=== PATIENT | female | born 1935 | race Caucasian/White ===

== ENCOUNTER → 2021-11-21 09:07 | Outpatient (CLI) | payer MEDICARE, SELFPAY | PROVIDERS: PCP Nurse Practitioner; Referring Provider Student in an Organized Health Care Education/Training Program; Visit Provider Student in an Organized Health Care Education/Training Program | DX: T14.8XXA Other injury of unspecified body region, initial encounter (principal); W57.XXXA Bitten or stung by nonvenomous insect and other nonvenomous arthropods, initial encounter | CPT/HCPCS: 36415; 86617 ==

== ENCOUNTER → 2022-02-27 10:29 | Outpatient (CLI) | payer MEDICARE, SELFPAY ==
[2022-02-27 12:56] LABS: Appearance Urine UA CLEAR; Bilirubin Urine UA NEGATIVE (NEGATIVE); Color Urine UA YELLOW; Glucose Urine UA NEGATIVE (Negative); Ketones Urine UA NEGATIVE (NEGATIVE); Leukocyte Esterase Urine UA NEGATIVE (NEGATIVE); Nitrite Urine UA NEGATIVE (Negative); Occult Blood Urine UA NEGATIVE (Negative); Protein Urine UA NEGATIVE (Negative); Urobilinogen Urine UA 0.2 E.U./dL (0.2)
[2022-02-27 13:01] LABS: Alanine Aminotransferase 30 IU/L (<35); Albumin 4.2 g/dL (3.5-5.0); Albumin Globulin Ratio 1.4 (1.0-2.8); Alkaline Phosphatase 63 U/L (38-126); Aspartate Aminotransferase 34 IU/L (14-36); BUN Creatinine Ratio 21.3 (6-22); Bilirubin Total 0.6 mg/dL (0.2-1.3); Blood Urea Nitrogen 13 mg/dL (7-17); Calcium 9.9 mg/dL (8.4-10.2); Carbon Dioxide 31 mmol/L (22-32); Chloride 100 mmol/L (98-107); Cholesterol 133 mg/dL (140-199); Estimated Glomerular Filt Rate > 60 mL/min (>60); Globulin 3.1 g/dL (1.7-4.1); Glucose 93 mg/dL (80-110); HDL Cholesterol 61 mg/dL (40-60); HEMOLYSIS < 15 (0-50); Hemoglobin A1C% w Est Avg Glu 5.7 % (4.0-6.0); LDL Cholesterol Calculated 57 mg/dL (<100); Sodium 137 mmol/L (137-145); Total Protein 7.3 g/dL (6.3-8.2); Triglycerides 73 mg/dL (35-150)
[2022-02-27 13:06] LABS: pH Urine UA 7.5 (4.5-8.0)
[2022-02-27 13:17] LABS: Amorphous Sediment Urine 2+; Bacteria Urine None Seen; Culture Indicated Urine Cult Not Indicated; RBC Urine None Seen (0-5/HPF); Squamous Epithelial Cell Urine None Seen (0-5/HPF); WBC Urine None Seen (0-5/HPF)
[2022-02-27 13:31] LABS: Free T3, Triiodothyronine Free 2.98 pg/mL (2.77-5.27); Free T4, Direct Thyroxine 1.12 ng/dL (0.78-2.19)
[2022-02-27 13:45] LABS: Thyroid Stimulating Hormone 1.22 uIU/mL (0.47-4.68)
[2022-02-27 15:07] LABS: Creatinine Urine Random 53.3 mg/dL
[2022-02-27 15:11] LABS: Microalbumi Creatinin Ratio Ur 13.1 ug/mg CR (<30); Microalbumin Urine Random 0.7 mg/dL (0-1.6)
== END ==
PROVIDERS: PCP Nurse Practitioner; Referring Provider Nurse Practitioner; Visit Provider Nurse Practitioner
DX: I10 Essential (primary) hypertension (principal); Z79.899 Other long term (current) drug therapy; E78.5 Hyperlipidemia, unspecified; F32.A Depression, unspecified; F41.9 Anxiety disorder, unspecified; R30.0 Dysuria
CPT/HCPCS: 36415; 80053; 80061; 81001; 82043; 82570; 83036; 84439; 84443; 84481; 93005; 93010

== ENCOUNTER → 2022-04-17 15:51 | Outpatient (CLI) | payer MEDICARE, SELFPAY ==
--- NOTE | 2022-04-17 15:52 | DI.ECHO.S_ITS ---
[facility]---------+ [facility] +---------+ : : [address] [place] : : : : [id number] : : : : Phone: [phone]+ Echocardiogram Report + + :Name: ROSIE LACY Study Date: 04/17/2022 Height: 60 in : :[facility] ReadingLocation: Weight: 108 lb : : Gender: Female BSA: 1.4 m2 : :: 1935 Age: 86 yrs BP: 157/88 mmHg: :Reason For Study: Essential hypertension : :Ordering Physician: DMITRI, : :SOUMYA Performed By: Agustina Lang : :Referring: SOUMYA RIZVI : + + Interpretation Summary The left ventricle is normal in size. The ejection fraction is estimated to be 65-70%. The right ventricle is normal in size and function. No significant valvular pathology seen. The ascending aorta is mildly enlarged. The IVC is of normal diameter and collapses greater than 50% with a sniff. This suggests a low right atrial pressure of 3 mm Hg. Moderate atherosclerotic plaque(s) in the aortic arch. Procedure: A two-dimensional transthoracic echocardiogram with color flow and Doppler was performed. The patient was in sinus rhythm with heart rates between 76-84 bpm during the exam. Left Ventricle: The left ventricle is normal in size. Left ventricular wall thickness is mildly increased. There is no thrombus. Trabeculae near apex are visualized. No thrombus is observed. The ejection fraction is estimated to be 65-70%. There are no focal wall motion abnormalities. MV E/A: 0.60 Med Peak E' Sheng: 4.5 cm/sec E/E' med: 15.2. Right Ventricle: The right ventricle is normal in size and function. Atria: The left atrium is mildly dilated. The right atrium is mildly dilated. There is no Doppler evidence for an interatrial shunt. Mitral Valve: The mitral valve leaflets are mildly calcified. There is mild mitral annular calcification. There is mild mitral regurgitation. Aortic Valve: The aortic valve is trileaflet. The aortic valve opens well. The aortic valve is slightly calcified. There is no aortic valve stenosis. No aortic regurgitation is present. Tricuspid Valve: The tricuspid valve is normal in structure and function. There is trace tricuspid regurgitation. Pulmonary artery pressures cannot be estimated because of the lack of a measurable TR jet velocity. Pulmonic Valve: The pulmonic valve leaflets are thin and pliable; valve motion is normal. There is no pulmonic valvular regurgitation. Great Vessels: The aortic root is mildly dilated. The ascending aorta is mildly enlarged. Moderate atherosclerotic plaque(s) in the aortic arch. The IVC is of normal diameter and collapses greater than 50% with a sniff. This suggests a low right atrial pressure of 3 mm Hg. Pericardium/ Pleura There is no pericardial effusion. There is no pleural effusion. MMode/2D Measurements & Calculations LVIDd: 4.1 cm LVOT diam: 1.8 cm LVIDs: 2.5 cm Ao root diam: 3.0 cm FS: 39.0 % asc Aorta Diam: 3.9 cm EPSS: 0.10 cm IVSd: 1.0 cm LVPWd: 0.90 cm LV caicedo. diameter/BSA (cm/m^2): 2.9 LV sys. diameter/BSA (cm/m^2): 1.7 LA dimension: 3.3 cm RA long axis: 4.6 cm LA A2 area: 16.1 cm2 RA area: 14.0 cm2 LA A4 area: 14.7 cm2 RA vol: 36.5 ml LA length (vol): 4.7 cm RA : 25.4 ml/m2 LA vol: 43.0 ml LA vol index: 29.9 ml/m2 LVLs ap4: 4.2 cm LVLd ap2: 5.7 cm LVLs ap2: 4.3 cm TAPSE_phl: 2.2 cm Doppler Measurements & Calculations Ao V2 max: 127.0 cm/sec LVOT Max Sheng: 107.0 cm/sec Ao V2 mean: 86.8 cm/sec LV V1 max P.6 mmHg Ao max P.0 mmHg LV V1 VTI: 22.4 cm Ao mean P.0 mmHg EDGAR(I,D): 2.3 cm2 Ao V2 VTI: 24.9 cm EDGAR(V,D): 2.1 cm2 sev ratio: 0.90 EDGAR indexed to BSA (cm^2/m^2): 1.6 MV E max sheng: 67.7 cm/sec TR max sheng: 214.5 cm/sec MV A max sheng: 113.0 cm/sec TR max P.4 mmHg MV E/A: 0.60 PA V2 max: 68.9 cm/sec Med Peak E' Sheng: 4.5 cm/sec PA V2 mean: 50.6 cm/sec E/E' med: 15.2 PA mean P.0 mmHg Lat Peak E' Sheng: 5.5 cm/sec E/E' lat: 12.3 E/e' average: 13.8 MV dec time: 0.26 sec MVA(VTI): 2.4 cm2 MV V2 mean: 68.5 cm/sec SV(LVOT): 57.0 ml MV mean P.0 mmHg MV V2 VTI: 24.0 cm AV VR_phl: 0.84 EDGAR(VTI)/BSA_phl: 1.6 Reading Physician:02:26 PM
== END ==
PROVIDERS: PCP Nurse Practitioner; Referring Provider Nurse Practitioner; Visit Provider Nurse Practitioner
DX: I77.810 Thoracic aortic ectasia (principal); I34.0 Nonrheumatic mitral (valve) insufficiency; I70.0 Atherosclerosis of aorta; I77.89 Other specified disorders of arteries and arterioles; I10 Essential (primary) hypertension
CPT/HCPCS: 93306

== ENCOUNTER → 2022-06-01 15:37 | Outpatient (CLI) | payer MEDICARE, SELFPAY ==
--- NOTE | 2022-06-01 15:37 | DI.MG.S_ITS ---
BILATERAL DIGITAL SCREENING MAMMOGRAM 3D/2D WITH CAD: 06/01/2022 CLINICAL: Routine screening. No prior exams were available for comparison. Both breasts are almost entirely fatty (category a/<25% glandular tissue). Current study was also evaluated with a Computer Aided Detection (CAD) system. There are benign vascular calcifications in both breasts. No significant masses, calcifications, or other findings are seen in either breast. IMPRESSION: BENIGN There is no mammographic evidence of malignancy. A 1 year screening mammogram is recommended. This exam was interpreted at Station ID: [id number]. NOTE: For mammograms, a report in lay terms will be sent to the patient. Approximately 15% of breast malignancies will not be visualized mammographically. In the management of a palpable breast mass, a negative mammogram must not discourage biopsy of a clinically suspicious lesion. Electronically Signed By: Matty Samayoa M.D. acr/penrad:06/01/2022 16:32:24 letter sent: Normal Exam ACR BI-RADS Category 2: Benign Finding(s) 3342F
== END ==
PROVIDERS: PCP Nurse Practitioner; Referring Provider Nurse Practitioner; Visit Provider Nurse Practitioner
DX: Z12.31 Encounter for screening mammogram for malignant neoplasm of breast (principal)
CPT/HCPCS: 77063; 77067

== ENCOUNTER → 2022-08-10 12:55 | Outpatient (CLI) | payer MEDICARE, SELFPAY ==
[2022-08-10 14:06] LABS: Add Manual Diff / Slide Review NO; Basophils Absolute Auto 100 /uL (0-100); Basophils Percent Auto 0.9 % (0-2); Eosinophils Absolute Auto 200 /uL (0-450); Eosinophils Percent Auto 2.9 % (2-4); Hematocrit 37.9 % (36-46); Hemoglobin 12.9 g/dL (12.0-16.0); Lymphocytes Absolute Auto 1700 /uL (1100-4500); Lymphocytes Percent Auto 22.3 % (25-40); Mean Corpuscular HGB Conc 34.1 % (30-36); Mean Corpuscular Hemoglobin 33.3 PG (26-34); Mean Corpuscular Volume 97.7 fL (80-100); Monocytes Absolute Auto 700 /uL (0-900); Monocytes Percent Auto 9.6 % (3-14); Neutrophils Absolute Auto 4800 /uL (1500-7000); Neutrophils Percent Auto 64.3 % (50-75); Platelet Count 220 X10^3/uL (150-400); Red Blood Cell Count 3.88 X10^6/uL (4.0-5.2); Red Cell Distribution Width 13.6 % (11.6-14.8); White Blood Cell Count 7.5 X10^3/uL (4.5-11.0)
[2022-08-10 14:37] LABS: Alanine Aminotransferase 29 IU/L (<35); Albumin Globulin Ratio 1.4 (1.0-2.8); Alkaline Phosphatase 70 U/L (38-126); Aspartate Aminotransferase 30 IU/L (14-36); BUN Creatinine Ratio 28.8 (6-22); Bilirubin Total 0.4 mg/dL (0.2-1.3); Blood Urea Nitrogen 19 mg/dL (7-17); Calcium 9.9 mg/dL (8.4-10.2); Carbon Dioxide 28 mmol/L (22-32); Chloride 102 mmol/L (98-107); Estimated Glomerular Filt Rate > 60 mL/min (>60); Globulin 2.8 g/dL (1.7-4.1); Glucose 87 mg/dL (80-110); HEMOLYSIS < 15 (0-50); Potassium 4.7 mmol/L (3.4-5.1); Sodium 136 mmol/L (137-145); Total Protein 6.8 g/dL (6.3-8.2)
== END ==
PROVIDERS: PCP Nurse Practitioner; Referring Provider Nurse Practitioner; Visit Provider Nurse Practitioner
DX: E78.2 Mixed hyperlipidemia (principal); I10 Essential (primary) hypertension; Z01.812 Encounter for preprocedural laboratory examination; Z51.81 Encounter for therapeutic drug level monitoring; Z79.83 Long term (current) use of bisphosphonates
CPT/HCPCS: 36415; 80053; 85025

== ENCOUNTER 2022-08-11 17:11 | Emergency (ER) | payer MEDICARE, SELFPAY ==
[2022-08-11] VITALS (13 sets, daily range): BP systolic 149–195; BP diastolic 71–111; PULSE 83–96; RESP 16–25; TEMP 37.2; O2SAT 92–95; BMI 23.2
--- NOTE | 2022-08-11 17:22 | ED_ITS ---
HPI - General Adult <Khari Estrada DO - Last Filed: 08/13/22 07:15> General Chief complaint: Trauma Stated complaint: GLF Time Seen by Provider: 08/11/22 17:15 Source: patient and EMS Mode of arrival: Ambulatory Limitations: no limitations History of Present Illness HPI narrative: Patient is an 86-year-old female who is brought in by EMS for evaluation of injuries that she sustained when she was out gardening. She states she lost her balance and fell over? a wall? she slid down a small hill. She potentially is laying on the ground for several hours. Patient did not hit her head. No loss of consciousness. She did have some upper back discomfort your was was and some left rib discomfort. No pelvic pain. No lower extremity pain. Related Data Home Medications Medication Instructions Recorded Confirmed aspirin 81 mg tablet,delayed 81 mg PO DAILY 02/10/22 04/28/22 release calcium 1,200 mg PO .QD 02/10/22 04/28/22 cholecalciferol (vitamin D3) 25 75 mcg PO .COMPLEX 02/10/22 04/28/22 mcg (1,000 unit) capsule loratadine 10 mg tablet (Claritin) 10 mg PO DAILY 02/10/22 04/28/22 meclizine 25 mg tablet 25 mg PO DAILY PRN 02/10/22 04/28/22 mecobalamin (vitamin B12) 1,000 1,000 mcg PO DAILY 02/10/22 04/28/22 mcg lozenges [id number]-[id number]-acilfp tablet 1 tab PO DAILY 02/10/22 04/28/22 vitamin E mixed 400 unit capsule unit PO 02/10/22 04/28/22 Previous Rx's Medication Instructions Recorded atorvastatin 20 mg tablet 20 mg PO DAILY #90 tabs 02/10/22 latanoprost 0.005 % eye drops 1 drp EYE-BOTH QPM #2.5 mL 02/10/22 losartan 50 mg tablet 50 mg PO DAILY #90 tabs 02/10/22 fluoxetine 40 mg capsule See Rx Instructions .Route 04/18/22 .COMPLEX #90 caps albuterol sulfate 90 mcg/actuation 2 puff inhalation Q4-6H PRN 04/28/22 aerosol inhaler shortness of breath or wheezing #6.7 grams budesonide-formoterol HFA 80 2 puff inhalation BID #10.2 grams 07/22/22 mcg-4.5 mcg/actuation aerosol inhaler (Symbicort) hydrocodone 5 mg-acetaminophen 325 1 tab PO Q4-6H PRN pain #20 tabs 08/11/22 mg tablet lidocaine 5 % topical patch 1 patch topical DAILY #15 ea 08/11/22 (Lidoderm) Allergies Allergy/AdvReac Type Severity Reaction Status Date / Time Macrolide Antibiotics AdvReac Mild Verified 04/28/22 14:37 Penicillins AdvReac Mild Verified 04/28/22 14:37 Sulfa (Sulfonamide AdvReac Mild Verified 04/28/22 14:37 Antibiotics) Review of Systems <Khari Estrada DO - Last Filed: 08/13/22 07:15> Constitutional Constitutional: Reports system reviewed and no additional complaints, except as documented ENT Ears, Nose, Mouth, and Throat: Reports system reviewed and no additional complaints, except as documented Cardiovascular Cardiovascular: Reports system reviewed and no additional complaints, except as documented Respiratory Respiratory: Reports system reviewed and no additional complaints, except as documented Gastrointestinal Gastrointestinal: Reports system reviewed and no additional complaints, except as documented Genitourinary Genitourinary: Reports system reviewed and no additional complaints, except as documented Musculoskeletal Musculoskeletal: Reports system reviewed and no additional complaints, except as documented Integumentary/Breasts Skin/Breast: Reports system reviewed and no additional complaints, except as documented Neurologic Neurologic: Reports system reviewed and no additional complaints, except as documented Patient History <Khari Estrada DO - Last Filed: 08/13/22 07:15> Medical History Allergies Anxiety (~1971) Asthma Chicken pox COPD (chronic obstructive pulmonary disease) (~2004) COVID-19 Depression (~1971) Fractures Hearing loss (~2006) Hyperlipidemia Hypertension Measles Mumps Osteoporosis (~2006) Vertigo Wears glasses Surgical History Anesthesia History of splenectomy (~1967) History of tonsillectomy and adenoidectomy Ulcerative colitis (~1977) Social History Smoking Status: Never smoker Smoking Status: Never smoker Exam <DO Frederic Renee Last Filed: 08/13/22 07:15> Initial Vital Signs Initial Vital Signs: Vital Signs Pulse Rate 86 08/11/22 17:28 Pulse Oximetry 92 08/11/22 17:28 Const General: cooperative, comfortable and No ill appearing HENMT Head: normal to inspection and normocephalic Mouth: oral mucosae normal Chest Chest: No crepitus and tenderness (Left-sided chest wall) Resp Effort & Inspection: normal respiratory effort Auscultation: clear to auscultation bilaterally Cardio Rate: regular rate GI Inspection: normal to inspection and non-distended Palpation: soft Back/Spine/Pelvis Cervical Spine: No cervical spinal tenderness Thoracic/Lumbar Spine: thoracic spinal tenderness and No lumbar spinal tenderness Skin General: no rashes or lesions noted Neuro General: patient alert, patient awake, patient oriented x3 and moves all extremities Extrem General: capillary refill normal Psych Appearance: grossly normal and well kempt <Koko Park DO - Last Filed: 08/12/22 05:36> Initial Vital Signs Initial Vital Signs: Vital Signs Pulse Rate 86 08/11/22 17:28 Pulse Oximetry 92 08/11/22 17:28 Scores <Khari Estrada DO - Last Filed: 08/13/22 07:15> GCS Heidi coma scale eye opening: Spontaneous Heidi coma scale verbal response: Orientated [place] coma scale motor response: Obey commands Heidi coma scale total score: 15 Nexus Score for C-Spine Focal Neurologic deficit present: No Midline spinal tenderness present: No Altered level of conciousness present: No Intoxication present: No Distracting Injury Present: No Nexus Criteria for C-spine: 0 <Koko Park DO - Last Filed: 08/12/22 05:36> GCS [place] coma scale total score: 15 Nexus Score for C-Spine Nexus Criteria for C-spine: 0 Course <Khari Estrada DO - Last Filed: 08/13/22 07:15> Orders Ordered: Discontinued Medications Hydrocodone Bitart/Acetaminophen (Hydrocodone/Acet 5/325 Prepack) 1 bottle MISC SEEINSTR ONE Stop: 08/11/22 20:20 Last Admin: 08/11/22 20:41 Dose: 1 bottle Documented By: PATITO Lidocaine (Lidocaine Patch 1 Each Adh..Patch) 1 each TOP NOW ONE Stop: 08/11/22 20:20 Last Admin: 08/11/22 20:39 Dose: 1 each Documented By: PATITO Ondansetron HCl (Ondansetron 4 Mg Odt Prepack) 1 bottle MISC SEEINSTR ONE Stop: 08/11/22 20:20 Last Admin: 08/11/22 20:41 Dose: 1 bottle Documented By: PATITO Vital Signs Vital signs: Vital Signs - 8 hr 08/11/22 21:41 08/11/22 21:41 Pulse Rate 93 H Respiratory Rate 21 Blood Pressure 149/71 H Pulse Oximetry 93 <Koko Park DO - Last Filed: 08/12/22 05:36> Orders Ordered: Discontinued Medications Hydrocodone Bitart/Acetaminophen (Hydrocodone/Acet 5/325 Prepack) 1 bottle MISC SEEINSTR ONE Stop: 08/11/22 20:20 Last Admin: 08/11/22 20:41 Dose: 1 bottle Documented By: PATITO Lidocaine (Lidocaine Patch 1 Each Adh..Patch) 1 each TOP NOW ONE Stop: 08/11/22 20:20 Last Admin: 08/11/22 20:39 Dose: 1 each Documented By: PATITO Ondansetron HCl (Ondansetron 4 Mg Odt Prepack) 1 bottle MISC SEEINSTR ONE Stop: 08/11/22 20:20 Last Admin: 08/11/22 20:41 Dose: 1 bottle Documented By: PATITO Vital Signs Vital signs: Vital Signs - 8 hr 08/11/22 21:41 08/11/22 21:41 Pulse Rate 93 H Respiratory Rate 21 Blood Pressure 149/71 H Pulse Oximetry 93 Medical Decision Making <Khari Estrada DO - Last Filed: 08/13/22 07:15> Lab Data Labs: Urine Dip Bedside Urine Glucose Negative Bedside Urine Bilirubin - Negative Bedside Urine Ketone +/- 5 Urine Specific [place] 1.010 Bedside Urine Occult Blood - Negative Bedside Urine pH 7.5 Bedside Urine Protein - Negative Bedside Urine Urobilinogen - Negative Bedside Urine Nitrite - Negative Bedside Urine Leukocytes - Negative Esterase Point of care testing: Urine Dip Bedside Urine Glucose Negative Bedside Urine Bilirubin - Negative Bedside Urine Ketone +/- 5 Urine Specific [place] 1.010 Bedside Urine Occult Blood - Negative Bedside Urine pH 7.5 Bedside Urine Protein - Negative Bedside Urine Urobilinogen - Negative Bedside Urine Nitrite - Negative Bedside Urine Leukocytes - Negative Esterase MDM Narrative Medical decision making narrative: Patient is alert oriented. No loss of consciousness. Cervical spine cleared by nexus criteria. She does have thoracic and left chest discomfort. No respiratory distress. Abdomen is soft. CT scan of the chest ordered for evaluation of stated injuries. Her pelvis is stable. No lower extremity injuries. Care turned over to Dr. Park to follow-up on CT scan and disposition. <Koko Xavier, DO - Last Filed: 08/12/22 05:36> Lab Data Labs: Urine Dip Bedside Urine Glucose Negative Bedside Urine Bilirubin - Negative Bedside Urine Ketone +/- 5 Urine Specific [place] 1.010 Bedside Urine Occult Blood - Negative Bedside Urine pH 7.5 Bedside Urine Protein - Negative Bedside Urine Urobilinogen - Negative Bedside Urine Nitrite - Negative Bedside Urine Leukocytes - Negative Esterase Point of care testing: Urine Dip Bedside Urine Glucose Negative Bedside Urine Bilirubin - Negative Bedside Urine Ketone +/- 5 Urine Specific [place] 1.010 Bedside Urine Occult Blood - Negative Bedside Urine pH 7.5 Bedside Urine Protein - Negative Bedside Urine Urobilinogen - Negative Bedside Urine Nitrite - Negative Bedside Urine Leukocytes - Negative Esterase MDM Narrative Medical decision making narrative: Patient is alert oriented. No loss of consciousness. Cervical spine cleared by nexus criteria. She does have thoracic and left chest discomfort. No respiratory distress. Abdomen is soft. CT scan of the chest ordered for evaluation of stated injuries. Her pelvis is stable. No lower extremity injuries. Care turned over to Dr. Park to follow-up on CT scan and disposition. [1800] (Xavier) Patient received in sign out from [[email or web address]]. I have reviewed the clinical course and performed an independent history and physical exam. She is complaining only of right-sided rib pain, images pending Discharge Plan Departure Patient Disposition: Home Clinical Impression: Contusion of rib on right side Instructions: DI for Trauma Activity Restrictions/Additional Instructions: *You have been diagnosed with [right-sided rib contusion after fall. As we discussed your history and physical exam as well as imaging are reassuring and there is no obvious rib fracture or underlying lung injury.] *What to do: *Please continue to take your regular medications as directed. [x ] New medication prescriptions sent to your pharmacy: [[facility] in [place] ] [ ] New medication written as a paper prescription [ ] No new medications given *Please follow up with your primary care provider in 2-3 days, call for an appointment. Let them know you were seen in the Emergency Department and that we ask that you be seen in follow up. We will electronically transmit a record of today's note if your PCP is in our system *If you do not have a primary care provider please contact the [facility] Resource line at [phone]. They will ask some questions about your medical history and help get you set up with a doctor in the community. *Return to Emergency Department if you should have any new, worsening or concerning symptoms, such as [fever greater than 101 F, shaking chills, worsening pain, persistent vomiting or other bothersome symptoms] You have been prescribed a short course of narcotic medications. These are potentially dangerous and addictive medications that should be used carefully. While on these medications you cannot drive or operate heavy machinery. Additionally, you cannot sign legal documents or perform any duties such as this. Many people get constipated on narcotic medications so it would be advisable to discuss stool softeners with the pharmacist when you pickler helper your prescription. Please understand that we cannot provide further refills of narcotics or controlled substances through the ED and your pain management will need to be through your Primary Care Provider Prescriptions: New lidocaine [Lidoderm] 5 % adhesive patch,medicated 1 patch TOP DAILY Qty: 15 0RF Rx Instructions: leave on most painful area for 12 hrs hydrocodone-acetaminophen 5-325 mg tablet 1 tab PO Q4-6H PRN (Reason: pain) Qty: 20 0RF No Action fluoxetine 40 mg capsule See Rx Instructions .ROUTE .COMPLEX Qty: 90 3RF Dose Instruction: take 1 capsule once daily Rx Instructions: take 1 capsule once daily budesonide-formoterol [Symbicort] 80-4.5 mcg/actuation HFA aerosol inhaler 2 puff inhalation BID Qty: 10.2 3RF albuterol sulfate 90 mcg/actuation HFA aerosol inhaler 2 puff inhalation Q4-6H PRN (Reason: shortness of breath or wheezing) Qty: 6.7 3RF Rx Instructions: 2 puffs inhaled by mouth every 4-6 hours as needed for shortness of breath aspirin 81 mg tablet,delayed release (DR/EC) 81 mg PO DAILY loratadine [Claritin] 10 mg tablet 10 mg PO DAILY [id number] Tablet 1 tab PO DAILY vitamin E mixed 400 unit capsule PO mecobalamin (vitamin B12) 1,000 mcg lozenge 1,000 mcg PO DAILY Rx Instructions: allow to dissolve in mouth OR may chew lightly before swallowing cholecalciferol (vitamin D3) 25 mcg (1,000 unit) capsule 75 mcg PO .COMPLEX Rx Instructions: Wed-Wednesday calcium 1,200 mg PO .QD meclizine 25 mg tablet 25 mg PO DAILY PRN atorvastatin 20 mg tablet 20 mg PO DAILY Qty: 90 3RF latanoprost 0.005 % drops 1 drp EYE-BOTH QPM Qty: 2.5 3RF losartan 50 mg tablet 50 mg PO DAILY Qty: 90 3RF Referrals: Alejandra Truong ARNP [Primary Care Provider] - Stand Alone Forms: Patient Portal/API
--- NOTE | 2022-08-11 17:53 | DI.CT.S_ITS ---
PROCEDURE: CT CHEST W CON INDICATIONS: Thoracic spine pain and left rib pain with SOB TECHNIQUE: After the administration of intravenous contrast, 5 mm thick sections acquired from the pulmonary apices to the posterior costophrenic angles. 1 mm axial lung, 5 mm thick coronal and sagittal reformats and 7 mm axial MIP were acquired. For radiation dose reduction, the following was used: automated exposure control, adjustment of mA and/or kV according to patient size. COMPARISON: None. FINDINGS: Image quality: Excellent. Lungs and pleura: Bibasilar atelectasis. No acute air space opacities. No pleural effusions or pneumothorax. Central and peripheral airways are patent and normal in caliber. Mediastinum: Heart size is enlarged. No pericardial effusion. No mediastinal adenopathy by size criteria. Thoracic aorta and central pulmonary arteries are normal in size. Esophagus is normal in caliber. Small hiatal hernia. Bones and chest wall: T2 and T9 have compression fractures of indeterminate age. Healing fracture of the left 2nd rib anteriorly. Cannot exclude a pathologic fracture. No axillary or supraclavicular adenopathy by size criteria. Thyroid gland is normal. In Abdomen: Limited visualization of the upper abdomen shows no acute abnormality. multiple stones are seen within the gallbladder. IMPRESSION: 1. No acute abnormality of the chest. 2. Compression fractures of T2 and T9 of indeterminate age. 3. Healing fracture of the left anterior 2nd rib. Cannot exclude a pathologic fracture. Dictated by: Matty Samayoa M.D. on 08/11/2022 at 19:09 Approved by: Matty Samayoa M.D. on 08/11/2022 at 19:16
[2022-08-11] MEDS: LIDOCAINE PATCH 1 EACH ADH..PATCH TOP (20:39)
[2022-08-11] MEDS: ONDANSETRON 4 MG ODT PREPACK 1 BOTTLE MISC (20:41)
[2022-08-11] MEDS: HYDROCODONE/ACET 5/325 PREPACK 1 BOTTLE MISC (20:41)
== END 2022-08-11 22:29 | disposition home or self-care (01) ==
PROVIDERS: Emergency Provider Emergency Medicine; PCP Nurse Practitioner
DX: S20.211A Contusion of right front wall of thorax, initial encounter (principal); M54.6 Pain in thoracic spine; W18.30XA Fall on same level, unspecified, initial encounter; Y93.H2 Activity, gardening and landscaping
CPT/HCPCS: 71260; 81003; 99284

== ENCOUNTER 2022-10-22 11:30 | Outpatient (RCR) | payer MEDICARE, SELFPAY ==
--- NOTE | 2022-09-10 16:57 | PT.OIE ---
Addendum entered and electronically signed by Edelmira Foley PT 09/10/22 17:07: Modified Oswestry score = 14 Original Note: Current Diagnoses Other specified forms of tremor (09/10/22) Other abnormalities of gait and mobility (09/10/22) Other displaced fracture of second cervical vertebra, subsequent encounter for fracture with routine healing (09/10/22) Contusion of right front wall of thorax, initial encounter (09/10/22) Wedge compression fracture of T9-T10 vertebra, subsequent encounter for fracture with routine healing (09/10/22) Unspecified fall, initial encounter (09/10/22) Past Medical History (Last Reviewed 09/09/22 @ 10:52 by MOSES Chowdary) Allergies Anxiety (~1971) Asthma Chicken pox Compression fracture of second cervical vertebra Compression fracture of T9 vertebra COPD (chronic obstructive pulmonary disease) (~2004) COVID-19 Depression (~1971) Fractures Hearing loss (~2006) Hyperlipidemia Hypertension Measles Mumps Osteoporosis (~2006) Vertigo Wears glasses Past Surgical History (Last Reviewed 09/09/22 @ 10:52 by MOSES Chowdary) Anesthesia History of splenectomy (~1967) History of tonsillectomy and adenoidectomy Ulcerative colitis (~1977) Visit Care Team Role Provider Type MOSES Chowdary Attending Provider Advanced Crime Scene Evidence Technician Family Provider Primary Care Provider Referring Provider Specialty: [facility] Address: [address] [place] [address], [facility] Email: [email or web address] Physical Therapy Initial Evaluation PT-OP-A Visit Information Start: 09/10/22 13:51 Freq: Status: Active Protocol: Document 09/10/22 13:51 ES (Rec: 09/10/22 14:46 ES [id number]) Out-Patient Physical Therapy Visit Information Visit Information Visit Type Initial Evaluation Visit Start Time 13:51 Visit Stop Time 14:41 Total Visit Minutes 50 Visit Number 1 Evaluation Information Evaluation Date 09/10/22 PT-OP-B Current Condition Start: 09/10/22 13:51 Freq: Status: Active Protocol: Document 09/10/22 13:51 ES (Rec: 09/10/22 14:46 ES [id number]) Current Condition History of Current Condition Onset Date 5 weeks ago Current Complaints Decreased balance, back pain History of Current Condition Patient fell about 5 weeks ago at her son's house. She was working in a raised garden on an incline, slipped and slid over a 2ft tall retaining wall and ended up on her back. The fall resulted in a compression fracture at T9. The back pain has been getting better over time. Notes from her PCP state she had HHPT, but patient stated she didn't get any. She has been living with her son since last October. She is working on finding a place to move into and her daughter will be moving in with her. She has a hx of prior falls. Treatment Goals Patient/Caregiver Goals To make sure I can function as far as balance, and gain some confidence with being able to get around on my own. [place]. Prior Functional Status Baseline Function- Other Was hiking [place] for a little over an hour without AD (4 lengths), a couple times/week prior to this injury. Was going to the gym 1-2x/week and was working with a personal loan specialist. Was driving. Current Functional Impairments (Reported) Functional Limitations- Mobility/Gait Uses a trekking pole to walk the [place] trail, and not able to make it one full length yet. Functional Limitations- Other Is not driving. Has not gone back to the gym yet; isn't sure if she's ready. PT-OP-C Subjective Start: 09/10/22 13:51 Freq: Status: Active Protocol: Document 09/10/22 13:51 ES (Rec: 09/10/22 14:46 ES [id number]) Patient Questionnaires ABC- Activity Specific Balance Confidence Scale ABC Score 83 ABC Functional Impairment 1 to <20% Impaired (Score 81- 99) OP-PT Pain Assessment Location Mid back Pain Location Details B mid back Scale Used 3/10 at worst, 0/10 at best Description Spasm Description- Other Twinge Frequency Daily Variations/Patterns Better in the AM Pain Aggravating Factors Sitting,Prolonged Bedrest Pain Alleviating Factors Standing,Exercise PT-OP-D Balance Start: 09/10/22 13:51 Freq: Status: Active Protocol: Document 09/10/22 13:51 ES (Rec: 09/10/22 16:32 ES [id number]) Balance Tests Rodriguez Balance Test Rodriguez Balance Test Score 49 Rodriguez Impairment Rating 1 to 19% Impaired (Score 45-55 ) PT-OP-E Functional Tests Start: 09/10/22 13:51 Freq: Status: Active Protocol: Document 09/10/22 13:51 ES (Rec: 09/10/22 14:46 ES [id number]) Functional Tests Dynamic Gait Index (DGI) Score 19 DGI Impairment Rating 20 to <40% Impaired (Score 15- 19) Five Times Sit to Stand Test Score 18.5 seconds Comments Norm for age = 14.8 seconds; > 15 seconds is related to recurrent falls PT-OP-G Mobility & Gait Start: 09/10/22 13:51 Freq: Status: Active Protocol: Document 09/10/22 13:51 ES (Rec: 09/10/22 16:49 ES [id number]) OP Gait Assessment Comments Gait Comments Ambulates with narrow gait, R foot slight in-toe pattern, decreased step and stride length. Occasionally catches foot on floor and other foot on both tile and carpet floor. PT-OP-M Strength Start: 09/10/22 13:51 Freq: Status: Active Protocol: Document 09/10/22 13:51 ES (Rec: 09/10/22 16:49 ES [id number]) Hip Strength Hip Manual Muscle Testing Right External Rotation 4 Good Internal Rotation 4 Good Comments Difficulty with single leg bridge - able to lift 75% of the range Left External Rotation 4- Good- Internal Rotation 4 Good Comments Difficulty with single leg bridge - able to lift 50% of the range PT-OP-T Assessment and Plan Start: 09/10/22 13:51 Freq: Status: Active Protocol: Document 09/10/22 13:51 ES (Rec: 09/10/22 16:49 ES [id number]) Physical Therapy Assessment Rehab Potential Rehabilitation Potential Good Evaluation Complexity Number of Personal Factors/Comorbidities 0 Number of Body Systems Impaired 1-2 Clinical Presentation at Evaluation Stable Impairments Impairments Balance,Functional Activities, Functional Mobility,Gait,Pain, Strength Goals Four Impairment Functional mobility Long-Term Goal (LTG) Patient will be able to walk 4 full lengths on [place] trail without AD within 1.25 hours indicating return to her prior level of function. LTG Duration 8 weeks (11/05/22) Three Impairment Weakness/balance Short Term Goal (STG) Patient will be able to perform SLS for 3 seconds or greater B to improve gait pattern and balance. STG Duration 4 weeks (10/08/22) Shot Dropper Goal (LTG) Patient will be able to perform SLS for 10 seconds or greater B to improve gait pattern and balance. LTG Duration 8 weeks (11/05/22) Two Impairment Balance Shot Dropper Goal (LTG) Patient will improve DGI score to 21 or more indicating clinically significant reduction in fall risk. LTG Duration 8 weeks (11/05/22) One Impairment Weakness Short Term Goal (STG) Patient will improve 5xSTS score to 16.2 seconds or less indicating clinically significant change in functional strength. STG Duration 4 weeks (10/08/22) Shot Dropper Goal (LTG) Patient will improve 5xSTS score to 14 seconds or less indicating normal strength for age and decreased fall risk. LTG Duration 8 weeks (11/05/22) Assessment Summary Assessment Patient is a 87 year old female referred to PT after sustaining a fall resulting in T9 compression fracture. She presents with mild pain that is improving, decreased hip and core strength, decreased balance, and impaired gait pattern. She is functionally limited in her ability to walk long distances and has increased fear of falls. Based on her performance on DGI and 5xSTS, she is at increased risk for falls. She will benefit from PT to address these problems in order to return to her PLOF and increase her safety with functional mobility. Physical Therapy Plan Frequency and Duration Frequency of Treatment 2x/Week Duration of treatment (weeks) 8 Plan of Care Start Date 09/10/22 Plan of Care End Date 11/05/22 Therapeutic Interventions Therapeutic Interventions Balance Training,Coordination Training,Gait Training,Home Exercise Program,Neuromuscular Re-education,Patient/ Caregiver Education,Self-Care/ Home Management,Therapeutic Activities,Therapeutic Exercises Next Visit Focus/Plan Next Note Type Treatment Note Next Visit Plan Initiate hip strengthening ex' s, standing balance ex's, HEP.
--- NOTE | 2022-09-10 16:57 | PT.OPPOC ---
Physical, Occupational & Speech Therapy At [facility] Current Diagnoses Other specified forms of tremor (09/10/22) Other abnormalities of gait and mobility (09/10/22) Other displaced fracture of second cervical vertebra, subsequent encounter for fracture with routine healing (09/10/22) Contusion of right front wall of thorax, initial encounter (09/10/22) Wedge compression fracture of T9-T10 vertebra, subsequent encounter for fracture with routine healing (09/10/22) Unspecified fall, initial encounter (09/10/22) Visit Care Team Role Provider Type MOSES Chowdary Attending Provider Advanced Radio Electronics Officer Family Provider Primary Care Provider Referring Provider Specialty: [facility] Address: [address] [place] [address], [facility] Email: [email or web address] Plan Of Care PT-OP-T Assessment and Plan Start: 09/10/22 13:51 Freq: Status: Active Protocol: Document 09/10/22 13:51 ES (Rec: 09/10/22 16:49 ES [id number]) Physical Therapy Assessment Rehab Potential Rehabilitation Potential Good Evaluation Complexity Number of Personal Factors/Comorbidities 0 Number of Body Systems Impaired 1-2 Clinical Presentation at Evaluation Stable Impairments Impairments Balance,Functional Activities, Functional Mobility,Gait,Pain, Strength Goals Four Impairment Functional mobility Fdc Goal (LTG) Patient will be able to walk 4 full [address] [place] without AD within 1.25 hours indicating return to her prior level of function. LTG Duration 8 weeks (11/05/22) Three Impairment Weakness/balance Short Term Goal (STG) Patient will be able to perform SLS for 3 seconds or greater B to improve gait pattern and balance. STG Duration 4 weeks (10/08/22) Flight Surveyor Goal (LTG) Patient will be able to perform SLS for 10 seconds or greater B to improve gait pattern and balance. LTG Duration 8 weeks (11/05/22) Two Impairment Balance Fdc Goal (LTG) Patient will improve DGI score to 21 or more indicating clinically significant reduction in fall risk. LTG Duration 8 weeks (11/05/22) One Impairment Weakness Short Term Goal (STG) Patient will improve 5xSTS score to 16.2 seconds or less indicating clinically significant change in functional strength. STG Duration 4 weeks (10/08/22) Fdc Goal (LTG) Patient will improve 5xSTS score to 14 seconds or less indicating normal strength for age and decreased fall risk. LTG Duration 8 weeks (11/05/22) Assessment Summary Assessment Patient is a 87 year old female referred to PT after sustaining a fall resulting in T9 compression fracture. She presents with mild pain that is improving, decreased hip and core strength, decreased balance, and impaired gait pattern. She is functionally limited in her ability to walk long distances and has increased fear of falls. Based on her performance on DGI and 5xSTS, she is at increased risk for falls. She will benefit from PT to address these problems in order to return to her PLOF and increase her safety with functional mobility. Physical Therapy Plan Frequency and Duration Frequency of Treatment 2x/Week Duration of treatment (weeks) 8 Plan of Care Start Date 09/10/22 Plan of Care End Date 11/05/22 Therapeutic Interventions Therapeutic Interventions Balance Training,Coordination Training,Gait Training,Home Exercise Program,Neuromuscular Re-education,Patient/ Caregiver Education,Self-Care/ Home Management,Therapeutic Activities,Therapeutic Exercises Next Visit Focus/Plan Next Note Type Treatment Note Next Visit Plan Initiate hip strengthening ex' s, standing balance ex's, HEP. Plan of Care Dates Plan of Care Start Date 09/10/22 Plan of Care End Date 11/05/22 Electronically Signed by: Edelmira Foley PT 09/10/22 [id number] If you are in agreement with this Plan of Care, please return a signed and dated copy. I have reviewed this Plan of Care and certify that the skilled therapy services above are required to meet the patient?s needs. Physician Signature Date Printed Name and Credentials Clinical Instructor Signature Printed Name and Credentials
--- NOTE | 2022-09-17 11:36 | PT.OTN ---
Current Diagnoses Other specified forms of tremor (09/17/22) Other abnormalities of gait and mobility (09/17/22) Other displaced fracture of second cervical vertebra, subsequent encounter for fracture with routine healing (09/17/22) Contusion of right front wall of thorax, initial encounter (09/17/22) Wedge compression fracture of T9-T10 vertebra, subsequent encounter for fracture with routine healing (09/17/22) Unspecified fall, initial encounter (09/17/22) Physical Therapy Treatment Note PT-OP-A Visit Information Start: 09/10/22 13:51 Freq: Status: Active Protocol: Document 09/17/22 10:51 ES (Rec: 09/17/22 11:35 ES [id number]) Out-Patient Physical Therapy Visit Information Visit Information Visit Type Treatment Note Visit Start Time 10:51 Visit Stop Time 11:29 Total Visit Minutes 38 Visit Number 2 PT-OP-B Current Condition Start: 09/10/22 13:51 Freq: Status: Active Protocol: Document 09/10/22 13:51 ES (Rec: 09/10/22 14:46 ES [id number]) Current Condition History of Current Condition Onset Date 5 weeks ago Current Complaints Decreased balance, back pain History of Current Condition Patient fell about 5 weeks ago at her son's house. She was working in a raised garden on an incline, slipped and slid over a 2ft tall retaining wall and ended up on her back. The fall resulted in a compression fracture at T9. The back pain has been getting better over time. Notes from her PCP state she had HHPT, but patient stated she didn't get any. She has been living with her son since last October. She is working on finding a place to move into and her daughter will be moving in with her. She has a hx of prior falls. Treatment Goals Patient/Caregiver Goals To make sure I can function as far as balance, and gain some confidence with being able to get around on my own. [place]. Prior Functional Status Baseline Function- Other Was hiking the [place] for a little over an hour without AD (4 lengths), a couple times/week prior to this injury. Was going to the gym 1-2x/week and was working with a representative personal service. Was driving. Current Functional Impairments (Reported) Functional Limitations- Mobility/Gait Uses a trekking pole to walk the [place] trail, and not able to make it one full length yet. Functional Limitations- Other Is not driving. Has not gone back to the gym yet; isn't sure if she's ready. PT-OP-C Subjective Start: 09/10/22 13:51 Freq: Status: Active Protocol: Document 09/17/22 10:51 ES (Rec: 09/17/22 11:35 ES [id number]) OP-PT Subjective Patient Comments Patient Comments Patient reported she did quite a bit of walking over the weekend. Thinks her COPD limits her. Has stopped taking her pain medication for her back. Still noticing her R leg likes to turn inward. PT-OP-D Balance Start: 09/10/22 13:51 Freq: Status: Active Protocol: Document 09/10/22 13:51 ES (Rec: 09/10/22 16:32 ES [id number]) Balance Tests Rodriguez Balance Test Rodriguez Balance Test Score 49 Rodriguez Impairment Rating 1 to 19% Impaired (Score 45-55 ) PT-OP-E Functional Tests Start: 09/10/22 13:51 Freq: Status: Active Protocol: Document 09/10/22 13:51 ES (Rec: 09/10/22 14:46 ES [id number]) Functional Tests Dynamic Gait Index (DGI) Score 19 DGI Impairment Rating 20 to <40% Impaired (Score 15- 19) Five Times Sit to Stand Test Score 18.5 seconds Comments Norm for age = 14.8 seconds; > 15 seconds is related to recurrent falls PT-OP-G Mobility & Gait Start: 09/10/22 13:51 Freq: Status: Active Protocol: Document 09/10/22 13:51 ES (Rec: 09/10/22 16:49 ES [id number]) OP Gait Assessment Comments Gait Comments Ambulates with narrow gait, R foot slight in-toe pattern, decreased step and stride length. Occasionally catches foot on floor and other foot on both tile and carpet floor. PT-OP-M Strength Start: 09/10/22 13:51 Freq: Status: Active Protocol: Document 09/10/22 13:51 ES (Rec: 09/10/22 16:49 ES [id number]) Hip Strength Hip Manual Muscle Testing Right External Rotation 4 Good Internal Rotation 4 Good Comments Difficulty with single leg bridge - able to lift 75% of the range Left External Rotation 4- Good- Internal Rotation 4 Good Comments Difficulty with single leg bridge - able to lift 50% of the range PT-OP-Q Treatments Start: 09/10/22 13:51 Freq: Status: Active Protocol: Document 09/17/22 10:51 ES (Rec: 09/17/22 11:35 ES [id number]) Cardio Equipment Recumbent Elliptical (Biodex) Duration (Minutes) 5 Resistance 4 Therapeutic Exercises Supine Exercises BKFO Side bilateral Resistance L3 band Reps/Minutes x10 Standing Exercises Heel raises Side bilateral Equipment Used step Reps/Minutes 2x10 Comments Single leg, UE support on stairs STS Reps/Minutes 2x10 Comments No UE support, tapping to chair without sitting Neuro Re-Education Treatment Balance Activities Standing balance training Details Tandem stance, SLS, eyes open Surface firm Equipment Rail Self-Care/Home Management Treatment Education Patient Education Home Exercise Program Other Education See handout scanned in chart PT-OP-T Assessment and Plan Start: 09/10/22 13:51 Freq: Status: Active Protocol: Document 09/17/22 10:51 ES (Rec: 09/17/22 11:35 ES [id number]) Physical Therapy Assessment Goals Four Impairment Functional mobility Skilled Nursing Goal (LTG) Patient will be able to walk 4 full lengths on [place] trail without AD within 1.25 hours indicating return to her prior level of function. LTG Duration 8 weeks (11/05/22) Three Impairment Weakness/balance Short Term Goal (STG) Patient will be able to perform SLS for 3 seconds or greater B to improve gait pattern and balance. STG Duration 4 weeks (10/08/22) Skilled Nursing Goal (LTG) Patient will be able to perform SLS for 10 seconds or greater B to improve gait pattern and balance. LTG Duration 8 weeks (11/05/22) Two Impairment Balance Assisted Living Associate Goal (LTG) Patient will improve DGI score to 21 or more indicating clinically significant reduction in fall risk. LTG Duration 8 weeks (11/05/22) One Impairment Weakness Short Term Goal (STG) Patient will improve 5xSTS score to 16.2 seconds or less indicating clinically significant change in functional strength. STG Duration 4 weeks (10/08/22) Assisted Living Associate Goal (LTG) Patient will improve 5xSTS score to 14 seconds or less indicating normal strength for age and decreased fall risk. LTG Duration 8 weeks (11/05/22) Assessment Summary Assessment Patient demonstrated decreased R hip abd and ER strength vs R. She tolerated initiation of strengthening without problem or increased back pain. She required cues for pelvic stability with all ex's. She will benefit from strength and balance progression to improve her ability to walk and reduce her risk of falls. Physical Therapy Plan Next Visit Focus/Plan Next Note Type Treatment Note Next Visit Plan Review HEP. Address dynamic balance.
--- NOTE | 2022-09-22 10:38 | PT.OTN ---
Current Diagnoses Other specified forms of tremor (09/22/22) Other abnormalities of gait and mobility (09/22/22) Other displaced fracture of second cervical vertebra, subsequent encounter for fracture with routine healing (09/22/22) Contusion of right front wall of thorax, initial encounter (09/22/22) Wedge compression fracture of T9-T10 vertebra, subsequent encounter for fracture with routine healing (09/22/22) Unspecified fall, initial encounter (09/22/22) Physical Therapy Treatment Note PT-OP-A Visit Information Start: 09/10/22 13:51 Freq: Status: Active Protocol: Document 09/22/22 10:02 ES (Rec: 09/22/22 10:38 ES [id number]) Out-Patient Physical Therapy Visit Information Visit Information Visit Type Treatment Note Visit Start Time 10:02 Visit Stop Time 10:35 Total Visit Minutes 33 Visit Number 3 PT-OP-B Current Condition Start: 09/10/22 13:51 Freq: Status: Active Protocol: Document 09/10/22 13:51 ES (Rec: 09/10/22 14:46 ES [id number]) Current Condition History of Current Condition Onset Date 5 weeks ago Current Complaints Decreased balance, back pain History of Current Condition Patient fell about 5 weeks ago at her son's house. She was working in a raised garden on an incline, slipped and slid over a 2ft tall retaining wall and ended up on her back. The fall resulted in a compression fracture at T9. The back pain has been getting better over time. Notes from her PCP state she had HHPT, but patient stated she didn't get any. She has been living with her son since last October. She is working on finding a place to move into and her daughter will be moving in with her. She has a hx of prior falls. Treatment Goals Patient/Caregiver Goals To make sure I can function as far as balance, and gain some confidence with being able to get around on my own. [place]. Prior Functional Status Baseline Function- Other Was hiking the [employer] for a little over an hour without AD (4 lengths), a couple times/week prior to this injury. Was going to the gym 1-2x/week and was working with a personal lines insurance agent. Was driving. Current Functional Impairments (Reported) Functional Limitations- Mobility/Gait Uses a trekking pole to walk the [place] trail, and not able to make it one full length yet. Functional Limitations- Other Is not driving. Has not gone back to the gym yet; isn't sure if she's ready. PT-OP-C Subjective Start: 09/10/22 13:51 Freq: Status: Active Protocol: Document 09/22/22 10:02 ES (Rec: 09/22/22 10:38 ES [id number]) OP-PT Subjective Patient Comments Patient Comments Patient reported that she still can't sit for very long but just gets up and move and has been doing her exercises at least once/day. She sat in the dentist chair for 3 hours yesterday and it caused a lot of back, upper back, and neck pain. Is having a hard time moving today. PT-OP-D Balance Start: 09/10/22 13:51 Freq: Status: Active Protocol: Document 09/10/22 13:51 ES (Rec: 09/10/22 16:32 ES [id number]) Balance Tests Rodriguez Balance Test Rodriguez Balance Test Score 49 Rodriguez Impairment Rating 1 to 19% Impaired (Score 45-55 ) PT-OP-E Functional Tests Start: 09/10/22 13:51 Freq: Status: Active Protocol: Document 09/10/22 13:51 ES (Rec: 09/10/22 14:46 ES [id number]) Functional Tests Dynamic Gait Index (DGI) Score 19 DGI Impairment Rating 20 to <40% Impaired (Score 15- 19) Five Times Sit to Stand Test Score 18.5 seconds Comments Norm for age = 14.8 seconds; > 15 seconds is related to recurrent falls PT-OP-G Mobility & Gait Start: 09/10/22 13:51 Freq: Status: Active Protocol: Document 09/10/22 13:51 ES (Rec: 09/10/22 16:49 ES [id number]) OP Gait Assessment Comments Gait Comments Ambulates with narrow gait, R foot slight in-toe pattern, decreased step and stride length. Occasionally catches foot on floor and other foot on both tile and carpet floor. PT-OP-M Strength Start: 09/10/22 13:51 Freq: Status: Active Protocol: Document 09/10/22 13:51 ES (Rec: 09/10/22 16:49 ES [id number]) Hip Strength Hip Manual Muscle Testing Right External Rotation 4 Good Internal Rotation 4 Good Comments Difficulty with single leg bridge - able to lift 75% of the range Left External Rotation 4- Good- Internal Rotation 4 Good Comments Difficulty with single leg bridge - able to lift 50% of the range PT-OP-Q Treatments Start: 09/10/22 13:51 Freq: Status: Active Protocol: Document 09/22/22 10:02 ES (Rec: 09/22/22 10:38 ES [id number]) Cardio Equipment Recumbent Stepper (Sci-Fit) Duration (Minutes) 10 Resistance 2.0 Seat Position 6 Therapeutic Exercises Supine Exercises Heel slide Side bilateral Reps/Minutes x10 ea Lumbar rotation Reps/Minutes x15 BKFO Side bilateral Resistance no band Reps/Minutes 2x10 Sidelying Exercises Open book Side bilateral Reps/Minutes x10 PT-OP-T Assessment and Plan Start: 09/10/22 13:51 Freq: Status: Active Protocol: Document 09/22/22 10:02 ES (Rec: 09/22/22 10:38 ES [id number]) Physical Therapy Assessment Goals Four Impairment Functional mobility Electroplater Goal (LTG) Patient will be able to walk 4 full lengths on [employer] trail without AD within 1.25 hours indicating return to her prior level of function. LTG Duration 8 weeks (11/05/22) Three Impairment Weakness/balance Short Term Goal (STG) Patient will be able to perform SLS for 3 seconds or greater B to improve gait pattern and balance. STG Duration 4 weeks (10/08/22) Fpc Goal (LTG) Patient will be able to perform SLS for 10 seconds or greater B to improve gait pattern and balance. LTG Duration 8 weeks (11/05/22) Two Impairment Balance Fpc Goal (LTG) Patient will improve DGI score to 21 or more indicating clinically significant reduction in fall risk. LTG Duration 8 weeks (11/05/22) One Impairment Weakness Short Term Goal (STG) Patient will improve 5xSTS score to 16.2 seconds or less indicating clinically significant change in functional strength. STG Duration 4 weeks (10/08/22) Electroplater Goal (LTG) Patient will improve 5xSTS score to 14 seconds or less indicating normal strength for age and decreased fall risk. LTG Duration 8 weeks (11/05/22) Assessment Summary Assessment Patient was in more pain than usual in her upper and lower back and was demonstrating limp/antalgic gait at start of treatment, so treatment was modified to accommodate this. She tolerated gentle ROM ex's and was able to walk with normal gait and reported decreased pain following treatment. She was provided with handout for lumbar rotation and open book ex's for home. Will resume balance and strength training at next visit if symptoms have improved. Physical Therapy Plan Next Visit Focus/Plan Next Note Type Treatment Note Next Visit Plan Resume balance and strength training.
--- NOTE | 2022-09-24 13:06 | PT.OTN ---
Current Diagnoses Other specified forms of tremor (09/24/22) Other abnormalities of gait and mobility (09/24/22) Other displaced fracture of second cervical vertebra, subsequent encounter for fracture with routine healing (09/24/22) Contusion of right front wall of thorax, initial encounter (09/24/22) Wedge compression fracture of T9-T10 vertebra, subsequent encounter for fracture with routine healing (09/24/22) Unspecified fall, initial encounter (09/24/22) Physical Therapy Treatment Note PT-OP-A Visit Information Start: 09/10/22 13:51 Freq: Status: Active Protocol: Document 09/24/22 09:39 ES (Rec: 09/24/22 11:31 ES [id number]) Out-Patient Physical Therapy Visit Information Visit Information Visit Type Treatment Note Visit Start Time 10:55 Visit Stop Time 11:31 Total Visit Minutes 36 Visit Number 4 Evaluation Information Evaluation Date 09/10/22 PT-OP-B Current Condition Start: 09/10/22 13:51 Freq: Status: Active Protocol: Document 09/10/22 13:51 ES (Rec: 09/10/22 14:46 ES [id number]) Current Condition History of Current Condition Onset Date 5 weeks ago Current Complaints Decreased balance, back pain History of Current Condition Patient fell about 5 weeks ago at her son's house. She was working in a raised garden on an incline, slipped and slid over a 2ft tall retaining wall and ended up on her back. The fall resulted in a compression fracture at T9. The back pain has been getting better over time. Notes from her PCP state she had HHPT, but patient stated she didn't get any. She has been living with her son since last October. She is working on finding a place to move into and her daughter will be moving in with her. She has a hx of prior falls. Treatment Goals Patient/Caregiver Goals To make sure I can function as far as balance, and gain some confidence with being able to get around on my own. [place]. Prior Functional Status Baseline Function- Other Was hiking the [place] for a little over an hour without AD (4 lengths), a couple times/week prior to this injury. Was going to the gym 1-2x/week and was working with a personal chef. Was driving. Current Functional Impairments (Reported) Functional Limitations- Mobility/Gait Uses a trekking pole to walk the [place] trail, and not able to make it one full length yet. Functional Limitations- Other Is not driving. Has not gone back to the gym yet; isn't sure if she's ready. PT-OP-C Subjective Start: 09/10/22 13:51 Freq: Status: Active Protocol: Document 09/24/22 09:39 ES (Rec: 09/24/22 11:31 ES [id number]) OP-PT Subjective Patient Comments Patient Comments Patient stated that her upper back/chest feels better than it has in a long time after doing the open book exercises. Is having trouble doing the green band exercise with her hips. Is feeling back to normal after the dentist chair flared her up. PT-OP-D Balance Start: 09/10/22 13:51 Freq: Status: Active Protocol: Document 09/10/22 13:51 ES (Rec: 09/10/22 16:32 ES [id number]) Balance Tests Rodriguez Balance Test Rodriguez Balance Test Score 49 Rodriguez Impairment Rating 1 to 19% Impaired (Score 45-55 ) PT-OP-E Functional Tests Start: 09/10/22 13:51 Freq: Status: Active Protocol: Document 09/10/22 13:51 ES (Rec: 09/10/22 14:46 ES [id number]) Functional Tests Dynamic Gait Index (DGI) Score 19 DGI Impairment Rating 20 to <40% Impaired (Score 15- 19) Five Times Sit to Stand Test Score 18.5 seconds Comments Norm for age = 14.8 seconds; > 15 seconds is related to recurrent falls PT-OP-G Mobility & Gait Start: 09/10/22 13:51 Freq: Status: Active Protocol: Document 09/10/22 13:51 ES (Rec: 09/10/22 16:49 ES [id number]) OP Gait Assessment Comments Gait Comments Ambulates with narrow gait, R foot slight in-toe pattern, decreased step and stride length. Occasionally catches foot on floor and other foot on both tile and carpet floor. PT-OP-M Strength Start: 09/10/22 13:51 Freq: Status: Active Protocol: Document 09/10/22 13:51 ES (Rec: 09/10/22 16:49 ES [id number]) Hip Strength Hip Manual Muscle Testing Right External Rotation 4 Good Internal Rotation 4 Good Comments Difficulty with single leg bridge - able to lift 75% of the range Left External Rotation 4- Good- Internal Rotation 4 Good Comments Difficulty with single leg bridge - able to lift 50% of the range PT-OP-Q Treatments Start: 09/10/22 13:51 Freq: Status: Active Protocol: Document 09/24/22 09:39 ES (Rec: 09/24/22 11:31 ES [id number]) Cardio Equipment Recumbent Elliptical (Biodex) Duration (Minutes) 5 Resistance 4 Seat Position 4 Gym Equipment Shuttle Balance 1 Details Narrow and semi-tandem, head turns Comments Yellow clips Therapeutic Exercises Supine Exercises Oblique isometric Side bilateral Resistance manual resistance Reps/Minutes 5x10s ea Bridge Resistance L1 band Reps/Minutes x10 Comments Instructed for home Hip abd Side bilateral Resistance L3 band Reps/Minutes x10 Comments performed with BLE's simultaneous 2/2 lumbar rotation Standing Exercises Sidestepping Resistance L2 band Reps/Minutes 3x8 Comments band above knees, instructed for home PT-OP-T Assessment and Plan Start: 09/10/22 13:51 Freq: Status: Active Protocol: Document 09/24/22 09:39 ES (Rec: 09/24/22 11:31 ES [id number]) Physical Therapy Assessment Goals Four Impairment Functional mobility Treasurer Goal (LTG) Patient will be able to walk 4 full lengths on [employer] trail without AD within 1.25 hours indicating return to her prior level of function. LTG Duration 8 weeks (11/05/22) Three Impairment Weakness/balance Short Term Goal (STG) Patient will be able to perform SLS for 3 seconds or greater B to improve gait pattern and balance. STG Duration 4 weeks (10/08/22) Treasurer Goal (LTG) Patient will be able to perform SLS for 10 seconds or greater B to improve gait pattern and balance. LTG Duration 8 weeks (11/05/22) Two Impairment Balance [facility] Goal (LTG) Patient will improve DGI score to 21 or more indicating clinically significant reduction in fall risk. LTG Duration 8 weeks (11/05/22) One Impairment Weakness Short Term Goal (STG) Patient will improve 5xSTS score to 16.2 seconds or less indicating clinically significant change in functional strength. STG Duration 4 weeks (10/08/22) Treasurer Goal (LTG) Patient will improve 5xSTS score to 14 seconds or less indicating normal strength for age and decreased fall risk. LTG Duration 8 weeks (11/05/22) Assessment Summary Assessment Patient tolerated ex's without increase in pain. She was able to progress hip strengthening and was provided with handout with updated ex program. She was challenged with shuttle balance especially with head turns, and tends to place more weight through LLE due to RLE relative weakness. Physical Therapy Plan Frequency and Duration Frequency of Treatment 2x/Week Duration of treatment (weeks) 8 Plan of Care Start Date 09/10/22 Plan of Care End Date 11/05/22 Therapeutic Interventions Therapeutic Interventions Balance Training,Coordination Training,Gait Training,Home Exercise Program,Neuromuscular Re-education,Patient/ Caregiver Education,Self-Care/ Home Management,Therapeutic Activities,Therapeutic Exercises Next Visit Focus/Plan Next Note Type Treatment Note Next Visit Plan Progress hip strength,
--- NOTE | 2022-10-06 17:05 | PT.OTN ---
Current Diagnoses Other specified forms of tremor (10/06/22) Other abnormalities of gait and mobility (10/06/22) Other displaced fracture of second cervical vertebra, subsequent encounter for fracture with routine healing (10/06/22) Contusion of right front wall of thorax, initial encounter (10/06/22) Wedge compression fracture of T9-T10 vertebra, subsequent encounter for fracture with routine healing (10/06/22) Unspecified fall, initial encounter (10/06/22) Physical Therapy Treatment Note PT-OP-A Visit Information Start: 09/10/22 13:51 Freq: Status: Active Protocol: Document 10/06/22 11:56 ES (Rec: 10/06/22 12:32 ES [id number]) Out-Patient Physical Therapy Visit Information Visit Information Visit Type Treatment Note Visit Start Time 11:52 Visit Stop Time 12:28 Total Visit Minutes 36 Visit Number 5 PT-OP-B Current Condition Start: 09/10/22 13:51 Freq: Status: Active Protocol: Document 09/10/22 13:51 ES (Rec: 09/10/22 14:46 ES [id number]) Current Condition History of Current Condition Onset Date 5 weeks ago Current Complaints Decreased balance, back pain History of Current Condition Patient fell about 5 weeks ago at her son's house. She was working in a raised garden on an incline, slipped and slid over a 2ft tall retaining wall and ended up on her back. The fall resulted in a compression fracture at T9. The back pain has been getting better over time. Notes from her PCP state she had HHPT, but patient stated she didn't get any. She has been living with her son since last October. She is working on finding a place to move into and her daughter will be moving in with her. She has a hx of prior falls. Treatment Goals Patient/Caregiver Goals To make sure I can function as far as balance, and gain some confidence with being able to get around on my own. [place]. Prior Functional Status Baseline Function- Other Was hiking the [employer] for a little over an hour without AD (4 lengths), a couple times/week prior to this injury. Was going to the gym 1-2x/week and was working with a personal loan specialist. Was driving. Current Functional Impairments (Reported) Functional Limitations- Mobility/Gait Uses a trekking pole to walk the [place] trail, and not able to make it one full length yet. Functional Limitations- Other Is not driving. Has not gone back to the gym yet; isn't sure if she's ready. PT-OP-C Subjective Start: 09/10/22 13:51 Freq: Status: Active Protocol: Document 10/06/22 11:56 ES (Rec: 10/06/22 12:32 ES [id number]) OP-PT Subjective Patient Comments Patient Comments Patient reported that some days are really good. She has noticed a difference in her balance. Has been walking the [employer] trail the same distance as she was before her fall though slower than before, and has not been walking on rough terrain like she was before. Still having loss of balance with turning. PT-OP-D Balance Start: 09/10/22 13:51 Freq: Status: Active Protocol: Document 10/06/22 11:56 ES (Rec: 10/06/22 17:01 ES [id number]) Balance Tests Single Limb Standing Single Limb- Right 3 sec Single Limb- Left 3 sec PT-OP-E Functional Tests Start: 09/10/22 13:51 Freq: Status: Active Protocol: Document 10/06/22 11:56 ES (Rec: 10/06/22 17:01 ES [id number]) Functional Tests Five Times Sit to Stand Test Score 12 sec PT-OP-G Mobility & Gait Start: 09/10/22 13:51 Freq: Status: Active Protocol: Document 09/10/22 13:51 ES (Rec: 09/10/22 16:49 ES [id number]) OP Gait Assessment Comments Gait Comments Ambulates with narrow gait, R foot slight in-toe pattern, decreased step and stride length. Occasionally catches foot on floor and other foot on both tile and carpet floor. PT-OP-M Strength Start: 09/10/22 13:51 Freq: Status: Active Protocol: Document 09/10/22 13:51 ES (Rec: 09/10/22 16:49 ES [id number]) Hip Strength Hip Manual Muscle Testing Right External Rotation 4 Good Internal Rotation 4 Good Comments Difficulty with single leg bridge - able to lift 75% of the range Left External Rotation 4- Good- Internal Rotation 4 Good Comments Difficulty with single leg bridge - able to lift 50% of the range PT-OP-Q Treatments Start: 09/10/22 13:51 Freq: Status: Active Protocol: Document 10/06/22 11:56 ES (Rec: 10/06/22 12:32 ES [id number]) Cardio Equipment Recumbent Elliptical (Biodex) Duration (Minutes) 10 Resistance 3 Seat Position 6 Therapeutic Exercises Standing Exercises Monster walks Standing Exercise Name fwd/bkwd diagonals Side bilateral Resistance L2 band Reps/Minutes 2x10 Comments band above knees, instructed for home (handout) Sidestepping Resistance L2 band Reps/Minutes 2x10 Comments band above knees STS Standing Exercise Name 5xSTS Comments 12 sec, no UE support Neuro Re-Education Treatment Balance Activities Standing balance training Details Tandem, SLS at bar, min UE support Comments SLS up to 3 sec without UE support Tandem up to 10 sec without UE support PT-OP-T Assessment and Plan Start: 09/10/22 13:51 Freq: Status: Active Protocol: Document 10/06/22 11:56 ES (Rec: 10/06/22 12:32 ES [id number]) Physical Therapy Assessment Goals Four Impairment Functional mobility [facility] Goal (LTG) Patient will be able to walk 4 full lengths on [employer] trail without AD within 1.25 hours indicating return to her prior level of function. LTG Duration 8 weeks (11/05/22) - met Three Impairment Weakness/balance Short Term Goal (STG) Patient will be able to perform SLS for 3 seconds or greater B to improve gait pattern and balance. STG Duration 4 weeks (10/08/22) - met [facility] Goal (LTG) Patient will be able to perform SLS for 10 seconds or greater B to improve gait pattern and balance. LTG Duration 8 weeks (11/05/22) Two Impairment Balance Healthcare Liaison Goal (LTG) Patient will improve DGI score to 21 or more indicating clinically significant reduction in fall risk. LTG Duration 8 weeks (11/05/22) One Impairment Weakness Short Term Goal (STG) Patient will improve 5xSTS score to 16.2 seconds or less indicating clinically significant change in functional strength. STG Duration 4 weeks (10/08/22) - met [facility] Goal (LTG) Patient will improve 5xSTS score to 14 seconds or less indicating normal strength for age and decreased fall risk. LTG Duration 8 weeks (11/05/22) - met Assessment Summary Assessment Patient is making good progress toward goals, demonstrating improvement in 5xSTS and SLS. She continues to be challenged with single leg activity and balance with head turns. She will benefit from further skilled PT to improve balance and balance confidence to reduce her risk of falls. Physical Therapy Plan Frequency and Duration Frequency of Treatment 2x/Week Duration of treatment (weeks) 8 Plan of Care Start Date 09/10/22 Plan of Care End Date 11/05/22 Therapeutic Interventions Therapeutic Interventions Balance Training,Coordination Training,Gait Training,Home Exercise Program,Neuromuscular Re-education,Patient/ Caregiver Education,Self-Care/ Home Management,Therapeutic Activities,Therapeutic Exercises Next Visit Focus/Plan Next Note Type Treatment Note Next Visit Plan Progress dynamic balance, including body and head turns.
--- NOTE | 2022-10-08 11:38 | PT.OTN ---
Current Diagnoses Other specified forms of tremor (10/08/22) Other abnormalities of gait and mobility (10/08/22) Other displaced fracture of second cervical vertebra, subsequent encounter for fracture with routine healing (10/08/22) Contusion of right front wall of thorax, initial encounter (10/08/22) Wedge compression fracture of T9-T10 vertebra, subsequent encounter for fracture with routine healing (10/08/22) Unspecified fall, initial encounter (10/08/22) Physical Therapy Treatment Note PT-OP-A Visit Information Start: 09/10/22 13:51 Freq: Status: Active Protocol: Document 10/08/22 10:28 ES (Rec: 10/08/22 11:37 ES [id number]) Out-Patient Physical Therapy Visit Information Visit Information Visit Type Treatment Note Visit Start Time 10:48 Visit Stop Time 11:31 Total Visit Minutes 43 Visit Number 6 Evaluation Information Evaluation Date 09/10/22 PT-OP-B Current Condition Start: 09/10/22 13:51 Freq: Status: Active Protocol: Document 09/10/22 13:51 ES (Rec: 09/10/22 14:46 ES [id number]) Current Condition History of Current Condition Onset Date 5 weeks ago Current Complaints Decreased balance, back pain History of Current Condition Patient fell about 5 weeks ago at her son's house. She was working in a raised garden on an incline, slipped and slid over a 2ft tall retaining wall and ended up on her back. The fall resulted in a compression fracture at T9. The back pain has been getting better over time. Notes from her PCP state she had HHPT, but patient stated she didn't get any. She has been living with her son since last October. She is working on finding a place to move into and her daughter will be moving in with her. She has a hx of prior falls. Treatment Goals Patient/Caregiver Goals To make sure I can function as far as balance, and gain some confidence with being able to get around on my own. [place]. Prior Functional Status Baseline Function- Other Was hiking the [place] for a little over an hour without AD (4 lengths), a couple times/week prior to this injury. Was going to the gym 1-2x/week and was working with a director personal. Was driving. Current Functional Impairments (Reported) Functional Limitations- Mobility/Gait Uses a trekking pole to walk [place], and not able to make it one full length yet. Functional Limitations- Other Is not driving. Has not gone back to the gym yet; isn't sure if she's ready. PT-OP-C Subjective Start: 09/10/22 13:51 Freq: Status: Active Protocol: Document 10/08/22 10:28 ES (Rec: 10/08/22 11:37 ES [id number]) OP-PT Subjective Patient Comments Patient Comments Patient reported she used the orange band for all of her exercises and it worked well. Still feels unsure when walking on uneven ground especially on exposed ledges. PT-OP-D Balance Start: 09/10/22 13:51 Freq: Status: Active Protocol: Document 10/06/22 11:56 ES (Rec: 10/06/22 17:01 ES [id number]) Balance Tests Single Limb Standing Single Limb- Right 3 sec Single Limb- Left 3 sec PT-OP-E Functional Tests Start: 09/10/22 13:51 Freq: Status: Active Protocol: Document 10/06/22 11:56 ES (Rec: 10/06/22 17:01 ES [id number]) Functional Tests Five Times Sit to Stand Test Score 12 sec PT-OP-G Mobility & Gait Start: 09/10/22 13:51 Freq: Status: Active Protocol: Document 09/10/22 13:51 ES (Rec: 09/10/22 16:49 ES [id number]) OP Gait Assessment Comments Gait Comments Ambulates with narrow gait, R foot slight in-toe pattern, decreased step and stride length. Occasionally catches foot on floor and other foot on both tile and carpet floor. PT-OP-M Strength Start: 09/10/22 13:51 Freq: Status: Active Protocol: Document 09/10/22 13:51 ES (Rec: 09/10/22 16:49 ES [id number]) Hip Strength Hip Manual Muscle Testing Right External Rotation 4 Good Internal Rotation 4 Good Comments Difficulty with single leg bridge - able to lift 75% of the range Left External Rotation 4- Good- Internal Rotation 4 Good Comments Difficulty with single leg bridge - able to lift 50% of the range PT-OP-Q Treatments Start: 09/10/22 13:51 Freq: Status: Active Protocol: Document 10/08/22 10:28 ES (Rec: 10/08/22 11:37 ES [id number]) Cardio Equipment Recumbent Stepper (Sci-Fit) Duration (Minutes) 10 Resistance 3.0 Seat Position 6 Gym Equipment Shuttle Balance 1 Details Yellow setting, semi-tandem stance Comments Holding ball: rotating side to side, reaching up/down, reaching diagonally up/down Neuro Re-Education Treatment Balance Activities Standing balance training Details Dynadisc: step up/downx10 ea B , SLS Comments BUE support PT-OP-T Assessment and Plan Start: 09/10/22 13:51 Freq: Status: Active Protocol: Document 10/08/22 10:28 ES (Rec: 10/08/22 11:37 ES [id number]) Physical Therapy Assessment Goals Four Impairment Functional mobility Jail Goal (LTG) Patient will be able to walk 4 [address] [place] without AD within 1.25 hours indicating return to her prior level of function. LTG Duration 8 weeks (11/05/22) - met Three Impairment Weakness/balance Short Term Goal (STG) Patient will be able to perform SLS for 3 seconds or greater B to improve gait pattern and balance. STG Duration 4 weeks (10/08/22) - met Privacy Specialist Goal (LTG) Patient will be able to perform SLS for 10 seconds or greater B to improve gait pattern and balance. LTG Duration 8 weeks (11/05/22) Two Impairment Balance Jail Goal (LTG) Patient will improve DGI score to 21 or more indicating clinically significant reduction in fall risk. LTG Duration 8 weeks (11/05/22) One Impairment Weakness Short Term Goal (STG) Patient will improve 5xSTS score to 16.2 seconds or less indicating clinically significant change in functional strength. STG Duration 4 weeks (10/08/22) - met Privacy Specialist Goal (LTG) Patient will improve 5xSTS score to 14 seconds or less indicating normal strength for age and decreased fall risk. LTG Duration 8 weeks (11/05/22) - met Assessment Summary Assessment Patient was appropriately challenged with balance tasks today. She required cues to reduce speed of tasks to improve control and quality. She continues to benefit from dynamic balance training on uneven/unstable surfaces to improve confidence and decrease fall risk with walking outdoors. Physical Therapy Plan Frequency and Duration Frequency of Treatment 2x/Week Duration of treatment (weeks) 8 Plan of Care Start Date 09/10/22 Plan of Care End Date 11/05/22 Therapeutic Interventions Therapeutic Interventions Balance Training,Coordination Training,Gait Training,Home Exercise Program,Neuromuscular Re-education,Patient/ Caregiver Education,Self-Care/ Home Management,Therapeutic Activities,Therapeutic Exercises Next Visit Focus/Plan Next Note Type Treatment Note Next Visit Plan Progress dynamic balance, including body and head turns.
--- NOTE | 2022-10-12 16:14 | PT.OTN ---
Current Diagnoses Other specified forms of tremor (10/12/22) Other abnormalities of gait and mobility (10/12/22) Other displaced fracture of second cervical vertebra, subsequent encounter for fracture with routine healing (10/12/22) Contusion of right front wall of thorax, initial encounter (10/12/22) Wedge compression fracture of T9-T10 vertebra, subsequent encounter for fracture with routine healing (10/12/22) Unspecified fall, initial encounter (10/12/22) Physical Therapy Treatment Note PT-OP-A Visit Information Start: 09/10/22 13:51 Freq: Status: Active Protocol: Document 10/12/22 11:26 ES (Rec: 10/12/22 12:34 ES [id number]) Out-Patient Physical Therapy Visit Information Visit Information Visit Type Treatment Note Visit Start Time 12:03 Visit Stop Time 12:33 Total Visit Minutes 30 Visit Number 7 Evaluation Information Evaluation Date 09/10/22 PT-OP-B Current Condition Start: 09/10/22 13:51 Freq: Status: Active Protocol: Document 09/10/22 13:51 ES (Rec: 09/10/22 14:46 ES [id number]) Current Condition History of Current Condition Onset Date 5 weeks ago Current Complaints Decreased balance, back pain History of Current Condition Patient fell about 5 weeks ago at her son's house. She was working in a raised garden on an incline, slipped and slid over a 2ft tall retaining wall and ended up on her back. The fall resulted in a compression fracture at T9. The back pain has been getting better over time. Notes from her PCP state she had HHPT, but patient stated she didn't get any. She has been living with her son since last October. She is working on finding a place to move into and her daughter will be moving in with her. She has a hx of prior falls. Treatment Goals Patient/Caregiver Goals To make sure I can function as far as balance, and gain some confidence with being able to get around on my own. [place]. Prior Functional Status Baseline Function- Other Was hiking the [place] for a little over an hour without AD (4 lengths), a couple times/week prior to this injury. Was going to the gym 1-2x/week and was working with a personal development mentor. Was driving. Current Functional Impairments (Reported) Functional Limitations- Mobility/Gait Uses a trekking pole to walk the [place] trail, and not able to make it one full length yet. Functional Limitations- Other Is not driving. Has not gone back to the gym yet; isn't sure if she's ready. PT-OP-C Subjective Start: 09/10/22 13:51 Freq: Status: Active Protocol: Document 10/12/22 11:26 ES (Rec: 10/12/22 12:34 ES [id number]) OP-PT Subjective Patient Comments Patient Comments Patient reported she felt fine after the last visit, no soreness. PT-OP-D Balance Start: 09/10/22 13:51 Freq: Status: Active Protocol: Document 10/06/22 11:56 ES (Rec: 10/06/22 17:01 ES [id number]) Balance Tests Single Limb Standing Single Limb- Right 3 sec Single Limb- Left 3 sec PT-OP-E Functional Tests Start: 09/10/22 13:51 Freq: Status: Active Protocol: Document 10/06/22 11:56 ES (Rec: 10/06/22 17:01 ES [id number]) Functional Tests Five Times Sit to Stand Test Score 12 sec PT-OP-G Mobility & Gait Start: 09/10/22 13:51 Freq: Status: Active Protocol: Document 09/10/22 13:51 ES (Rec: 09/10/22 16:49 ES [id number]) OP Gait Assessment Comments Gait Comments Ambulates with narrow gait, R foot slight in-toe pattern, decreased step and stride length. Occasionally catches foot on floor and other foot on both tile and carpet floor. PT-OP-M Strength Start: 09/10/22 13:51 Freq: Status: Active Protocol: Document 09/10/22 13:51 ES (Rec: 09/10/22 16:49 ES [id number]) Hip Strength Hip Manual Muscle Testing Right External Rotation 4 Good Internal Rotation 4 Good Comments Difficulty with single leg bridge - able to lift 75% of the range Left External Rotation 4- Good- Internal Rotation 4 Good Comments Difficulty with single leg bridge - able to lift 50% of the range PT-OP-Q Treatments Start: 09/10/22 13:51 Freq: Status: Active Protocol: Document 10/12/22 11:26 ES (Rec: 10/12/22 12:34 ES [id number]) Cardio Equipment Elliptical Duration (Minutes) 4 Resistance 1 Other Cued to decrease speed to reduce shortness of breath Gym Equipment Shuttle Balance 1 Details Blue setting, semi-tandem stance Comments Holding ball: rotating side to side, reaching up/down, ball circles Neuro Re-Education Treatment Balance Activities Standing balance training Details Dynadisc: step up/down and [id number] ea B Comments BUE support PT-OP-T Assessment and Plan Start: 09/10/22 13:51 Freq: Status: Active Protocol: Document 10/12/22 11:26 ES (Rec: 10/12/22 12:34 ES [id number]) Physical Therapy Assessment Goals Four Impairment Functional mobility Care Home Goal (LTG) Patient will be able to walk 4 [address] [place] trail without AD within 1.25 hours indicating return to her prior level of function. LTG Duration 8 weeks (11/05/22) - met Three Impairment Weakness/balance Short Term Goal (STG) Patient will be able to perform SLS for 3 seconds or greater B to improve gait pattern and balance. STG Duration 4 weeks (10/08/22) - met Care Home Goal (LTG) Patient will be able to perform SLS for 10 seconds or greater B to improve gait pattern and balance. LTG Duration 8 weeks (11/05/22) Two Impairment Balance Care Home Goal (LTG) Patient will improve DGI score to 21 or more indicating clinically significant reduction in fall risk. LTG Duration 8 weeks (11/05/22) One Impairment Weakness Short Term Goal (STG) Patient will improve 5xSTS score to 16.2 seconds or less indicating clinically significant change in functional strength. STG Duration 4 weeks (10/08/22) - met Care Home Goal (LTG) Patient will improve 5xSTS score to 14 seconds or less indicating normal strength for age and decreased fall risk. LTG Duration 8 weeks (11/05/22) - met Assessment Summary Assessment Patient continues to require cues to reduce medial collapse on RLE during step exercises. She had improved balance with decreased amplitude of corrections on Shuttle balance , progressing to blue setting. Physical Therapy Plan Frequency and Duration Frequency of Treatment 2x/Week Duration of treatment (weeks) 8 Plan of Care Start Date 09/10/22 Plan of Care End Date 11/05/22 Therapeutic Interventions Therapeutic Interventions Balance Training,Coordination Training,Gait Training,Home Exercise Program,Neuromuscular Re-education,Patient/ Caregiver Education,Self-Care/ Home Management,Therapeutic Activities,Therapeutic Exercises Next Visit Focus/Plan Next Note Type Treatment Note Next Visit Plan Progress dynamic balance, including body and head turns.
--- NOTE | 2022-10-20 13:50 | PT.OTN ---
Current Diagnoses Other specified forms of tremor (10/20/22) Other abnormalities of gait and mobility (10/20/22) Other displaced fracture of second cervical vertebra, subsequent encounter for fracture with routine healing (10/20/22) Contusion of right front wall of thorax, initial encounter (10/20/22) Wedge compression fracture of T9-T10 vertebra, subsequent encounter for fracture with routine healing (10/20/22) Unspecified fall, initial encounter (10/20/22) Unspecified fall, subsequent encounter (10/20/22) Physical Therapy Treatment Note PT-OP-A Visit Information Start: 09/10/22 13:51 Freq: Status: Active Protocol: Document 10/20/22 11:10 ES (Rec: 10/20/22 13:48 ES [id number]) Out-Patient Physical Therapy Visit Information Visit Information Visit Type Treatment Note Visit Start Time 11:07 Visit Stop Time 11:45 Total Visit Minutes 38 Visit Number 8 PT-OP-B Current Condition Start: 09/10/22 13:51 Freq: Status: Active Protocol: Document 09/10/22 13:51 ES (Rec: 09/10/22 14:46 ES [id number]) Current Condition History of Current Condition Onset Date 5 weeks ago Current Complaints Decreased balance, back pain History of Current Condition Patient fell about 5 weeks ago at her son's house. She was working in a raised garden on an incline, slipped and slid over a 2ft tall retaining wall and ended up on her back. The fall resulted in a compression fracture at T9. The back pain has been getting better over time. Notes from her PCP state she had HHPT, but patient stated she didn't get any. She has been living with her son since last October. She is working on finding a place to move into and her daughter will be moving in with her. She has a hx of prior falls. Treatment Goals Patient/Caregiver Goals To make sure I can function as far as balance, and gain some confidence with being able to get around on my own. [place]. Prior Functional Status Baseline Function- Other Was hiking the [email or web address] trail for a little over an hour without AD (4 lengths), a couple times/week prior to this injury. Was going to the gym 1-2x/week and was working with a personal development educator. Was driving. Current Functional Impairments (Reported) Functional Limitations- Mobility/Gait Uses a trekking pole to walk the [place] trail, and not able to make it one full length yet. Functional Limitations- Other Is not driving. Has not gone back to the gym yet; isn't sure if she's ready. PT-OP-C Subjective Start: 09/10/22 13:51 Freq: Status: Active Protocol: Document 10/20/22 11:10 ES (Rec: 10/20/22 13:48 ES [id number]) OP-PT Subjective Patient Comments Patient Comments Patient stated she walked 2-3 miles each day while being out on the boat over the weekend. Stated her COPD was her biggest limiting factor. Stated she was able to do the heel-toe a lot better. Has a gym membership in town and is willing to go back there to exercise again. PT-OP-D Balance Start: 09/10/22 13:51 Freq: Status: Active Protocol: Document 10/20/22 11:10 ES (Rec: 10/20/22 13:50 ES [id number]) Balance Tests Single Limb Standing Single Limb- Right 3 sec Single Limb- Left 4 sec PT-OP-E Functional Tests Start: 09/10/22 13:51 Freq: Status: Active Protocol: Document 10/20/22 11:10 ES (Rec: 10/20/22 13:50 ES [id number]) Functional Tests Dynamic Gait Index (DGI) Score 22 DGI Impairment Rating 1 to <20% Impaired (Score 20- 23) PT-OP-G Mobility & Gait Start: 09/10/22 13:51 Freq: Status: Active Protocol: Document 09/10/22 13:51 ES (Rec: 09/10/22 16:49 ES [id number]) OP Gait Assessment Comments Gait Comments Ambulates with narrow gait, R foot slight in-toe pattern, decreased step and stride length. Occasionally catches foot on floor and other foot on both tile and carpet floor. PT-OP-M Strength Start: 09/10/22 13:51 Freq: Status: Active Protocol: Document 09/10/22 13:51 ES (Rec: 09/10/22 16:49 ES [id number]) Hip Strength Hip Manual Muscle Testing Right External Rotation 4 Good Internal Rotation 4 Good Comments Difficulty with single leg bridge - able to lift 75% of the range Left External Rotation 4- Good- Internal Rotation 4 Good Comments Difficulty with single leg bridge - able to lift 50% of the range PT-OP-Q Treatments Start: 09/10/22 13:51 Freq: Status: Active Protocol: Document 10/20/22 11:10 ES (Rec: 10/20/22 13:48 ES [id number]) Cardio Equipment Recumbent Stepper (Sci-Fit) Duration (Minutes) 8 Resistance 3.0 Seat Position 6 Neuro Re-Education Treatment Balance Activities DGI Comments results above Step taps Details 8-12 step Reps/Duration 2x10 ea B Comments Forward, lateral Standing balance training Details SLS, tandem stance Comments No UE support: max SLS L 4 sec , R 3 sec PT-OP-T Assessment and Plan Start: 09/10/22 13:51 Freq: Status: Active Protocol: Document 10/20/22 11:10 ES (Rec: 10/20/22 13:48 ES [id number]) Physical Therapy Assessment Goals Four Impairment Functional mobility Rounder And Backer Goal (LTG) Patient will be able to walk 4 full [address] on [email or web address] trail without AD within 1.25 hours indicating return to her prior level of function. LTG Duration 8 weeks (11/05/22) - met Three Impairment Weakness/balance Short Term Goal (STG) Patient will be able to perform SLS for 3 seconds or greater B to improve gait pattern and balance. STG Duration 4 weeks (10/08/22) - met Rounder And Backer Goal (LTG) Patient will be able to perform SLS for 10 seconds or greater B to improve gait pattern and balance. LTG Duration 8 weeks (11/05/22) Two Impairment Balance Nursing Home Goal (LTG) Patient will improve DGI score to 21 or more indicating clinically significant reduction in fall risk. LTG Duration 8 weeks (11/05/22) - met One Impairment Weakness Short Term Goal (STG) Patient will improve 5xSTS score to 16.2 seconds or less indicating clinically significant change in functional strength. STG Duration 4 weeks (10/08/22) - met Nursing Home Goal (LTG) Patient will improve 5xSTS score to 14 seconds or less indicating normal strength for age and decreased fall risk. LTG Duration 8 weeks (11/05/22) - met Assessment Summary Assessment Patient is making good progress toward goals; continues to struggle with SLS otherwise showing improved balance and decreased fall risk. She is reaching maximum potential with skilled PT and is appropriate to transition to indep HEP and community- based ex including use of gym. Will plan to review/ consolidate HEP and d/c at next visit. Physical Therapy Plan Frequency and Duration Frequency of Treatment 2x/Week Duration of treatment (weeks) 8 Plan of Care Start Date 09/10/22 Plan of Care End Date 11/05/22 Therapeutic Interventions Therapeutic Interventions Balance Training,Coordination Training,Gait Training,Home Exercise Program,Neuromuscular Re-education,Patient/ Caregiver Education,Self-Care/ Home Management,Therapeutic Activities,Therapeutic Exercises Next Visit Focus/Plan Next Note Type Discharge Summary Next Visit Plan Review HEP; patient to bring in handouts.
--- NOTE | 2022-10-22 12:14 | PT.OTN ---
Current Diagnoses Other specified forms of tremor (10/22/22) Other abnormalities of gait and mobility (10/22/22) Other displaced fracture of second cervical vertebra, subsequent encounter for fracture with routine healing (10/22/22) Contusion of right front wall of thorax, initial encounter (10/22/22) Wedge compression fracture of T9-T10 vertebra, subsequent encounter for fracture with routine healing (10/22/22) Unspecified fall, initial encounter (10/22/22) Unspecified fall, subsequent encounter (10/22/22) Physical Therapy Treatment Note PT-OP-A Visit Information Start: 09/10/22 13:51 Freq: Status: Active Protocol: Document 10/22/22 11:30 ES (Rec: 10/22/22 12:14 ES [id number]) Out-Patient Physical Therapy Visit Information Visit Information Visit Type Discharge Summary Visit Start Time 11:30 Visit Stop Time 12:09 Total Visit Minutes 39 Visit Number 9 PT-OP-B Current Condition Start: 09/10/22 13:51 Freq: Status: Active Protocol: Document 09/10/22 13:51 ES (Rec: 09/10/22 14:46 ES [id number]) Current Condition History of Current Condition Onset Date 5 weeks ago Current Complaints Decreased balance, back pain History of Current Condition Patient fell about 5 weeks ago at her son's house. She was working in a raised garden on an incline, slipped and slid over a 2ft tall retaining wall and ended up on her back. The fall resulted in a compression fracture at T9. The back pain has been getting better over time. Notes from her PCP state she had HHPT, but patient stated she didn't get any. She has been living with her son since last October. She is working on finding a place to move into and her daughter will be moving in with her. She has a hx of prior falls. Treatment Goals Patient/Caregiver Goals To make sure I can function as far as balance, and gain some confidence with being able to get around on my own. [employer]. Prior Functional Status Baseline Function- Other Was hiking the [employer] trail for a little over an hour without AD (4 lengths), a couple times/week prior to this injury. Was going to the gym 1-2x/week and was working with a personal care attendant. Was driving. PT-OP-C Subjective Start: 09/10/22 13:51 Freq: Status: Active Protocol: Document 10/22/22 11:30 ES (Rec: 10/22/22 12:14 ES [id number]) OP-PT Subjective Patient Comments Patient Comments Patient reported she visited the gym, is considering joining another gym for better equipment. Brought her HEP handouts in with her today to review. PT-OP-D Balance Start: 09/10/22 13:51 Freq: Status: Active Protocol: Document 10/20/22 11:10 ES (Rec: 10/20/22 13:50 ES [id number]) Balance Tests Single Limb Standing Single Limb- Right 3 sec Single Limb- Left 4 sec PT-OP-E Functional Tests Start: 09/10/22 13:51 Freq: Status: Active Protocol: Document 10/20/22 11:10 ES (Rec: 10/20/22 13:50 ES [id number]) Functional Tests Dynamic Gait Index (DGI) Score 22 DGI Impairment Rating 1 to <20% Impaired (Score 20- 23) PT-OP-G Mobility & Gait Start: 09/10/22 13:51 Freq: Status: Active Protocol: Document 09/10/22 13:51 ES (Rec: 09/10/22 16:49 ES [id number]) OP Gait Assessment Comments Gait Comments Ambulates with narrow gait, R foot slight in-toe pattern, decreased step and stride length. Occasionally catches foot on floor and other foot on both tile and carpet floor. PT-OP-M Strength Start: 09/10/22 13:51 Freq: Status: Active Protocol: Document 09/10/22 13:51 ES (Rec: 09/10/22 16:49 ES [id number]) Hip Strength Hip Manual Muscle Testing Right External Rotation 4 Good Internal Rotation 4 Good Comments Difficulty with single leg bridge - able to lift 75% of the range Left External Rotation 4- Good- Internal Rotation 4 Good Comments Difficulty with single leg bridge - able to lift 50% of the range PT-OP-Q Treatments Start: 09/10/22 13:51 Freq: Status: Active Protocol: Document 10/22/22 11:30 ES (Rec: 10/22/22 12:14 ES [id number]) Cardio Equipment Recumbent Stepper (Sci-Fit) Duration (Minutes) 8 Resistance 3.0 Seat Position 7 Other Educated on set up for use in gym Therapeutic Exercises Supine Exercises Bridge Resistance L3 band at hips Reps/Minutes x15 Comments reviewed for home Sidelying Exercises Open book Reps/Minutes x30s Comments reviewed for home Standing Exercises Monster walks Resistance L3 band at knees Reps/Minutes 2x10 ea Comments forward/backward, lateral; reviewed for home Heel raises Equipment Used 8 step Reps/Minutes x10 ea B Comments reviewed for home STS Reps/Minutes x10 Comments tapping to chair vs sit, reviewed for home Neuro Re-Education Treatment Balance Activities Standing balance training Details SLS, tandem stance Comments No UE support; reviewed for home PT-OP-T Assessment and Plan Start: 09/10/22 13:51 Freq: Status: Active Protocol: Document 10/22/22 11:30 ES (Rec: 10/22/22 12:14 ES [id number]) Physical Therapy Assessment Goals Four Impairment Functional mobility Assisted Goal (LTG) Patient will be able to walk 4 full lengths on [employer] trail without AD within 1.25 hours indicating return to her prior level of function. LTG Duration 8 weeks (11/05/22) - met Three Impairment Weakness/balance Short Term Goal (STG) Patient will be able to perform SLS for 3 seconds or greater B to improve gait pattern and balance. STG Duration 4 weeks (10/08/22) - met Corporate Training Manager Goal (LTG) Patient will be able to perform SLS for 10 seconds or greater B to improve gait pattern and balance. LTG Duration 8 weeks (11/05/22) - partially met 10/22/22 Two Impairment Balance Assisted Goal (LTG) Patient will improve DGI score to 21 or more indicating clinically significant reduction in fall risk. LTG Duration 8 weeks (11/05/22) - met One Impairment Weakness Short Term Goal (STG) Patient will improve 5xSTS score to 16.2 seconds or less indicating clinically significant change in functional strength. STG Duration 4 weeks (10/08/22) - met Corporate Training Manager Goal (LTG) Patient will improve 5xSTS score to 14 seconds or less indicating normal strength for age and decreased fall risk. LTG Duration 8 weeks (11/05/22) - met Progress Towards Goals Progress Towards Goals Progressing Toward Goals Assessment Summary Assessment Patient was seen in PT for a total of 9 visits for strengthening, stretching, balance training, and HEP instruction. She demonstrates improved strength, balance, and function since initial eval. She has made good progress toward goals, meeting all but one, and will continue to make progress with home program. Patient is appropriate to d/c to independent HEP and community fitness at this time and is agreeable to this. Physical Therapy Plan Discharge Physical Therapy Discharge Reasons Goals Met
== END 2022-10-23 09:47 | disposition home or self-care (01) ==
LOC: PHYS 11:30
PROVIDERS: Family Provider Nurse Practitioner; PCP Nurse Practitioner; Referring Provider Nurse Practitioner; Visit Provider Nurse Practitioner
DX: R26.89 Other abnormalities of gait and mobility; S22.070D Wedge compression fracture of T9-T10 vertebra, subsequent encounter for fracture with routine healing; S12.190D Other displaced fracture of second cervical vertebra, subsequent encounter for fracture with routine healing; G25.2 Other specified forms of tremor; W19.XXXD Unspecified fall, subsequent encounter
CPT/HCPCS: 97110; 97112; 97161

== ENCOUNTER → 2022-11-12 12:23 | Outpatient (CLI) | payer MEDICARE, SELFPAY ==
[2022-11-12 13:08] LABS: Blood Urea Nitrogen 18 mg/dL (7-17); Calcium 9.8 mg/dL (8.4-10.2); Estimated Glomerular Filt Rate > 60 mL/min (>60)
== END ==
PROVIDERS: Family Provider Nurse Practitioner; PCP Nurse Practitioner; Referring Provider Nurse Practitioner; Visit Provider Nurse Practitioner
DX: M81.0 Age-related osteoporosis without current pathological fracture (principal); Z01.812 Encounter for preprocedural laboratory examination
CPT/HCPCS: 36415; 82310; 82565; 84520

== ENCOUNTER → 2022-12-23 13:32 | Outpatient (CLI) | payer MEDICARE, SELFPAY ==
[2022-12-23 14:37] LABS: Calcium 10.1 mg/dL (8.4-10.2); Estimated Glomerular Filt Rate > 60 mL/min (>60)
== END ==
PROVIDERS: Family Provider Nurse Practitioner; PCP Nurse Practitioner; Referring Provider Nurse Practitioner; Visit Provider Nurse Practitioner
DX: Z01.812 Encounter for preprocedural laboratory examination (principal)
CPT/HCPCS: 36415; 82310; 82565

== ENCOUNTER → 2023-05-27 11:29 | Outpatient (CLI) | payer MEDICARE, SELFPAY ==
--- NOTE | 2023-05-27 11:31 | DI.RAD.S_ITS ---
Bone Density Report Name: ROSIE LACY Age: 87 Sex: Female Ethnicity: White Date of : 1935 Indication: postmenopausal; screening for osteoporosis; Referring Provider: SOUMYA RIZVI Study: Bone densitometry was performed. Exam Date: May 27, 2023 Accession number: [id number] Bone Density: Region BMD T-score Z-score Classification AP Spine(L1, L2, L3) 0.535 -4.4 -1.6 Osteoporosis Femoral Neck (Left) 0.509 -3.1 -0.5 Osteoporosis Total Hip (Left) 0.532 -3.4 -1.0 Osteoporosis Femoral Neck (Right) 0.506 -3.1 -0.6 Osteoporosis Total Hip (Right) 0.535 -3.3 -1.0 Osteoporosis Total Hip Mean 0.533 -3.4 -1.0 Osteoporosis World Health Organization criteria for BMD impression classify patients as: Normal (T-score at or above -1.0), Osteopenia (T-score between -1.0 and -2.5), or Osteoporosis (T-score at or below -2.5). 10-year Fracture Risk: FRAX not reported because: Some T-score for Spine Total or Hip Total or Femoral Neck at or below -2.5 Treated for osteoporosis Impression: The patient has osteoporosis, based on the Total Spine T-score. Discussion: It is important to ask patients whether they are taking their medications and to encourage continued and appropriate compliance with their osteoporosis therapies to reduce fracture risk. It is also important to review their risk factors and encourage appropriate calcium and vitamin D intakes, exercise, fall prevention and other lifestyle measures. Follow-Up: Consider a repeat BMD and Vertebral Fracture Assessment (VFA) exam in 2 years or sooner if medically necessary, to reassess this patient's status. Reported by: ISIDORO CASTILLO M.D. on 05/27/2023 11:55:00 AM.
== END ==
PROVIDERS: Family Provider Nurse Practitioner; PCP Nurse Practitioner; Referring Provider Nurse Practitioner; Visit Provider Nurse Practitioner
DX: M81.0 Age-related osteoporosis without current pathological fracture (principal)
CPT/HCPCS: 77080

== ENCOUNTER → 2023-06-04 17:02 | Outpatient (ROUT) | payer MEDICARE, SELFPAY | PROVIDERS: Family Provider Nurse Practitioner; PCP Nurse Practitioner; Visit Provider Nurse Practitioner | DX: B35.1 Tinea unguium (principal) | CPT/HCPCS: 87102 ==

== ENCOUNTER → 2023-06-24 09:29 | Outpatient (CLI) | payer OTHER, SELFPAY ==
[2023-06-24 10:10] LABS: Add Manual Diff / Slide Review NO; Basophils Absolute Auto 100 /uL (0-100); Eosinophils Absolute Auto 300 /uL (0-450); Eosinophils Percent Auto 4.4 % (2-4); Hematocrit 38.6 % (36-46); Hemoglobin 13.1 g/dL (12.0-16.0); Lymphocytes Absolute Auto 1600 /uL (1100-4500); Lymphocytes Percent Auto 24.5 % (25-40); Mean Corpuscular Hemoglobin 32.3 PG (26-34); Mean Corpuscular Volume 95.1 fL (80-100); Monocytes Absolute Auto 600 /uL (0-900); Monocytes Percent Auto 8.7 % (3-14); Neutrophils Absolute Auto 4000 /uL (1500-7000); Neutrophils Percent Auto 61.4 % (50-75); Platelet Count 256 X10^3/uL (150-400); Red Blood Cell Count 4.06 X10^6/uL (4.0-5.2); Red Cell Distribution Width 13.3 % (11.6-14.8); White Blood Cell Count 6.5 X10^3/uL (4.5-11.0)
[2023-06-24 10:41] LABS: Alanine Aminotransferase 18 IU/L (<35); Albumin 3.8 g/dL (3.5-5.0); Albumin Globulin Ratio 1.2 (1.0-2.8); Alkaline Phosphatase 62 U/L (38-126); Aspartate Aminotransferase 26 IU/L (14-36); BUN Creatinine Ratio 19.3 (6-22); Bilirubin Total 0.7 mg/dL (0.2-1.3); Blood Urea Nitrogen 16 mg/dL (7-17); Calcium 10.9 mg/dL (8.4-10.2); Carbon Dioxide 31 mmol/L (22-32); Chloride 107 mmol/L (98-107); Cholesterol 133 mg/dL (140-199); Estimated Glomerular Filt Rate > 60 mL/min (>60); Globulin 3.2 g/dL (1.7-4.1); Glucose 93 mg/dL (80-110); HDL Cholesterol 56 mg/dL (40-60); HEMOLYSIS < 15 (0-50); LDL Cholesterol Calculated 59 mg/dL (<100); Potassium 3.9 mmol/L (3.4-5.1); Sodium 141 mmol/L (137-145); Triglycerides 88 mg/dL (35-150)
[2023-06-24 10:53] LABS: Free T3, Triiodothyronine Free 3.45 pg/mL (2.77-5.27); Free T4, Direct Thyroxine 1.19 ng/dL (0.78-2.19)
[2023-06-24 11:01] LABS: Creatinine Urine Random 34.1 mg/dL
[2023-06-24 11:06] LABS: Microalbumi Creatinin Ratio Ur 23.4 ug/mg CR (<30); Microalbumin Urine Random 0.8 mg/dL (0-1.6)
[2023-06-24 11:07] LABS: Thyroid Stimulating Hormone 1.46 uIU/mL (0.47-4.68)
== END ==
PROVIDERS: Family Provider Nurse Practitioner; PCP Nurse Practitioner; Referring Provider Nurse Practitioner; Visit Provider Nurse Practitioner
DX: I10 Essential (primary) hypertension (principal); E78.5 Hyperlipidemia, unspecified; M81.0 Age-related osteoporosis without current pathological fracture; F41.9 Anxiety disorder, unspecified; F32.A Depression, unspecified
CPT/HCPCS: 36415; 80053; 80061; 82043; 82570; 84439; 84443; 84481; 85025

== ENCOUNTER 2023-06-25 17:47 | Emergency (ER) | payer OTHER, SELFPAY ==
[2023-06-25 17:57] VITALS: BP 151/85; PULSE 93; RESP 18; TEMP 37.1; O2SAT 96; BMI 19.9
--- NOTE | 2023-06-25 18:06 | DI.RAD.S_ITS ---
PROCEDURE: XR HUMERUS LT 2V INDICATIONS: Fall onto left arm; pain in humerus TECHNIQUE: 2 views of the humerus were acquired. COMPARISON: None. FINDINGS: Bones: Mildly displaced and impacted humeral head/neck fracture. No dislocation at the glenohumeral joint space. Soft tissues: No suspicious soft tissue calcifications. IMPRESSION: Mildly displaced/impacted humeral head/neck fracture. Dictated by: Jolynn Gupta M.D. on 06/25/2023 at 18:49 Approved by: Jolynn Gupta M.D. on 06/25/2023 at 18:49
--- NOTE | 2023-06-25 18:07 | DI.RAD.S_ITS ---
PROCEDURE: XR CLAVICLE LT INDICATIONS: Fall onto left arm; pain in humerus TECHNIQUE: 2 views of the clavicle were acquired. COMPARISON: [facility], CR, XR HUMERUS LT 2V, 06/25/2023, 18:22. [facility], CR, XR SHOULDER LT MIN 2V, 06/25/2023, 18:22. FINDINGS: Bones: Mildly impacted humeral head/neck fracture. No gross dislocation at the shoulder joint. Soft tissues: No suspicious soft tissue calcifications. IMPRESSION: Mildly displaced/impacted humeral head/neck fracture. Dictated by: Jolynn Gupta M.D. on 06/25/2023 at 19:03 Approved by: Jolynn Gupta M.D. on 06/25/2023 at 19:04
--- NOTE | 2023-06-25 18:07 | DI.RAD.S_ITS ---
PROCEDURE: XR SHOULDER LT MIN 2V INDICATIONS: Fall onto left arm; pain in humerus TECHNIQUE: 2 views of the shoulder were acquired. COMPARISON: [facility], KEMAL, XR HUMERUS LT 2V, 06/25/2023, 18:22. FINDINGS: Bones: Mildly displaced impacted humeral head/neck fracture. No dislocation at the glenohumeral joint. Soft tissues: No suspicious soft tissue calcifications. IMPRESSION: Mildly displaced/infected humeral head/neck fracture. Dictated by: Jolynn Gupta M.D. on 06/25/2023 at 18:50 Approved by: Jolynn Gupta M.D. on 06/25/2023 at 18:51
[2023-06-25] MEDS: OXYCODONE/ACETAMINOPHEN 5/325 TABLET 1 TAB PO (18:22)
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
[2023-06-25] MEDS: OXYCODONE/APAP 5/325 PREPACK 1 BOTTLE MISC (20:45)
--- NOTE | 2023-06-25 20:53 | PC.NURSE ---
Pt came in with sling. Added the strap for immobilization at this time. Educated pt and family. [facility] checks complete
[2023-06-25 20:56] VITALS: BP 129/77; PULSE 89; RESP 14; O2SAT 100
== END 2023-06-25 21:06 | disposition home or self-care (01) ==
PROVIDERS: Emergency Provider Emergency Medicine; Family Provider Nurse Practitioner; PCP Nurse Practitioner
DX: S42.292A Other displaced fracture of upper end of left humerus, initial encounter for closed fracture (principal); W18.30XA Fall on same level, unspecified, initial encounter
CPT/HCPCS: 73000; 73030; 73060; 99283

== ENCOUNTER → 2023-07-14 11:57 | Outpatient (CLI) | payer MEDICARE, SELFPAY | PROVIDERS: Family Provider Nurse Practitioner; PCP Nurse Practitioner; Visit Provider Student in an Organized Health Care Education/Training Program | DX: R30.0 Dysuria (principal) | CPT/HCPCS: 87077; 87086 ==

== ENCOUNTER 2023-07-14 12:26 | Inpatient (IN) | payer MEDICARE, SELFPAY ==
[2023-07-14] VITALS (29 sets, daily range): BP systolic 89–128; BP diastolic 56–74; PULSE 82–133; RESP 18–44; TEMP 36.7–39.3; O2SAT 92–98; BMI 17.2
--- NOTE | 2023-07-14 12:49 | DI.RAD.S_ITS ---
PROCEDURE: XR CHEST 1V INDICATIONS: suspected sepsis TECHNIQUE: One view of the chest was acquired. COMPARISON: [facility], CT, CT CHEST W CON, 08/11/2022, 17:48. FINDINGS: Surgical changes and devices: None. Lungs and pleura: Possible right infrahilar opacity. No pleural effusions or pneumothorax. Mediastinum: Mediastinal contours appear normal. Heart size is normal. Bones and chest wall: No suspicious bony lesions. Overlying soft tissues appear unremarkable. IMPRESSION: Possible right infrahilar opacity concerning for infection. Dictated by: Kaushal Leigh M.D. on 07/14/2023 at 13:54 Approved by: Kaushal Leigh M.D. on 07/14/2023 at 14:05
[2023-07-14 13:09] LABS: INR 1.1 (0.9-1.3); Prothrombin Time 12.8 SECONDS (9.4-12.5)
[2023-07-14 13:10] LABS: Add Manual Diff / Slide Review NO; Basophils Absolute Auto 100 /uL (0-100); Basophils Percent Auto 0.6 % (0-2); Eosinophils Absolute Auto 100 /uL (0-450); Eosinophils Percent Auto 0.5 % (2-4); Hematocrit 29.8 % (36-46); Hemoglobin 10.2 g/dL (12.0-16.0); Lymphocytes Absolute Auto 1600 /uL (1100-4500); Lymphocytes Percent Auto 7.1 % (25-40); Mean Corpuscular HGB Conc 34.3 % (30-36); Mean Corpuscular Hemoglobin 32.7 PG (26-34); Mean Corpuscular Volume 95.2 fL (80-100); Monocytes Absolute Auto 2300 /uL (0-900); Monocytes Percent Auto 9.8 % (3-14); Neutrophils Absolute Auto 18800 /uL (1500-7000); Platelet Count 308 X10^3/uL (150-400); Red Blood Cell Count 3.13 X10^6/uL (4.0-5.2); Red Cell Distribution Width 14.2 % (11.6-14.8)
[2023-07-14 13:12] LABS: PTT Partial Thromboplastin Tim 28 SECONDS (25.1-36.5)
[2023-07-14] MEDS: SODIUM CHLORIDE 0.9% 1,000 ML 1000 ML IV (13:16)
[2023-07-14 13:18] LABS: Lactate (Lactic Acid) 1.3 mmol/L (0.7-2.1)
[2023-07-14 13:19] LABS: Alanine Aminotransferase 45 IU/L (<35); Albumin 3.3 g/dL (3.5-5.0); Alkaline Phosphatase 152 U/L (38-126); Aspartate Aminotransferase 48 IU/L (14-36); BUN Creatinine Ratio 28.9 (6-22); Bilirubin Total 0.5 mg/dL (0.2-1.3); Blood Urea Nitrogen 26 mg/dL (7-17); Calcium 9.4 mg/dL (8.4-10.2); Carbon Dioxide 27 mmol/L (22-32); Chloride 102 mmol/L (98-107); Estimated Glomerular Filt Rate > 60 mL/min (>60); Globulin 3.4 g/dL (1.7-4.1); Glucose 101 mg/dL (80-110); HEMOLYSIS < 15 (0-50); Lipase 63 U/L (23-300); Sodium 135 mmol/L (137-145); Total Protein 6.7 g/dL (6.3-8.2)
[2023-07-14 13:21] LABS: Potassium 3.3 mmol/L (3.4-5.1)
[2023-07-14 13:34] LABS: Procalcitonin 2.38 ng/mL (<0.5)
--- NOTE | 2023-07-14 13:53 | DI.CT.S_ITS ---
PROCEDURE: CT ABDOMEN PELVIS W CON INDICATIONS: sepsis TECHNIQUE: After the administration of intravenous contrast, axial sections acquired from the lung bases to the pubic symphysis. Coronal and sagittal reformats were performed. For radiation dose reduction, the following was used: automated exposure control, adjustment of mA and/or kV according to patient size. COMPARISON: [facility], CT, CT CHEST W CON, 08/11/2022, 17:48. FINDINGS: Image quality: Diagnostic. Lower Chest: Trace bilateral pleural effusions with adjacent atelectasis versus consolidation, right greater than left. ABDOMEN: Liver: No solid mass. Enlarged measuring 22 cm of the midclavicular angle. Gallbladder: Cholelithiasis without CT evidence of acute cholecystitis. Biliary ducts: Common bile duct is mildly dilated measuring 8 mm Pancreas: No ductal dilation. Spleen: History of splenectomy, however there lobulated lesions within the left upper quadrant with the largest measuring 7.3 x 3.6 cm, may represent splenosis. Adrenal Glands: No adrenal nodules. Kidneys and Ureters: Mildly heterogeneous appearance of the left kidney. No hydronephrosis. No solid mass. No complex renal cystic lesion which requires follow up. Stomach and Bowel: Normal colonic caliber, without significant wall thickening. Peritoneum: No abnormal intraperitoneal fluid. Mild mesenteric edema. No free air. Ventral Wall: No significant ventral hernia. Abdominal Nodes: No retroperitoneal or mesenteric adenopathy by size criteria. Vessels: Aorta and inferior vena cava are normal in size. Atherosclerotic vascular calcifications. PELVIS: Pelvic Organs: Unremarkable. Bladder: No bladder wall thickening, accounting for underdistention. Pelvic Nodes: No enlarged lymph nodes. Miscellaneous: Small bilateral fat containing inguinal hernias are seen. Bones: No aggressive osseous abnormality. Decreased osseous mineralization. Degenerative changes of the spine. Moderate compression deformity of the superior endplate of L4 without retropulsion. Grade 1 anterolisthesis of L5 on S1. Old bilateral lower rib fractures. IMPRESSION: 1. Heterogeneous appearance of the left kidney, recommend urinalysis to evaluate for infection. 2. Moderate compression deformity of the superior endplate of L4, correlate with point tenderness for acute fracture. 3. History of splenectomy. Lobulated lesions are seen within the left upper quadrant, largest measuring 7.3 cm. May represent splenosis. 4. Trace bilateral pleural effusions with adjacent atelectasis versus consolidation, right greater than left. 5. Cholelithiasis without evidence of acute cholecystitis. Mildly dilated common bile duct measuring 8 mm, may be within normal limits for age. Dictated by: Kaushal Leigh M.D. on 07/14/2023 at 15:27 Approved by: Kaushal Leigh M.D. on 07/14/2023 at 15:36
--- NOTE | 2023-07-14 13:56 | ED_ITS ---
HPI - Female Genitourinary General Chief complaint: Urogenital-Female Stated complaint: UTI,hypotension Time Seen by Provider: 07/14/23 13:46 Source: patient Mode of arrival: Ambulatory History of Present Illness HPI Narrative: Patient here with son. Has had urinary frequency dysuria fever nausea vomiting sweating since this past Wednesday. No prior history of UTI. Patient in no distress at this time. Low blood pressure noted at home but reassuring here in triage. Related Data Home Medications Medication Instructions Recorded Confirmed aspirin 81 mg tablet,delayed 81 mg PO DAILY 02/10/22 07/14/23 release calcium 1,200 mg PO .QD 02/10/22 07/14/23 tucteivprdad-rrurnure-vwyghw tablet 1 tab PO DAILY 02/10/22 07/14/23 Previous Rx's Medication Instructions Recorded albuterol sulfate 90 mcg/actuation 2 puff inhalation Q4-6H PRN 04/28/22 aerosol inhaler shortness of breath or wheezing #6.7 grams mirtazapine 15 mg tablet 15 mg PO BEDTIME #90 tabs 10/05/22 montelukast 10 mg tablet 10 mg PO BEDTIME #90 tabs 10/21/22 latanoprost 0.005 % eye drops 1 drp EYE-BOTH QPM #2.5 mL 03/09/23 atorvastatin 20 mg tablet 20 mg PO DAILY #90 tabs 03/29/23 Symbicort 80 mcg-4.5 mcg/actuation 2 puff inhalation BID #10.2 grams 06/28/23 HFA aerosol inhaler (budesonide-formoterol) denosumab 60 mg/mL subcutaneous 60 mg SUBCUT [id number] #1 mL 06/28/23 syringe cephalexin 500 mg capsule 500 mg PO QID #20 caps 07/17/23 vancomycin 125 mg capsule 125 mg PO Q6H #40 caps 07/17/23 Allergies Allergy/AdvReac Type Severity Reaction Status Date / Time Macrolide Antibiotics AdvReac Mild Verified 07/14/23 12:36 Penicillins AdvReac Mild Verified 07/14/23 12:36 Sulfa (Sulfonamide AdvReac Mild Verified 07/14/23 12:36 Antibiotics) Review of Systems Review of Systems Narrative: GENERAL: negative chills, fatigue, malaise, fever, sweats. HEENT: negative sinus pain, ear pain, sore throat RESPIRATORY: negative dyspnea, cough CARDIOVASCULAR: negative chest pain, palpitations GASTROINTESTINAL: negative nausea, vomiting, abdominal pain : Positive dysuria, frequency, negative hematuria MUSCULOSKELETAL: negative muscle or bony pain SKIN: negative rash, skin lesions NEUROLOGIC: negative weakness, numbness ROS Unobtainable: All systems reviewed & are unremarkable except as noted in HPI and below Patient History Medical History Cochlear implant in place Compression fracture of T9 vertebra Compression fracture of second cervical vertebra Hypertension Hyperlipidemia COVID-19 Wears glasses COPD (chronic obstructive pulmonary disease) (~2004) Asthma Allergies Depression (~1971) Anxiety (~1971) Osteoporosis (~2006) Fractures Mumps Measles Chicken pox Vertigo Hearing loss (~2006) Surgical History History of tonsillectomy and adenoidectomy Anesthesia History of splenectomy (~1967) Ulcerative colitis (~1977) alcohol intake frequency: a few times a week Substance Use Type: does not use Exam Narrative Exam Narrative: GENERAL: in no distress, not toxic not dyspneic HEAD: Normocephalic. EYES: Pupils equal round ENT: Mucous membranes moist. NECK: Trachea midline. CARDIOVASCULAR: Regular rate and rhythm RESPIRATORY: Clear to auscultation. Breath sounds equal bilaterally. No wheezes, rales, or rhonchi. GASTROINTESTINAL: Abdomen soft, non-tender no CVA tenderness. No peritoneal signs. EXTREMITIES: No gross deformities. BACK: No flank tenderness. NEURO: AOx4. SKIN: Warm and dry PSYCH: Not anxious, is cooperative Initial Vital Signs Initial Vital Signs: Vital Signs Pulse Rate 92 H 07/14/23 12:30 Pulse Oximetry 92 07/14/23 12:30 Course Orders Ordered: Discontinued Medications Acetaminophen (Acetaminophen 325 Mg Tablet) 975 mg PO NOW ONE Stop: 07/14/23 16:31 Last Admin: 07/14/23 16:33 Dose: 975 mg Documented By: PATITO Acetaminophen (Acetaminophen 325 Mg Tablet) 650 mg PO Q6H PRN PRN Reason: Fever/Mild Pain (1-3) Last Admin: 07/17/23 04:58 Dose: 650 mg Documented By: Admin: 07/16/23 18:38 Dose: 650 mg Documented By: Admin: 07/16/23 03:20 Dose: 650 mg Documented By: Admin: 07/15/23 15:30 Dose: 650 mg Documented By: Admin: 07/15/23 08:04 Dose: 650 mg Documented By: Admin: 07/14/23 23:45 Dose: 650 mg Documented By: BRISA Albuterol (Albuterol 2.5 Mg/3 Ml Neb (Adult)) 2.5 mg INH [id number] PRN PRN Reason: Shortness Of Breath Last Admin: 07/17/23 02:19 Dose: 2.5 mg Documented By: LYDIA Albuterol/Ipratropium (Albuterol/Ipratropium 3 Ml Ampul) 3 ml INH [id number] [facility] Last Admin: 07/17/23 12:16 Dose: Not Given Documented By: Admin: 07/17/23 07:48 Dose: 3 ml Documented By: Admin: 07/16/23 19:23 Dose: Not Given Documented By: Admin: 07/16/23 16:12 Dose: 3 ml Documented By: Admin: 07/16/23 09:58 Dose: 3 ml Documented By: Admin: 07/15/23 19:43 Dose: 3 ml Documented By: Admin: 07/15/23 14:26 Dose: 3 ml Documented By: Admin: 07/15/23 08:15 Dose: 3 ml Documented By: NOE Aspirin (Aspirin Ec 81 Mg Tablet) 81 mg PO DAILY [facility] Last Admin: 07/17/23 09:45 Dose: 81 mg Documented By: Admin: 07/16/23 08:27 Dose: 81 mg Documented By: Admin: 07/15/23 09:23 Dose: 81 mg Documented By: NIYAH Atorvastatin Calcium (Atorvastatin 20 Mg Tablet) 20 mg PO DAILY [facility] Last Admin: 07/17/23 09:45 Dose: 20 mg Documented By: Admin: 07/16/23 08:28 Dose: 20 mg Documented By: Admin: 07/15/23 09:23 Dose: 20 mg Documented By: NIYAH Budesonide (Budesonide 0.5 Mg/2 Ml Neb) 0.5 mg INH RTBID [facility] Last Admin: 07/17/23 07:48 Dose: 0.5 mg Documented By: Admin: 07/16/23 19:23 Dose: Not Given Documented By: Admin: 07/16/23 09:58 Dose: 0.5 mg Documented By: Admin: 07/15/23 19:43 Dose: 0.5 mg Documented By: Admin: 07/15/23 08:15 Dose: 0.5 mg Documented By: NOE Enoxaparin Sodium (Enoxaparin 40 Mg/0.4 Ml Syringe) 40 mg SUBCUT DAILY [facility] Last Admin: 07/16/23 08:28 Dose: 40 mg Documented By: Admin: 07/15/23 09:23 Dose: 40 mg Documented By: NIYAH Enoxaparin Sodium (Enoxaparin 30 Mg/0.3 Ml Syringe) 30 mg SUBCUT DAILY [facility] Last Admin: 07/17/23 09:47 Dose: 30 mg Documented By: Admin: 07/16/23 08:50 Dose: 30 mg Documented By: NORMA Sodium Chloride (Normal Saline 0.9%) 1,000 mls @ 1,000 mls/hr IV BOLUS ONE Stop: 07/14/23 13:48 Last Infusion: 07/14/23 14:21 Dose: Infused Documented By: Admin: 07/14/23 13:16 Dose: 1,000 mls/hr Documented By: ALVAREZ Ceftriaxone Sodium 2,000 mg/ (Sodium Chloride) 100 mls @ 200 mls/hr IV NOW ONE Stop: 07/14/23 13:54 Last Infusion: 07/14/23 14:42 Dose: Infused Documented By: Admin: 07/14/23 14:11 Dose: 200 mls/hr Documented By: PATITO Sodium Chloride (Normal Saline 0.9%) 1,197.48 mls @ 399.16 mls/hr 30 ml/kg infuse over 3 hr (1197.48 ml) IV NOW ONE Stop: 07/14/23 18:56 Last Infusion: 07/14/23 17:28 Dose: 400 mls/hr Documented By: Admin: 07/14/23 16:13 Dose: 399.16 mls/hr Documented By: PATITO Sodium Chloride (Normal Saline 0.9%) 1,000 mls @ 100 mls/hr IV CONT [facility] Last Admin: 07/15/23 04:04 Dose: 100 mls/hr Documented By: Infusion: 07/15/23 04:04 Dose: Infused Documented By: Admin: 07/14/23 18:06 Dose: 100 mls/hr Documented By: Ceftriaxone Sodium 2,000 mg/ (Sodium Chloride) 100 mls @ 200 mls/hr IV Q24H [facility] Stop: 07/21/23 12:59 Last Admin: 07/16/23 13:31 Dose: 200 mls/hr Documented By: Infusion: 07/15/23 19:32 Dose: Infused Documented By: Admin: 07/15/23 13:16 Dose: 200 mls/hr Documented By: NIYAH Ceftriaxone Sodium 2,000 mg/ (Sodium Chloride) 100 mls @ 200 mls/hr IV NOW ONE Stop: 07/17/23 11:44 Last Infusion: 07/17/23 13:31 Dose: Infused Documented By: Admin: 07/17/23 11:38 Dose: 200 mls/hr Documented By: JANETTE Lactobacillus Acidophilus (Lactobacillus Acidophilus Tablet) 1 each PO BIDWM [facility] Last Admin: 07/17/23 09:45 Dose: 1 each Documented By: Admin: 07/16/23 17:11 Dose: 1 each Documented By: Admin: 07/16/23 07:43 Dose: 1 each Documented By: Admin: 07/15/23 17:36 Dose: 1 each Documented By: NIYAH Mirtazapine (Mirtazapine 15 Mg Tablet) 15 mg PO BEDTIME [facility] Last Admin: 07/16/23 20:37 Dose: 15 mg Documented By: Admin: 07/15/23 20:36 Dose: 15 mg Documented By: BRISA Naloxone HCl (Naloxone 0.4 Mg/Ml Vial) 0.2 mg IV Q2MIN PRN PRN Reason: Opiate Reversal Ondansetron HCl (Ondansetron 4 Mg/2 Ml Inj) 4 mg IV NOW PRN PRN Reason: Nausea And Vomiting Ondansetron HCl (Ondansetron 4 Mg Odt) 4 mg SL NOW PRN PRN Reason: Nausea And Vomiting Potassium Chloride (Potassium Chloride 20 Meq Tab) 40 meq PO NOW ONE Stop: 07/15/23 10:31 Last Admin: 07/15/23 13:16 Dose: 40 meq Documented By: NIYAH Potassium Chloride (Potassium Chloride 20 Meq Tab) 40 meq PO NOW ONE Stop: 07/16/23 08:16 Last Admin: 07/16/23 08:28 Dose: 40 meq Documented By: NORMA Sodium Chloride (Sodium Chloride 0.9% Flush) 10 ml IV PRN PRN PRN Reason: Flush Sodium Chloride (Sodium Chloride 0.9% Flush) 10 ml IV BID [facility] Last Admin: 07/17/23 09:45 Dose: 10 ml Documented By: Admin: 07/16/23 20:38 Dose: 10 ml Documented By: Admin: 07/16/23 08:50 Dose: 10 ml Documented By: Admin: 07/15/23 20:36 Dose: 10 ml Documented By: BRISA Vancomycin HCl (Vancomycin 125 Mg Capsule) 125 mg PO Q6H [facility] Last Admin: 07/17/23 11:10 Dose: 125 mg Documented By: Admin: 07/17/23 04:58 Dose: 125 mg Documented By: Admin: 07/16/23 23:19 Dose: 125 mg Documented By: Admin: 07/16/23 17:11 Dose: 125 mg Documented By: Admin: 07/16/23 11:55 Dose: 125 mg Documented By: BROOKLYN Vital Signs Vital signs: Vital Signs - 8 hr 07/14/23 12:30 07/14/23 12:31 07/14/23 12:31 Temperature Pulse Rate 92 H 86 Respiratory Rate Blood Pressure 120/63 Pulse Oximetry 92 96 Oxygen Delivery Method 07/14/23 12:36 07/14/23 13:00 07/14/23 13:00 Temperature 98.0 F Pulse Rate 83 84 Respiratory Rate 28 H Blood Pressure 120/63 112/62 Pulse Oximetry 96 95 Oxygen Delivery Method Room Air 07/14/23 13:30 07/14/23 13:30 Temperature Pulse Rate 82 Respiratory Rate 18 Blood Pressure 108/58 L Pulse Oximetry 95 Oxygen Delivery Method MDM - Female Genitourinary Lab Data 07/17/23 04:50 07/17/23 04:50 Labs: Lab Results 07/14/23 Range/Units 12:44 WBC 23.0 H (4.5-11.0) X10^3/uL RBC 3.13 L (4.0-5.2) X10^6/uL Hgb 10.2 L (12.0-16.0) g/dL Hct 29.8 L (36-46) % MCV 95.2 (80-100) fL MCH 32.7 (26-34) PG MCHC 34.3 (30-36) % RDW 14.2 (11.6-14.8) % Plt Count 308 (150-400) X10^3/uL Neut % (Auto) 82.0 H (50-75) % Lymph % (Auto) 7.1 L (25-40) % [place] % (Auto) 9.8 (3-14) % Eos % (Auto) 0.5 L (2-4) % Baso % (Auto) 0.6 (0-2) % Neut # (Auto) 68034 H (7186-5253) /uL Lymph # (Auto) 1600 (8516-5323) /uL [place] # (Auto) 2300 H (0-900) /uL Eos # (Auto) 100 (0-450) /uL Baso # (Auto) 100 (0-100) /uL PT 12.8 H (9.4-12.5) SECONDS INR 1.1 (0.9-1.3) APTT 28 (25.1-36.5) SECONDS Sodium 135 L (137-145) mmol/L Potassium 3.3 L (3.4-5.1) mmol/L Chloride 102 (98-107) mmol/L Carbon Dioxide 27 (22-32) mmol/L BUN 26 H (7-17) mg/dL Creatinine 0.90 (0.52-1.04) mg/dL Estimated GFR > 60 (>60) mL/min BUN/Creatinine Ratio 28.9 H (6-22) Glucose 101 (80-110) mg/dL Lactate 1.3 (0.7-2.1) mmol/L Calcium 9.4 (8.4-10.2) mg/dL Total Bilirubin 0.5 (0.2-1.3) mg/dL AST 48 H (14-36) IU/L ALT 45 H (<35) IU/L Alkaline Phosphatase 152 H (38-126) U/L Total Protein 6.7 (6.3-8.2) g/dL Albumin 3.3 L (3.5-5.0) g/dL Globulin 3.4 (1.7-4.1) g/dL Albumin/Globulin Ratio 1.0 (1.0-2.8) Lipase 63 (23-300) U/L Procalcitonin 2.38 H (<0.5) ng/mL Imaging Data CT scan - abdomen/pelvis: Radiologist's Impression: [address] [address] [address] Scan Report Signed Patient: Lurdes Arauz MR#: [id number] : 1935 Acct:[id number] Age/Sex: 87 / F Date of Service: 07/14/23 Loc: ED Accession Number: [id number] Procedure: CT abdomen pelvis w con Ordering Provider: Carson Erazo MD PROCEDURE: CT ABDOMEN PELVIS W CON INDICATIONS: sepsis TECHNIQUE: After the administration of intravenous contrast, axial sections acquired from the lung bases to the pubic symphysis. Coronal and sagittal reformats were performed. For radiation dose reduction, the following was used: automated exposure control, adjustment of mA and/or kV according to patient size. COMPARISON: [facility], CT, CT CHEST W CON, 08/11/2022, 17:48. FINDINGS: Image quality: Diagnostic. Lower Chest: Trace bilateral pleural effusions with adjacent atelectasis versus consolidation, right greater than left. ABDOMEN: Liver: No solid mass. Enlarged measuring 22 cm of the midclavicular angle. Gallbladder: Cholelithiasis without CT evidence of acute cholecystitis. Biliary ducts: Common bile duct is mildly dilated measuring 8 mm Pancreas: No ductal dilation. Spleen: History of splenectomy, however there lobulated lesions within the left upper quadrant with the largest measuring 7.3 x 3.6 cm, may represent splenosis. Adrenal Glands: No adrenal nodules. Kidneys and Ureters: Mildly heterogeneous appearance of the left kidney. No hydronephrosis. No solid mass. No complex renal cystic lesion which requires follow up. Stomach and Bowel: Normal colonic caliber, without significant wall thickening. Peritoneum: No abnormal intraperitoneal fluid. Mild mesenteric edema. No free air. Ventral Wall: No significant ventral hernia. Abdominal Nodes: No retroperitoneal or mesenteric adenopathy by size criteria. Vessels: Aorta and inferior vena cava are normal in size. Atherosclerotic vascular calcifications. PELVIS: Pelvic Organs: Unremarkable. Bladder: No bladder wall thickening, accounting for underdistention. Pelvic Nodes: No enlarged lymph nodes. Miscellaneous: Small bilateral fat containing inguinal hernias are seen. Bones: No aggressive osseous abnormality. Decreased osseous mineralization. Degenerative changes of the spine. Moderate compression deformity of the superior endplate of L4 without retropulsion. Grade 1 anterolisthesis of L5 on S1. Old bilateral lower rib fractures. IMPRESSION: 1. Heterogeneous appearance of the left kidney, recommend urinalysis to evaluate for infection. 2. Moderate compression deformity of the superior endplate of L4, correlate with point tenderness for acute fracture. 3. History of splenectomy. Lobulated lesions are seen within the left upper quadrant, largest measuring 7.3 cm. May represent splenosis. 4. Trace bilateral pleural effusions with adjacent atelectasis versus consolidation, right greater than left. 5. Cholelithiasis without evidence of acute cholecystitis. Mildly dilated common bile duct measuring 8 mm, may be within normal limits for age. Dictated by: Kaushal Leigh M.D. on 07/14/2023 at 15:27 Approved by: Kaushal Leigh M.D. on 07/14/2023 at 15:36 [facility] Narrative Medical decision making narrative: Patient here with son. Has had urinary frequency dysuria fever nausea vomiting sweating since this past Wednesday. No prior history of UTI. Patient in no distress at this time. Low blood pressure noted at home but reassuring here in triage. After history and exam CBC CMP lactic acid procalcitonin blood culture Rocephin CT abdomen pelvis urinalysis normal saline Zofran [facility] Medical records reviewed: No recent visit for this complaint Differential considered: Includes but not limited to sepsis UTI pyelonephritis cystitis ischemic bowel Lab Test results independently reviewed as above. Pertinent findings: WBC 23,000, sodium 135 potassium 3.3 BUN 26 creatinine 0.9 GFR greater than 60 AST 48 ALT 45 procalcitonin 2.38 lactic acid 1.3 urinalysis cloudy, positive leukocyte esterase Independently reviewed EKG none indicated normal EKG normal sinus rhythm rate 99 Imaging studies independently reviewed: CT abdomen pelvis possible pyelonephritis Consultations: 3:50 p.m.. Spoke with hospitalist, Dr. Meehan agrees to admit patient Treatments: Rocephin Zofran normal saline Re-evaluations: 4:00 p.m.. Patient agrees for admission. No new complaints. Son and patient understand need for antibiotics and observation Discussion: Appropriate for admission for early sepsis. Sepsis IV fluids has been provided as well as antibiotics. Review with patient family agree for admit. Patient toxic. Review with hospitalist agrees for admission. Diagnosis: Acute UTI Discharge Plan Departure Patient Disposition: Admitted As Inpatient Clinical Impression: Urinary tract infection Qualifiers: Urinary tract infection type: site unspecified Hematuria presence: without hematuria Qualified Code(s): N39.0 - Urinary tract infection, site not specified Admit Date/Time: 07/14/23 15:56 Admit Provider: Bernardo Meehan
[2023-07-14] MEDS: cefTRIAXone 2,000 MG in SODIUM CHLORIDE 0.9% 100 ML 200 MG IV (14:11)
[2023-07-14] MEDS: SODIUM CHLORIDE 0.9% 399.16 ML IV (16:13)
[2023-07-14] MEDS: ACETAMINOPHEN 325 MG TABLET 975 MG PO (16:33)
[2023-07-14] MEDS: SODIUM CHLORIDE 0.9% 1,000 ML 100 ML IV (18:06)
--- NOTE | 2023-07-14 18:39 | PC.NURSE ---
Admit Note Patient arrived to room 228 from ER at 1325, able to pivot transfer to bed from stretcher, 1 person mod assist. Reports normally uses cane at home, recent fall reported with current left arm fracture, left arm in sling with good CMS. Alert and oriented to self and place, hard of hearing. Oriented to room and to call light/bed/tv controls. Call light within reach and bed alarm on for safety. Son Ramirez at bedside on admit and assisted in admission questions. BP stable (see VS trends), RA with SpO2 mid-90s. Coarse cough noted, non-prod, RR in the 20s. ST in the low 100s. Denies pain. Denies nausea.
--- NOTE | 2023-07-14 18:45 | PM.HP.1 ---
History of Present Illness History of Present Illness Date Patient Seen: 07/14/23 Time Patient Seen: 18:45 Chief complaint: UTI,hypotension Narrative: 87 F with PMH of COPD, HTN, HLD, cochlear implant, and prior compression fractures who initially presented to the walk in clinic today and was referred to the ER. Patient and son report 5 days of urinary frequency without dysuria. This progressed to a the last 1-2 nights with nausea, increased confusion, and fever to 102.7 with rigors. No diarrhea, did have some nbnb emesis as well last night. Feels weak as well. Denies cough, rhinorrhea, shortness of breath. In the emergency room, patient was hypotensive, responded to initial fluids. She was given a dose of ceftriaxone. UA positive, urine culture and blood cultures pending. Labs notable for WBC 23, Hg 10.2, K 3.3, creatinine at 0.9 from baseline 0.6-0.7 previously. AST ALT mildly elevated as well, procalcitonin 2.38. CT imaging was not notable for any urinary obstruction. Patient received sepsis fluids. [facility] Medical History Cochlear implant in place Compression fracture of T9 vertebra Compression fracture of second cervical vertebra Hypertension Hyperlipidemia COVID-19 Wears glasses COPD (chronic obstructive pulmonary disease) (~2004) Asthma Allergies Depression (~1971) Anxiety (~1971) Osteoporosis (~2006) Fractures Mumps Measles Chicken pox Vertigo Hearing loss (~2006) Surgical History History of tonsillectomy and adenoidectomy Anesthesia History of splenectomy (~1967) Ulcerative colitis (~1977) Social History household members: family Smoking Status: Never smoker Meds Home Medications and Allergies Home Medications Medication Instructions Recorded Confirmed Type aspirin 81 mg tablet,delayed 81 mg PO DAILY 02/10/22 07/14/23 History release calcium 1,200 mg PO .QD 02/10/22 07/14/23 History ptdmaucejlcj-ohrztfqb-quobfw tablet 1 tab PO DAILY 02/10/22 07/14/23 History albuterol sulfate 90 mcg/actuation 2 puff inhalation Q4-6H PRN 04/28/22 07/14/23 Rx aerosol inhaler shortness of breath or wheezing #6.7 grams mirtazapine 15 mg tablet 15 mg PO BEDTIME #90 tabs 10/05/22 07/14/23 Rx montelukast 10 mg tablet 10 mg PO BEDTIME #90 tabs 10/21/22 07/14/23 Rx latanoprost 0.005 % eye drops 1 drp EYE-BOTH QPM #2.5 mL 03/09/23 07/14/23 Rx atorvastatin 20 mg tablet 20 mg PO DAILY #90 tabs 03/29/23 07/14/23 Rx Symbicort 80 mcg-4.5 mcg/actuation 2 puff inhalation BID #10.2 grams 06/28/23 07/14/23 Rx HFA aerosol inhaler (budesonide-formoterol) denosumab 60 mg/mL subcutaneous 60 mg SUBCUT [id number] #1 mL 06/28/23 07/14/23 Rx syringe losartan 50 mg tablet 50 mg PO DAILY 07/14/23 07/14/23 History Allergies Allergy/AdvReac Type Severity Reaction Status Date / Time Macrolide Antibiotics AdvReac Mild Verified 07/14/23 12:36 Penicillins AdvReac Mild Verified 07/14/23 12:36 Sulfa (Sulfonamide AdvReac Mild Verified 07/14/23 12:36 Antibiotics) Review of Systems Review of Systems Narrative: All other systems reviewed with the patient and are negative unless otherwise stated. Exam Vital Signs (past 8 hours): - 07/14/23 12:30 07/14/23 12:31 07/14/23 12:31 Temperature Pulse Rate 92 H 86 Respiratory Rate Blood Pressure 120/63 Pulse Oximetry 92 96 Oxygen Delivery Method 07/14/23 12:36 07/14/23 13:00 07/14/23 13:00 Temperature 98.0 F Pulse Rate 83 84 Respiratory Rate 28 H Blood Pressure 120/63 112/62 Pulse Oximetry 96 95 Oxygen Delivery Method Room Air 07/14/23 13:30 07/14/23 13:30 07/14/23 14:00 Temperature Pulse Rate 82 99 H Respiratory Rate 18 42 H Blood Pressure 108/58 L Pulse Oximetry 95 97 Oxygen Delivery Method 07/14/23 14:01 07/14/23 14:01 07/14/23 15:00 Temperature Pulse Rate 95 H 100 H Respiratory Rate 27 H 28 H Blood Pressure 91/64 Pulse Oximetry 98 96 Oxygen Delivery Method 07/14/23 15:30 07/14/23 16:00 07/14/23 16:26 Temperature 102.8 F H Pulse Rate 96 H 115 H Respiratory Rate 27 H 25 H Blood Pressure 89/74 L Pulse Oximetry 96 96 Oxygen Delivery Method 07/14/23 16:26 07/14/23 16:30 07/14/23 16:33 Temperature 102.8 F H Pulse Rate 130 H 133 H Respiratory Rate 44 H 44 H Blood Pressure Pulse Oximetry 94 94 Oxygen Delivery Method 07/14/23 17:00 07/14/23 17:30 07/14/23 17:30 Temperature 101 F H Pulse Rate 116 H 107 H Respiratory Rate 27 H 35 H Blood Pressure 120/59 L Pulse Oximetry 92 93 Oxygen Delivery Method 07/14/23 17:50 07/14/23 18:00 07/14/23 18:00 Temperature Pulse Rate 99 H Respiratory Rate 33 H Blood Pressure 113/57 L Pulse Oximetry 95 Oxygen Delivery Method Room Air 07/14/23 18:30 07/14/23 18:30 07/14/23 18:39 Temperature 100.4 F H Pulse Rate 106 H Respiratory Rate 29 H Blood Pressure 128/60 Pulse Oximetry Oxygen Delivery Method Oxygen Delivery Method Room Air Narrative Exam Narrative: General:? Patient is well developed and well nourished, in no distress at this time. HEENT:? Normocephalic, atraumatic, extraocular muscles intact, oral pharynx is clear and mucous membranes are moist. Neck: supple and symmetric, trachea is midline, no cervical adenopathy. Chest:? Normal AP diameter and contour without kyphoscoliosis, no tachypnea, equal chest rise bilaterally. Lungs:? CTA b/l no wheezing rhonchi or rales. Cardio:?RRR no m/r/g. Abdomen: S NT ND. . Musculoskeletal:? Muscle strength and tone are equal within normal limits, no deformity. Extremities: No edema or joint effusions. No cyanosis or clubbing. Skin:? Pale,? Warm to touch,dry and intact without rashes, ulcerations or petechiae.? Neuro:? Alert and orientated x3,? sensation to touch intact in all extremities, no gross deficits noted of cranial nerves. Psych:? Patient has a well-kept appearance, appropriate affect, mental status attitude thought context and judgment are appropriate for age. Objective Labs 07/14/23 12:44 07/14/23 12:44 Labs: Laboratory Results - last 24 hr 07/14/23 12:44 WBC 23.0 H RBC 3.13 L Hgb 10.2 L Hct 29.8 L MCV 95.2 MCH 32.7 MCHC 34.3 RDW 14.2 Plt Count 308 Neut % (Auto) 82.0 H Lymph % (Auto) 7.1 L [place] % (Auto) 9.8 Eos % (Auto) 0.5 L Baso % (Auto) 0.6 Neut # (Auto) 45261 H Lymph # (Auto) 1600 [place] # (Auto) 2300 H Eos # (Auto) 100 Baso # (Auto) 100 PT 12.8 H INR 1.1 APTT 28 Sodium 135 L Potassium 3.3 L Chloride 102 Carbon Dioxide 27 BUN 26 H Creatinine 0.90 Estimated GFR > 60 BUN/Creatinine Ratio 28.9 H Glucose 101 Lactate 1.3 Calcium 9.4 Total Bilirubin 0.5 AST 48 H ALT 45 H Alkaline Phosphatase 152 H Total Protein 6.7 Albumin 3.3 L Globulin 3.4 Albumin/Globulin Ratio 1.0 Lipase 63 Procalcitonin 2.38 H Assessment & Plan Assessment & Plan narrative: 1. Sepsis secondary to pyelonephritis with acute metabolic encephalopathy and hypotension - continue ceftriaxone 2g q24 hr, pending urine culture and sensitivity, along with blood cultures. - hold home antihypertensives. - okay for diet - continue IV fluid overnight - admit to ICU, initial drop in BP concerning for possible septic shock. If stable overnight can list for floor care. - symptom control with pain medications and nausea medications / zofran. 2. HTN - hold home medications. Son has held home losartan for past few days at home as well. 3. HLD - continue home statin, continue home asa 4. COPD without exacerbation - albuterol nebs prn - replace home inhaler with nebulizers, will do duonebs q6hr WA with pulmicort BID. - consider RT eval if worsening respiratory status - Goal O2 >89% Code: DNR, surrogate decision maker is patient's son DVT: Lovenox daily I have utilized all available immediate resources to obtain, update, or review the patient's current medications. Dispo: patient admitted under inpatient status, will admit to ICU with severe sepsis with concern for possible developing septic shock. I do suspect she will likely be able to discharge home once improved from her illness. Additional history obtained via discussions with the ER provider and son. These discussions contributed to the creation of the above assessment and plan. I have reviewed patient's presenting documentation, labs, and imaging personally. I have spent 35 minutes involved in the critical care management of this patient.
[2023-07-14 19:31] LABS: MRSA (Nasal) PCR Not Detected (Not Detect)
[2023-07-14] MEDS: ACETAMINOPHEN 325 MG TABLET 650 MG PO (23:45)
[2023-07-15] VITALS (33 sets, daily range): BP systolic 111–146; BP diastolic 56–72; PULSE 58–101; RESP 16–34; TEMP 36.7–39; O2SAT 91–100
[2023-07-15] MEDS: SODIUM CHLORIDE 0.9% 1,000 ML 100 ML IV (04:04)
[2023-07-15 05:14] LABS: Add Manual Diff / Slide Review NO; Basophils Absolute Auto 100 /uL (0-100); Basophils Percent Auto 0.5 % (0-2); Eosinophils Absolute Auto 100 /uL (0-450); Eosinophils Percent Auto 0.4 % (2-4); Hemoglobin 9.5 g/dL (12.0-16.0); Lymphocytes Absolute Auto 1700 /uL (1100-4500); Lymphocytes Percent Auto 6.6 % (25-40); Mean Corpuscular HGB Conc 34.1 % (30-36); Mean Corpuscular Hemoglobin 32.1 PG (26-34); Monocytes Absolute Auto 1800 /uL (0-900); Monocytes Percent Auto 6.9 % (3-14); Neutrophils Absolute Auto 21700 /uL (1500-7000); Neutrophils Percent Auto 85.6 % (50-75); Platelet Count 300 X10^3/uL (150-400); Red Blood Cell Count 2.98 X10^6/uL (4.0-5.2); Red Cell Distribution Width 14.3 % (11.6-14.8); White Blood Cell Count 25.4 X10^3/uL (4.5-11.0)
[2023-07-15 05:20] LABS: Alanine Aminotransferase 46 IU/L (<35); Albumin 2.8 g/dL (3.5-5.0); Albumin Globulin Ratio 0.9 (1.0-2.8); Alkaline Phosphatase 159 U/L (38-126); Aspartate Aminotransferase 50 IU/L (14-36); BUN Creatinine Ratio 21.5 (6-22); Bilirubin Total 0.5 mg/dL (0.2-1.3); Blood Urea Nitrogen 14 mg/dL (7-17); Calcium 8.2 mg/dL (8.4-10.2); Carbon Dioxide 22 mmol/L (22-32); Chloride 111 mmol/L (98-107); Estimated Glomerular Filt Rate > 60 mL/min (>60); Glucose 99 mg/dL (80-110); HEMOLYSIS < 15 (0-50); Magnesium 2.4 mg/dL (1.6-2.3); Potassium 3.4 mmol/L (3.4-5.1); Sodium 137 mmol/L (137-145); Total Protein 5.8 g/dL (6.3-8.2)
--- NOTE | 2023-07-15 06:41 | PC.NURSE ---
Adult Education Professional Note-Patient has been A/Ox4, ROSEBUD. SR, BP 107/64, 146/72, 111/70, 138/63, RA sats >92%, loose non-productive cough, mild shortness of breath with activity, afebrile. Incontinent urine, does get up to BSC. Tylenol given for Lt arm pain.
[2023-07-15] MEDS: ACETAMINOPHEN 325 MG TABLET 650 MG PO ×2 (08:04→15:30)
[2023-07-15] MEDS: ALBUTEROL/IPRATROPIUM 3 ML AMPUL INH ×3 (08:15→19:43)
[2023-07-15] MEDS: BUDESONIDE 0.5 MG/2 ML NEB INH ×2 (08:15→19:43)
[2023-07-15] MEDS: ATORVASTATIN 20 MG TABLET PO (09:23)
[2023-07-15] MEDS: ENOXAPARIN 40 MG/0.4 ML SYRINGE SUBCUT (09:23)
[2023-07-15] MEDS: ASPIRIN EC 81 MG TABLET PO (09:23)
--- NOTE | 2023-07-15 12:39 | PT.IIE ---
Current Diagnoses Sepsis, unspecified organism (07/14/23) Surgical History (Last Reviewed 07/14/23 @ 22:30 by Bernardo Meehan DO) Anesthesia History of splenectomy (~1967) History of tonsillectomy and adenoidectomy Ulcerative colitis (~1977) Medical History (Last Reviewed 07/14/23 @ 22:30 by Bernardo Meehan DO) Allergies Anxiety (~1971) Asthma Chicken pox Cochlear implant in place Compression fracture of second cervical vertebra Compression fracture of T9 vertebra COPD (chronic obstructive pulmonary disease) (~2004) COVID-19 Depression (~1971) Fractures Hearing loss (~2006) Hyperlipidemia Hypertension Measles Mumps Osteoporosis (~2006) Vertigo Wears glasses Physical Therapy Inpatient Evaluation/Re-Eval M1 PT/OT-IP Prior Functional Status Start: 07/15/23 11:34 Freq: NEEDED Status: Active Protocol: Document 07/15/23 11:45 MB (Rec: 07/15/23 12:39 MB [id number]) Medical Review Prior Functional Status Medical History Reviewed Yes Diet/Fluid Consistency Regular Communication Tena, GALENA, has left hearing aide and right cochlear implant that she is not currently wearing Mobility and Gait I to mod I with walking sticks , fall 06/25/23 at [facility] and left humeral neck fracture and arm is in sling. Pt is right-handed. Activities of Daily Living and IADL's Usually I and has needed more assistance since being one handed Social History Household Members family Living Arrangements House Number of Floors (Floors) Two Floors Number of Stairs To Enter/Railing? Many sets of steps with rails: at least two flights of steps Home Environment Standard Height Toilet,Walk in Shower,Tub/Shower Home Equipment Grab Bars In Shower Employment Status Retired Additional Social History Comment Pt states that she just has walking sticks at home M2 PT-IP Current Condition Start: 07/15/23 11:34 Freq: NEEDED Status: Active Protocol: Document 07/15/23 11:45 MB (Rec: 07/15/23 12:39 MB [id number]) Physical Therapy Current Condition Current Condition Evaluation Date 07/15/23 Treatment Diagnosis Hypotension, recent fall M3 PT-IP Subjective Start: 07/15/23 11:34 Freq: NEEDED Status: Active Protocol: Document 07/15/23 11:45 MB (Rec: 07/15/23 12:39 MB [id number]) Subjective Physical Therapy Visit Type Type Initial Evaluation Visit Start Time 11:45 Visit Stop Time 12:19 Number of HIMS CLERK Visits 0 Physical Therapy Visit Comments Patient Comments Pt is pleasant and agreeable to mobility Therapy Pain Assessment Pain When Pain Assessed At Rest Pain Present Pain Present Denied Pain M4 PT-IP Mobility and Gait Start: 07/15/23 11:34 Freq: NEEDED Status: Active Protocol: Document 07/15/23 11:45 MB (Rec: 07/15/23 12:39 MB [id number]) PT-Bed Mobility Assessment Rolling Level of Assist Standby Assistance,1 Person Assistance Supine to Sit Supine to Sit Standby Assistance,1 Person Assistance Scooting Scooting to Edge of Bed Standby Assistance PT-Transfer Assessment Sit to and From Stand Sit to and from Stand Contact Guard Assistance,1 Person Assistance,Use of Upper Extremities Equipment Transfer Assistive Device Gait Belt,Straight Cane Orthotic/Prosthetic Devices or Brace: No Transfers Transfer Destination Chair Transfer Technique Ambulation Transfer Ability Level of Assist Contact Guard Assistance,1 Person Assistance,Use of Upper Extremities Comments Mobility Comments Pt uses walking stick at home in right hand and so used SPC with PT. PT checks orthostatics and pt is not orthostatic: BP in right UE: 116-118/60s in supine to standing and after gait in the 130s/70s. Pt does feel light- headed with gait when asked and she is pretty unsteady Gait Assessment Gait Gait Assistance Required: Contact Guard Assist Distance (Feet) 50 Able to Maintain Weight Bearing Status Yes During Gait Assistive Devices Assistive Device Gait Belt,Straight Cane Orthotic/Prosthetic Devices or Brace: No Gait Deviations General Gait Pattern Decreased Stride Length, Decreased Feet Clearance, Flexed Trunk,Narrow Based Gait Factors Limiting Gait Function Factors Limiting Gait Function Decreased Activity Tolerance, Difficulty Following Directions,Incoordination,Poor Balance,Poor Safety Awareness Comments Gait Comments Pt is pretty imbalanced with gait with cane in right hand: slow and step-to gait and pt reports not feeling well and when asked, confirms that she does feel light-headed. PT provides CGA with tactile assist at all times with gait. Pt does not wear her right cochlear implant device (this is what she calls the right hearing aide) as she states it is not working well and her left arm is in sling and so no arm swing with gait PT-Balance Assessment Sitting Balance and Reactions Static Sitting Balance Ability Good Dynamic Sitting Balance Ability Good Standing Balance and Reactions Static Standing Balance Ability Good Dynamic Standing Balance Ability Fair Device Used SPC right hand M5 PT-IP Objective Assessments Start: 07/15/23 11:34 Freq: NEEDED Status: Active Protocol: Document 07/15/23 11:45 MB (Rec: 07/15/23 12:39 MB [id number]) Orientation Orientation/Cognition Level of Alertness Alert Language Function Ability No Deficits Noted,Hard of Hearing Safety Awareness Decreased Safety Awareness Memory Description No Deficits Noted Comments Pt is generally alert and oriented to herself, place and general situation, does not provide a lot of insight to all PT questioning Gross Range of Motion Upper Extremity ROM Assessment Left Impaired Impairments Left arm in sling after humeral fracture Lower Extremity ROM Assessment Within Functional Limits Strength Upper Extremity Strength Assessment Left Impaired Lower Extremity Strength Assessment Within Functional Limits M6 PT-IP Treatment Start: 07/15/23 11:34 Freq: NEEDED Status: Active Protocol: Document 07/15/23 11:45 MB (Rec: 07/15/23 12:39 MB [id number]) Physical Therapy Treatment Education Education Provided Safety M7 PT-IP Assessment and Plan Start: 07/15/23 11:34 Freq: NEEDED Status: Active Protocol: Document 07/15/23 11:45 MB (Rec: 07/15/23 12:39 MB [id number]) PT Summary Assessment and Plan Potential Rehabilitation Potential Good Status of Condition at Evaluation Evolving Summary Impairments ROM,Strength,Balance, Coordination,Cognition,Bed Mobility,Transfers,Gait, Activity Tolerance Progress Towards Goals Slow Progress due to Activity Tolerance Assessment Summary Pt is a pleasant 87 y/o who has hearing challenges, is wearing her left hearing aide and who also has a right hearing aide that appears to be a bone conduction hearing aide that she is not wearing. She had a fall at [facility] when getting out of the way of a car per her report on 06/25/23 and she fractured her left humerus and it is in a sling. Mobility and self-care has been more challenging since only being able to use her right hand. She is not orthostatic with PT today. She has a mild cervical and UE tremor and her gait is very imbalanced with cane in her right hand and she states she does not feel well. She is a little light-headed with gait but once again, BP after gait is higher than before. Given her age and family support, pt would like to go home with family assistance and this would be a good plan for pt if that assistance is available. She would then benefit from OPPT for balance and gait training. If family cannot transport her and she is homebound, HHPT is also an option. Goals Bed Mobility Goal Independent Transfer Goal Independent,Cane Gait Goal Independent,Cane Gait Distance 100 Other Goals Pt will ascend and descend a flight of steps with rail and no more than superv assistance to allow safe home mobility. Days to Meet Goals 5 Frequency of Treatment Frequency Of Treatment Once a Day Treatment Plan Physical Therapy Treatment Plan Bed Mobility Training,Transfer Training,Gait Training, Therapeutic Exercise,Balance Retraining,Discharge Planning, Hot or Cold Pack,Neuromuscular Re-ed,Coordination Retraining ,Manual Therapy Precautions Other Precautions Fall risk, left humeral fracture and arm in sling Weight Bearing Status Weight Bearing Status Weight Bear as Tolerated Allowed Weight Bearing Amount (enter % WBAT legs and assume NWB LUE or #) (%) Recommendations To Nursing Amount of Assist Needed Standby Assistance,1 Person Assist Discharge Recommendations PT Discharge Recommendations Home with 02/11 Assist Available Other Discharge Recommendations HH vs OPPT Transportation Needs at Discharge Private Vehicle
[2023-07-15] MEDS: cefTRIAXone 2,000 MG in SODIUM CHLORIDE 0.9% 100 ML 200 MG IV (13:16)
[2023-07-15] MEDS: POTASSIUM CHLORIDE 20 MEQ TAB 40 MEQ PO (13:16)
--- NOTE | 2023-07-15 14:19 | CM.DANOTE ---
DCP Assessment Note Pt is an 87yo F here following UTI/sepsis. Pt had a recent fall 3..24 that resulted in left arm fracture. pt is [place] and normally uses a cochlear implant. PCP Alejandra ROB Medicare and self pay [employer] reviewed EMR. Per hospitalist in morning rounds, pt doing better today. Potentially home tomorrow after another day of IV abx, anticipate switch to PO at dc. Per PT, rec home with assistance and OP f/u. [employer] attempted to meet with pt at bedside. Sleeping heavily. Agreed to this CM speaking with jamison Guzmán in order to rest. Per Ramirez (p [phone]) pt lives with him, DIL, and 13yr old grandchild. Pt is relatively indep at baseline, normally uses only walking sticks. Ramirez reports he is familiar with [employer] if additional equip is recommended. Ramirez reports hx of OP PT, no Hx of HH. Preference is OP PT for pt to get out of the house more. Report no barriers in taking pt home when medically stable. Plan: anticipate home with son to transport when medically stable. No barriers identified to safe return home. CM team will continue to follow as needed. PAVAN [place] Discharge Planning/Care Management Advanced directive, confirm from FAMILY Start: 07/14/23 17:41 Freq: Q24H Status: Active Protocol: Document 07/14/23 17:42 AKP (Rec: 07/14/23 17:43 AKP [id number]) Advance Directive, confirm on record Time 17:42 Person contacted Ramirez espino to bring in. Copy received No CM Discharge Assessment Start: 07/15/23 14:15 Freq: Status: Active Protocol: Document 07/15/23 14:15 SL (Rec: 07/15/23 14:18 SL [id number]) Discharge Planning Assessment Assigned Master Merchandiser PAVAN [place] DPOA/Assigned Designee Name jamison Guzmán Contact Information [phone] Advance Directives? Yes Advance Directives on File No: Jamison Guzmán to bring in. History Provided By Patient,Family Member Prior Living Arrangements House Household Members family,children Comment Son, DIL, and 13yo granddaughter Type of transporation used prior to Drives own vehicle admit Comment son Raimrez/DIL help with transportation Is patient alert and oriented? Yes Needs Assistance With Home Chores / Shopping DME Already Rented / Owned Other Comment walking sticks Barriers to Discharge No Discharge Plan Home Transportation Arrangement son in POV Referrals Initiated None needed Whiteboard Updated in Patient Room with Yes name and ext. # of Master Merchandiser Review Status In Process Please Provide Date Initial DC 07/15/23 Assessment Was Performed Next Review Type Continued Stay Review
--- NOTE | 2023-07-15 15:33 | OT.IP.EVAL ---
Current Diagnoses Sepsis, unspecified organism (07/14/23) Past Medical History (Last Reviewed 07/14/23 @ 22:30 by Bernardo Meehan DO) Allergies Anxiety (~1971) Asthma Chicken pox Cochlear implant in place Compression fracture of second cervical vertebra Compression fracture of T9 vertebra COPD (chronic obstructive pulmonary disease) (~2004) COVID-19 Depression (~1971) Fractures Hearing loss (~2006) Hyperlipidemia Hypertension Measles Mumps Osteoporosis (~2006) Vertigo Wears glasses Surgical History (Last Reviewed 07/14/23 @ 22:30 by Bernardo Meehan DO) Anesthesia History of splenectomy (~1967) History of tonsillectomy and adenoidectomy Ulcerative colitis (~1977) Occupational Therapy Inpatient Evaluation/Re-Eval M1 PT/OT-IP Prior Functional Status Start: 07/15/23 15:30 Freq: NEEDED Status: Active Protocol: Document 07/15/23 15:30 [facility] (Rec: 07/15/23 15:55 [facility] [id number]) Medical Review Prior Functional Status Medical History Reviewed Yes Diet/Fluid Consistency Regular Communication [place], [place], has left hearing aide and right cochlear implant that she is not currently wearing Mobility and Gait I to mod I with walking sticks , fall 06/25/23 at [facility] and left humeral neck fracture and arm is in sling. Pt is right-handed. Activities of Daily Living and IADL's Usually I and has needed more assistance since being one handed Social History Household Members family,children Living Arrangements House Number of Floors (Floors) 3 or More Floors Home Environment Standard Height Toilet,Walk in Shower,Tub/Shower Home Equipment Grab Bars In Shower Employment Status Retired Additional Social History Comment Pt states that she just has walking sticks at home. Pt has supportive family that someone to be there to assist with her needs 02/11. M2 OT-IP Current Condition Start: 07/15/23 15:30 Freq: Status: Active Protocol: Document 07/15/23 15:30 [facility] (Rec: 07/15/23 15:55 [facility] [id number]) Occupational Therapy Current Condition Current Condition Evaluation Date 07/15/23 Treatment Diagnosis UTI/sepsis, s/p fall left arm fx 06/25/23 Diagnosis Onset Date 07/14/23 Post Operative Precautions Shoulder Precautions Sling M3 OT- IP Subjective and Pain Start: 07/15/23 15:30 Freq: Status: Active Protocol: Document 07/15/23 15:30 [facility] (Rec: 07/15/23 15:55 [facility] [id number]) OT- Subjective Occupational Therapy Visit Type Type Initial Evaluation Visit Start Time 15:00 Visit Stop Time 15:33 Occupational Therapy Visit Comments Patient Comments Pt needing encouragement and feeling cold and then agreed to get up to use the BSC. Patient/Caregiver Goals TO go home. OT Pain Assessment Pain When Pain Assessed During Mobility Pain Present Pain Present Pain Reported Location Left Arm Pain Behaviors Facial Grimacing,Holding Area M4 OT- IP ADL's Start: 07/15/23 15:30 Freq: Status: Active Protocol: Document 07/15/23 15:30 [facility] (Rec: 07/15/23 15:55 [facility] [id number]) OT IRA-Ppba-Nbrbfzf General Evaluation Self-Feeding Ability Standby Assistance Areas Needing Assistance Opening Containers Comments OT Self-Feeding Comments Pt needing set-up for needs. OT ADL-Grooming General Evaluation Grooming Ability Minimal Assistance Areas Needing Assistance Combing/Brushing Hair Comments OT Grooming Comments Assist to brush her hair from her son. OT ADL-Oral Care General Eval Oral Care Ability Standby Assistance Areas of Assistance Retrieving/Set-Up of Items Comments Oral Care Comments Set-up while long sitting in the bed. OT ADL-Dressing General Eval Lower Body Dressing Ability Maximum Assistance Comments OT Dressing Comments Assist for socks and brief at this time. Showed pt use of bottom turning lathe tender for dressing needs but too tired to assist. OT ADL-Toileting General Evaluation Toileting Ability Moderate Assistance Areas Needing Assistance Manage Clothing Comments OT Toileting Comments Pt able to wiper after urinating but needing CGA for balance and assist for brief management needs. Suggested pt gets a BSC for home use, equipment list given to her son. OT ADL-Bathing Comments OT Bathing Comments Not performed. Suggested her son gets a tub bench for her tub/shower at home or shower chair if going to use the shower upstairs. M5 OT- IP IADL's Start: 07/15/23 15:30 Freq: Status: Active Protocol: Document 07/15/23 15:30 [facility] (Rec: 07/15/23 15:55 [facility] [id number]) OT-Instrumental Activities of Daily Living Deficits IADL Deficits Identified Deficits Home Safety Awareness Awareness of Need for Assistance at Home Good Awareness Home Safety Comments Pt a little groggy and has a very supportive family to be able to assist with all her needs. Medication Management Medication Management Comments Pt's son states they will assist her. Money Management Money Management Comments Pt's son states that they will provide assist and supervision especially since she is not feeling well at this time. Meal Preparation Meal Preparation Caregiver Provides Assist Oakes Machine Operator Oakes Machine Operator Caregiver Provides Assist Driving Driving Comments Pt's son states pt just drives locally, but has not been driving recently. M6 OT- IP Functional Cognition Start: 07/15/23 15:30 Freq: Status: Active Protocol: Document 07/15/23 15:30 [facility] (Rec: 07/15/23 15:55 [facility] [id number]) Cognitive Factors Limiting Selfcare Function Cognitive Ability Level of Alertness Alert Patient Orientation Name,Age,Birthday,Month,Date, Year,Day of Week,Place, Situation Attention Span Ability Capable of Focused Attention, Capable of Sustained Attention Ability to Follow Commands Able to Follow One Step Commands Cognitive Comments Cognitive Assessment Comments Pt able to follow all commands for ADL and mobility needs. Pt is a little hard of hearing and needing more time to follow commands. OT- Vision and Hearing OT- Hearing Assessment OT- Hearing Assessment Use of Hearing Aids OT- Vision Assessment Visual Acuity Glasses For Reading Vision Assessment Comments Pt uses left hearing aid and right cochlear implant on the right. M7 OT- IP Mobility and Balance Start: 07/15/23 15:30 Freq: Status: Active Protocol: Document 07/15/23 15:30 [facility] (Rec: 07/15/23 15:55 [facility] [id number]) OT- Bed Mobility Assessment Supine to Sit Supine to Sit Assist Contact Guard Assistance,Head of Bed Elevated Sit to Supine Sit to Supine Assist Minimal Assistance,Head of Bed Elevated OT-Transfer Assessment Sit to and From Stand Sit to and from Stand Contact Guard Assistance Transfers Transfer Ability Contact Guard Assistance, Minimal Assistance Technique Transfer Destination Bed,Bedside Commode Transfer Technique Stand Step Pivot Devices Transfer Assistive Devices Gait Belt,Straight Cane Comments Mobility Comments NNEKA to help get her legs back into bed. Pt CGA to NNEKA for balance for the transfer to and from the BSC as feeling weak. Pt not feeling that the cane was steady enough and use of the bed for stability to the [facility]. Spoke to pt's son that possibly a quad cane or her walking stick may work better for her and that therapy to try tomorrow with her. OT- Balance Assessment Sitting Balance and Reactions Static Sitting Balance Ability Normal Dynamic Sitting Balance Ability Good Standing Balance and Reactions Static Standing Balance Ability Fair Dynamic Standing Balance Ability Poor M8 OT- IP Objective Assessments Start: 07/15/23 15:30 Freq: Status: Active Protocol: Document 07/15/23 15:30 [facility] (Rec: 07/15/23 15:55 [facility] [id number]) OT Gross Range of Motion Upper Extremity Range of Motion Assessment Left Impaired OT Strength Upper Extremity Strength Assessment Left Impaired M9 OT- IP Assessment and Plan Start: 07/15/23 15:30 Freq: Status: Active Protocol: Document 07/15/23 15:30 [facility] (Rec: 07/15/23 15:55 [facility] [id number]) OT Summary Assessment and Plan Potential Rehabilitation Potential Good Analytic Complexity at Evaluation Moderate Summary OT Impairments Pain,Strength,Balance, Functional Mobility,Self- Feeding,Grooming,Dressing, Toileting,Bathing,Toilet Transfers,Shower Transfers, Activity Tolerance Progress Towards Goals Slow Progress due to Pain,Slow Progress due to Medical Issues,Slow Progress due to Activity Tolerance Assessment Summary Pt MOD complexity and main barriers are pain, decreased balance, activity tolerance, and now needing some assist for ADl and mobility needs. Pt has a very supportive family to be able to assist her at home. In addition, pt son looking to get a BSC, tub bench or shower chair for pt to use, in addition to try use of quad cane/walking stick/ cane for ADL mobility needs. Pt son states to also try to install a hand held shower spray. Pt will benefit from outpt PT/OT for left shoulder needs and for balance needs when able. Goals Self-Feeding Goal Independent Grooming Goal Independent Dressing Goal Moderate Assistance Toileting Goal Standby Assistance Bathing Goal Moderate Assistance Toilet Transfer Goal Standard Toilet Shower Transfer Goal Standby Assistance Days to Meet Goals 7 Frequency of Treatment Frequency Of Treatment Once a Day Treatment Plan OT Treatment Plan ADL Training,Functional Mobility,Patient/Family Education,Discharge Planning Other Treatment Recommendations and Next Sponge off versus shower Treatment Focus Discharge Recommendations OT Discharge Recommendations Home with 02/11 Assist Available,Outpatient PT Home Equipment Needs BSC, shower chair/tub bench, HHSP Transportation Needs at Discharge Private Vehicle
--- NOTE | 2023-07-15 16:10 | DIET.CONS2 ---
Dietary Inpatient Consultation Note Admission Date: 07/14/2023 15:56 87 y F admitted with sepsis. Nutrition screened for low BMI at admission. Pt's weight was taken again today with RN, BMI normal for age. Met with pt at bedside. Pt reports reduced appetite last 4-5 days, but reports no recent weight loss. C/o foods tasting too sweet. Will continue to work with pt when placing meal orders to help choose less sweet options. Encouraged adequate intake as tolerated. Will continue to monitor PO intakes and weight. Diet: 07/14/23 Dinner General (Regular) Diet Diet Modifications: Nutrition Percent Meal Consumed 50% 07/15/23 09:00 Percent Meal Consumed 50% 07/14/23 18:00 Electronically Signed by: Betina Truong 07/15/23 16:10 Clinical Dietitian [address] [address]
--- NOTE | 2023-07-15 17:13 | P.PN_ITS ---
Subjective Subjective Interval history: 87 F admitted with sepsis due to pyelonephritis. Feels improved today, no abdominal pain, still a bit nauseous and weak. Exam Vital Signs (past 8 hours): - 07/15/23 11:02 07/15/23 11:04 07/15/23 11:56 Temperature Pulse Rate 58 L Respiratory Rate Blood Pressure 115/58 L Pulse Oximetry 96 100 Oxygen Delivery Method Oxygen Flow Rate 07/15/23 11:58 07/15/23 12:00 07/15/23 12:00 Temperature 98.1 F Pulse Rate Respiratory Rate Blood Pressure 118/63 Pulse Oximetry 98 Oxygen Delivery Method Room Air Oxygen Flow Rate 0 07/15/23 12:03 07/15/23 15:30 07/15/23 16:00 Temperature 99.1 F 100.2 F H Pulse Rate 101 H Respiratory Rate 16 Blood Pressure 136/65 118/56 L Pulse Oximetry 94 Oxygen Delivery Method Oxygen Flow Rate 0 Oxygen Delivery Method Room Air Oxygen Flow Rate 0 Narrative Exam Narrative: General:? Patient is well developed and well nourished, in no distress at this time. HEENT:? Normocephalic, atraumatic, extraocular muscles intact, oral pharynx is clear and mucous membranes are moist. Neck: supple and symmetric, trachea is midline, no cervical adenopathy. Chest:? Normal AP diameter and contour without kyphoscoliosis, no tachypnea, equal chest rise bilaterally. Lungs:? CTA b/l no wheezing rhonchi or rales. Cardio:?RRR no m/r/g. Abdomen: S NT ND. . Musculoskeletal:? Muscle strength and tone are equal within normal limits, no deformity. Extremities: No edema or joint effusions. No cyanosis or clubbing. Skin:? Pale,? Warm to touch,dry and intact without rashes, ulcerations or petechiae.? Neuro:? Alert and orientated x3,? sensation to touch intact in all extremities, no gross deficits noted of cranial nerves. Psych:? Patient has a well-kept appearance, appropriate affect, mental status attitude thought context and judgment are appropriate for age. Objective Labs 07/15/23 04:15 07/15/23 04:15 Labs: Laboratory Results - last 24 hr 07/14/23 07/15/23 17:36 04:15 WBC 25.4 H RBC 2.98 L Hgb 9.5 L Hct 28.0 L MCV 94.0 MCH 32.1 MCHC 34.1 RDW 14.3 Plt Count 300 Neut % (Auto) 85.6 H Lymph % (Auto) 6.6 L [place] % (Auto) 6.9 Eos % (Auto) 0.4 L Baso % (Auto) 0.5 Neut # (Auto) 34756 H Lymph # (Auto) 1700 [place] # (Auto) 1800 H Eos # (Auto) 100 Baso # (Auto) 100 Sodium 137 Potassium 3.4 Chloride 111 H Carbon Dioxide 22 BUN 14 Creatinine 0.65 Estimated GFR > 60 BUN/Creatinine Ratio 21.5 Glucose 99 Calcium 8.2 L Magnesium 2.4 H Total Bilirubin 0.5 AST 50 H ALT 46 H Alkaline Phosphatase 159 H Total Protein 5.8 L Albumin 2.8 L Globulin 3.0 Albumin/Globulin Ratio 0.9 L Nasal Screen MRSA (PCR) Not detected PFS Medical History Cochlear implant in place Compression fracture of T9 vertebra Compression fracture of second cervical vertebra Hypertension Hyperlipidemia COVID-19 Wears glasses COPD (chronic obstructive pulmonary disease) (~2004) Asthma Allergies Depression (~1971) Anxiety (~1971) Osteoporosis (~2006) Fractures Mumps Measles Chicken pox Vertigo Hearing loss (~2006) Surgical History History of tonsillectomy and adenoidectomy Anesthesia History of splenectomy (~1967) Ulcerative colitis (~1977) Social History household members: family and children Smoking Status: Never smoker Assessment & Plan Assessment & Plan narrative: 1. Sepsis secondary to pyelonephritis with acute metabolic encephalopathy and hypotension - continue ceftriaxone 2g q24 hr, pending urine culture and sensitivity, along with blood cultures. - hold home antihypertensives. - okay for diet - can stop IV fluids today. - admitted to ICU initially, initial drop in BP concerning for possible septic shock. Now more hemodynamically stable, downgraded to floor care. - symptom control with pain medications and nausea medications / zofran. 2. HTN - hold home medications. Son has held home losartan for past few days at home as well. 3. HLD - continue home statin, continue home asa 4. COPD without exacerbation - albuterol nebs prn - replace home inhaler with nebulizers, will do duonebs q6hr WA with pulmicort BID. - consider RT eval if worsening respiratory status - Goal O2 >89% Code: DNR, surrogate decision maker is patient's son DVT: Lovenox daily I have utilized all available immediate resources to obtain, update, or review the patient's current medications. Dispo: patient admitted under inpatient status, will admit to ICU with severe sepsis with concern for possible developing septic shock. I do suspect she will likely be able to discharge home once improved from her illness. Discussed with RN, case management staff. These discussions contributed to the creation of the above assessment and plan. I have reviewed patient's presenting documentation, labs, and imaging personally.
[2023-07-15] MEDS: LACTOBACILLUS ACIDOPHILUS TABLET 1 EACH PO (17:36)
[2023-07-15] MEDS: MIRTAZAPINE 15 MG TABLET PO (20:36)
[2023-07-15] MEDS: SODIUM CHLORIDE 0.9% FLUSH 10 ML IV (20:36)
[2023-07-16] VITALS (10 sets, daily range): BP systolic 113–148; BP diastolic 61–85; PULSE 83–108; RESP 18–22; TEMP 36.4–38.1; O2SAT 92–96
[2023-07-16] MEDS: ACETAMINOPHEN 325 MG TABLET 650 MG PO ×2 (03:20→18:38)
[2023-07-16 04:57] LABS: Add Manual Diff / Slide Review NO; Basophils Absolute Auto 100 /uL (0-100); Basophils Percent Auto 0.4 % (0-2); Eosinophils Absolute Auto 100 /uL (0-450); Eosinophils Percent Auto 0.7 % (2-4); Hematocrit 25.3 % (36-46); Hemoglobin 8.6 g/dL (12.0-16.0); Lymphocytes Absolute Auto 1400 /uL (1100-4500); Lymphocytes Percent Auto 8.4 % (25-40); Mean Corpuscular Hemoglobin 32.2 PG (26-34); Mean Corpuscular Volume 94.8 fL (80-100); Monocytes Absolute Auto 1400 /uL (0-900); Monocytes Percent Auto 8.5 % (3-14); Neutrophils Absolute Auto 13600 /uL (1500-7000); Platelet Count 332 X10^3/uL (150-400); Red Blood Cell Count 2.67 X10^6/uL (4.0-5.2); Red Cell Distribution Width 14.1 % (11.6-14.8); White Blood Cell Count 16.5 X10^3/uL (4.5-11.0)
[2023-07-16 05:14] LABS: Alanine Aminotransferase 43 IU/L (<35); Albumin 2.7 g/dL (3.5-5.0); Albumin Globulin Ratio 0.9 (1.0-2.8); Alkaline Phosphatase 146 U/L (38-126); Aspartate Aminotransferase 46 IU/L (14-36); BUN Creatinine Ratio 17.2 (6-22); Bilirubin Total 0.5 mg/dL (0.2-1.3); Blood Urea Nitrogen 11 mg/dL (7-17); Calcium 8.4 mg/dL (8.4-10.2); Carbon Dioxide 21 mmol/L (22-32); Chloride 110 mmol/L (98-107); Estimated Glomerular Filt Rate > 60 mL/min (>60); Globulin 3.1 g/dL (1.7-4.1); Glucose 132 mg/dL (80-110); HEMOLYSIS < 15 (0-50); Magnesium 2.3 mg/dL (1.6-2.3); Potassium 3.4 mmol/L (3.4-5.1); Sodium 135 mmol/L (137-145); Total Protein 5.8 g/dL (6.3-8.2)
[2023-07-16] MEDS: LACTOBACILLUS ACIDOPHILUS TABLET 1 EACH PO ×2 (07:43→17:11)
--- NOTE | 2023-07-16 07:50 | PM.PN.1 ---
Subjective Subjective Interval history: She denies pain and is about 50% improved. Still very weak. No fevers. Exam Vital Signs (past 8 hours): - 07/16/23 03:00 07/16/23 04:00 Temperature 100.6 F H Pulse Rate 100 H Respiratory Rate 19 Blood Pressure 146/74 H Pulse Oximetry 92 92 Oxygen Delivery Method Room Air Oxygen Flow Rate 0 Oxygen Delivery Method Room Air Oxygen Flow Rate 0 Narrative Exam Narrative: NAD, alert and oriented. Fluent speech. Lungs are clear, normal rate and effort. Heart is regular, no murmur gallop or rub. Abdomen is soft, non distended. Extremities are free of edema. Objective Labs 07/16/23 04:12 07/16/23 04:12 Labs: Laboratory Results - last 24 hr 07/16/23 04:12 WBC 16.5 H RBC 2.67 L Hgb 8.6 L Hct 25.3 L MCV 94.8 MCH 32.2 MCHC 34.0 RDW 14.1 Plt Count 332 Neut % (Auto) 82.0 H Lymph % (Auto) 8.4 L [place] % (Auto) 8.5 Eos % (Auto) 0.7 L Baso % (Auto) 0.4 Neut # (Auto) 11934 H Lymph # (Auto) 1400 [place] # (Auto) 1400 H Eos # (Auto) 100 Baso # (Auto) 100 Sodium 135 L Potassium 3.4 Chloride 110 H Carbon Dioxide 21 L BUN 11 Creatinine 0.64 Estimated GFR > 60 BUN/Creatinine Ratio 17.2 Glucose 132 H Calcium 8.4 Magnesium 2.3 Total Bilirubin 0.5 AST 46 H ALT 43 H Alkaline Phosphatase 146 H Total Protein 5.8 L Albumin 2.7 L Globulin 3.1 Albumin/Globulin Ratio 0.9 L PFSH Medical History Cochlear implant in place Compression fracture of T9 vertebra Compression fracture of second cervical vertebra Hypertension Hyperlipidemia COVID-19 Wears glasses COPD (chronic obstructive pulmonary disease) (~2004) Asthma Allergies Depression (~1971) Anxiety (~1971) Osteoporosis (~2006) Fractures Mumps Measles Chicken pox Vertigo Hearing loss (~2006) Surgical History History of tonsillectomy and adenoidectomy Anesthesia History of splenectomy (~1967) Ulcerative colitis (~1977) Social History household members: family and children Smoking Status: Never smoker Assessment & Plan Assessment & Plan narrative: 1. Sepsis secondary to pyelonephritis with acute metabolic encephalopathy and hypotension, present on admission and improved. - continue ceftriaxone 2g q24 hr, pending urine culture and sensitivity, along with blood cultures. - hold home antihypertensives. - admitted to ICU initially, initial drop in BP concerning for possible septic shock. Now more hemodynamically stable, downgraded to floor care. - await cultures. 2. HTN, present on admission and improved. - hold home medications. Son has held home losartan for past few days at home as well. 3. HLD , present on admission and improved. - continue home statin, continue home asa 4. COPD without exacerbation, present on admission and improved. - albuterol nebs prn - replace home inhaler with nebulizers, will do duonebs q6hr WA with pulmicort BID. - consider RT eval if worsening respiratory status - Goal O2 >89% Code: DNR, surrogate decision maker is patient's son DVT: Lovenox daily ELIANA: home 07/16.
[2023-07-16] MEDS: ASPIRIN EC 81 MG TABLET PO (08:27)
[2023-07-16] MEDS: ENOXAPARIN 40 MG/0.4 ML SYRINGE SUBCUT (08:28)
[2023-07-16] MEDS: POTASSIUM CHLORIDE 20 MEQ TAB 40 MEQ PO (08:28)
[2023-07-16] MEDS: ATORVASTATIN 20 MG TABLET PO (08:28)
[2023-07-16] MEDS: ENOXAPARIN 30 MG/0.3 ML SYRINGE SUBCUT (08:50)
[2023-07-16] MEDS: SODIUM CHLORIDE 0.9% FLUSH 10 ML IV ×2 (08:50→20:38)
[2023-07-16 09:56] LABS: Clostridium Difficile Tox PCR Positive for C. diff (Negative)
[2023-07-16] MEDS: ALBUTEROL/IPRATROPIUM 3 ML AMPUL INH ×2 (09:58→16:12)
[2023-07-16] MEDS: BUDESONIDE 0.5 MG/2 ML NEB INH (09:58)
--- NOTE | 2023-07-16 10:35 | PT.IPTN ---
Current Diagnoses Sepsis, unspecified organism (07/14/23) Physical Therapy Treatment Note M2 PT-IP Current Condition Start: 07/15/23 11:34 Freq: NEEDED Status: Active Protocol: Document 07/15/23 11:45 MB (Rec: 07/15/23 12:39 [facility] [id number]) Physical Therapy Current Condition Current Condition Evaluation Date 07/15/23 Treatment Diagnosis Hypotension, recent fall M3 PT-IP Subjective Start: 07/15/23 11:34 Freq: NEEDED Status: Active Protocol: Document 07/16/23 11:33 TS (Rec: 07/16/23 11:45 TS [id number]) Subjective Physical Therapy Visit Type Type Treatment Note Visit Start Time 10:35 Visit Stop Time 11:00 Number of PEDIATRICIAN Visits 1 Physical Therapy Visit Comments Patient Comments Pt found resting in chair, reports getting up to bathroom with nursing this morning and feeling lightheaded. Pt is agreeable to PT. M4 PT-IP Mobility and Gait Start: 07/15/23 11:34 Freq: NEEDED Status: Active Protocol: Document 07/16/23 11:33 TS (Rec: 07/16/23 11:45 TS [id number]) PT-Bed Mobility Assessment Sit to Supine Sit to Supine Minimal Assistance PT-Transfer Assessment Sit to and From Stand Sit to and from Stand Contact Guard Assistance,1 Person Assistance,Use of Upper Extremities Equipment Transfer Assistive Device None,Gait Belt Orthotic/Prosthetic Devices or Brace: No Transfers Transfer Destination Bed Transfer Technique Stand Step Pivot Transfer Ability Level of Assist Contact Guard Assistance Comments Mobility Comments BP in sitting 116/54, pt reports feeling lightheaded. STS from chair CGA with cues for RUE pushign from arms of chair. Attempted to check BP in standing pt reported increased lightheadedness, pt requested to sit bakc in chair . She performed STS x5 from chair after recovering from lightheadedness CGA with no AD . Pt requested to sit bakc in bed. Stand step pivot to chair no AD CGA. Sit to supine into bed Alycia for LE's due to height of bed. Pt was left in bed, son in room. PT-Balance Assessment Sitting Balance and Reactions Static Sitting Balance Ability Normal Dynamic Sitting Balance Ability Good Standing Balance and Reactions Static Standing Balance Ability Fair Dynamic Standing Balance Ability Poor Device Used no AD M5 PT-IP Objective Assessments Start: 07/15/23 11:34 Freq: NEEDED Status: Active Protocol: Document 07/15/23 11:45 MB (Rec: 07/15/23 12:39 MB [id number]) Orientation Orientation/Cognition Level of Alertness Alert Language Function Ability No Deficits Noted,Hard of Hearing Safety Awareness Decreased Safety Awareness Memory Description No Deficits Noted Comments Pt is generally alert and oriented to herself, place and general situation, does not provide a lot of insight to all PT questioning Gross Range of Motion Upper Extremity ROM Assessment Left Impaired Impairments Left arm in sling after humeral fracture Lower Extremity ROM Assessment Within Functional Limits Strength Upper Extremity Strength Assessment Left Impaired Lower Extremity Strength Assessment Within Functional Limits M6 PT-IP Treatment Start: 07/15/23 11:34 Freq: NEEDED Status: Active Protocol: Document 07/16/23 11:33 TS (Rec: 07/16/23 11:45 TS [id number]) Physical Therapy Treatment Education Education Provided Safety M7 PT-IP Assessment and Plan Start: 07/15/23 11:34 Freq: NEEDED Status: Active Protocol: Document 07/16/23 11:33 TS (Rec: 07/16/23 11:45 TS [id number]) PT Summary Assessment and Plan Potential Rehabilitation Potential Good Summary Impairments ROM,Strength,Balance, Coordination,Cognition,Bed Mobility,Transfers,Gait, Activity Tolerance Progress Towards Goals Slow Progress due to Activity Tolerance Assessment Summary Lurdes continues to make slow progress with her mobility due to poor activity tolerance and lightheadedness. She is CGA for STS with no AD x6. She does require cues for use of RUE to assist in standing. She did not progress to gait or stairs this session due to lightheadedness and fatigue. PT is recommending pt return home with 02/11 assist and HHPT . Goals Bed Mobility Goal Independent Transfer Goal Independent,Cane Gait Goal Independent,Cane Gait Distance 100 Other Goals Pt will ascend and descend a flight of steps with rail and no more than superv assistance to allow safe home mobility. Days to Meet Goals 5 Frequency of Treatment Frequency Of Treatment Once a Day Treatment Plan Physical Therapy Treatment Plan Bed Mobility Training,Transfer Training,Gait Training, Therapeutic Exercise,Balance Retraining,Discharge Planning, Hot or Cold Pack,Neuromuscular Re-ed,Coordination Retraining ,Manual Therapy Precautions Other Precautions Fall risk, left humeral fracture and arm in sling Weight Bearing Status Weight Bearing Status Weight Bear as Tolerated Allowed Weight Bearing Amount (enter % WBAT legs and assume NWB LUE or #) (%) Recommendations To Nursing Amount of Assist Needed 1 Person Assist Discharge Recommendations PT Discharge Recommendations Home with 02/11 Assist Available,Home Health Transportation Needs at Discharge Private Vehicle
[2023-07-16] MEDS: VANCOMYCIN 125 MG CAPSULE PO ×3 (11:55→23:19)
[2023-07-16] MEDS: cefTRIAXone 2,000 MG in SODIUM CHLORIDE 0.9% 100 ML 200 MG IV (13:31)
--- NOTE | 2023-07-16 15:20 | CM.DPC ---
DCP Home Cont: Per MD, pt making good progress but one more day IV-Abx and then likely discharge tomorrow Sat on PO meds. Pt downgraded from ICU to floor care and moved rooms. Per PT/OT, recommending home with family assist and outpt PT/OT. SW met bedside with pt during OT treatment session and explained role and pt confirms she is aware of likely discharge tomorrow Sat and pt confirms she is agreeable and hopeful for discharge home tomorrow and plans on doing outpt PT/OT after discharge. Pt states she has assist 02/11 from her family she lives with and also her Dtr is flying in to stay for a couple weeks to be available for further support. Pt does not anticipate any discharge needs at this time and preference is home at discharge. Plan: SW to follow for likely discharge home tomorrow with family assist and outpt PT/OT and any further identified discharge planning needs. PAVAN Donato
--- NOTE | 2023-07-16 15:31 | OT.IP.TRT ---
Current Diagnoses Sepsis, unspecified organism (07/14/23) Occupational Therapy Treatment Note M2 OT-IP Current Condition Start: 07/15/23 15:30 Freq: Status: Active Protocol: Document 07/15/23 15:30 [facility] (Rec: 07/15/23 15:55 [facility] [id number]) Occupational Therapy Current Condition Current Condition Evaluation Date 07/15/23 Treatment Diagnosis UTI/sepsis, s/p fall left arm fx 06/25/23 Diagnosis Onset Date 07/14/23 Post Operative Precautions Shoulder Precautions Sling M3 OT- IP Subjective and Pain Start: 07/15/23 15:30 Freq: Status: Active Protocol: Document 07/16/23 15:34 [facility] (Rec: 07/16/23 15:39 [facility] [id number]) OT- Subjective Occupational Therapy Visit Type Type Treatment Note Visit Start Time 15:14 Visit Stop Time 15:31 Notes Pt states she just returned to bed after walking with nursing. OT Pain Assessment Pain When Pain Assessed At Rest Pain Present Pain Present Denied Pain M4 OT- IP ADL's Start: 07/15/23 15:30 Freq: Status: Active Protocol: Document 07/16/23 15:34 CGR (Rec: 07/16/23 15:39 CGR [id number]) OT [id number] Comments OT Self-Feeding Comments not meal time OT ADL-Grooming General Evaluation Grooming Ability Independent Areas Needing Assistance Retrieving/Set-up of Grooming Items,Face Washing Comments OT Grooming Comments standing at sink OT ADL-Oral Care General Eval Oral Care Ability Independent Areas of Assistance Brushing Teeth,Retrieving/Set- Up of Items Comments Oral Care Comments standing at sink OT ADL-Dressing General Eval Upper Body Dressing Ability Maximum Assistance Areas Needing Assistance Orthosis/Prosthesis Comments OT Dressing Comments educated pt on proper placement of sling. Pt states that she knew it wasn't donned correctly but wasn't sure how to fix it. OT ADL-Toileting Comments OT Toileting Comments Pt declined, states she just performed with nursing. OT ADL-Bathing Comments OT Bathing Comments not performed M5 OT- IP IADL's Start: 07/15/23 15:30 Freq: Status: Active Protocol: Document 07/15/23 15:30 [facility] (Rec: 07/15/23 15:55 [facility] [id number]) OT-Instrumental Activities of Daily Living Deficits IADL Deficits Identified Deficits Home Safety Awareness Awareness of Need for Assistance at Home Good Awareness Home Safety Comments Pt a little groggy and has a very suppotive family to be able to assist with all her needs. Medication Management Medication Management Comments Pt's son states they will assist her. Money Management Money Management Comments Pt's son states that they will provide assist and superivision especially since she is not feeling well at this time. Meal Preparation Meal Preparation Caregiver Provides Assist Supervisor [employer] Supervisor [employer] Caregiver Provides Assist Driving Driving Comments Pt's son states pt just drives locally, but has not been driving recently. M6 OT- IP Functional Cognition Start: 07/15/23 15:30 Freq: Status: Active Protocol: Document 07/15/23 15:30 [facility] (Rec: 07/15/23 15:55 [facility] [id number]) Cognitive Factors Limiting Selfcare Function Cognitive Ability Level of Alertness Alert Patient Orientation Name,Age,Birthday,Month,Date, Year,Day of Week,Place, Situation Attention Span Ability Capable of Focused Attention, Capable of Sustained Attention Ability to Follow Commands Able to Follow One Step Commands Cognitive Comments Cognitive Assessment Comments Pt able to follow all commands for ADL and mobility needs. Pt is a little hard of hearing and needing more time to follow commands. OT- Vision and Hearing OT- Hearing Assessment OT- Hearing Assessment Use of Hearing Aids OT- Vision Assessment Visual Acuity Glasses For Reading Vision Assessment Comments Pt uses left hearing aid and right cochlear implant on the right. M7 OT- IP Mobility and Balance Start: 07/15/23 15:30 Freq: Status: Active Protocol: Document 07/16/23 15:34 [facility] (Rec: 07/16/23 15:39 [facility] [id number]) OT- Bed Mobility Assessment Supine to Sit Supine to Sit Assist Independent,Head of Bed Elevated Sit to Supine Sit to Supine Assist Independent,Head of Bed Elevated Scooting Scooting to Edge of Bed Independent Scooting Up and Down in Bed Independent OT-Transfer Assessment Sit to and From Stand Sit to and from Stand Standby Assistance Transfers Transfer Ability Standby Assistance Technique Transfer Destination Bed Transfer Technique Stand Step Pivot Devices Transfer Assistive Devices Gait Belt,Large Based Quad Cane Comments Mobility Comments Pt ambulated from bed to sink then returned to bed. OT- Gait Assessment Gait Gait Assistance Required: Standby Assistance Assistive Devices Assistive Device Gait Belt,Large Based Quad Cane Comments Gait Ability Comments Pt ambulated from bed to sink then returned to bed. OT- Balance Assessment Sitting Balance and Reactions Static Sitting Balance Ability Normal Dynamic Sitting Balance Ability Normal M8 OT- IP Objective Assessments Start: 07/15/23 15:30 Freq: Status: Active Protocol: Document 07/15/23 15:30 [facility] (Rec: 07/15/23 15:55 [facility] [id number]) OT Gross Range of Motion Upper Extremity Range of Motion Assessment Left Impaired OT Strength Upper Extremity Strength Assessment Left Impaired M9 OT- IP Assessment and Plan Start: 07/15/23 15:30 Freq: Status: Active Protocol: Document 07/16/23 15:34 [facility] (Rec: 07/16/23 15:39 [facility] [id number]) OT Summary Assessment and Plan Potential Rehabilitation Potential Good Analytic Complexity at Evaluation Moderate Summary OT Impairments Pain,Strength,Balance, Functional Mobility,Self- Feeding,Grooming,Dressing, Toileting,Bathing,Toilet Transfers,Shower Transfers, Activity Tolerance Progress Towards Goals Slow Progress due to Pain,Slow Progress due to Medical Issues,Slow Progress due to Activity Tolerance Assessment Summary Pt MOD complexity and main barriers are pain, decreased balance, activity tolerance, and now needing some assist for ADl and mobility needs. Pt has a very supportive family to be able to assist her at home. Per CM, pt is likely to discharge tomorrow with very supportive family. Pt states she doesn't have anything in particular that she is concerned about doing at home and will have someone with her at all times. Recommend d/c home with family support. Goals Self-Feeding Goal Independent Grooming Goal Independent Dressing Goal Moderate Assistance Toileting Goal Standby Assistance Bathing Goal Moderate Assistance Toilet Transfer Goal Standard Toilet Shower Transfer Goal Standby Assistance Days to Meet Goals 7 Frequency of Treatment Frequency Of Treatment Once a Day Treatment Plan OT Treatment Plan ADL Training,Functional Mobility,Patient/Family Education,Discharge Planning Other Treatment Recommendations and Next Sponge off versus shower Treatment Focus Discharge Recommendations OT Discharge Recommendations Home with 02/11 Assist Available,Outpatient PT Home Equipment Needs BSC, shower chair/tub bench, HHSP Transportation Needs at Discharge Private Vehicle
[2023-07-16] MEDS: MIRTAZAPINE 15 MG TABLET PO (20:37)
[2023-07-17 02:19] VITALS: PULSE 77; RESP 18; O2SAT 97
[2023-07-17] MEDS: ALBUTEROL 2.5 MG/3 ML NEB (ADULT) INH (02:19)
[2023-07-17 04:00] VITALS: BP 142/72; PULSE 96; RESP 16; TEMP 36.2; O2SAT 97
[2023-07-17] MEDS: VANCOMYCIN 125 MG CAPSULE PO ×2 (04:58→11:10)
[2023-07-17] MEDS: ACETAMINOPHEN 325 MG TABLET 650 MG PO (04:58)
[2023-07-17 05:53] LABS: Add Manual Diff / Slide Review NO; Basophils Absolute Auto 200 /uL (0-100); Basophils Percent Auto 1.4 % (0-2); Eosinophils Absolute Auto 500 /uL (0-450); Eosinophils Percent Auto 3.9 % (2-4); Hematocrit 26.8 % (36-46); Hemoglobin 9.1 g/dL (12.0-16.0); Lymphocytes Absolute Auto 1600 /uL (1100-4500); Lymphocytes Percent Auto 12.2 % (25-40); Mean Corpuscular HGB Conc 34.1 % (30-36); Mean Corpuscular Hemoglobin 32.5 PG (26-34); Mean Corpuscular Volume 95.3 fL (80-100); Monocytes Absolute Auto 1200 /uL (0-900); Monocytes Percent Auto 9.2 % (3-14); Neutrophils Absolute Auto 9500 /uL (1500-7000); Neutrophils Percent Auto 73.3 % (50-75); Platelet Count 393 X10^3/uL (150-400); Red Blood Cell Count 2.81 X10^6/uL (4.0-5.2); Red Cell Distribution Width 14.3 % (11.6-14.8); White Blood Cell Count 12.9 X10^3/uL (4.5-11.0)
[2023-07-17 06:08] LABS: Alanine Aminotransferase 44 IU/L (<35); Albumin 2.7 g/dL (3.5-5.0); Albumin Globulin Ratio 0.8 (1.0-2.8); Alkaline Phosphatase 143 U/L (38-126); Aspartate Aminotransferase 46 IU/L (14-36); BUN Creatinine Ratio 23.6 (6-22); Bilirubin Total 0.4 mg/dL (0.2-1.3); Blood Urea Nitrogen 13 mg/dL (7-17); Carbon Dioxide 23 mmol/L (22-32); Chloride 114 mmol/L (98-107); Estimated Glomerular Filt Rate > 60 mL/min (>60); Globulin 3.3 g/dL (1.7-4.1); Glucose 99 mg/dL (80-110); HEMOLYSIS < 15 (0-50); Magnesium 2.2 mg/dL (1.6-2.3); Potassium 3.9 mmol/L (3.4-5.1); Sodium 141 mmol/L (137-145)
[2023-07-17 07:48] VITALS: PULSE 82; RESP 18; O2SAT 96
[2023-07-17] MEDS: BUDESONIDE 0.5 MG/2 ML NEB INH (07:48)
[2023-07-17] MEDS: ALBUTEROL/IPRATROPIUM 3 ML AMPUL INH (07:48)
[2023-07-17 08:00] VITALS: O2SAT 96
--- NOTE | 2023-07-17 09:30 | PT.IPTN ---
Current Diagnoses Sepsis, unspecified organism (07/14/23) Physical Therapy Treatment Note M2 PT-IP Current Condition Start: 07/15/23 11:34 Freq: NEEDED Status: Active Protocol: Document 07/15/23 11:45 MB (Rec: 07/15/23 12:39 MB [id number]) Physical Therapy Current Condition Current Condition Evaluation Date 07/15/23 Treatment Diagnosis Hypotension, recent fall M3 PT-IP Subjective Start: 07/15/23 11:34 Freq: NEEDED Status: Active Protocol: Document 07/17/23 09:30 AB (Rec: 07/17/23 11:30 AB [id number]) Subjective Physical Therapy Visit Type Type Treatment Note Visit Start Time 09:30 Visit Stop Time 09:55 Number of READING COACH Visits 0 Physical Therapy Visit Comments Patient Comments agreeable to do PT M4 PT-IP Mobility and Gait Start: 07/15/23 11:34 Freq: NEEDED Status: Active Protocol: Document 07/17/23 09:30 AB (Rec: 07/17/23 11:30 AB [id number]) PT-Transfer Assessment Sit to and From Stand Sit to and from Stand Contact Guard Assistance,1 Person Assistance,Use of Upper Extremities Equipment Transfer Assistive Device Small Based Quad Cane Orthotic/Prosthetic Devices or Brace: No Comments Mobility Comments pt sitting on the chair and agreeable to do PT. pt stated that her son borrowed a quad cane from [facility] for her to use at home. completed sit to stand from chair CGA and ambulation using SBQC ~ 25 ft CGA. pt with ( +) head/truncal tremors and stated that this is chronic for her. pt presents with unsteady gait with slight LOB to the L during turning but with recovery with CGA needed. pt sat back on chair and rested. pt stated that she has 3 steps get get into the house without rails but has L rail ascending with her stairs inside the house. pt agreed to do stair training with PT. positioned step stool next to foot rest of bed to simulate rail. pt completed up/down step stool using rail with pt holding on to rail with RUE and completed CGA. pt completed up/down step stool without use of rail but provided pt with ADZ WORKER and completed with min A and cues. pt completed x 2 reps. pt stated that her son will be able to assist her and can direct her son on how to assist her. pt ambulated back to the chair without AD CGA ~ 10 ft. positioned pt on the chair. call light and table placed within reach. Gait Assessment Gait Gait Assistance Required: Contact Guard Assist,1 Person Assist Distance (Feet) 25 Able to Maintain Weight Bearing Status Yes During Gait Assistive Devices Assistive Device None,Gait Belt,Small Based Quad Cane Orthotic/Prosthetic Devices or Brace: Yes Gait Deviations General Gait Pattern Ataxic,Decreased Stride Length ,Decreased Feet Clearance Factors Limiting Gait Function Factors Limiting Gait Function Decreased Activity Tolerance, Decreased Strength,Limited Range of Motion,Pain,Poor Balance,Poor Safety Awareness Stair Climbing Assessment Evaluation Level of Assist On Stairs Contact Guard Assistance, Minimal Assistance Devices Stair Climbing Assistive Devices Left Railing Technique/Endurance Stair Climbing Direction Ascend and Descend Stair Climbing Technique Step to Step Number of Steps Climbed 1 Stair Climbing Set # Repetitions (reps) 4 M5 PT-IP Objective Assessments Start: 07/15/23 11:34 Freq: NEEDED Status: Active Protocol: Document 07/15/23 11:45 MB (Rec: 07/15/23 12:39 MB [id number]) Orientation Orientation/Cognition Level of Alertness Alert Language Function Ability No Deficits Noted,Hard of Hearing Safety Awareness Decreased Safety Awareness Memory Description No Deficits Noted Comments Pt is generally alert and oriented to herself, place and general situation, does not provide a lot of insight to all PT questioning Gross Range of Motion Upper Extremity ROM Assessment Left Impaired Impairments Left arm in sling after humeral fracture Lower Extremity ROM Assessment Within Functional Limits Strength Upper Extremity Strength Assessment Left Impaired Lower Extremity Strength Assessment Within Functional Limits M6 PT-IP Treatment Start: 07/15/23 11:34 Freq: NEEDED Status: Active Protocol: Document 07/17/23 09:30 AB (Rec: 07/17/23 11:30 AB [id number]) Physical Therapy Treatment Education Education Provided Safety M7 PT-IP Assessment and Plan Start: 07/15/23 11:34 Freq: NEEDED Status: Active Protocol: Document 07/17/23 09:30 AB (Rec: 07/17/23 11:30 AB [id number]) PT Summary Assessment and Plan Potential Rehabilitation Potential Fair Summary Impairments Pain,ROM,Strength,Balance, Coordination,Sensation,Tone, Cognition,Bed Mobility, Transfers,Gait,Activity Tolerance Assessment Summary pt requiring CGA to min A with mobility using SBQC/without AD and plans to go home with family to assist her. pt stated that there will be somebody available for her . pt will benefit from HHPT. pt may go home when medicall stable. will continue to assess progress. Goals Bed Mobility Goal Independent Transfer Goal Independent,Cane Gait Goal Independent,Cane Gait Distance 100 Other Goals Pt will ascend and descend a flight of steps with L rail SBA up/down stairs without rails ADZ WORKER CGA Days to Meet Goals 5 Frequency of Treatment Frequency Of Treatment Once a Day Treatment Plan Physical Therapy Treatment Plan Bed Mobility Training,Transfer Training,Gait Training, Therapeutic Exercise,Balance Retraining,Discharge Planning, Hot or Cold Pack,Neuromuscular Re-ed,Coordination Retraining ,Manual Therapy Precautions Shoulder Precautions Sling Other Precautions Fall risk, left humeral fracture and arm in sling Weight Bearing Status Allowed Weight Bearing Amount (enter % NWB on LUE or #) (%) Recommendations To Nursing Amount of Assist Needed 1 Person Assist Discharge Recommendations PT Discharge Recommendations Home with 02/11 Assist Available,Home Health Transportation Needs at Discharge Private Vehicle
[2023-07-17] MEDS: SODIUM CHLORIDE 0.9% FLUSH 10 ML IV (09:45)
[2023-07-17] MEDS: ASPIRIN EC 81 MG TABLET PO (09:45)
[2023-07-17] MEDS: LACTOBACILLUS ACIDOPHILUS TABLET 1 EACH PO (09:45)
[2023-07-17] MEDS: ATORVASTATIN 20 MG TABLET PO (09:45)
[2023-07-17] MEDS: ENOXAPARIN 30 MG/0.3 ML SYRINGE SUBCUT (09:47)
--- NOTE | 2023-07-17 11:19 | P.DS_ITS ---
History of Present Illness History of Present Illness Chief complaint: UTI,hypotension Narrative: 87 F with PMH of COPD, HTN, HLD, cochlear implant, and prior compression fractures who initially presented to the walk in clinic today and was referred to the ER. Patient and son report 5 days of urinary frequency without dysuria. This progressed to a the last 1-2 nights with nausea, increased confusion, and fever to 102.7 with rigors. No diarrhea, did have some nbnb emesis as well last night. Feels weak as well. Denies cough, rhinorrhea, shortness of breath. In the emergency room, patient was hypotensive, responded to initial fluids. She was given a dose of ceftriaxone. UA positive, urine culture and blood cultures pending. Labs notable for WBC 23, Hg 10.2, K 3.3, creatinine at 0.9 from baseline 0.6-0.7 previously. AST ALT mildly elevated as well, procalcitonin 2.38. CT imaging was not notable for any urinary obstruction. Patient received sepsis fluids. Discharge Providers Provider Date of admission: 07/14/23 15:56 Discharge Date: 07/17/23 Primary care physician: MOSES Chowdary Consults: 07/14/23 17:41 Consult to Pastoral Services Routine Comment: would love to just visit with Alfa Jones. 07/15/23 08:15 Consult to Occupational Therapy Evaluate & Treat Comment: Physician Instructions: Evaluate and treat Consult to Physical Therapy Evaluate & Treat Comment: Physician Instructions: Evaluate and Treat Discharge provider: Ashwin Joseph MD Summary Hospital Course Discharge Diagnosis: 1. Sepsis secondary to pyelonephritis , present on admission and improved. - given ceftriaxone 2g q24 hr, pending urine culture and sensitivity, negative blood cultures. - held home antihypertensives. 2. Pyelonephritis, present on admission and improved. 3. Septic encephalopathy, present on admission and resolved. 4. Hypotension (volume depletion), present on admission and resolved. 5. HTN, present on admission and improved. - hold home medications. Son has held home losartan for past few days at home as well. 6. HLD , present on admission and improved. - continue home statin, continue home asa 7. COPD without exacerbation, present on admission and improved. - albuterol nebs prn - replace home inhaler with nebulizers, will do duonebs q6hr WA with pulmicort BID. 8. 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 Code: DNR, surrogate decision maker is patient's son Hospital Course: The patient was admitted for sepsis and pyelonephritis as well as confusion. She improved with IV fluids and IV antibiotics. The time of discharge she was at baseline and cultures were positive for Gram-negative bacillus. She did respond to ceftriaxone so cephalosporins we will continue to be used at the time of discharge. On July 15, she was having diarrhea which prompted a C diff toxin assay which was positive. She was started on oral vancomycin with some improvement of diarrheal frequency. Her blood pressure medication was held because of relative hypotension and we will hold this at the time of discharge pending ongoing improvement of her blood pressure and symptoms. I met with she and her son in the day of discharge all questions were answered and she was felt to be stable for discharge home. Status at Discharge Cognitive/behavioral status at discharge: oriented Functional status at discharge: independent ambulation Overall status at discharge: patient is back to baseline Time Spent with Patient Time spent: Greater than 30 minutes Exam Vital Signs (past 8 hours): - 07/17/23 04:00 07/17/23 04:00 07/17/23 07:48 Temperature 97.2 F L Pulse Rate 96 H 82 Respiratory Rate 16 18 Blood Pressure 142/72 H Pulse Oximetry 97 97 96 Oxygen Delivery Method Room Air Room Air Oxygen Flow Rate 0 0 Fraction of Inspired Oxygen 21 07/17/23 08:00 07/17/23 08:00 Temperature Pulse Rate Respiratory Rate Blood Pressure Pulse Oximetry 96 Oxygen Delivery Method Room Air Room Air Oxygen Flow Rate Fraction of Inspired Oxygen Fraction of Inspired Oxygen 21 SaO2/FiO2 Ratio 457 Oxygen Delivery Method Room Air Oxygen Flow Rate 0 Narrative Exam Narrative: NAD, alert and oriented. Fluent speech. Lungs are clear, normal rate and effort. Heart is regular, no murmur gallop or rub. Abdomen is soft, non distended. Extremities are free of edema. Objective Imaging Chest x-ray: My impression: Possible right infrahilar opacity concerning for infection. CT scan - abdomen: Radiologist's impression: 1. Heterogeneous appearance of the left kidney, recommend urinalysis to evaluate for infection. 2. Moderate compression deformity of the superior endplate of L4, correlate with point tenderness for acute fracture. 3. History of splenectomy. Lobulated lesions are seen within the left upper quadrant, largest measuring 7.3 cm. May represent splenosis. 4. Trace bilateral pleural effusions with adjacent atelectasis versus consolidation, right greater than left. 5. Cholelithiasis without evidence of acute cholecystitis. Mildly dilated common bile duct measuring 8 mm, may be within normal limits for age. Labs 07/17/23 04:50 07/17/23 04:50 Labs: Laboratory Results - last 24 hr 07/17/23 04:50 WBC 12.9 H RBC 2.81 L Hgb 9.1 L Hct 26.8 L MCV 95.3 MCH 32.5 MCHC 34.1 RDW 14.3 Plt Count 393 Neut % (Auto) 73.3 Lymph % (Auto) 12.2 L [place] % (Auto) 9.2 Eos % (Auto) 3.9 Baso % (Auto) 1.4 Neut # (Auto) 9500 H Lymph # (Auto) 1600 [place] # (Auto) 1200 H Eos # (Auto) 500 H Baso # (Auto) 200 H Sodium 141 Potassium 3.9 Chloride 114 H Carbon Dioxide 23 BUN 13 Creatinine 0.55 Estimated GFR > 60 BUN/Creatinine Ratio 23.6 H Glucose 99 Calcium 9.0 Magnesium 2.2 Total Bilirubin 0.4 AST 46 H ALT 44 H Alkaline Phosphatase 143 H Total Protein 6.0 L Albumin 2.7 L Globulin 3.3 Albumin/Globulin Ratio 0.8 L PFSH Medical History Cochlear implant in place Compression fracture of T9 vertebra Compression fracture of second cervical vertebra Hypertension Hyperlipidemia COVID-19 Wears glasses COPD (chronic obstructive pulmonary disease) (~2004) Asthma Allergies Depression (~1971) Anxiety (~1971) Osteoporosis (~2006) Fractures Mumps Measles Chicken pox Vertigo Hearing loss (~2006) Surgical History History of tonsillectomy and adenoidectomy Anesthesia History of splenectomy (~1967) Ulcerative colitis (~1977) Social History household members: family and children Smoking Status: Never smoker Discharge Assessment & Plan Assessment and Plan Assessment: 1. Sepsis secondary to pyelonephritis , present on admission and improved. - given ceftriaxone 2g q24 hr, pending urine culture and sensitivity, negative blood cultures. - held home antihypertensives. 2. Pyelonephritis, present on admission and improved. 3. Septic encephalopathy, present on admission and resolved. 4. Hypotension (volume depletion), present on admission and resolved. 5. HTN, present on admission and improved. - hold home medications. Son has held home losartan for past few days at home as well. 6. HLD , present on admission and improved. - continue home statin, continue home asa 7. COPD without exacerbation, present on admission and improved. - albuterol nebs prn - replace home inhaler with nebulizers, will do duonebs q6hr WA with pulmicort BID. 8. 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 Plan of Treatment: Discharge home to care son, C diff precautions. Hold blood pressure medication until follow up. Monitor blood pressure. Cephalexin q.i.d. for 5 days for urinary infection, and vancomycin q.i.d. for 10 additional days for C diff toxin. Follow up with PCP within 6 days. Discharge Plan Discharge Plan Patient Disposition: Home Discharge orders & Medications Prescriptions: New vancomycin 125 mg Capsule 125 mg PO Q6H Qty: 40 0RF cephalexin 500 mg capsule 500 mg PO QID Qty: 20 0RF Continued mirtazapine 15 mg tablet 15 mg PO BEDTIME Qty: 90 3RF latanoprost 0.005 % drops 1 drp EYE-BOTH QPM Qty: 2.5 0RF atorvastatin 20 mg tablet 20 mg PO DAILY Qty: 90 1RF albuterol sulfate 90 mcg/actuation HFA aerosol inhaler 2 puff inhalation Q4-6H PRN (Reason: shortness of breath or wheezing) Qty: 6.7 3RF Rx Instructions: 2 puffs inhaled by mouth every 4-6 hours as needed for shortness of breath denosumab 60 mg/mL syringe 60 mg SUBCUT [id number] Qty: 1 1RF Rx Instructions: Inject SQ every 6 months for osteoporosis budesonide-formoterol [Symbicort] 80-4.5 mcg/actuation HFA aerosol inhaler 2 puff inhalation BID Qty: 10.2 3RF aspirin 81 mg tablet,delayed release (DR/EC) 81 mg PO DAILY [id number] Tablet 1 tab PO DAILY calcium 1,200 mg PO .QD montelukast 10 mg tablet 10 mg PO BEDTIME Qty: 90 3RF Discontinued losartan 50 mg tablet 50 mg PO DAILY Medication counseling provided by Pharmacist: No Follow up/Referrals: Alejandra Truong ARNP [Primary Care Provider] - Discharge Health Status Multidrug resistant organism: No MDRO Diet/Activity/Treatments Diet: Diet as Tolerated Activity: As tolerated. Skin/Wound/Dressing Care Report to your healthcare provider any signs of infection, such as:: chills, fever, increased pain and unusual drainage Visit Report/Discharge Packet Instructions: Antibiotic-associated Colitis -- C difficile Stand Alone Forms: Patient Portal/API Discharge Data Primary Care Provider: Alejandra Truong
[2023-07-17 11:22] VITALS: BP 144/80; PULSE 91; RESP 22; TEMP 36.2; O2SAT 96
[2023-07-17] MEDS: cefTRIAXone 2,000 MG in SODIUM CHLORIDE 0.9% 100 ML 200 MG IV (11:38)
--- NOTE | 2023-07-17 11:50 | CM.DPC ---
DCP Cont. Reviewed EMR and team rounds for status updates. Pt has been medically cleared for d/c, family will provide transport home. No further DCP needs indicated at this time.
[2023-07-17 12:00] VITALS: O2SAT 96
--- NOTE | 2023-07-17 14:58 | PC.NURSE ---
Pt met discharge criteria, pt education given to pt and family member.
[2023-07-18 15:10] LABS: C difficie Toxins A and B, EIA Negative (Negative)
== END 2023-07-17 14:55 | disposition home or self-care (01) | DRG 871 ==
LOC: ED 15:49 → AC 15:57 → ICU 16:47 → AC 07-16 12:09
PROVIDERS: Admitting Provider Internal Medicine; Emergency Provider Emergency Medicine; Family Provider Nurse Practitioner; PCP Nurse Practitioner; Referring Provider Emergency Medicine; Visit Provider Internal Medicine
DX: A41.9 Sepsis, unspecified organism (principal); G93.41 Metabolic encephalopathy; N12 Tubulo-interstitial nephritis, not specified as acute or chronic; A04.72 Enterocolitis due to Clostridium difficile, not specified as recurrent; I10 Essential (primary) hypertension; E78.5 Hyperlipidemia, unspecified; J44.9 Chronic obstructive pulmonary disease, unspecified; I95.9 Hypotension, unspecified; F32.A Depression, unspecified; Z90.81 Acquired absence of spleen; Z66 Do not resuscitate; R30.0 Dysuria
CPT/HCPCS: 36415; 71045; 74177; 80053; 83605; 83690; 83735; 84145; 85025; 85610; 85730; 87040; 87077; 87086; 87186; 87324; 87493; 87797; 93005; 93010; 94640; 94760; 96365; 97116; 97161; 97166; 97530; 97535; 99284; 99285; J0696; J1650; J7613; Q9967

== ENCOUNTER → 2023-09-24 09:59 | Outpatient (CLI) | payer MEDICARE, SELFPAY ==
[2023-07-14 17:28] VITALS: BMI 17.2
[2023-09-24 11:56] LABS: Appearance Urine UA CLEAR; Bilirubin Urine UA NEGATIVE (NEGATIVE); Color Urine UA YELLOW; Glucose Urine UA NEGATIVE (Negative); Ketones Urine UA NEGATIVE (NEGATIVE); Leukocyte Esterase Urine UA NEGATIVE (NEGATIVE); Nitrite Urine UA NEGATIVE (Negative); Occult Blood Urine UA NEGATIVE (Negative); Protein Urine UA NEGATIVE (Negative); Urobilinogen Urine UA 0.2 E.U./dL (0.2)
[2023-09-24 12:05] LABS: Bacteria Urine Few (2-10); RBC Urine 1-5/HPF (0-5/HPF); Squamous Epithelial Cell Urine 1-5 /HPF (0-5/HPF); Urine Volume 10mL (spun); WBC Urine 1-5/HPF (0-5/HPF)
[2023-09-24 12:06] LABS: Culture Indicated Urine Cult Not Indicated
[2023-09-25 09:20] LABS: Ionized Calcium 5.8 mg/dL (4.5-5.6)
== END ==
PROVIDERS: Family Provider Nurse Practitioner; PCP Nurse Practitioner; Referring Provider Nurse Practitioner; Visit Provider Nurse Practitioner
DX: Z01.812 Encounter for preprocedural laboratory examination (principal); R30.0 Dysuria
CPT/HCPCS: 36415; 81001; 82330; 82397

== ENCOUNTER → 2023-10-20 10:50 | Outpatient (CLI) | payer MEDICARE, SELFPAY ==
[2023-07-14 17:28] VITALS: BMI 17.2
[2023-10-20 11:01] LABS: Appearance Urine UA CLEAR; Bilirubin Urine UA NEGATIVE (NEGATIVE); Color Urine UA YELLOW; Glucose Urine UA NEGATIVE (Negative); Ketones Urine UA NEGATIVE (NEGATIVE); Leukocyte Esterase Urine UA NEGATIVE (NEGATIVE); Nitrite Urine UA NEGATIVE (Negative); Occult Blood Urine UA NEGATIVE (Negative); Protein Urine UA NEGATIVE (Negative); Specific Gravity Urine UA <=1.005 (1.000-1.035); Urobilinogen Urine UA 0.2 E.U./dL (0.2)
[2023-10-20 11:15] LABS: pH Urine UA 6.5 (4.5-8.0)
[2023-10-20 11:16] LABS: Bacteria Urine None Seen; Culture Indicated Urine Cult Not Indicated; RBC Urine None Seen (0-5/HPF); Squamous Epithelial Cell Urine None Seen (0-5/HPF); Urine Volume 10mL (spun); WBC Urine None Seen (0-5/HPF)
--- NOTE | 2023-10-27 09:11 | PC.NURSE ---
Reclast order instead of Prolia: KRISS Odell for Alejandra Alexi, clarified that both Alejandra Truong and patient had agreed to change to Reclast after patient's insurance denied Prolia.
== END ==
PROVIDERS: Family Provider Nurse Practitioner; PCP Nurse Practitioner; Visit Provider Physician Assistant
DX: R42 Dizziness and giddiness (principal)
CPT/HCPCS: 81001; 87086

== ENCOUNTER → 2023-10-20 11:19 | Outpatient (CLI) | payer MEDICARE, SELFPAY ==
[2023-07-14 17:28] VITALS: BMI 17.2
[2023-10-20 12:17] LABS: Add Manual Diff / Slide Review NO; Basophils Absolute Auto 0 /uL (0-100); Basophils Percent Auto 0.7 % (0-2); Eosinophils Absolute Auto 100 /uL (0-450); Eosinophils Percent Auto 1.9 % (2-4); Hematocrit 37.6 % (36-46); Hemoglobin 12.8 g/dL (12.0-16.0); Lymphocytes Absolute Auto 1400 /uL (1100-4500); Lymphocytes Percent Auto 21.6 % (25-40); Mean Corpuscular HGB Conc 34.1 % (30-36); Mean Corpuscular Volume 96.9 fL (80-100); Monocytes Absolute Auto 600 /uL (0-900); Monocytes Percent Auto 8.7 % (3-14); Neutrophils Absolute Auto 4400 /uL (1500-7000); Neutrophils Percent Auto 67.1 % (50-75); Platelet Count 231 X10^3/uL (150-400); Red Blood Cell Count 3.88 X10^6/uL (4.0-5.2); Red Cell Distribution Width 12.9 % (11.6-14.8); White Blood Cell Count 6.5 X10^3/uL (4.5-11.0)
[2023-10-20 12:39] LABS: Alanine Aminotransferase 20 IU/L (<35); Albumin 4.3 g/dL (3.5-5.0); Albumin Globulin Ratio 1.5 (1.0-2.8); Alkaline Phosphatase 57 U/L (38-126); Aspartate Aminotransferase 28 IU/L (14-36); BUN Creatinine Ratio 19.7 (6-22); Bilirubin Total 0.5 mg/dL (0.2-1.3); Blood Urea Nitrogen 15 mg/dL (7-17); Calcium 10.5 mg/dL (8.4-10.2); Carbon Dioxide 31 mmol/L (22-32); Chloride 105 mmol/L (98-107); Estimated Glomerular Filt Rate > 60 mL/min (>60); Globulin 2.9 g/dL (1.7-4.1); Glucose 94 mg/dL (80-110); HEMOLYSIS < 15 (0-50); Potassium 4.2 mmol/L (3.4-5.1); Sodium 142 mmol/L (137-145); Total Protein 7.2 g/dL (6.3-8.2)
[2023-10-20 13:06] LABS: TSH w/ Reflex to FT4 0.97 uIU/mL (0.47-4.68)
[2023-10-20 13:26] LABS: Vitamin B12 > 1000 pg/mL (239-931)
== END ==
PROVIDERS: Family Provider Nurse Practitioner; PCP Nurse Practitioner; Referring Provider Physician Assistant; Visit Provider Physician Assistant
DX: R42 Dizziness and giddiness (principal)
CPT/HCPCS: 36415; 80053; 81001; 82607; 84443; 85025; 87086

== ENCOUNTER 2024-01-11 11:30 | Outpatient (RCR) | payer MEDICARE, SELFPAY ==
[2023-07-14 17:28] VITALS: BMI 17.2
--- NOTE | 2023-09-17 17:49 | PT.OIE ---
Current Diagnoses Pain in left shoulder (09/17/23) Stiffness of left shoulder, not elsewhere classified (09/17/23) Other nondisplaced fracture of upper end of left humerus, initial encounter for open fracture (09/17/23) Other nondisplaced fracture of upper end of left humerus, subsequent encounter for fracture with routine healing (09/17/23) Past Medical History (Last Reviewed 07/22/23 @ 11:00 by MOSES Chowdary) Allergies Anxiety (~1971) Asthma Chicken pox Cochlear implant in place Compression fracture of second cervical vertebra Compression fracture of T9 vertebra COPD (chronic obstructive pulmonary disease) (~2004) COVID-19 Depression (~1971) Fractures Hearing loss (~2006) Hyperlipidemia Hypertension Measles Mumps Osteoporosis (~2006) Vertigo Wears glasses Past Surgical History (Last Reviewed 07/22/23 @ 11:00 by MOSES Chowdary) Anesthesia History of splenectomy (~1967) History of tonsillectomy and adenoidectomy Ulcerative colitis (~1977) Visit Care Team Role Provider Type MOSES Chowdary Family Provider Advanced Concession Cashier Primary Care Provider Specialty: Family Practice Address: [address] [place] [address] Email: [email or web address] Del Hurd PA-C Attending Provider Advanced Concession Cashier Referring Provider Specialty: Orthopedics Orthopedic Surgery Address: [address] [place] [address], [facility] Email: [email or web address] Physical Therapy Initial Evaluation PT-OP-A Visit Information Start: 09/17/23 17:25 Freq: Status: Active Protocol: Document 09/17/23 15:15 DCW (Rec: 09/17/23 17:49 DCW [id number]) Out-Patient Physical Therapy Visit Information Visit Information Visit Type Initial Evaluation Visit Start Time 15:15 Visit Stop Time 15:55 Visit Number 1 Number of PERSONNEL MANAGER Visits 0 Evaluation Information Evaluation Date 09/17/23 Precautions Precautions Pt has cochlear implant, mildly [place] PT-OP-B Current Condition Start: 09/17/23 17:25 Freq: Status: Active Protocol: Document 09/17/23 15:15 DCW (Rec: 09/17/23 17:49 [facility] [id number]) Current Condition History of Current Condition Onset Date 2.5 months Current Complaints Left shoulder pain and stiffness s/p humeral head fracture History of Current Condition Pt is an88 year old female presenting to skilled therapy 2.5 months s/p left humeral head fracture. Pt reports she was walking in [place] , using her trekking pole, and stepped off the side of the road to left cars pass, she she stepped into mud and fell, using her left arm to break her fall, resulting in fracturing her humeral head. Pt reports she is overall doing fairly well, but her arm is still significantly restricted with her mobility, and she is unable to use her left arm to reach overhead or put things away in cabinets. Treatment Goals Patient/Caregiver Goals I want to get some flexibility and muscle back into this arm. PT-OP-C Subjective Start: 09/17/23 17:25 Freq: Status: Active Protocol: Document 09/17/23 15:15 DCW (Rec: 09/17/23 17:49 [facility] [id number]) OP-PT Subjective Patient Comments Patient Comments Pt reports that on the morning of her initial evaluation, she had a follow-up with the ortho, states she is coming along well. Patient Reported Progress Improving Patient Questionnaires Quick Dash- Upper Extremity Quick Dash UE Score 11.36% PT-OP-K Range of Motion Start: 09/17/23 17:25 Freq: Status: Active Protocol: Document 09/17/23 15:15 DCW (Rec: 09/17/23 17:49 [facility] [id number]) Shoulder Goniometric Range of Motion Shoulder Right Active Testing Position Sitting Flexion 120 Abduction 136 External Rotation at 0 degrees Abduction 72 Internal Rotation Behind Back (text) T10 Left Passive Testing Position Supine Flexion 107 Abduction 62 Left Active Shoulder ROM WFL No Testing Position Sitting Flexion 88 Abduction 65 External Rotation at 0 degrees Abduction 52 Internal Rotation Behind Back (text) T10 PT-OP-M Strength Start: 09/17/23 17:25 Freq: Status: Active Protocol: Document 09/17/23 15:15 DCW (Rec: 09/17/23 17:49 [facility] [id number]) Shoulder Strength Shoulder Manual Muscle Testing Left Flexion 2 Poor Abduction (C5) 2 Poor External Rotation 2- Poor- Internal Rotation 3- Fair- PT-OP-Q Treatments Start: 09/17/23 17:25 Freq: Status: Active Protocol: Document 09/17/23 15:15 DCW (Rec: 09/17/23 17:49 DCW [id number]) Therapeutic Exercises Supine Exercises Serratus Punch Supine Exercise Name Serratus Punch Side left Shoulder Flexion Supine Exercise Name PROM/AAROM shoulder flexion using right arm Side left Standing Exercises Wall Slide Standing Exercise Name Wall slide into flexion Side left PT-OP-T Assessment and Plan Start: 09/17/23 17:25 Freq: Status: Active Protocol: Document 09/17/23 15:15 DCW (Rec: 09/17/23 17:49 DCW [id number]) Physical Therapy Assessment Rehab Potential Rehabilitation Potential Good Evaluation Complexity Number of Personal Factors/Comorbidities 1-2 Number of Body Systems Impaired 1-2 Clinical Presentation at Evaluation Stable Impairments Impairments Activity Tolerance,Functional Activities,Functional Mobility ,ROM,Strength Goals Two Impairment Pt exhibits decreased left shoulder flexion (88?) and abduction (65?) Intermediate Goal (LTG) Pt to exhibit increased left shoulder AROM to at least 120? with both flexion and abduction in order to lift objects into overhead cabinets LTG Duration 11/17/23 One Impairment Pt does not have an appropriate home exercise program Short Term Goal (STG) Pt to be independent and compliant with an appropriate HEP STG Duration 10/17/23 Assessment Summary Assessment Pt presents with signs and symptoms consistent with referring diagnosis. Pt restricted with shoulder ROM in all planes. Overall pt notes experiencing minimal pain, is recovering fairly well, but restricted with any overhead activity, unable to use left arm to put dishes away. Pt should benefit from skilled therapy focusing on increased shoulder ROM and strength, gentle joint mobility, increased functional shoulder mobility, and STM. Did spend time today discussing HEP, and importance of maintaining available ROM in order to decrease chances of potential adhesive capsulitis in the future. Physical Therapy Plan Frequency and Duration Frequency of Treatment 2x/Week Plan of Care Start Date 09/17/23 Plan of Care End Date 11/17/23 Therapeutic Interventions Therapeutic Interventions Home Exercise Program,Joint Mobilizations,Manual Therapy, Neuromuscular Re-education, Patient/Caregiver Education, Self-Care/Home Management,Soft Tissue Mobilization, Therapeutic Activities, Therapeutic Exercises Modalities Cold Pack/Ice Massage,Electric Stimulation,Hot Packs Next Visit Focus/Plan Next Note Type Treatment Note Next Visit Plan L shoulder strengthening/ROM, joint mobs
--- NOTE | 2023-09-17 17:50 | PT.OPPOC ---
Physical, Occupational & Speech Therapy At [facility] Current Diagnoses Pain in left shoulder (09/17/23) Stiffness of left shoulder, not elsewhere classified (09/17/23) Other nondisplaced fracture of upper end of left humerus, initial encounter for open fracture (09/17/23) Other nondisplaced fracture of upper end of left humerus, subsequent encounter for fracture with routine healing (09/17/23) Visit Care Team Role Provider Type MOSES Chowdary Family Provider Advanced Home Health Specialist Primary Care Provider Specialty: Family Practice Address: [address] [place] [address], [facility] Email: [email or web address] Del Hurd PA-C Attending Provider Advanced Home Health Specialist Referring Provider Specialty: Orthopedics Orthopedic Surgery Address: [address] [place] [address], [facility] Email: [email or web address] Plan Of Care PT-OP-T Assessment and Plan Start: 09/17/23 17:25 Freq: Status: Active Protocol: Document 09/17/23 15:15 DCW (Rec: 09/17/23 17:49 DCW [id number]) Physical Therapy Assessment Rehab Potential Rehabilitation Potential Good Evaluation Complexity Number of Personal Factors/Comorbidities 1-2 Number of Body Systems Impaired 1-2 Clinical Presentation at Evaluation Stable Impairments Impairments Activity Tolerance,Functional Activities,Functional Mobility ,ROM,Strength Goals Two Impairment Pt exhibits decreased left shoulder flexion (88?) and abduction (65?) Care Home Goal (LTG) Pt to exhibit increased left shoulder AROM to at least 120? with both flexion and abduction in order to lift objects into overhead cabinets LTG Duration 11/17/23 One Impairment Pt does not have an appropriate home exercise program Short Term Goal (STG) Pt to be independent and compliant with an appropriate HEP STG Duration 10/17/23 Assessment Summary Assessment Pt presents with signs and symptoms consistent with referring diagnosis. Pt restricted with shoulder ROM in all planes. Overall pt notes experiencing minimal pain, is recovering fairly well, but restricted with any overhead activity, unable to use left arm to put dishes away. Pt should benefit from skilled therapy focusing on increased shoulder ROM and strength, gentle joint mobility, increased functional shoulder mobility, and STM. Did spend time today discussing HEP, and importance of maintaining available ROM in order to decrease chances of potential adhesive capsulitis in the future. Physical Therapy Plan Frequency and Duration Frequency of Treatment 2x/Week Plan of Care Start Date 09/17/23 Plan of Care End Date 11/17/23 Therapeutic Interventions Therapeutic Interventions Home Exercise Program,Joint Mobilizations,Manual Therapy, Neuromuscular Re-education, Patient/Caregiver Education, Self-Care/Home Management,Soft Tissue Mobilization, Therapeutic Activities, Therapeutic Exercises Modalities Cold Pack/Ice Massage,Electric Stimulation,Hot Packs Next Visit Focus/Plan Next Note Type Treatment Note Next Visit Plan L shoulder strengthening/ROM, joint mobs Plan of Care Dates Plan of Care Start Date 09/17/23 Plan of Care End Date 11/17/23 Electronically Signed by: Isaias Aquino, PT 09/17/23 5008 If you are in agreement with this Plan of Care, please return a signed and dated copy. I have reviewed this Plan of Care and certify that the skilled therapy services above are required to meet the patient?s needs. Physician Signature Date Printed Name and Credentials Clinical Instructor Signature Printed Name and Credentials
--- NOTE | 2023-09-21 14:32 | PT.OTN ---
Current Diagnoses Pain in left shoulder (09/21/23) Stiffness of left shoulder, not elsewhere classified (09/21/23) Other nondisplaced fracture of upper end of left humerus, initial encounter for open fracture (09/21/23) Other nondisplaced fracture of upper end of left humerus, subsequent encounter for fracture with routine healing (09/21/23) Physical Therapy Treatment Note PT-OP-A Visit Information Start: 09/17/23 17:25 Freq: Status: Active Protocol: Document 09/21/23 13:54 SP (Rec: 09/21/23 14:28 SP [id number]) Out-Patient Physical Therapy Visit Information Visit Information Visit Type Treatment Note Visit Note ASSOCIATE PARTNER Robby initially shadowed pt and ASSOCIATE PARTNER Latrice during tx, then provided manual and ther ex reviewed instruction. Visit Start Time 13:54 Visit Stop Time 14:32 Visit Number 2 Number of ASSOCIATE PARTNER Visits 1 Evaluation Information Evaluation Date 09/17/23 Precautions Precautions Pt has cochlear implant, mildly [place] 10 weeks s/p L humeral fx (07/13) PT-OP-B Current Condition Start: 09/17/23 17:25 Freq: Status: Active Protocol: Document 09/17/23 15:15 DCW (Rec: 09/17/23 17:49 DCW [id number]) Current Condition History of Current Condition Onset Date 2.5 months Current Complaints Left shoulder pain and stiffness s/p humeral head fracture History of Current Condition Pt is an88 year old female presenting to skilled therapy 2.5 months s/p left humeral head fracture. Pt reports she was walking in [place] , using her trekking pole, and stepped off the side of the road to left cars pass, she she stepped into mud and fell, using her left arm to break her fall, resulting in fracturing her humeral head. Pt reports she is overall doing fairly well, but her arm is still significantly restricted with her mobility, and she is unable to use her left arm to reach overhead or put things away in cabinets. Treatment Goals Patient/Caregiver Goals I want to get some flexibility and muscle back into this arm. PT-OP-C Subjective Start: 09/17/23 17:25 Freq: Status: Active Protocol: Document 09/21/23 13:54 SP (Rec: 09/21/23 14:28 SP [id number]) OP-PT Subjective Patient Comments Patient Comments Pt reports little sore after last tx but went away. Compliant with HEP, challenging FF supine. PT-OP-K Range of Motion Start: 09/17/23 17:25 Freq: Status: Active Protocol: Document 09/17/23 15:15 DCW (Rec: 09/17/23 17:49 DCW [id number]) Shoulder Goniometric Range of Motion Shoulder Right Active Testing Position Sitting Flexion 120 Abduction 136 External Rotation at 0 degrees Abduction 72 Internal Rotation Behind Back (text) T10 Left Passive Testing Position Supine Flexion 107 Abduction 62 Left Active Shoulder ROM WFL No Testing Position Sitting Flexion 88 Abduction 65 External Rotation at 0 degrees Abduction 52 Internal Rotation Behind Back (text) T10 PT-OP-M Strength Start: 09/17/23 17:25 Freq: Status: Active Protocol: Document 09/17/23 15:15 DCW (Rec: 09/17/23 17:49 DCW [id number]) Shoulder Strength Shoulder Manual Muscle Testing Left Flexion 2 Poor Abduction (C5) 2 Poor External Rotation 2- Poor- Internal Rotation 3- Fair- PT-OP-Q Treatments Start: 09/17/23 17:25 Freq: Status: Active Protocol: Document 09/21/23 13:54 SP (Rec: 09/21/23 14:28 SP [id number]) Therapeutic Exercises Supine Exercises Serratus Punch Supine Exercise Name Serratus Punch Side left Equipment Used dowel assist for equal over chest Reps/Minutes x10 reps Comments cued no UT recruitment, limited range Shoulder Flexion Supine Exercise Name PROM/AAROM shoulder flexion using right arm Side left Equipment Used dowel over chest Reps/Minutes x10 Comments improve AAROM Sidelying Exercises L shld ABD Sidelying Exercise Name added to HEP /c HO Side left Resistance AROM Reps/Minutes 5 reps Comments cued slow pnfree range, tactile cues for no UT & scap inf/UR- approx 80deg Standing Exercises Wall Slide Standing Exercise Name Wall slide into flexion Side left Resistance AROM facing wall Reps/Minutes x10 reps Comments reps tire challenging not pain , improve range with reps Manual Therapy Treatment Soft Tissue Mobilization neck, L shld Body Location UT, LS, pec Comments during P- AAROM scapulothoracic Joint Mobilizations L scapulothoracic Direction retraction/depression Comments improve activtion PT-OP-T Assessment and Plan Start: 09/17/23 17:25 Freq: Status: Active Protocol: Document 09/21/23 13:54 SP (Rec: 09/21/23 14:28 SP [id number]) Physical Therapy Assessment Goals Two Impairment Pt exhibits decreased left shoulder flexion (88?) and abduction (65?) Nursing Home Goal (LTG) Pt to exhibit increased left shoulder AROM to at least 120? with both flexion and abduction in order to lift objects into overhead cabinets LTG Duration 11/17/23 One Impairment Pt does not have an appropriate home exercise program Short Term Goal (STG) Pt to be independent and compliant with an appropriate HEP STG Duration 10/17/23 Assessment Summary Assessment Pt tolerated tx well, reports some mild discomfort initially into end range tolerated AAROM FF. ASSOCIATE PARTNER provided dowel support, tactile and VCs for reduction UT recruitment improved form and response ( not measured) within pnfree range. Good response to added sidelying abd AROM <90 deg, occ tactile cues for slower pacing ROM to allow scapular inferior glide and upward rotation. Physical Therapy Plan Frequency and Duration Frequency of Treatment 2x/Week Plan of Care Start Date 09/17/23 Plan of Care End Date 11/17/23 Therapeutic Interventions Therapeutic Interventions Home Exercise Program,Joint Mobilizations,Manual Therapy, Neuromuscular Re-education, Patient/Caregiver Education, Self-Care/Home Management,Soft Tissue Mobilization, Therapeutic Activities, Therapeutic Exercises Modalities Cold Pack/Ice Massage,Electric Stimulation,Hot Packs Next Visit Focus/Plan Next Note Type Treatment Note Next Visit Plan Review HEP. Next at neck stretching. PT POC: L shoulder strengthening/ROM, joint mobs
--- NOTE | 2023-09-23 14:31 | PT.OTN ---
Current Diagnoses Pain in left shoulder (09/23/23) Stiffness of left shoulder, not elsewhere classified (09/23/23) Other nondisplaced fracture of upper end of left humerus, initial encounter for open fracture (09/23/23) Other nondisplaced fracture of upper end of left humerus, subsequent encounter for fracture with routine healing (09/23/23) Physical Therapy Treatment Note PT-OP-A Visit Information Start: 09/17/23 17:25 Freq: Status: Active Protocol: Document 09/23/23 13:49 SP (Rec: 09/23/23 14:37 SP [id number]) Out-Patient Physical Therapy Visit Information Visit Information Visit Type Treatment Note Visit Start Time 13:49 Visit Stop Time 14:31 Visit Number 3 Number of SQL SERVER DBA DEVELOPER Visits 2 Evaluation Information Evaluation Date 09/17/23 Precautions Precautions Pt has cochlear implant, mildly [place] 07/14/23: s/p L humeral fx PT-OP-B Current Condition Start: 09/17/23 17:25 Freq: Status: Active Protocol: Document 09/17/23 15:15 DCW (Rec: 09/17/23 17:49 DCW [id number]) Current Condition History of Current Condition Onset Date 2.5 months Current Complaints Left shoulder pain and stiffness s/p humeral head fracture History of Current Condition Pt is an88 year old female presenting to skilled therapy 2.5 months s/p left humeral head fracture. Pt reports she was walking in [place] , using her trekking pole, and stepped off the side of the road to left cars pass, she she stepped into mud and fell, using her left arm to break her fall, resulting in fracturing her humeral head. Pt reports she is overall doing fairly well, but her arm is still significantly restricted with her mobility, and she is unable to use her left arm to reach overhead or put things away in cabinets. Treatment Goals Patient/Caregiver Goals I want to get some flexibility and muscle back into this arm. PT-OP-C Subjective Start: 09/17/23 17:25 Freq: Status: Active Protocol: Document 09/23/23 13:49 SP (Rec: 09/23/23 14:37 SP [id number]) OP-PT Subjective Patient Comments Patient Comments Pt reports L shoulder just achy after PT for couple hrs. Notices using wand helps L arm do little more range but stills supported. She stated her R neck and upper shoulder on back really tight and can't get to it to massage. She also has hard time getting up on L side bed due to L ribcage pain and hard to push from bed using L arm. PT-OP-K Range of Motion Start: 09/17/23 17:25 Freq: Status: Active Protocol: Document 09/17/23 15:15 DCW (Rec: 09/17/23 17:49 DCW [id number]) Shoulder Goniometric Range of Motion Shoulder Right Active Testing Position Sitting Flexion 120 Abduction 136 External Rotation at 0 degrees Abduction 72 Internal Rotation Behind Back (text) T10 Left Passive Testing Position Supine Flexion 107 Abduction 62 Left Active Shoulder ROM WFL No Testing Position Sitting Flexion 88 Abduction 65 External Rotation at 0 degrees Abduction 52 Internal Rotation Behind Back (text) T10 PT-OP-M Strength Start: 09/17/23 17:25 Freq: Status: Active Protocol: Document 09/17/23 15:15 DCW (Rec: 09/17/23 17:49 DCW [id number]) Shoulder Strength Shoulder Manual Muscle Testing Left Flexion 2 Poor Abduction (C5) 2 Poor External Rotation 2- Poor- Internal Rotation 3- Fair- PT-OP-Q Treatments Start: 09/17/23 17:25 Freq: Status: Active Protocol: Document 09/23/23 13:49 SP (Rec: 09/23/23 14:37 SP [id number]) Therapeutic Exercises Supine Exercises Serratus Punch Supine Exercise Name Serratus Punch Side left Equipment Used dowel assist for equal over chest Reps/Minutes x10 reps Comments cued no UT recruitment, limited range 1 Shoulder Flexion Supine Exercise Name AAROM shoulder flexion /c dowel Side left Reps/Minutes x10 Comments improve AAROM Sidelying Exercises L shld ABD Sidelying Exercise Name added to HEP /c HO Side left Resistance AROM Reps/Minutes 5 reps Comments cued slow pnfree range, tactile cues for no UT & scap inf/UR- approx 80deg Other Exercises self STMs Other Exercise Name Theracane: trap, CS paraspinals and suboccipitals- added hEP self- will buy Side left Comments good feedback response MWM head nod/turn, scap ROM Manual Therapy Treatment Soft Tissue Mobilization ribcage Body Location L Intercostals: T4-9 laterally Mobilization Type Rolling,Sustained Pressure, Other Intensity/Depth Superficial Comments gentle intercostal STMs: R SL & hooklying therapist support arm approx 45 deg FF, and sustained pressure with breath MWM. Pressure adjusted with reported feedback neck, L shld Body Location UT, LS, pec, lat, subscap, scm & scalene, serratus ant Comments STMs, MWM head nod/turn CS Joint Mobilizations L GH jt Direction inferior, AP Grade II Body Position Hooklying Comments gentle, small pnfree range L scapulothoracic Direction Up Rot, depression Comments tactile during ABD PT-OP-T Assessment and Plan Start: 09/17/23 17:25 Freq: Status: Active Protocol: Document 09/23/23 13:49 SP (Rec: 09/23/23 14:37 SP [id number]) Physical Therapy Assessment Goals Two Impairment Pt exhibits decreased left shoulder flexion (88?) and abduction (65?) Pantograph Transferrer Goal (LTG) Pt to exhibit increased left shoulder AROM to at least 120? with both flexion and abduction in order to lift objects into overhead cabinets LTG Duration 11/17/23 One Impairment Pt does not have an appropriate home exercise program Short Term Goal (STG) Pt to be independent and compliant with an appropriate HEP STG Duration 10/17/23 Assessment Summary Assessment Pt was able to increase FF and ABD AA-AROM with improved scapular inferior glide after manual. Cues for proper form during serratus press with education level dowel. Provided education with HO (to search and proper use) with education during her performance use of theracane MWM head nods turns and scap small ROM reported self relief to neck and upp back/scap region to carryover relief at home. Physical Therapy Plan Frequency and Duration Frequency of Treatment 2x/Week Plan of Care Start Date 09/17/23 Plan of Care End Date 11/17/23 Therapeutic Interventions Therapeutic Interventions Home Exercise Program,Joint Mobilizations,Manual Therapy, Neuromuscular Re-education, Patient/Caregiver Education, Self-Care/Home Management,Soft Tissue Mobilization, Therapeutic Activities, Therapeutic Exercises Modalities Cold Pack/Ice Massage,Electric Stimulation,Hot Packs Next Visit Focus/Plan Next Note Type Treatment Note Next Visit Plan Review HEP, self STMs if got theracane. Next at neck stretching UT, LS, Scalene trial open book. PT POC: L shoulder strengthening/ROM, joint mobs
--- NOTE | 2023-09-28 12:02 | PT.OTN ---
Current Diagnoses Pain in left shoulder (09/28/23) Stiffness of left shoulder, not elsewhere classified (09/28/23) Other nondisplaced fracture of upper end of left humerus, initial encounter for open fracture (09/28/23) Other nondisplaced fracture of upper end of left humerus, subsequent encounter for fracture with routine healing (09/28/23) Physical Therapy Treatment Note PT-OP-A Visit Information Start: 09/17/23 17:25 Freq: Status: Active Protocol: Document 09/28/23 11:17 SP (Rec: 09/28/23 12:07 SP [id number]) Out-Patient Physical Therapy Visit Information Visit Information Visit Type Treatment Note Visit Start Time 11:27 Visit Stop Time 12:02 Visit Number 4 Number of BUNDLE SORTER Visits 3 Evaluation Information Evaluation Date 09/17/23 Precautions Precautions Pt has cochlear implant, mildly [place] 07/14/23: s/p L humeral fx PT-OP-B Current Condition Start: 09/17/23 17:25 Freq: Status: Active Protocol: Document 09/17/23 15:15 DCW (Rec: 09/17/23 17:49 DCW [id number]) Current Condition History of Current Condition Onset Date 2.5 months Current Complaints Left shoulder pain and stiffness s/p humeral head fracture History of Current Condition Pt is an88 year old female presenting to skilled therapy 2.5 months s/p left humeral head fracture. Pt reports she was walking in [place] , using her trekking pole, and stepped off the side of the road to left cars pass, she she stepped into mud and fell, using her left arm to break her fall, resulting in fracturing her humeral head. Pt reports she is overall doing fairly well, but her arm is still significantly restricted with her mobility, and she is unable to use her left arm to reach overhead or put things away in cabinets. Treatment Goals Patient/Caregiver Goals I want to get some flexibility and muscle back into this arm. PT-OP-C Subjective Start: 09/17/23 17:25 Freq: Status: Active Protocol: Document 09/28/23 11:17 SP (Rec: 09/28/23 12:07 SP [id number]) OP-PT Subjective Patient Comments Patient Comments Pt reports her neck felt good after last tx but as day went on started to stiffen up and hurt L mid neck. Tried theracane has home but not sure doing right. PT-OP-K Range of Motion Start: 09/17/23 17:25 Freq: Status: Active Protocol: Document 09/17/23 15:15 DCW (Rec: 09/17/23 17:49 DCW [id number]) Shoulder Goniometric Range of Motion Shoulder Right Active Testing Position Sitting Flexion 120 Abduction 136 External Rotation at 0 degrees Abduction 72 Internal Rotation Behind Back (text) T10 Left Passive Testing Position Supine Flexion 107 Abduction 62 Left Active Shoulder ROM WFL No Testing Position Sitting Flexion 88 Abduction 65 External Rotation at 0 degrees Abduction 52 Internal Rotation Behind Back (text) T10 PT-OP-M Strength Start: 09/17/23 17:25 Freq: Status: Active Protocol: Document 09/17/23 15:15 DCW (Rec: 09/17/23 17:49 DCW [id number]) Shoulder Strength Shoulder Manual Muscle Testing Left Flexion 2 Poor Abduction (C5) 2 Poor External Rotation 2- Poor- Internal Rotation 3- Fair- PT-OP-Q Treatments Start: 09/17/23 17:25 Freq: Status: Active Protocol: Document 09/28/23 11:17 SP (Rec: 09/28/23 12:07 SP [id number]) Therapeutic Exercises Supine Exercises Serratus Punch Supine Exercise Name Serratus Punch Side left Resistance Guy together Equipment Used just below chest height Reps/Minutes x10 reps Comments cued no UT recruitment, limited range 1 Shoulder Flexion Supine Exercise Name AROM FF Side left Resistance Guy together Reps/Minutes x10 Comments improve AROM Sidelying Exercises ER Sidelying Exercise Name trialed in PT Side left Resistance AROM Reps/Minutes x10 Comments good response, pn free Standing Exercises ER Standing Exercise Name added to HEP Side left Resistance TB #2 peach Equipment Used back on wall Reps/Minutes x10 Comments good effort, pn free extension Standing Exercise Name added to HEP Side bilateral Resistance TB #1 peach Reps/Minutes x10 Comments cued no UT Other Exercises self STMs Other Exercise Name Theracane: trap, CS paraspinals and suboccipitals- added hEP self- will buy Side left Comments good feedback response MWM head nod/turn, scap ROM Manual Therapy Treatment Soft Tissue Mobilization neck, L shld Body Location L pec, infraspinatus, L UT, LS Mobilization Type Rolling,Sustained Pressure, Other Comments PROM humeral IR, ER, punching motion, scapulothoracic Joint Mobilizations L GH jt Direction inferior, AP Grade II Body Position Hooklying Comments gentle, small pnfree range L scapulothoracic Direction Up Rot, depression Comments tactile during ABD PT-OP-T Assessment and Plan Start: 09/17/23 17:25 Freq: Status: Active Protocol: Document 09/28/23 11:17 SP (Rec: 09/28/23 12:07 SP [id number]) Physical Therapy Assessment Goals Two Impairment Pt exhibits decreased left shoulder flexion (88?) and abduction (65?) Life Skills Specialist Goal (LTG) Pt to exhibit increased left shoulder AROM to at least 120? with both flexion and abduction in order to lift objects into overhead cabinets LTG Duration 11/17/23 One Impairment Pt does not have an appropriate home exercise program Short Term Goal (STG) Pt to be independent and compliant with an appropriate HEP STG Duration 10/17/23 Assessment Summary Assessment Pt good response to self STMs use theracane feels more confident use for home, neck tension reduction. Good form with supine HEP, still limited tolerance FF ROM, improved post manual tactile cues. Added LT and rhomboid strengthening for inhibit UT recruitment. Pt reports scapular and UT tiring but not pain end tx. Has peach band from previous PT. She has gained Lshld AROM, not measured. Physical Therapy Plan Frequency and Duration Frequency of Treatment 2x/Week Plan of Care Start Date 09/17/23 Plan of Care End Date 11/17/23 Therapeutic Interventions Therapeutic Interventions Home Exercise Program,Joint Mobilizations,Manual Therapy, Neuromuscular Re-education, Patient/Caregiver Education, Self-Care/Home Management,Soft Tissue Mobilization, Therapeutic Activities, Therapeutic Exercises Modalities Cold Pack/Ice Massage,Electric Stimulation,Hot Packs Next Visit Focus/Plan Next Note Type Treatment Note Next Visit Plan Review HEP, self STMs if needede. check TB shld ext, ER. Next at neck stretching UT, LS, [place] trial open book. PT POC: L shoulder strengthening/ROM, joint mobs
--- NOTE | 2023-09-30 12:01 | PT.OTN ---
Current Diagnoses Pain in left shoulder (09/30/23) Stiffness of left shoulder, not elsewhere classified (09/30/23) Other nondisplaced fracture of upper end of left humerus, initial encounter for open fracture (09/30/23) Other nondisplaced fracture of upper end of left humerus, subsequent encounter for fracture with routine healing (09/30/23) Physical Therapy Treatment Note PT-OP-A Visit Information Start: 09/17/23 17:25 Freq: Status: Active Protocol: Document 09/30/23 11:15 DCW (Rec: 09/30/23 12:01 DCW [id number]) Out-Patient Physical Therapy Visit Information Visit Information Visit Type Treatment Note Visit Start Time 11:15 Visit Stop Time 12:00 Visit Number 5 Number of BLEACH[place] PULP Visits 0 Evaluation Information Evaluation Date 09/17/23 Precautions Precautions Pt has cochlear implant, mildly [place] 07/14/23: s/p L humeral fx PT-OP-B Current Condition Start: 09/17/23 17:25 Freq: Status: Active Protocol: Document 09/17/23 15:15 DCW (Rec: 09/17/23 17:49 DCW [id number]) Current Condition History of Current Condition Onset Date 2.5 months Current Complaints Left shoulder pain and stiffness s/p humeral head fracture History of Current Condition Pt is an88 year old female presenting to skilled therapy 2.5 months s/p left humeral head fracture. Pt reports she was walking in [place] , using her trekking pole, and stepped off the side of the road to left cars pass, she she stepped into mud and fell, using her left arm to break her fall, resulting in fracturing her humeral head. Pt reports she is overall doing fairly well, but her arm is still significantly restricted with her mobility, and she is unable to use her left arm to reach overhead or put things away in cabinets. Treatment Goals Patient/Caregiver Goals I want to get some flexibility and muscle back into this arm. PT-OP-C Subjective Start: 09/17/23 17:25 Freq: Status: Active Protocol: Document 09/30/23 11:15 DCW (Rec: 09/30/23 12:01 DCW [id number]) OP-PT Subjective Patient Comments Patient Comments I have a confession to make. Life got in the way yesterday and I didn't do my exercises. PT-OP-K Range of Motion Start: 09/17/23 17:25 Freq: Status: Active Protocol: Document 09/17/23 15:15 DCW (Rec: 09/17/23 17:49 DCW [id number]) Shoulder Goniometric Range of Motion Shoulder Right Active Testing Position Sitting Flexion 120 Abduction 136 External Rotation at 0 degrees Abduction 72 Internal Rotation Behind Back (text) T10 Left Passive Testing Position Supine Flexion 107 Abduction 62 Left Active Shoulder ROM WFL No Testing Position Sitting Flexion 88 Abduction 65 External Rotation at 0 degrees Abduction 52 Internal Rotation Behind Back (text) T10 PT-OP-M Strength Start: 09/17/23 17:25 Freq: Status: Active Protocol: Document 09/17/23 15:15 DCW (Rec: 09/17/23 17:49 DCW [id number]) Shoulder Strength Shoulder Manual Muscle Testing Left Flexion 2 Poor Abduction (C5) 2 Poor External Rotation 2- Poor- Internal Rotation 3- Fair- PT-OP-Q Treatments Start: 09/17/23 17:25 Freq: Status: Active Protocol: Document 09/30/23 11:15 DCW (Rec: 09/30/23 12:01 DCW [id number]) Therapeutic Exercises Sitting Exercises Pulleys Sitting Exercise Name Shoulder flexion, abduction Side bilateral Standing Exercises Abduction Standing Exercise Name Shoulder Abduction Side left Resistance [place] Comments pain-free ROM Flexion Standing Exercise Name Shoulder Flexion Side left Resistance [place] Comments pain-free ROM Adduction Standing Exercise Name Shoulder Adduction Side left Resistance [place] Rows Standing Exercise Name Rows Side bilateral Resistance [place] extension Standing Exercise Name Shoulder Extension Side bilateral Resistance [place] Manual Therapy Treatment Soft Tissue Mobilization neck, L shld Body Location L pec, infraspinatus, L UT, LS Mobilization Type Rolling,Sustained Pressure, Other Comments PROM humeral IR, ER, punching motion, scapulothoracic Joint Mobilizations L GH jt Direction inferior, AP Grade II Body Position Hooklying Comments gentle, small pnfree range L scapulothoracic Direction Up Rot, depression PT-OP-T Assessment and Plan Start: 09/17/23 17:25 Freq: Status: Active Protocol: Document 09/30/23 11:15 DCW (Rec: 09/30/23 12:01 DCW [id number]) Physical Therapy Assessment Impairments Impairments Activity Tolerance,Functional Activities,Functional Mobility ,ROM,Strength Goals Two Impairment Pt exhibits decreased left shoulder flexion (88?) and abduction (65?) Custodial Goal (LTG) Pt to exhibit increased left shoulder AROM to at least 120? with both flexion and abduction in order to lift objects into overhead cabinets LTG Duration 11/17/23 One Impairment Pt does not have an appropriate home exercise program Short Term Goal (STG) Pt to be independent and compliant with an appropriate HEP STG Duration 10/17/23 Assessment Summary Assessment Good response to activity today, pt passive ROM measured today at 117? flexion (10? improvement) and 91? abduction (29? improvement). Continue to focus on increasing shoulder mobility and strength in effort to return to prior level of function. Physical Therapy Plan Frequency and Duration Frequency of Treatment 2x/Week Plan of Care Start Date 09/17/23 Plan of Care End Date 11/17/23 Therapeutic Interventions Therapeutic Interventions Home Exercise Program,Joint Mobilizations,Manual Therapy, Neuromuscular Re-education, Patient/Caregiver Education, Self-Care/Home Management,Soft Tissue Mobilization, Therapeutic Activities, Therapeutic Exercises Modalities Cold Pack/Ice Massage,Electric Stimulation,Hot Packs Next Visit Focus/Plan Next Note Type Treatment Note Next Visit Plan Review HEP, self STMs if got theracane. Next at neck stretching UT, LS, [place] trial open book. PT POC: L shoulder strengthening/ROM, joint mobs
--- NOTE | 2023-10-05 12:15 | PT.OTN ---
Current Diagnoses Pain in left shoulder (10/05/23) Stiffness of left shoulder, not elsewhere classified (10/05/23) Other nondisplaced fracture of upper end of left humerus, initial encounter for open fracture (10/05/23) Other nondisplaced fracture of upper end of left humerus, subsequent encounter for fracture with routine healing (10/05/23) Physical Therapy Treatment Note PT-OP-A Visit Information Start: 09/17/23 17:25 Freq: Status: Active Protocol: Document 10/05/23 11:16 SW (Rec: 10/05/23 12:15 SW [id number]) Out-Patient Physical Therapy Visit Information Visit Information Visit Type Treatment Note Visit Start Time 11:15 Visit Stop Time 11:55 Visit Number 6 Number of [employer]PORT RE[employer]ING HAND[employer]ER Visits 1 PT-OP-B Current Condition Start: 09/17/23 17:25 Freq: Status: Active Protocol: Document 09/17/23 15:15 DCW (Rec: 09/17/23 17:49 DCW [id number]) Current Condition History of Current Condition Onset Date 2.5 months Current Complaints Left shoulder pain and stiffness s/p humeral head fracture History of Current Condition Pt is an88 year old female presenting to skilled therapy 2.5 months s/p left humeral head fracture. Pt reports she was walking in [place] , using her trekking pole, and stepped off the side of the road to left cars pass, she she stepped into mud and fell, using her left arm to break her fall, resulting in fracturing her humeral head. Pt reports she is overall doing fairly well, but her arm is still significantly restricted with her mobility, and she is unable to use her left arm to reach overhead or put things away in cabinets. Treatment Goals Patient/Caregiver Goals I want to get some flexibility and muscle back into this arm. PT-OP-C Subjective Start: 09/17/23 17:25 Freq: Status: Active Protocol: Document 10/05/23 11:16 SW (Rec: 10/05/23 12:15 SW [id number]) OP-PT Subjective Patient Comments Patient Comments Pt reports 1/10 pain today. Pt reports probably over did it weeding, felt it the next day, pain in more than just shoulder. PT-OP-K Range of Motion Start: 09/17/23 17:25 Freq: Status: Active Protocol: Document 09/17/23 15:15 DCW (Rec: 09/17/23 17:49 DCW [id number]) Shoulder Goniometric Range of Motion Shoulder Right Active Testing Position Sitting Flexion 120 Abduction 136 External Rotation at 0 degrees Abduction 72 Internal Rotation Behind Back (text) T10 Left Passive Testing Position Supine Flexion 107 Abduction 62 Left Active Shoulder ROM WFL No Testing Position Sitting Flexion 88 Abduction 65 External Rotation at 0 degrees Abduction 52 Internal Rotation Behind Back (text) T10 PT-OP-M Strength Start: 09/17/23 17:25 Freq: Status: Active Protocol: Document 09/17/23 15:15 DCW (Rec: 09/17/23 17:49 DCW [id number]) Shoulder Strength Shoulder Manual Muscle Testing Left Flexion 2 Poor Abduction (C5) 2 Poor External Rotation 2- Poor- Internal Rotation 3- Fair- PT-OP-Q Treatments Start: 09/17/23 17:25 Freq: Status: Active Protocol: Document 10/05/23 11:16 SW (Rec: 10/05/23 12:15 SW [id number]) Therapeutic Exercises Sitting Exercises Cervical stretches Sitting Exercise Name UT/LS/[place] Side bilateral Reps/Minutes 2 x 10 ea Comments cued for gentle pain free stretch, cervical alignment Pulleys Sitting Exercise Name Shoulder flexion, abduction Side bilateral Standing Exercises Abduction Standing Exercise Name Shoulder Abduction Side left Resistance [place] Comments pain-free ROM Flexion Standing Exercise Name Shoulder Flexion Side left Resistance [place] Comments pain-free ROM Adduction Standing Exercise Name Shoulder Adduction Side left Resistance [place] Rows Standing Exercise Name Rows Side bilateral Resistance [place] ER Side left Resistance peach TB> AROM Equipment Used back on wall Reps/Minutes x10 Comments pain free range extension Standing Exercise Name Shoulder Extension Side bilateral Resistance [place] Wall Slide Standing Exercise Name Wall slide into flexion Side left Resistance AROM facing wall Reps/Minutes x10 reps Comments cued for neutral wrist to eliminate wrist pain, cued for ROM w/out compensa Manual Therapy Treatment Soft Tissue Mobilization neck, L shld Body Location L pec, infraspinatus, L UT, LS Mobilization Type Rolling,Sustained Pressure, Other Comments PROM humeral IR, ER, punching motion, scapulothoracic, pain free PT-OP-T Assessment and Plan Start: 09/17/23 17:25 Freq: Status: Active Protocol: Document 10/05/23 11:16 SW (Rec: 10/05/23 12:15 [id number]) Physical Therapy Assessment Goals Two Impairment Pt exhibits decreased left shoulder flexion (88?) and abduction (65?) Shelter Goal (LTG) Pt to exhibit increased left shoulder AROM to at least 120? with both flexion and abduction in order to lift objects into overhead cabinets LTG Duration 11/17/23 One Impairment Pt does not have an appropriate home exercise program Short Term Goal (STG) Pt to be independent and compliant with an appropriate HEP STG Duration 10/17/23 Assessment Summary Assessment Pt tolerated session well today. Continued focus on strength/ROM. Initiated cervical ROM this session to decrease tension and improve pt symptoms, good tolerance pain free, cues required for correct execution. Pt reports carryover of HEP at home, though unable to get through them all, reviewed HEP today for increased pt carryover. Tactile/verbal cues required for compensations and correct muscle activation during exercises. Plan to assess pt tolerance next session and progress as able. Physical Therapy Plan Frequency and Duration Frequency of Treatment 2x/Week Plan of Care Start Date 09/17/23 Plan of Care End Date 11/17/23 Therapeutic Interventions Therapeutic Interventions Home Exercise Program,Joint Mobilizations,Manual Therapy, Neuromuscular Re-education, Patient/Caregiver Education, Self-Care/Home Management,Soft Tissue Mobilization, Therapeutic Activities, Therapeutic Exercises Modalities Cold Pack/Ice Massage,Electric Stimulation,Hot Packs Next Visit Focus/Plan Next Note Type Treatment Note Next Visit Plan Review HEP, self STMs if got theracane. Next at neck stretching UT, LS, [place] trial open book. PT POC: L shoulder strengthening/ROM, joint mobs
--- NOTE | 2023-10-07 16:35 | PT.OTN ---
Current Diagnoses Pain in left shoulder (10/07/23) Stiffness of left shoulder, not elsewhere classified (10/07/23) Other nondisplaced fracture of upper end of left humerus, initial encounter for open fracture (10/07/23) Other nondisplaced fracture of upper end of left humerus, subsequent encounter for fracture with routine healing (10/07/23) Physical Therapy Treatment Note PT-OP-A Visit Information Start: 09/17/23 17:25 Freq: Status: Active Protocol: Document 10/07/23 11:16 SW (Rec: 10/07/23 12:39 SW [id number]) Out-Patient Physical Therapy Visit Information Visit Information Visit Type Treatment Note Visit Start Time 11:16 Visit Stop Time 11:56 Visit Number 7 Number of ASSIGNMENT DESK ASSISTANT Visits 2 Precautions Precautions Pt has cochlear implant, mildly [place] 07/14/23: s/p L humeral fx PT-OP-B Current Condition Start: 09/17/23 17:25 Freq: Status: Active Protocol: Document 09/17/23 15:15 DCW (Rec: 09/17/23 17:49 DCW [id number]) Current Condition History of Current Condition Onset Date 2.5 months Current Complaints Left shoulder pain and stiffness s/p humeral head fracture History of Current Condition Pt is an88 year old female presenting to skilled therapy 2.5 months s/p left humeral head fracture. Pt reports she was walking in [place] , using her trekking pole, and stepped off the side of the road to left cars pass, she she stepped into mud and fell, using her left arm to break her fall, resulting in fracturing her humeral head. Pt reports she is overall doing fairly well, but her arm is still significantly restricted with her mobility, and she is unable to use her left arm to reach overhead or put things away in cabinets. Treatment Goals Patient/Caregiver Goals I want to get some flexibility and muscle back into this arm. PT-OP-C Subjective Start: 09/17/23 17:25 Freq: Status: Active Protocol: Document 10/07/23 11:25 SW (Rec: 10/07/23 12:32 SW [id number]) OP-PT Subjective Patient Comments Patient Comments Pt reports discomfort in medial aspect of upper humerus , feels deep like a bruise, and feeling occasional sharp pain in palmar aspect of 4th distal digit, reports it has been consistant since injury. PT-OP-K Range of Motion Start: 09/17/23 17:25 Freq: Status: Active Protocol: Document 09/17/23 15:15 DCW (Rec: 09/17/23 17:49 DCW [id number]) Shoulder Goniometric Range of Motion Shoulder Right Active Testing Position Sitting Flexion 120 Abduction 136 External Rotation at 0 degrees Abduction 72 Internal Rotation Behind Back (text) T10 Left Passive Testing Position Supine Flexion 107 Abduction 62 Left Active Shoulder ROM WFL No Testing Position Sitting Flexion 88 Abduction 65 External Rotation at 0 degrees Abduction 52 Internal Rotation Behind Back (text) T10 PT-OP-M Strength Start: 09/17/23 17:25 Freq: Status: Active Protocol: Document 09/17/23 15:15 DCW (Rec: 09/17/23 17:49 DCW [id number]) Shoulder Strength Shoulder Manual Muscle Testing Left Flexion 2 Poor Abduction (C5) 2 Poor External Rotation 2- Poor- Internal Rotation 3- Fair- PT-OP-Q Treatments Start: 09/17/23 17:25 Freq: Status: Active Protocol: Document 10/07/23 11:25 SW (Rec: 10/07/23 12:32 SW [id number]) Therapeutic Exercises Supine Exercises Serratus Punch Supine Exercise Name Serratus Punch Side bilateral Resistance 1# Equipment Used just below chest height Reps/Minutes x10 reps Comments cued no UT recruitment, limited range Shoulder Flexion Supine Exercise Name AROM FF, reviewed for ROM progress Side left Resistance Guy together Reps/Minutes x10 Comments improve AROM Standing Exercises ROM Standing Exercise Name Abduction with therabar for ROM Side left Resistance AAROM Equipment Used Yellow wand Reps/Minutes x10 3 hold Comments cued pt for correct execution Abduction Standing Exercise Name Shoulder Abduction, progressed reps today Side left Resistance [place] Comments pain-free ROM Flexion Standing Exercise Name Shoulder Flexion, progressed reps today Side left Resistance [place] Comments pain-free ROM Adduction Standing Exercise Name Shoulder Adduction, progressed reps today Side left Resistance [place] Rows Standing Exercise Name Rows, progressed reps today Side bilateral Resistance [place] Wall Slide Standing Exercise Name Wall slide into flexion- Reviewed for carryover Side left Resistance AROM facing wall Comments cued for neutral wrist to eliminate wrist pain, cued for ROM w/out compensa Manual Therapy Treatment Soft Tissue Mobilization neck, L shld Body Location L pec, infraspinatus, L UT, LS Mobilization Type Rolling,Sustained Pressure, Other Comments PROM humeral IR, ER, punching motion, scapulothoracic, pain free Joint Mobilizations L GH jt Direction inferior, AP Grade II Body Position Hooklying Comments gentle, small pnfree range Self-Care/Home Management Treatment Education Patient Education Home Exercise Program,Pain Management Other Education Educated pt on modalities for pain/inflammation/decreased tension. Educated pt on HEP progression and importance of consistancy with ROM exercises with extended time between sessions. Educated pt to monitor pain with exercises and to not push into increasing pain. Reviewed HEP and progressed pt with increased reps. PT-OP-T Assessment and Plan Start: 09/17/23 17:25 Freq: Status: Active Protocol: Document 10/07/23 11:25 (Rec: 10/07/23 12:32 [id number]) Physical Therapy Assessment Goals Two Impairment Pt exhibits decreased left shoulder flexion (88?) and abduction (65?) Shed Hand Goal (LTG) Pt to exhibit increased left shoulder AROM to at least 120? with both flexion and abduction in order to lift objects into overhead cabinets LTG Duration 11/17/23 One Impairment Pt does not have an appropriate home exercise program Short Term Goal (STG) Pt to be independent and compliant with an appropriate HEP STG Duration 10/17/23 Assessment Summary Assessment Pt increased ROM this session + 2 w/ shoulder flexion, PROM (supine) shoulder 119 degrees flexion, abd 85 deg before empty end feel. Educated pt on modalities for pain. Reviewed HEP exercises and discussed importance of carryover with extended time between sessions , Progressed pt with increased reps, discussed with patient importance of carryover of ROM exercises daily to pt tolerance for continued progress with ROM gains. Initiated serratus punches with weight this session for scapular stabilization. Extended time on Therex this session for pt education. Physical Therapy Plan Frequency and Duration Frequency of Treatment 2x/Week Plan of Care Start Date 09/17/23 Plan of Care End Date 11/17/23 Therapeutic Interventions Therapeutic Interventions Home Exercise Program,Joint Mobilizations,Manual Therapy, Neuromuscular Re-education, Patient/Caregiver Education, Self-Care/Home Management,Soft Tissue Mobilization, Therapeutic Activities, Therapeutic Exercises Modalities Cold Pack/Ice Massage,Electric Stimulation,Hot Packs Next Visit Focus/Plan Next Note Type Treatment Note Next Visit Plan Review HEP, self STMs if got theracane. Next at neck stretching UT, LS, Scalene trial open book. PT POC: L shoulder strengthening/ROM, joint mobs
--- NOTE | 2023-10-11 11:15 | PT.OTN ---
Current Diagnoses Pain in left shoulder (10/11/23) Stiffness of left shoulder, not elsewhere classified (10/11/23) Other nondisplaced fracture of upper end of left humerus, initial encounter for open fracture (10/11/23) Other nondisplaced fracture of upper end of left humerus, subsequent encounter for fracture with routine healing (10/11/23) Physical Therapy Treatment Note PT-OP-A Visit Information Start: 09/17/23 17:25 Freq: Status: Active Protocol: Document 10/11/23 10:34 DCW (Rec: 10/11/23 11:15 DCW [id number]) Out-Patient Physical Therapy Visit Information Visit Information Visit Type Treatment Note Visit Start Time 10:34 Visit Stop Time 11:15 Visit Number 8 Number of DOUBLE CUT OFF SAW OPERATOR Visits 0 Evaluation Information Evaluation Date 09/17/23 Precautions Precautions Pt has cochlear implant, mildly [place] 07/14/23: s/p L humeral fx PT-OP-B Current Condition Start: 09/17/23 17:25 Freq: Status: Active Protocol: Document 09/17/23 15:15 DCW (Rec: 09/17/23 17:49 DCW [id number]) Current Condition History of Current Condition Onset Date 2.5 months Current Complaints Left shoulder pain and stiffness s/p humeral head fracture History of Current Condition Pt is an88 year old female presenting to skilled therapy 2.5 months s/p left humeral head fracture. Pt reports she was walking in [place] , using her trekking pole, and stepped off the side of the road to left cars pass, she she stepped into mud and fell, using her left arm to break her fall, resulting in fracturing her humeral head. Pt reports she is overall doing fairly well, but her arm is still significantly restricted with her mobility, and she is unable to use her left arm to reach overhead or put things away in cabinets. Treatment Goals Patient/Caregiver Goals I want to get some flexibility and muscle back into this arm. PT-OP-C Subjective Start: 09/17/23 17:25 Freq: Status: Active Protocol: Document 10/11/23 10:34 DCW (Rec: 10/11/23 11:15 DCW [id number]) OP-PT Subjective Patient Comments Patient Comments It was feeling good after the last time I was in, but then I ended up over-doing it myself the next day. PT-OP-K Range of Motion Start: 09/17/23 17:25 Freq: Status: Active Protocol: Document 09/17/23 15:15 DCW (Rec: 09/17/23 17:49 DCW [id number]) Shoulder Goniometric Range of Motion Shoulder Right Active Testing Position Sitting Flexion 120 Abduction 136 External Rotation at 0 degrees Abduction 72 Internal Rotation Behind Back (text) T10 Left Passive Testing Position Supine Flexion 107 Abduction 62 Left Active Shoulder ROM WFL No Testing Position Sitting Flexion 88 Abduction 65 External Rotation at 0 degrees Abduction 52 Internal Rotation Behind Back (text) T10 PT-OP-M Strength Start: 09/17/23 17:25 Freq: Status: Active Protocol: Document 09/17/23 15:15 DCW (Rec: 09/17/23 17:49 DCW [id number]) Shoulder Strength Shoulder Manual Muscle Testing Left Flexion 2 Poor Abduction (C5) 2 Poor External Rotation 2- Poor- Internal Rotation 3- Fair- PT-OP-Q Treatments Start: 09/17/23 17:25 Freq: Status: Active Protocol: Document 10/11/23 10:34 DCW (Rec: 10/11/23 11:15 DCW [id number]) Cardio Equipment Upper Body Ergometer (UBE) Duration (Minutes) 4 RPM 60 Seat Position 11 Height 2.5 Therapeutic Exercises Sitting Exercises Pulleys Sitting Exercise Name Shoulder flexion, abduction Side bilateral Other Exercises Resisted side-stepping Other Exercise Name Resisted UE side-stepping Resistance Lv 1 loop Manual Therapy Treatment Soft Tissue Mobilization neck, L shld Body Location L pec, infraspinatus, L UT, LS Mobilization Type Rolling,Sustained Pressure, Other Body Position Hooklying Comments PROM humeral IR, ER, punching motion, scapulothoracic, pain free Joint Mobilizations L GH jt Direction inferior, AP Grade II Body Position Hooklying Comments gentle, small pnfree range L scapulothoracic Joint L Scapulothoracic Direction Lateral Grade III Body Position Hooklying PT-OP-T Assessment and Plan Start: 09/17/23 17:25 Freq: Status: Active Protocol: Document 10/11/23 10:34 DCW (Rec: 10/11/23 11:15 DCW [id number]) Physical Therapy Assessment Impairments Impairments Activity Tolerance,Functional Activities,Functional Mobility ,ROM,Strength Goals Two Impairment Pt exhibits decreased left shoulder flexion (88?) and abduction (65?) Jail Goal (LTG) Pt to exhibit increased left shoulder AROM to at least 120? with both flexion and abduction in order to lift objects into overhead cabinets LTG Duration 11/17/23 One Impairment Pt does not have an appropriate home exercise program Short Term Goal (STG) Pt to be independent and compliant with an appropriate HEP STG Duration 10/17/23 Assessment Summary Assessment PROM making great overall progress, pt feeling more comfortable with most of her ADLs, although still limited specifically with overhead movements, especially with any weight/resistance. Physical Therapy Plan Frequency and Duration Frequency of Treatment 2x/Week Plan of Care Start Date 09/17/23 Plan of Care End Date 11/17/23 Therapeutic Interventions Therapeutic Interventions Home Exercise Program,Joint Mobilizations,Manual Therapy, Neuromuscular Re-education, Patient/Caregiver Education, Self-Care/Home Management,Soft Tissue Mobilization, Therapeutic Activities, Therapeutic Exercises Modalities Cold Pack/Ice Massage,Electric Stimulation,Hot Packs Next Visit Focus/Plan Next Note Type Treatment Note Next Visit Plan Review HEP, self STMs if got theracane. Next at neck stretching UT, LS, Scalene trial open book. PT POC: L shoulder strengthening/ROM, joint mobs
--- NOTE | 2023-11-02 11:15 | PT.OTN ---
Current Diagnoses Pain in left shoulder (11/02/23) Stiffness of left shoulder, not elsewhere classified (11/02/23) Other nondisplaced fracture of upper end of left humerus, initial encounter for open fracture (11/02/23) Other nondisplaced fracture of upper end of left humerus, subsequent encounter for fracture with routine healing (11/02/23) Physical Therapy Treatment Note PT-OP-A Visit Information Start: 09/17/23 17:25 Freq: Status: Active Protocol: Document 11/02/23 10:32 DCW (Rec: 11/02/23 11:15 DCW [id number]) Out-Patient Physical Therapy Visit Information Visit Information Visit Type Treatment Note Visit Start Time 10:32 Visit Stop Time 11:15 Visit Number 9 Number of SKI BASE TRIMMER Visits 0 Evaluation Information Evaluation Date 09/17/23 Precautions Precautions Pt has cochlear implant, mildly [place] 07/14/23: s/p L humeral fx PT-OP-B Current Condition Start: 09/17/23 17:25 Freq: Status: Active Protocol: Document 09/17/23 15:15 DCW (Rec: 09/17/23 17:49 DCW [id number]) Current Condition History of Current Condition Onset Date 2.5 months Current Complaints Left shoulder pain and stiffness s/p humeral head fracture History of Current Condition Pt is an88 year old female presenting to skilled therapy 2.5 months s/p left humeral head fracture. Pt reports she was walking in [place] , using her trekking pole, and stepped off the side of the road to left cars pass, she she stepped into mud and fell, using her left arm to break her fall, resulting in fracturing her humeral head. Pt reports she is overall doing fairly well, but her arm is still significantly restricted with her mobility, and she is unable to use her left arm to reach overhead or put things away in cabinets. Treatment Goals Patient/Caregiver Goals I want to get some flexibility and muscle back into this arm. PT-OP-C Subjective Start: 09/17/23 17:25 Freq: Status: Active Protocol: Document 11/02/23 10:32 DCW (Rec: 11/02/23 11:15 DCW [id number]) OP-PT Subjective Patient Comments Patient Comments Pt notes that she had a massage on Wednesday, was a little sore afterward, but is feeling pretty good now. Notes she saw her Ortho, continues to be limited with ROM, but they were improvessed with her IR motion and x-rays look good. PT-OP-K Range of Motion Start: 09/17/23 17:25 Freq: Status: Active Protocol: Document 09/17/23 15:15 DCW (Rec: 09/17/23 17:49 DCW [id number]) Shoulder Goniometric Range of Motion Shoulder Right Active Testing Position Sitting Flexion 120 Abduction 136 External Rotation at 0 degrees Abduction 72 Internal Rotation Behind Back (text) T10 Left Passive Testing Position Supine Flexion 107 Abduction 62 Left Active Shoulder ROM WFL No Testing Position Sitting Flexion 88 Abduction 65 External Rotation at 0 degrees Abduction 52 Internal Rotation Behind Back (text) T10 PT-OP-M Strength Start: 09/17/23 17:25 Freq: Status: Active Protocol: Document 09/17/23 15:15 DCW (Rec: 09/17/23 17:49 DCW [id number]) Shoulder Strength Shoulder Manual Muscle Testing Left Flexion 2 Poor Abduction (C5) 2 Poor External Rotation 2- Poor- Internal Rotation 3- Fair- PT-OP-Q Treatments Start: 09/17/23 17:25 Freq: Status: Active Protocol: Document 11/02/23 10:32 DCW (Rec: 11/02/23 11:15 DCW [id number]) Cardio Equipment Upper Body Ergometer (UBE) Duration (Minutes) 4 RPM 60 Seat Position 11 Height 2.5 Therapeutic Exercises Standing Exercises Overhead Press Standing Exercise Name Overhead Press /c PVC Side bilateral Resistance 4# Abduction Standing Exercise Name Shoulder Abduction Side bilateral Resistance 2# Comments pain-free ROM Flexion Standing Exercise Name Shoulder Flexion Side bilateral Resistance 2# Comments pain-free ROM Rows Standing Exercise Name Rows Side bilateral Resistance Green ER Standing Exercise Name Shoulder ER Side bilateral Resistance Lv 2 Comments pain free range extension Standing Exercise Name Shoulder Extension Side bilateral Resistance Green Manual Therapy Treatment Consent Patient gave verbal consent for manual Yes treatment Soft Tissue Mobilization neck, L shld Body Location L pec, infraspinatus, L UT, LS Mobilization Type Rolling,Sustained Pressure, Other Body Position Hooklying Comments PROM humeral IR, ER, punching motion, scapulothoracic, pain free Joint Mobilizations L GH jt Direction inferior, AP Grade II Body Position Hooklying Comments gentle, small pnfree range L scapulothoracic Joint L Scapulothoracic Direction Lateral Grade III Body Position Hooklying PT-OP-T Assessment and Plan Start: 09/17/23 17:25 Freq: Status: Active Protocol: Document 11/02/23 10:32 DCW (Rec: 11/02/23 11:15 DCW [id number]) Physical Therapy Assessment Impairments Impairments Activity Tolerance,Functional Activities,Functional Mobility ,ROM,Strength Goals Two Impairment Pt exhibits decreased left shoulder flexion (88?) and abduction (65?) Corporate Recruiter Goal (LTG) Pt to exhibit increased left shoulder AROM to at least 120? with both flexion and abduction in order to lift objects into overhead cabinets LTG Duration 11/17/23 One Impairment Pt does not have an appropriate home exercise program Short Term Goal (STG) Pt to be independent and compliant with an appropriate HEP STG Duration 10/17/23 Assessment Summary Assessment Pt continues to struggle with overhead movements, better tolerates STM and joint mobilization. Overall improving with skilled therapeutic intervention. Physical Therapy Plan Frequency and Duration Frequency of Treatment 2x/Week Plan of Care Start Date 09/17/23 Plan of Care End Date 11/17/23 Therapeutic Interventions Therapeutic Interventions Home Exercise Program,Joint Mobilizations,Manual Therapy, Neuromuscular Re-education, Patient/Caregiver Education, Self-Care/Home Management,Soft Tissue Mobilization, Therapeutic Activities, Therapeutic Exercises Modalities Cold Pack/Ice Massage,Electric Stimulation,Hot Packs Next Visit Focus/Plan Next Note Type Treatment Note Next Visit Plan Review HEP, self STMs if got theracane. Next at neck stretching UT, LS, Scalene trial open book. PT POC: L shoulder strengthening/ROM, joint mobs
--- NOTE | 2023-11-04 12:02 | PT.OTN ---
Current Diagnoses Pain in left shoulder (11/04/23) Stiffness of left shoulder, not elsewhere classified (11/04/23) Other nondisplaced fracture of upper end of left humerus, initial encounter for open fracture (11/04/23) Other nondisplaced fracture of upper end of left humerus, subsequent encounter for fracture with routine healing (11/04/23) Physical Therapy Treatment Note PT-OP-A Visit Information Start: 09/17/23 17:25 Freq: Status: Active Protocol: Document 11/04/23 11:18 DCW (Rec: 11/04/23 12:02 DCW [id number]) Out-Patient Physical Therapy Visit Information Visit Information Visit Type Treatment Note Visit Start Time 11:18 Visit Stop Time 12:00 Visit Number 10 Number of DETAILER Visits 0 Evaluation Information Evaluation Date 09/17/23 Precautions Precautions Pt has cochlear implant, mildly [place] 07/14/23: s/p L humeral fx PT-OP-B Current Condition Start: 09/17/23 17:25 Freq: Status: Active Protocol: Document 09/17/23 15:15 DCW (Rec: 09/17/23 17:49 DCW [id number]) Current Condition History of Current Condition Onset Date 2.5 months Current Complaints Left shoulder pain and stiffness s/p humeral head fracture History of Current Condition Pt is an88 year old female presenting to skilled therapy 2.5 months s/p left humeral head fracture. Pt reports she was walking in [place] , using her trekking pole, and stepped off the side of the road to left cars pass, she she stepped into mud and fell, using her left arm to break her fall, resulting in fracturing her humeral head. Pt reports she is overall doing fairly well, but her arm is still significantly restricted with her mobility, and she is unable to use her left arm to reach overhead or put things away in cabinets. Treatment Goals Patient/Caregiver Goals I want to get some flexibility and muscle back into this arm. PT-OP-C Subjective Start: 09/17/23 17:25 Freq: Status: Active Protocol: Document 11/04/23 11:18 DCW (Rec: 11/04/23 12:02 DCW [id number]) OP-PT Subjective Patient Comments Patient Comments Pt notes her arm still feels a little bruised, was a little painful here (points to L pec ), but it certainly doesn't keep me from doing anything. PT-OP-K Range of Motion Start: 09/17/23 17:25 Freq: Status: Active Protocol: Document 09/17/23 15:15 DCW (Rec: 09/17/23 17:49 DCW [id number]) Shoulder Goniometric Range of Motion Shoulder Right Active Testing Position Sitting Flexion 120 Abduction 136 External Rotation at 0 degrees Abduction 72 Internal Rotation Behind Back (text) T10 Left Passive Testing Position Supine Flexion 107 Abduction 62 Left Active Shoulder ROM WFL No Testing Position Sitting Flexion 88 Abduction 65 External Rotation at 0 degrees Abduction 52 Internal Rotation Behind Back (text) T10 PT-OP-M Strength Start: 09/17/23 17:25 Freq: Status: Active Protocol: Document 09/17/23 15:15 DCW (Rec: 09/17/23 17:49 DCW [id number]) Shoulder Strength Shoulder Manual Muscle Testing Left Flexion 2 Poor Abduction (C5) 2 Poor External Rotation 2- Poor- Internal Rotation 3- Fair- PT-OP-Q Treatments Start: 09/17/23 17:25 Freq: Status: Active Protocol: Document 11/04/23 11:18 DCW (Rec: 11/04/23 12:02 DCW [id number]) Cardio Equipment Upper Body Ergometer (UBE) Duration (Minutes) 5 RPM 60 Seat Position 11 Height 2.5 Therapeutic Exercises Standing Exercises Overhead Press Standing Exercise Name Overhead Press /c PVC Side bilateral Resistance 4# Comments performed seated Abduction Standing Exercise Name Shoulder Abduction Side bilateral Resistance 2# Comments pain-free ROM Flexion Standing Exercise Name Shoulder Flexion Side bilateral Resistance 2# Comments pain-free ROM Manual Therapy Treatment Consent Patient gave verbal consent for manual Yes treatment Soft Tissue Mobilization neck, L shld Body Location L pec, infraspinatus, L UT, LS Mobilization Type Rolling,Sustained Pressure, Other Body Position Hooklying Comments PROM humeral IR, ER, punching motion, scapulothoracic, pain free Joint Mobilizations L GH jt Direction inferior, AP Grade II Body Position Hooklying Comments gentle, small pnfree range L scapulothoracic Joint L Scapulothoracic Direction Lateral Grade III Body Position Hooklying PT-OP-T Assessment and Plan Start: 09/17/23 17:25 Freq: Status: Active Protocol: Document 11/04/23 11:18 DC (Rec: 11/04/23 12:02 DCW [id number]) Physical Therapy Assessment Assessment Summary Assessment Making some good, though slow, progress, PROM and AROM. Feeling better about her HEP, but could still use continued therapeutic intervention in an effort to return to PLOF. focus on strengthening and ROM . Physical Therapy Plan Frequency and Duration Frequency of Treatment 2x/Week Plan of Care Start Date 09/17/23 Plan of Care End Date 11/17/23 Therapeutic Interventions Therapeutic Interventions Home Exercise Program,Joint Mobilizations,Manual Therapy, Neuromuscular Re-education, Patient/Caregiver Education, Self-Care/Home Management,Soft Tissue Mobilization, Therapeutic Activities, Therapeutic Exercises Modalities Cold Pack/Ice Massage,Electric Stimulation,Hot Packs Next Visit Focus/Plan Next Note Type Treatment Note Next Visit Plan Review HEP, self STMs if got theracane. Next at neck stretching UT, LS, Scalene trial open book. PT POC: L shoulder strengthening/ROM, joint mobs
--- NOTE | 2023-11-18 16:01 | PT.OTN ---
Current Diagnoses Pain in left shoulder (11/18/23) Stiffness of left shoulder, not elsewhere classified (11/18/23) Other nondisplaced fracture of upper end of left humerus, initial encounter for open fracture (11/18/23) Other nondisplaced fracture of upper end of left humerus, subsequent encounter for fracture with routine healing (11/18/23) Physical Therapy Treatment Note PT-OP-A Visit Information Start: 09/17/23 17:25 Freq: Status: Active Protocol: Document 11/18/23 15:15 DCW (Rec: 11/18/23 16:00 DCW [id number]) Out-Patient Physical Therapy Visit Information Visit Information Visit Type Progress Note Visit Start Time 15:15 Visit Stop Time 16:00 Visit Number 11 Number of TRANSPORTER RADIOLOGY Visits 0 Evaluation Information Evaluation Date 09/17/23 Precautions Precautions Pt has cochlear implant, mildly [place] 07/14/23: s/p L humeral fx PT-OP-B Current Condition Start: 09/17/23 17:25 Freq: Status: Active Protocol: Document 09/17/23 15:15 DCW (Rec: 09/17/23 17:49 DCW [id number]) Current Condition History of Current Condition Onset Date 2.5 months Current Complaints Left shoulder pain and stiffness s/p humeral head fracture History of Current Condition Pt is an88 year old female presenting to skilled therapy 2.5 months s/p left humeral head fracture. Pt reports she was walking in [place] , using her trekking pole, and stepped off the side of the road to left cars pass, she she stepped into mud and fell, using her left arm to break her fall, resulting in fracturing her humeral head. Pt reports she is overall doing fairly well, but her arm is still significantly restricted with her mobility, and she is unable to use her left arm to reach overhead or put things away in cabinets. Treatment Goals Patient/Caregiver Goals I want to get some flexibility and muscle back into this arm. PT-OP-C Subjective Start: 09/17/23 17:25 Freq: Status: Active Protocol: Document 11/18/23 15:15 DCW (Rec: 11/18/23 16:00 DCW [id number]) OP-PT Subjective Patient Comments Patient Comments Pt admits she has been bad, was moving, so she didn't do her exercises for the past ~ week. PT-OP-K Range of Motion Start: 09/17/23 17:25 Freq: Status: Active Protocol: Document 11/18/23 15:15 DCW (Rec: 11/18/23 15:26 DCW [id number]) Shoulder Goniometric Range of Motion Shoulder Right Active Testing Position Sitting Flexion 143 Abduction 165 External Rotation at 0 degrees Abduction 80 Internal Rotation Behind Back (text) T8 Left Passive Testing Position Supine Flexion 122 Abduction 75 Left Active Shoulder ROM WFL No Testing Position Sitting Flexion 104 Abduction 82 External Rotation at 0 degrees Abduction 54 Internal Rotation Behind Back (text) T6 PT-OP-M Strength Start: 09/17/23 17:25 Freq: Status: Active Protocol: Document 11/18/23 15:15 DCW (Rec: 11/18/23 15:26 DCW [id number]) Shoulder Strength Shoulder Manual Muscle Testing Right Flexion 4 Good Abduction (C5) 4 Good External Rotation 4 Good Internal Rotation 4 Good Left Flexion 3- Fair- Abduction (C5) 3- Fair- External Rotation 4- Good- Internal Rotation 4- Good- PT-OP-Q Treatments Start: 09/17/23 17:25 Freq: Status: Active Protocol: Document 11/18/23 15:15 DCW (Rec: 11/18/23 16:00 DCW [id number]) Manual Therapy Treatment Consent Patient gave verbal consent for manual Yes treatment Soft Tissue Mobilization neck, L shld Body Location L pec, infraspinatus, L UT, LS Mobilization Type Rolling,Sustained Pressure, Other Body Position Hooklying Comments PROM humeral IR, ER, punching motion, scapulothoracic, pain free Joint Mobilizations L GH jt Direction inferior, AP Grade II Body Position Hooklying Comments gentle, small pnfree range L scapulothoracic Joint L Scapulothoracic Direction Lateral Grade III Body Position Hooklying PT-OP-T Assessment and Plan Start: 09/17/23 17:25 Freq: Status: Active Protocol: Document 11/18/23 15:15 DCW (Rec: 11/18/23 16:00 DCW [id number]) Physical Therapy Assessment Impairments Impairments Activity Tolerance,Functional Activities,Functional Mobility ,ROM,Strength Goals Two Impairment Pt exhibits decreased left shoulder flexion (88?) and abduction (65?) Loom Operator Apprentice Goal (LTG) Pt to exhibit increased left shoulder AROM to at least 120? with both flexion and abduction in order to lift objects into overhead cabinets LTG Duration 01/18/24 - improving One Impairment Pt does not have an appropriate home exercise program Short Term Goal (STG) Pt to be independent and compliant with an appropriate HEP STG Duration 12/19/23 Assessment Summary Assessment Active and passive ROM slowly progressing. Pt has made good improvements with both shoulder ROM. Strength improving as well. Continue to focus on decreased tone, stretching, strengthening, and improving functional mobility Physical Therapy Plan Frequency and Duration Frequency of Treatment 2x/Week Plan of Care Start Date 09/17/23 Plan of Care End Date 11/17/23 Therapeutic Interventions Therapeutic Interventions Home Exercise Program,Joint Mobilizations,Manual Therapy, Neuromuscular Re-education, Patient/Caregiver Education, Self-Care/Home Management,Soft Tissue Mobilization, Therapeutic Activities, Therapeutic Exercises Modalities Cold Pack/Ice Massage,Electric Stimulation,Hot Packs Next Visit Focus/Plan Next Note Type Treatment Note Next Visit Plan Review HEP, self STMs if got theracane. Next at neck stretching UT, LS, Gayle trial open book. PT POC: L shoulder strengthening/ROM, joint mobs
--- NOTE | 2023-11-18 16:02 | PT.OTN ---
Current Diagnoses Pain in left shoulder (11/18/23) Stiffness of left shoulder, not elsewhere classified (11/18/23) Other nondisplaced fracture of upper end of left humerus, initial encounter for open fracture (11/18/23) Other nondisplaced fracture of upper end of left humerus, subsequent encounter for fracture with routine healing (11/18/23) Physical Therapy Treatment Note PT-OP-A Visit Information Start: 09/17/23 17:25 Freq: Status: Active Protocol: Document 11/18/23 15:15 DCW (Rec: 11/18/23 16:00 DCW [id number]) Out-Patient Physical Therapy Visit Information Visit Information Visit Type Progress Note Visit Start Time 15:15 Visit Stop Time 16:00 Visit Number 11 Number of DESK ASSISTANT Visits 0 Evaluation Information Evaluation Date 09/17/23 Precautions Precautions Pt has cochlear implant, mildly [place] 07/14/23: s/p L humeral fx PT-OP-B Current Condition Start: 09/17/23 17:25 Freq: Status: Active Protocol: Document 09/17/23 15:15 DCW (Rec: 09/17/23 17:49 DCW [id number]) Current Condition History of Current Condition Onset Date 2.5 months Current Complaints Left shoulder pain and stiffness s/p humeral head fracture History of Current Condition Pt is an88 year old female presenting to skilled therapy 2.5 months s/p left humeral head fracture. Pt reports she was walking in [place] , using her trekking pole, and stepped off the side of the road to left cars pass, she she stepped into mud and fell, using her left arm to break her fall, resulting in fracturing her humeral head. Pt reports she is overall doing fairly well, but her arm is still significantly restricted with her mobility, and she is unable to use her left arm to reach overhead or put things away in cabinets. Treatment Goals Patient/Caregiver Goals I want to get some flexibility and muscle back into this arm. PT-OP-C Subjective Start: 09/17/23 17:25 Freq: Status: Active Protocol: Document 11/18/23 15:15 DCW (Rec: 11/18/23 16:00 DCW [id number]) OP-PT Subjective Patient Comments Patient Comments Pt admits she has been bad, was moving, so she didn't do her exercises for the past ~ week. PT-OP-K Range of Motion Start: 09/17/23 17:25 Freq: Status: Active Protocol: Document 11/18/23 15:15 DCW (Rec: 11/18/23 15:26 DCW [id number]) Shoulder Goniometric Range of Motion Shoulder Right Active Testing Position Sitting Flexion 143 Abduction 165 External Rotation at 0 degrees Abduction 80 Internal Rotation Behind Back (text) T8 Left Passive Testing Position Supine Flexion 122 Abduction 75 Left Active Shoulder ROM WFL No Testing Position Sitting Flexion 104 Abduction 82 External Rotation at 0 degrees Abduction 54 Internal Rotation Behind Back (text) T6 PT-OP-M Strength Start: 09/17/23 17:25 Freq: Status: Active Protocol: Document 11/18/23 15:15 DCW (Rec: 11/18/23 15:26 DCW [id number]) Shoulder Strength Shoulder Manual Muscle Testing Right Flexion 4 Good Abduction (C5) 4 Good External Rotation 4 Good Internal Rotation 4 Good Left Flexion 3- Fair- Abduction (C5) 3- Fair- External Rotation 4- Good- Internal Rotation 4- Good- PT-OP-Q Treatments Start: 09/17/23 17:25 Freq: Status: Active Protocol: Document 11/18/23 15:15 DCW (Rec: 11/18/23 16:00 DCW [id number]) Manual Therapy Treatment Consent Patient gave verbal consent for manual Yes treatment Soft Tissue Mobilization neck, L shld Body Location L pec, infraspinatus, L UT, LS Mobilization Type Rolling,Sustained Pressure, Other Body Position Hooklying Comments PROM humeral IR, ER, punching motion, scapulothoracic, pain free Joint Mobilizations L GH jt Direction inferior, AP Grade II Body Position Hooklying Comments gentle, small pnfree range L scapulothoracic Joint L Scapulothoracic Direction Lateral Grade III Body Position Hooklying PT-OP-T Assessment and Plan Start: 09/17/23 17:25 Freq: Status: Active Protocol: Document 11/18/23 15:15 DCW (Rec: 11/18/23 16:00 DCW [id number]) Physical Therapy Assessment Impairments Impairments Activity Tolerance,Functional Activities,Functional Mobility ,ROM,Strength Goals Two Impairment Pt exhibits decreased left shoulder flexion (88?) and abduction (65?) Axle And Frame Mechanic Goal (LTG) Pt to exhibit increased left shoulder AROM to at least 120? with both flexion and abduction in order to lift objects into overhead cabinets LTG Duration 01/18/24 - improving One Impairment Pt does not have an appropriate home exercise program Short Term Goal (STG) Pt to be independent and compliant with an appropriate HEP STG Duration 12/19/23 Assessment Summary Assessment Active and passive ROM slowly progressing. Pt has made good improvements with both shoulder ROM. Strength improving as well. Continue to focus on decreased tone, stretching, strengthening, and improving functional mobility Physical Therapy Plan Frequency and Duration Frequency of Treatment 2x/Week Plan of Care Start Date 11/18/23 Plan of Care End Date 01/18/24 Therapeutic Interventions Therapeutic Interventions Home Exercise Program,Joint Mobilizations,Manual Therapy, Neuromuscular Re-education, Patient/Caregiver Education, Self-Care/Home Management,Soft Tissue Mobilization, Therapeutic Activities, Therapeutic Exercises Modalities Cold Pack/Ice Massage,Electric Stimulation,Hot Packs Next Visit Focus/Plan Next Note Type Treatment Note Next Visit Plan Review HEP, self STMs if got theracane. Next at neck stretching UT, LS, Gayle trial open book. PT POC: L shoulder strengthening/ROM, joint mobs
--- NOTE | 2023-11-18 16:02 | PT.OPPOC ---
Physical, Occupational & Speech Therapy At [facility] Current Diagnoses Pain in left shoulder (11/18/23) Stiffness of left shoulder, not elsewhere classified (11/18/23) Other nondisplaced fracture of upper end of left humerus, initial encounter for open fracture (11/18/23) Other nondisplaced fracture of upper end of left humerus, subsequent encounter for fracture with routine healing (11/18/23) Visit Care Team Role Provider Type MOSES Chowdary Family Provider Advanced Manager Change Primary Care Provider Specialty: Family Practice Address: [address] [place] [address], [facility] Email: [email or web address] Hurd PA-C Attending Provider Advanced Manager Change Referring Provider Specialty: Orthopedics Orthopedic Surgery Address: [address] [place] [address], [facility] Email: [email or web address] Plan Of Care PT-OP-B Current Condition Start: 09/17/23 17:25 Freq: Status: Active Protocol: Document 09/17/23 15:15 DCW (Rec: 09/17/23 17:49 DCW [id number]) Current Condition History of Current Condition Onset Date 2.5 months Current Complaints Left shoulder pain and stiffness s/p humeral head fracture History of Current Condition Pt is an88 year old female presenting to skilled therapy 2.5 months s/p left humeral head fracture. Pt reports she was walking in [place] , using her trekking pole, and stepped off the side of the road to left cars pass, she she stepped into mud and fell, using her left arm to break her fall, resulting in fracturing her humeral head. Pt reports she is overall doing fairly well, but her arm is still significantly restricted with her mobility, and she is unable to use her left arm to reach overhead or put things away in cabinets. Treatment Goals Patient/Caregiver Goals I want to get some flexibility and muscle back into this arm. PT-OP-T Assessment and Plan Start: 09/17/23 17:25 Freq: Status: Active Protocol: Document 11/18/23 15:15 DCW (Rec: 11/18/23 16:00 DCW [id number]) Physical Therapy Assessment Impairments Impairments Activity Tolerance,Functional Activities,Functional Mobility ,ROM,Strength Goals Two Impairment Pt exhibits decreased left shoulder flexion (88?) and abduction (65?) [facility] Goal (LTG) Pt to exhibit increased left shoulder AROM to at least 120? with both flexion and abduction in order to lift objects into overhead cabinets LTG Duration 01/18/24 - improving One Impairment Pt does not have an appropriate home exercise program Short Term Goal (STG) Pt to be independent and compliant with an appropriate HEP STG Duration 12/19/23 Assessment Summary Assessment Active and passive ROM slowly progressing. Pt has made good improvements with both shoulder ROM. Strength improving as well. Continue to focus on decreased tone, stretching, strengthening, and improving functional mobility Physical Therapy Plan Frequency and Duration Frequency of Treatment 2x/Week Plan of Care Start Date 11/18/23 Plan of Care End Date 01/18/24 Therapeutic Interventions Therapeutic Interventions Home Exercise Program,Joint Mobilizations,Manual Therapy, Neuromuscular Re-education, Patient/Caregiver Education, Self-Care/Home Management,Soft Tissue Mobilization, Therapeutic Activities, Therapeutic Exercises Modalities Cold Pack/Ice Massage,Electric Stimulation,Hot Packs Next Visit Focus/Plan Next Note Type Treatment Note Next Visit Plan Review HEP, self STMs if got theracane. Next at neck stretching UT, LS, Scalene trial open book. PT POC: L shoulder strengthening/ROM, joint mobs Plan of Care Dates Plan of Care Start Date 11/18/23 Plan of Care End Date 01/18/24 Electronically Signed by: Isaias Aquino, PT 11/18/23 5649 If you are in agreement with this Plan of Care, please return a signed and dated copy. I have reviewed this Plan of Care and certify that the skilled therapy services above are required to meet the patient?s needs. Physician Signature Date Printed Name and Credentials Clinical Instructor Signature Printed Name and Credentials
--- NOTE | 2023-11-23 16:30 | PT.OTN ---
Current Diagnoses Pain in left shoulder (11/23/23) Stiffness of left shoulder, not elsewhere classified (11/23/23) Other nondisplaced fracture of upper end of left humerus, initial encounter for open fracture (11/23/23) Other nondisplaced fracture of upper end of left humerus, subsequent encounter for fracture with routine healing (11/23/23) Physical Therapy Treatment Note PT-OP-A Visit Information Start: 09/17/23 17:25 Freq: Status: Active Protocol: Document 11/23/23 13:05 SW (Rec: 11/23/23 13:46 SW [id number]) Out-Patient Physical Therapy Visit Information Visit Information Visit Type Treatment Note Visit Start Time 13:02 Visit Stop Time 13:42 Visit Number 12 Number of MANAGER MATERIALS MANAGEMENT Visits 1 Precautions Precautions Pt has cochlear implant, mildly [place] 07/14/23: s/p L humeral fx PT-OP-B Current Condition Start: 09/17/23 17:25 Freq: Status: Active Protocol: Document 09/17/23 15:15 DCW (Rec: 09/17/23 17:49 DCW [id number]) Current Condition History of Current Condition Onset Date 2.5 months Current Complaints Left shoulder pain and stiffness s/p humeral head fracture History of Current Condition Pt is an88 year old female presenting to skilled therapy 2.5 months s/p left humeral head fracture. Pt reports she was walking in [place] , using her trekking pole, and stepped off the side of the road to left cars pass, she she stepped into mud and fell, using her left arm to break her fall, resulting in fracturing her humeral head. Pt reports she is overall doing fairly well, but her arm is still significantly restricted with her mobility, and she is unable to use her left arm to reach overhead or put things away in cabinets. Treatment Goals Patient/Caregiver Goals I want to get some flexibility and muscle back into this arm. PT-OP-C Subjective Start: 09/17/23 17:25 Freq: Status: Active Protocol: Document 11/23/23 13:05 SW (Rec: 11/23/23 13:46 SW [id number]) OP-PT Subjective Patient Comments Patient Comments Pt reports feeling pretty good after the manipulations last session. Pt has not been as compliant with HEP due to busy with moving, plans to fit in exercises as able. PT-OP-K Range of Motion Start: 09/17/23 17:25 Freq: Status: Active Protocol: Document 11/18/23 15:15 DCW (Rec: 11/18/23 15:26 DCW [id number]) Shoulder Goniometric Range of Motion Shoulder Right Active Testing Position Sitting Flexion 143 Abduction 165 External Rotation at 0 degrees Abduction 80 Internal Rotation Behind Back (text) T8 Left Passive Testing Position Supine Flexion 122 Abduction 75 Left Active Shoulder ROM WFL No Testing Position Sitting Flexion 104 Abduction 82 External Rotation at 0 degrees Abduction 54 Internal Rotation Behind Back (text) T6 PT-OP-M Strength Start: 09/17/23 17:25 Freq: Status: Active Protocol: Document 11/18/23 15:15 DCW (Rec: 11/18/23 15:26 DCW [id number]) Shoulder Strength Shoulder Manual Muscle Testing Right Flexion 4 Good Abduction (C5) 4 Good External Rotation 4 Good Internal Rotation 4 Good Left Flexion 3- Fair- Abduction (C5) 3- Fair- External Rotation 4- Good- Internal Rotation 4- Good- PT-OP-Q Treatments Start: 09/17/23 17:25 Freq: Status: Active Protocol: Document 11/23/23 13:05 SW (Rec: 11/23/23 13:46 SW [id number]) Cardio Equipment Upper Body Ergometer (UBE) Duration (Minutes) 5 RPM 60 Seat Position 11 Height 2.5 Therapeutic Exercises Supine Exercises Shoulder Flexion Comments improve AROM Sitting Exercises Pulleys Sitting Exercise Name Shoulder flexion, abduction Side bilateral Standing Exercises Overhead Press Standing Exercise Name Overhead Press /c PVC Side bilateral Resistance 4# Comments performed seated Abduction Standing Exercise Name Shoulder Abduction Side bilateral Resistance 2# Comments pain-free ROM Flexion Standing Exercise Name Shoulder Flexion Side bilateral Resistance 2# Comments pain-free ROM Manual Therapy Treatment Soft Tissue Mobilization neck, L shld Body Location L pec, infraspinatus, L UT, LS Mobilization Type Rolling,Sustained Pressure, Other Body Position Hooklying Comments PROM humeral IR, ER, punching motion, scapulothoracic, pain free Joint Mobilizations L GH jt Direction inferior, AP Grade II Body Position Hooklying Comments gentle, small pnfree range PT-OP-T Assessment and Plan Start: 09/17/23 17:25 Freq: Status: Active Protocol: Document 11/23/23 13:05 SW (Rec: 11/23/23 13:46 [id number]) Physical Therapy Assessment Goals Two Impairment Pt exhibits decreased left shoulder flexion (88?) and abduction (65?) Regulatory Manager Goal (LTG) Pt to exhibit increased left shoulder AROM to at least 120? with both flexion and abduction in order to lift objects into overhead cabinets LTG Duration 01/18/24 - improving One Impairment Pt does not have an appropriate home exercise program Short Term Goal (STG) Pt to be independent and compliant with an appropriate HEP STG Duration 12/19/23 Assessment Summary Assessment Pt reports fatigue throughout shoulder strengthening exercises, cues for decreasing shoulder shrugging with ROM exercises, improved with cues. Pt reports noticing improvement reaching up into cupboards, increased shoulder flexion range. Physical Therapy Plan Frequency and Duration Frequency of Treatment 2x/Week Plan of Care Start Date 11/18/23 Plan of Care End Date 01/18/24 Therapeutic Interventions Therapeutic Interventions Home Exercise Program,Joint Mobilizations,Manual Therapy, Neuromuscular Re-education, Patient/Caregiver Education, Self-Care/Home Management,Soft Tissue Mobilization, Therapeutic Activities, Therapeutic Exercises Modalities Cold Pack/Ice Massage,Electric Stimulation,Hot Packs Next Visit Focus/Plan Next Note Type Treatment Note Next Visit Plan Review HEP, self STMs if got theracane. Next at neck stretching UT, LS, [place] trial open book. PT POC: L shoulder strengthening/ROM, joint mobs
--- NOTE | 2023-12-02 11:17 | PT.OTN ---
Current Diagnoses Pain in left shoulder (12/02/23) Stiffness of left shoulder, not elsewhere classified (12/02/23) Other nondisplaced fracture of upper end of left humerus, initial encounter for open fracture (12/02/23) Other nondisplaced fracture of upper end of left humerus, subsequent encounter for fracture with routine healing (12/02/23) Physical Therapy Treatment Note PT-OP-A Visit Information Start: 09/17/23 17:25 Freq: Status: Active Protocol: Document 12/02/23 10:37 SP (Rec: 12/02/23 11:44 SP [id number]) Out-Patient Physical Therapy Visit Information Visit Information Visit Type Treatment Note Visit Note 05/22 post PN Visit Start Time 10:37 Visit Stop Time 11:17 Visit Number 13 Number of MULTIMEDIA TEACHER Visits 2 Evaluation Information Evaluation Date 09/17/23 Precautions Precautions Pt has cochlear implant, mildly [place] 07/14/23: s/p L humeral fx PT-OP-B Current Condition Start: 09/17/23 17:25 Freq: Status: Active Protocol: Document 09/17/23 15:15 DCW (Rec: 09/17/23 17:49 DCW [id number]) Current Condition History of Current Condition Onset Date 2.5 months Current Complaints Left shoulder pain and stiffness s/p humeral head fracture History of Current Condition Pt is an88 year old female presenting to skilled therapy 2.5 months s/p left humeral head fracture. Pt reports she was walking in [employer] , using her trekking pole, and stepped off the side of the road to left cars pass, she she stepped into mud and fell, using her left arm to break her fall, resulting in fracturing her humeral head. Pt reports she is overall doing fairly well, but her arm is still significantly restricted with her mobility, and she is unable to use her left arm to reach overhead or put things away in cabinets. Treatment Goals Patient/Caregiver Goals I want to get some flexibility and muscle back into this arm. PT-OP-C Subjective Start: 09/17/23 17:25 Freq: Status: Active Protocol: Document 12/02/23 10:37 SP (Rec: 12/02/23 11:44 SP [id number]) OP-PT Subjective Patient Comments Patient Comments Pt reports sore after manual during tx but feels gains more ROM. Is able to each to middle shelf in kitchen better . Still can't reach full range yet though. COmpliant with HEP. PT-OP-K Range of Motion Start: 09/17/23 17:25 Freq: Status: Active Protocol: Document 11/18/23 15:15 DCW (Rec: 11/18/23 15:26 DCW [id number]) Shoulder Goniometric Range of Motion Shoulder Right Active Testing Position Sitting Flexion 143 Abduction 165 External Rotation at 0 degrees Abduction 80 Internal Rotation Behind Back (text) T8 Left Passive Testing Position Supine Flexion 122 Abduction 75 Left Active Shoulder ROM WFL No Testing Position Sitting Flexion 104 Abduction 82 External Rotation at 0 degrees Abduction 54 Internal Rotation Behind Back (text) T6 PT-OP-M Strength Start: 09/17/23 17:25 Freq: Status: Active Protocol: Document 11/18/23 15:15 DCW (Rec: 11/18/23 15:26 DCW [id number]) Shoulder Strength Shoulder Manual Muscle Testing Right Flexion 4 Good Abduction (C5) 4 Good External Rotation 4 Good Internal Rotation 4 Good Left Flexion 3- Fair- Abduction (C5) 3- Fair- External Rotation 4- Good- Internal Rotation 4- Good- PT-OP-Q Treatments Start: 09/17/23 17:25 Freq: Status: Active Protocol: Document 12/02/23 10:37 SP (Rec: 12/02/23 11:44 SP [id number]) Therapeutic Exercises Supine Exercises Serratus Punch Supine Exercise Name Serratus Punch Side bilateral Resistance 1# Equipment Used just below chest height Reps/Minutes x10 reps Comments cued no UT recruitment, limited range Shoulder Flexion Supine Exercise Name 122 deg pre manual Side left Resistance AROM Reps/Minutes edge table Sitting Exercises L shld AROM Sitting Exercise Name 103deg pre tx, 126 deg post manual Side left Comments improved AROM Cervical stretches Sitting Exercise Name UT/LS/Scalenes- LS best response targeted Side bilateral Reps/Minutes 2 x 10 ea Comments cued for gentle pain free stretch, cervical alignment Standing Exercises FF walk away PROM Standing Exercise Name trialed sink stretch/ AAROM FF 12/02/23 Resistance AAROM Reps/Minutes 10 Sh x3 Comments reports still limited and pain over deloid reported so stopped Overhead Press Standing Exercise Name Overhead Press /c PVC- seated Side bilateral Resistance 4# leg on PVC Equipment Used mirror for self Reps/Minutes 5 x2 sets Comments performed seated Abduction Standing Exercise Name Shoulder Abduction Side bilateral Resistance 2# DB> 1# DB> AROM Equipment Used mirror Reps/Minutes 3 reps each Comments pain-free ROM, cued no UT recruitment Other Exercises self STMs Other Exercise Name Trialed theracane MWM vs use hand reaching back Side left Comments reports her using hands reaching back is the best, theracane not as helpful Manual Therapy Treatment Soft Tissue Mobilization neck, L shld Body Location L pec, infraspinatus, L UT, LS , Teres, Distal Lat, tricep Mobilization Type Rolling,Sustained Pressure, Other Body Position Hooklying & R SL Comments Hookyling : PROM humeral IR, ER, punching motion, scapulothoracic, pain free R SL: MWM ABD and open book Joint Mobilizations L GH jt Direction inferior, AP Grade II Body Position Hooklying Comments gentle, small pnfree range AAROM FF L scapulothoracic Joint L Scapulothoracic Direction adduction, inferior, UR with ABD, retraction /c HABD Grade II Body Position RSidelying Comments manual PROM then incorporated STMs incorporated tactile support MWM open book & ABD PT-OP-T Assessment and Plan Start: 09/17/23 17:25 Freq: Status: Active Protocol: Document 12/02/23 10:37 SP (Rec: 12/02/23 11:44 SP [id number]) Physical Therapy Assessment Goals Two Impairment Pt exhibits decreased left shoulder flexion (88?) and abduction (65?) Assisted Goal (LTG) Pt to exhibit increased left shoulder AROM to at least 120? with both flexion and abduction in order to lift objects into overhead cabinets 12/02/23: progressing but not consistant 103pre-126 deg FF seated end tx, demonstrates compensations L scap elevation and forward. LTG Duration 01/18/24 - improving 12/02/23 One Impairment Pt does not have an appropriate home exercise program Short Term Goal (STG) Pt to be independent and compliant with an appropriate HEP STG Duration 12/19/23 Assessment Summary Assessment Pt improved L shld AROM seated Pre tx 103deg FF, after manual and supine HEP 126deg. Pt continues to demontrate L shld elevation and arm viers more forward compensations, used mirror during seated ther ex and decreased tolerance reduction from 2lb wt to AROM and use mirror front for self awareness improved slight less UT recruitment. Noted decreased Teres, Lat, Tricep tension post manual that allowed increase range. Physical Therapy Plan Frequency and Duration Frequency of Treatment 2x/Week Plan of Care Start Date 11/18/23 Plan of Care End Date 01/18/24 Therapeutic Interventions Therapeutic Interventions Home Exercise Program,Joint Mobilizations,Manual Therapy, Neuromuscular Re-education, Patient/Caregiver Education, Self-Care/Home Management,Soft Tissue Mobilization, Therapeutic Activities, Therapeutic Exercises Modalities Cold Pack/Ice Massage,Electric Stimulation,Hot Packs Next Visit Focus/Plan Next Note Type Treatment Note Next Visit Plan Check added more appts. CHeck pre/post tx ROM L shld. Review HEP: serratus press, seated AROM, Lev Scap stretch trial sink stretch (FF) again. PT POC: L shoulder strengthening/ROM, joint mobs
--- NOTE | 2023-12-08 12:13 | PT.OTN ---
Current Diagnoses Pain in left shoulder (12/08/23) Stiffness of left shoulder, not elsewhere classified (12/08/23) Other nondisplaced fracture of upper end of left humerus, initial encounter for open fracture (12/08/23) Other nondisplaced fracture of upper end of left humerus, subsequent encounter for fracture with routine healing (12/08/23) Physical Therapy Treatment Note PT-OP-A Visit Information Start: 09/17/23 17:25 Freq: Status: Active Protocol: Document 12/08/23 10:26 AB (Rec: 12/08/23 12:13 AB [id number]) Out-Patient Physical Therapy Visit Information Visit Information Visit Type Treatment Note Visit Note 06/19 post PN Visit Start Time 11:24 Visit Stop Time 12:05 Visit Number 14 Number of SCISSORS SHARPENER Visits 3 Evaluation Information Evaluation Date 09/17/23 Precautions Precautions Pt has cochlear implant, mildly [place] 07/14/23: s/p L humeral fx PT-OP-B Current Condition Start: 09/17/23 17:25 Freq: Status: Active Protocol: Document 09/17/23 15:15 DCW (Rec: 09/17/23 17:49 DCW [id number]) Current Condition History of Current Condition Onset Date 2.5 months Current Complaints Left shoulder pain and stiffness s/p humeral head fracture History of Current Condition Pt is an88 year old female presenting to skilled therapy 2.5 months s/p left humeral head fracture. Pt reports she was walking in [place] , using her trekking pole, and stepped off the side of the road to left cars pass, she she stepped into mud and fell, using her left arm to break her fall, resulting in fracturing her humeral head. Pt reports she is overall doing fairly well, but her arm is still significantly restricted with her mobility, and she is unable to use her left arm to reach overhead or put things away in cabinets. Treatment Goals Patient/Caregiver Goals I want to get some flexibility and muscle back into this arm. PT-OP-C Subjective Start: 09/17/23 17:25 Freq: Status: Active Protocol: Document 12/08/23 10:26 AB (Rec: 12/08/23 12:13 AB [id number]) OP-PT Subjective Patient Comments Patient Comments Patient reports having no pain start of session. Patient reports the shoulder has probably improved some since previous session. Patient reports reaching to the second shelf in the kitchen is difficult, ie cannot reach it when carrying something. AROM left shoulder flexion 110, AROM hand behind back to T7 behind head to C7. Patient reports having a list of her appts at home and is scheduled to beginning of January PT-OP-K Range of Motion Start: 09/17/23 17:25 Freq: Status: Active Protocol: Document 11/18/23 15:15 DCW (Rec: 11/18/23 15:26 DCW [id number]) Shoulder Goniometric Range of Motion Shoulder Right Active Testing Position Sitting Flexion 143 Abduction 165 External Rotation at 0 degrees Abduction 80 Internal Rotation Behind Back (text) T8 Left Passive Testing Position Supine Flexion 122 Abduction 75 Left Active Shoulder ROM WFL No Testing Position Sitting Flexion 104 Abduction 82 External Rotation at 0 degrees Abduction 54 Internal Rotation Behind Back (text) T6 PT-OP-M Strength Start: 09/17/23 17:25 Freq: Status: Active Protocol: Document 11/18/23 15:15 DCW (Rec: 11/18/23 15:26 DCW [id number]) Shoulder Strength Shoulder Manual Muscle Testing Right Flexion 4 Good Abduction (C5) 4 Good External Rotation 4 Good Internal Rotation 4 Good Left Flexion 3- Fair- Abduction (C5) 3- Fair- External Rotation 4- Good- Internal Rotation 4- Good- PT-OP-Q Treatments Start: 09/17/23 17:25 Freq: Status: Active Protocol: Document 12/08/23 10:26 AB (Rec: 12/08/23 12:13 AB [id number]) Therapeutic Exercises Supine Exercises Serratus Punch Supine Exercise Name Serratus Punch Side bilateral Resistance 2# Equipment Used just below chest height Reps/Minutes x10 reps X2 Comments X10 without weight X 10 with weight Shoulder Flexion Side left Resistance AROM Reps/Minutes X10 Comments 10 sec hold Sitting Exercises Cervical stretches Sitting Exercise Name levator scap Side left Reps/Minutes 20 sec X 2 Standing Exercises Rows Standing Exercise Name Rows Side bilateral Resistance Green Reps/Minutes X16 Comments verbal cues for one foot fwd Wall Slide Side left Reps/Minutes X10 with lift off and lower without wall Comments verbal and visual cues Manual Therapy Treatment Soft Tissue Mobilization neck, L shld Body Location L pec, infraspinatus, L UT, LS , Teres, Distal Lat, tricep Mobilization Type Cross-Friction,Rolling, Sustained Pressure,Other Body Position Hooklying & R SL Joint Mobilizations AC, 1st and 2nd rib Joint left Direction inf Body Position Sidelying Reps/Duration X10 L GH jt Direction inferior, AP Grade II Body Position Hooklying L scapulothoracic Joint L Scapulothoracic Direction adduction, inferior, UR with ABD, retraction /c HABD Grade II Body Position RSidelying PT-OP-T Assessment and Plan Start: 09/17/23 17:25 Freq: Status: Active Protocol: Document 12/08/23 10:26 AB (Rec: 12/08/23 12:13 AB [id number]) Physical Therapy Assessment Goals Two Impairment Pt exhibits decreased left shoulder flexion (88?) and abduction (65?) Aquatics Director Goal (LTG) Pt to exhibit increased left shoulder AROM to at least 120? with both flexion and abduction in order to lift objects into overhead cabinets 12/02/23: progressing but not consistant 103pre-126 deg FF seated end tx, demonstrates compensations L scap elevation and forward. LTG Duration 01/18/24 - improving 12/02/23 One Impairment Pt does not have an appropriate home exercise program Short Term Goal (STG) Pt to be independent and compliant with an appropriate HEP STG Duration 12/19/23 Assessment Summary Assessment AROM left shoulder flexion 121 end of session. Good return demonstration for wall slide with lift off and lower. Physical Therapy Plan Frequency and Duration Frequency of Treatment 2x/Week Plan of Care Start Date 11/18/23 Plan of Care End Date 01/18/24 Next Visit Focus/Plan Next Note Type Treatment Note Next Visit Plan CHeck pre/post tx ROM L shld. Review HEP: wall slide with lift off and lower without wallstretch trial sink stretch (FF) again. PT POC: L shoulder strengthening/ROM, joint mobs
--- NOTE | 2023-12-10 16:00 | PT.OTN ---
Current Diagnoses Pain in left shoulder (12/10/23) Stiffness of left shoulder, not elsewhere classified (12/10/23) Other nondisplaced fracture of upper end of left humerus, initial encounter for open fracture (12/10/23) Other nondisplaced fracture of upper end of left humerus, subsequent encounter for fracture with routine healing (12/10/23) Physical Therapy Treatment Note PT-OP-A Visit Information Start: 09/17/23 17:25 Freq: Status: Active Protocol: Document 12/10/23 15:15 DCW (Rec: 12/10/23 16:00 DCW [id number]) Out-Patient Physical Therapy Visit Information Visit Information Visit Type Treatment Note Visit Note 07/20 post PN Visit Start Time 15:15 Visit Stop Time 16:00 Visit Number 15 Number of DESIGN ENGINEER MARINE EQUIPMENT Visits 0 Evaluation Information Evaluation Date 09/17/23 Precautions Precautions Pt has cochlear implant, mildly [place] 07/14/23: s/p L humeral fx PT-OP-B Current Condition Start: 09/17/23 17:25 Freq: Status: Active Protocol: Document 09/17/23 15:15 DCW (Rec: 09/17/23 17:49 DCW [id number]) Current Condition History of Current Condition Onset Date 2.5 months Current Complaints Left shoulder pain and stiffness s/p humeral head fracture History of Current Condition Pt is an88 year old female presenting to skilled therapy 2.5 months s/p left humeral head fracture. Pt reports she was walking in [place] , using her trekking pole, and stepped off the side of the road to left cars pass, she she stepped into mud and fell, using her left arm to break her fall, resulting in fracturing her humeral head. Pt reports she is overall doing fairly well, but her arm is still significantly restricted with her mobility, and she is unable to use her left arm to reach overhead or put things away in cabinets. Treatment Goals Patient/Caregiver Goals I want to get some flexibility and muscle back into this arm. PT-OP-C Subjective Start: 09/17/23 17:25 Freq: Status: Active Protocol: Document 12/10/23 15:15 DCW (Rec: 12/10/23 16:00 DCW [id number]) OP-PT Subjective Patient Comments Patient Comments Pt notes she is doing alright . PT-OP-K Range of Motion Start: 09/17/23 17:25 Freq: Status: Active Protocol: Document 11/18/23 15:15 DCW (Rec: 11/18/23 15:26 DCW [id number]) Shoulder Goniometric Range of Motion Shoulder Right Active Testing Position Sitting Flexion 143 Abduction 165 External Rotation at 0 degrees Abduction 80 Internal Rotation Behind Back (text) T8 Left Passive Testing Position Supine Flexion 122 Abduction 75 Left Active Shoulder ROM WFL No Testing Position Sitting Flexion 104 Abduction 82 External Rotation at 0 degrees Abduction 54 Internal Rotation Behind Back (text) T6 PT-OP-M Strength Start: 09/17/23 17:25 Freq: Status: Active Protocol: Document 11/18/23 15:15 DCW (Rec: 11/18/23 15:26 DCW [id number]) Shoulder Strength Shoulder Manual Muscle Testing Right Flexion 4 Good Abduction (C5) 4 Good External Rotation 4 Good Internal Rotation 4 Good Left Flexion 3- Fair- Abduction (C5) 3- Fair- External Rotation 4- Good- Internal Rotation 4- Good- PT-OP-Q Treatments Start: 09/17/23 17:25 Freq: Status: Active Protocol: Document 12/10/23 15:15 DCW (Rec: 12/10/23 16:00 DCW [id number]) Cardio Equipment Upper Body Ergometer (UBE) Duration (Minutes) 5 RPM 60 Seat Position 11 Height 3 Therapeutic Exercises Sitting Exercises Pulleys Sitting Exercise Name Shoulder flexion, abduction Side bilateral Standing Exercises Overhead Press Standing Exercise Name Overhead Press /c PVC- seated Side bilateral Resistance 4# on PVC Equipment Used mirror for self Comments performed seated Abduction Standing Exercise Name Shoulder Abduction Side bilateral Resistance 1# Equipment Used mirror Reps/Minutes 3 reps each Comments pain-free ROM, cued no UT recruitment Flexion Standing Exercise Name Shoulder Flexion Side bilateral Resistance 1# Comments pain-free ROM Other Exercises Body Blade Other Exercise Name Body Blade Side left Resistance Yellow PT-OP-T Assessment and Plan Start: 09/17/23 17:25 Freq: Status: Active Protocol: Document 12/10/23 15:15 DCW (Rec: 12/10/23 16:00 DCW [id number]) Physical Therapy Assessment Assessment Summary Assessment Some mild improvements in overall function and shoulder mobility, pt tolerating HEP fairly well. Continue to work on strengthening and stability of left shoulder Physical Therapy Plan Frequency and Duration Frequency of Treatment 2x/Week Plan of Care Start Date 11/18/23 Plan of Care End Date 01/18/24 Therapeutic Interventions Therapeutic Interventions Home Exercise Program,Joint Mobilizations,Manual Therapy, Neuromuscular Re-education, Patient/Caregiver Education, Self-Care/Home Management,Soft Tissue Mobilization, Therapeutic Activities, Therapeutic Exercises Modalities Cold Pack/Ice Massage,Electric Stimulation,Hot Packs Next Visit Focus/Plan Next Note Type Treatment Note Next Visit Plan CHeck pre/post tx ROM L shld. Review HEP: wall slide with lift off and lower without wallstretch trial sink stretch (FF) again. PT POC: L shoulder strengthening/ROM, joint mobs
--- NOTE | 2023-12-22 12:15 | PT-OP ANOTE ---
Pt cancelled today's appt via pt connect text messaging, no reason given. Upon chart review has cancelled today's appt being 3 consecutive. RESEARCH ENGINEER left message regarding wanting to support her progression in therapy and importance of attendance and if need cancel please give reasoning if possible. Reminded of contract signed attending at least 50% of scheduled appts for compliance. Reminded of next appt 12/23 and last appt on 01/10 with PT at this time. Suggested if attending PT is to much right now can call back and cancel appts and can get new referral later but at this time please attend PT appts to support physican request to improve function.
--- NOTE | 2024-01-11 12:06 | PT.OTN ---
Current Diagnoses Pain in left shoulder (01/11/24) Stiffness of left shoulder, not elsewhere classified (01/11/24) Other nondisplaced fracture of upper end of left humerus, initial encounter for open fracture (01/11/24) Other nondisplaced fracture of upper end of left humerus, subsequent encounter for fracture with routine healing (01/11/24) Physical Therapy Treatment Note PT-OP-A Visit Information Start: 09/17/23 17:25 Freq: Status: Active Protocol: Document 01/11/24 11:30 DCW (Rec: 01/11/24 12:06 DCW [id number]) Out-Patient Physical Therapy Visit Information Visit Information Visit Type Discharge Summary Visit Start Time 11:30 Visit Stop Time 12:00 Visit Number 16 Number of VIDEO ARCADE MANAGER Visits 0 Evaluation Information Evaluation Date 09/17/23 Precautions Precautions Pt has cochlear implant, mildly [place] 07/14/23: s/p L humeral fx PT-OP-B Current Condition Start: 09/17/23 17:25 Freq: Status: Active Protocol: Document 09/17/23 15:15 DCW (Rec: 09/17/23 17:49 DCW [id number]) Current Condition History of Current Condition Onset Date 2.5 months Current Complaints Left shoulder pain and stiffness s/p humeral head fracture History of Current Condition Pt is an88 year old female presenting to skilled therapy 2.5 months s/p left humeral head fracture. Pt reports she was walking in [place] , using her trekking pole, and stepped off the side of the road to left cars pass, she she stepped into mud and fell, using her left arm to break her fall, resulting in fracturing her humeral head. Pt reports she is overall doing fairly well, but her arm is still significantly restricted with her mobility, and she is unable to use her left arm to reach overhead or put things away in cabinets. Treatment Goals Patient/Caregiver Goals I want to get some flexibility and muscle back into this arm. PT-OP-C Subjective Start: 09/17/23 17:25 Freq: Status: Active Protocol: Document 01/11/24 11:30 DCW (Rec: 01/11/24 12:06 DCW [id number]) OP-PT Subjective Patient Comments Patient Comments I'm just treating it like a normal arm anymore. PT-OP-K Range of Motion Start: 09/17/23 17:25 Freq: Status: Active Protocol: Document 01/11/24 11:30 DCW (Rec: 01/11/24 11:39 DCW [id number]) Shoulder Goniometric Range of Motion Shoulder Right Active Testing Position Sitting Flexion 141 Abduction 159 External Rotation at 0 degrees Abduction 76 Internal Rotation Behind Back (text) T8 Left Passive Testing Position Sitting Flexion 118 Abduction 94 Left Active Shoulder ROM WFL No Testing Position Sitting Flexion 112 Abduction 99 External Rotation at 0 degrees Abduction 55 Internal Rotation Behind Back (text) T5 PT-OP-M Strength Start: 09/17/23 17:25 Freq: Status: Active Protocol: Document 01/11/24 11:30 DCW (Rec: 01/11/24 11:39 DCW [id number]) Shoulder Strength Shoulder Manual Muscle Testing Right Flexion 4 Good Abduction (C5) 4 Good External Rotation 4 Good Internal Rotation 4 Good Left Flexion 3- Fair- Abduction (C5) 3- Fair- External Rotation 4 Good Internal Rotation 4 Good PT-OP-Q Treatments Start: 09/17/23 17:25 Freq: Status: Active Protocol: Document 01/11/24 11:30 DCW (Rec: 01/11/24 12:06 DCW [id number]) Manual Therapy Treatment Consent Patient gave verbal consent for manual Yes treatment Soft Tissue Mobilization neck, L shld Body Location L pec, infraspinatus, L UT, LS , Teres, Distal Lat, tricep Mobilization Type Cross-Friction,Rolling, Sustained Pressure,Other Body Position Hooklying Joint Mobilizations L GH jt Direction inferior, AP Grade II Body Position Hooklying L scapulothoracic Joint L Scapulothoracic Direction adduction, inferior, UR with ABD, retraction /c HABD Grade II Body Position RSidelying PT-OP-T Assessment and Plan Start: 09/17/23 17:25 Freq: Status: Active Protocol: Document 01/11/24 11:30 DCW (Rec: 01/11/24 12:06 DCW [id number]) Physical Therapy Assessment Impairments Impairments Activity Tolerance,Functional Activities,Functional Mobility ,ROM,Strength Goals Two Impairment Pt exhibits decreased left shoulder flexion (88?) and abduction (65?) Fpc Goal (LTG) Pt to exhibit increased left shoulder AROM to at least 120? with both flexion and abduction in order to lift objects into overhead cabinets 12/02/23: progressing but not consistant 103pre-126 deg FF seated end tx, demonstrates compensations L scap elevation and forward. LTG Duration 01/18/24 - improving One Impairment Pt does not have an appropriate home exercise program Short Term Goal (STG) Pt to be independent and compliant with an appropriate HEP STG Duration Met Assessment Summary Assessment Pt has largely plateaued since last assessment. Compliant with HEP. Pt admits ortho told her she probably has gotten back as much ROM as she should expect. Pt agreeable to discharge at this time. Physical Therapy Plan Frequency and Duration Frequency of Treatment 2x/Week Plan of Care Start Date 11/18/23 Plan of Care End Date 01/18/24 Therapeutic Interventions Therapeutic Interventions Home Exercise Program,Joint Mobilizations,Manual Therapy, Neuromuscular Re-education, Patient/Caregiver Education, Self-Care/Home Management,Soft Tissue Mobilization, Therapeutic Activities, Therapeutic Exercises Modalities Cold Pack/Ice Massage,Electric Stimulation,Hot Packs Discharge Physical Therapy Discharge Reasons Plateau in Progress Next Visit Focus/Plan Next Note Type Discharge Summary
== END 2024-02-21 14:30 | disposition home or self-care (01) ==
LOC: PHYS 11:30
PROVIDERS: Family Provider Nurse Practitioner; PCP Nurse Practitioner; Referring Provider Physician Assistant; Visit Provider Physician Assistant
DX: S42.295D Other nondisplaced fracture of upper end of left humerus, subsequent encounter for fracture with routine healing (principal); M25.612 Stiffness of left shoulder, not elsewhere classified; M25.512 Pain in left shoulder; S42.29 Other fracture of upper end of humerus
CPT/HCPCS: 97110; 97140; 97161

== ENCOUNTER → 2024-04-26 10:30 | Outpatient (CLI) | payer MEDICARE, SELFPAY ==
[2023-10-28 08:01] VITALS: BMI 17.2
[2024-04-26 11:12] LABS: Hematocrit 39.1 % (36-46); Hemoglobin 13.2 g/dL (12.0-16.0); Mean Corpuscular HGB Conc 33.8 % (30-36); Mean Corpuscular Hemoglobin 33.3 PG (26-34); Mean Corpuscular Volume 98.5 fL (80-100); Platelet Count 211 X10^3/uL (150-400); Red Blood Cell Count 3.97 X10^6/uL (4.0-5.2); Red Cell Distribution Width 13.9 % (11.6-14.8)
[2024-04-26 11:39] LABS: Alanine Aminotransferase 29 IU/L (<35); Albumin 4.6 g/dL (3.5-5.0); Albumin Globulin Ratio 1.8 (1.0-2.8); Alkaline Phosphatase 45 U/L (38-126); Aspartate Aminotransferase 33 IU/L (14-36); BUN Creatinine Ratio 26.4 (6-22); Bilirubin Total 0.7 mg/dL (0.2-1.3); Blood Urea Nitrogen 19 mg/dL (7-17); Calcium 10.9 mg/dL (8.4-10.2); Carbon Dioxide 29 mmol/L (22-32); Chloride 104 mmol/L (98-107); Estimated Glomerular Filt Rate > 60 mL/min (>60); Globulin 2.6 g/dL (1.7-4.1); Glucose 100 mg/dL (80-110); HEMOLYSIS 17 (0-50); Potassium 4.4 mmol/L (3.4-5.1); Sodium 140 mmol/L (137-145); Total Protein 7.2 g/dL (6.3-8.2)
== END ==
PROVIDERS: Family Provider Nurse Practitioner; PCP Family Medicine; Referring Provider Family Medicine; Visit Provider Family Medicine
DX: Z00.00 Encounter for general adult medical examination without abnormal findings (principal); E83.52 Hypercalcemia; J44.9 Chronic obstructive pulmonary disease, unspecified; M81.0 Age-related osteoporosis without current pathological fracture; I10 Essential (primary) hypertension
CPT/HCPCS: 36415; 80053; 85027

== ENCOUNTER 2024-05-24 10:45 | Outpatient (RCR) | payer MEDICARE, SELFPAY ==
[2023-10-28 08:01] VITALS: BMI 17.2
--- NOTE | 2024-02-21 14:30 | PT.OIE ---
Current Diagnoses Unsteadiness on feet (02/21/24) Dizziness and giddiness (02/21/24) Past Medical History (Last Reviewed 11/11/23 @ 15:07 by MOSES Chowdary) Allergies Anxiety (~1971) Asthma Chicken pox Closed fracture of left humerus Cochlear implant in place Compression fracture of second cervical vertebra Compression fracture of T9 vertebra COPD (chronic obstructive pulmonary disease) (~2004) COVID-19 Depression (~1971) Fractures Hearing loss (~2006) Hyperlipidemia Hypertension Immunocompromised state due to drug therapy Measles Mumps Osteoporosis (~2006) Vertigo Wears glasses Past Surgical History (Last Reviewed 11/11/23 @ 15:07 by MOSES Chowdary) Anesthesia History of splenectomy (~1967) History of tonsillectomy and adenoidectomy Ulcerative colitis (~1977) Visit Care Team Role Provider Type MOSES Chowdary Family Provider Advanced Fitter/Welder Specialty: [facility] Practice Address: Email: [email or web address] Waylon Barroso DO Attending Provider Physician Primary Care Provider Referring Provider Specialty: [facility] Address: [address] [place] [address], [address], [facility] Email: [email or web address] Physical Therapy Initial Evaluation PT-OP-A Visit Information Start: 02/21/24 17:06 Freq: Status: Active Protocol: Document 02/21/24 13:55 DCW (Rec: 02/21/24 17:10 DCW [id number]) Out-Patient Physical Therapy Visit Information Visit Information Visit Type Initial Evaluation Visit Start Time 13:55 Visit Stop Time 14:30 Visit Number 1 Number of INTERNET MARKETING ASSISTANT Visits 0 Evaluation Information Evaluation Date 02/21/24 PT-OP-B Current Condition Start: 02/21/24 17:06 Freq: Status: Active Protocol: Document 02/21/24 13:55 DCW (Rec: 02/21/24 17:53 DCW [id number]) Current Condition History of Current Condition Onset Date Two month history Current Complaints Feeling of unsteadiness History of Current Condition Pt is an 88 year old female presenting with a two month history of complaints of dizziness/instability. Pt is ~ one year s/p cochlear implant. Pt notes that during an episode, she feels like she has just disembarked an extended plane ride, feels unsteady. Worse with anxiety. No other triggering factors. Feels better when up walking around or sitting. Was seen by Dr Moses, ENT, reports her exam was unremarkable. Treatment Goals Patient/Caregiver Goals Decrease subjective complaints of vertigo Personal Factors Other Personal Factors That May Effect Cochlear implant Therapy/Recovery PT-OP-C Subjective Start: 02/21/24 17:06 Freq: Status: Active Protocol: Document 02/21/24 13:55 DCW (Rec: 02/21/24 17:53 DCW [id number]) OP-PT Subjective Patient Comments Patient Comments It has disappated quite a bit since it started two months ago. Patient Reported Progress Improving Patient Questionnaires Dizziness Handicap Inventory DHI Score 14% Other Questionnaire Name and Score Falls Efficacy Scale - International: PT-OP-O Vestibular Start: 02/21/24 17:06 Freq: Status: Active Protocol: Document 02/21/24 13:55 DCW (Rec: 02/21/24 17:10 DCW [id number]) Vestibular Assessment Visual Testing Smooth Pursuits Horizontal WNL Smooth Pursuits Vertical WNL Saccades Horizontal WNL Heave Test Positive Bilateral Thrust Head Positive Bilateral [place] String Test WNL DVA (Line Degradation) 3 Vestibular Function Tests CTSIB Position 1 30 Seconds - Minimal Sway CTSIB Position 2 30 Seconds - Mild Sway CTSIB Position 3 30 Seconds - Minimal Sway CTSIB Position 4 30 Seconds - Mild Sway CTSIB Position 5 Fall Reaction CTSIB Position 6 30 Seconds - Minimal Sway Comments Vestibular Comments Convergence - 8 cm PT-OP-T Assessment and Plan Start: 02/21/24 17:06 Freq: Status: Active Protocol: Document 02/21/24 13:55 DCW (Rec: 02/22/24 09:47 DCW [id number]) Physical Therapy Assessment Rehab Potential Rehabilitation Potential Fair Evaluation Complexity Number of Personal Factors/Comorbidities 1-2 Number of Body Systems Impaired 4 or More Clinical Presentation at Evaluation Unstable Impairments Impairments Balance,Functional Activities, Functional Mobility,Gait, Vestibular Goals Two Impairment Pt scores a on the Falls Efficacy Scale - International Short Term Goal (STG) Pt to reduce FES-I score by at least 4 points to 1864 STG Duration 04/11/24 One Impairment Pt reports subjective symptoms of unsteadiness/dizziness daily Longterm Goal (LTG) Pt to present with reports of no symptoms of dizziness or imbalance for two full weeks LTG Duration 04/22/24 Assessment Summary Assessment Pt presents with vague symptoms of unsteadiness/ vertigo, describes symptoms as feeling like she just got off a plane following a long trip . Feeling comes and goes, but is consistent every 1-2 days. Is improving since it began two months ago. 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 Pt did have a Cochlear implant placed ~one year ago, and there have been studies which suggest nearly 50% of patients who receive a cochlear implant may experience related dizziness. Vestibular rehab has unclear benefit at this time, but pt may benefit from focus on vestibular habituation and adaptation exercises, as well as dynamic balance challenges. Physical Therapy Plan Frequency and Duration Frequency of Treatment 2x/Week Plan of Care Start Date 02/21/24 Plan of Care End Date 04/22/24 Therapeutic Interventions Therapeutic Interventions Balance Training,Canalithic Repositioning,Home Exercise Program,Manual Therapy, Neuromuscular Re-education, Patient/Caregiver Education, Self-Care/Home Management, Therapeutic Activities, Therapeutic Exercises Next Visit Focus/Plan Next Note Type Treatment Note Next Visit Plan Vestibular rehab
--- NOTE | 2024-02-21 14:30 | PT.OPPOC ---
Physical, Occupational & Speech Therapy At [facility] Current Diagnoses Unsteadiness on feet (02/21/24) Dizziness and giddiness (02/21/24) Visit Care Team Role Provider Type MOSES Chowdary Family Provider Advanced Plaster Model And Mold Maker Specialty: Family Practice Address: Email: [email or web address] Waylon Barroso DO Attending Provider Physician Primary Care Provider Referring Provider Specialty: Family Practice Address: [address] [place] [address], [address], [facility] Email: [email or web address] Plan Of Care PT-OP-B Current Condition Start: 02/21/24 17:06 Freq: Status: Active Protocol: Document 02/21/24 13:55 DCW (Rec: 02/21/24 17:53 DCW [id number]) Current Condition History of Current Condition Onset Date Two month history Current Complaints Feeling of unsteadiness History of Current Condition Pt is an 88 year old female presenting with a two month history of complaints of dizziness/instability. Pt is ~ one year s/p cochlear implant. Pt notes that during an episode, she feels like she has just disembarked an extended plane ride, feels unsteady. Worse with anxiety. No other triggering factors. Feels better when up walking around or sitting. Was seen by Dr Moses, ENT, reports her exam was unremarkable. Treatment Goals Patient/Caregiver Goals Decrease subjective complaints of vertigo Personal Factors Other Personal Factors That May Effect Cochlear implant Therapy/Recovery PT-OP-T Assessment and Plan Start: 02/21/24 17:06 Freq: Status: Active Protocol: Document 02/21/24 13:55 DCW (Rec: 02/22/24 09:47 DCW [id number]) Physical Therapy Assessment Rehab Potential Rehabilitation Potential Fair Evaluation Complexity Number of Personal Factors/Comorbidities 1-2 Number of Body Systems Impaired 4 or More Clinical Presentation at Evaluation Unstable Impairments Impairments Balance,Functional Activities, Functional Mobility,Gait, Vestibular Goals Two Impairment Pt scores a 22/64 on the Falls Efficacy Scale - International Short Term Goal (STG) Pt to reduce FES-I score by at least 4 points to 18/64 STG Duration 04/11/24 One Impairment Pt reports subjective symptoms of unsteadiness/dizziness daily Fdc Goal (LTG) Pt to present with reports of no symptoms of dizziness or imbalance for two full weeks LTG Duration 04/22/24 Assessment Summary Assessment Pt presents with vague symptoms of unsteadiness/ vertigo, describes symptoms as feeling like she just got off a plane following a long trip . Feeling comes and goes, but is consistent every 1-2 days. Is improving since it began two months ago. 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 Pt did have a Cochlear implant placed ~one year ago, and there have been studies which suggest nearly 50% of patients who receive a cochlear implant may experience related dizziness. Vestibular rehab has unclear benefit at this time, but pt may benefit from focus on vestibular habituation and adaptation exercises, as well as dynamic balance challenges. Physical Therapy Plan Frequency and Duration Frequency of Treatment 2x/Week Plan of Care Start Date 02/21/24 Plan of Care End Date 04/22/24 Therapeutic Interventions Therapeutic Interventions Balance Training,Canalithic Repositioning,Home Exercise Program,Manual Therapy, Neuromuscular Re-education, Patient/Caregiver Education, Self-Care/Home Management, Therapeutic Activities, Therapeutic Exercises Next Visit Focus/Plan Next Note Type Treatment Note Next Visit Plan Vestibular rehab Plan of Care Dates Plan of Care Start Date 02/21/24 Plan of Care End Date 04/22/24 Electronically Signed by: Isaias Aquino, PT 02/22/24 0948 If you are in agreement with this Plan of Care, please return a signed and dated copy. I have reviewed this Plan of Care and certify that the skilled therapy services above are required to meet the patient?s needs. Physician Signature Date Printed Name and Credentials Clinical Instructor Signature Printed Name and Credentials
--- NOTE | 2024-02-23 12:57 | PT.OTN ---
Current Diagnoses Unsteadiness on feet (02/23/24) Dizziness and giddiness (02/23/24) Physical Therapy Treatment Note PT-OP-A Visit Information Start: 02/21/24 17:06 Freq: Status: Active Protocol: Document 02/23/24 12:15 DCW (Rec: 02/23/24 12:57 DCW [id number]) Out-Patient Physical Therapy Visit Information Visit Information Visit Type Treatment Note Visit Start Time 12:15 Visit Stop Time 13:00 Visit Number 2 Number of NEURO INTENSIVIST PHYSICIAN Visits 0 Evaluation Information Evaluation Date 02/21/24 PT-OP-B Current Condition Start: 02/21/24 17:06 Freq: Status: Active Protocol: Document 02/21/24 13:55 DCW (Rec: 02/21/24 17:53 DCW [id number]) Current Condition History of Current Condition Onset Date Two month history Current Complaints Feeling of unsteadiness History of Current Condition Pt is an 88 year old female presenting with a two month history of complaints of dizziness/instability. Pt is ~ one year s/p cochlear implant. Pt notes that during an episode, she feels like she has just disembarked an extended plane ride, feels unsteady. Worse with anxiety. No other triggering factors. Feels better when up walking around or sitting. Was seen by Dr Moses, ENT, reports her exam was unremarkable. Treatment Goals Patient/Caregiver Goals Decrease subjective complaints of vertigo Personal Factors Other Personal Factors That May Effect Cochlear implant Therapy/Recovery PT-OP-C Subjective Start: 02/21/24 17:06 Freq: Status: Active Protocol: Document 02/23/24 12:15 DCW (Rec: 02/23/24 12:57 DCW [id number]) OP-PT Subjective Patient Comments Patient Comments Pt notes she had an episode of dizziness for a few minutes upon gettin gup this morning, but nothing since then. PT-OP-O Vestibular Start: 02/21/24 17:06 Freq: Status: Active Protocol: Document 02/21/24 13:55 DCW (Rec: 02/21/24 17:10 DCW [id number]) Vestibular Assessment Visual Testing Smooth Pursuits Horizontal WNL Smooth Pursuits Vertical WNL Saccades Horizontal WNL Heave Test Positive Bilateral Thrust Head Positive Bilateral [place] String Test WNL DVA (Line Degradation) 3 Vestibular Function Tests CTSIB Position 1 30 Seconds - Minimal Sway CTSIB Position 2 30 Seconds - Mild Sway CTSIB Position 3 30 Seconds - Minimal Sway CTSIB Position 4 30 Seconds - Mild Sway CTSIB Position 5 Fall Reaction CTSIB Position 6 30 Seconds - Minimal Sway Comments Vestibular Comments Convergence - 8 cm PT-OP-Q Treatments Start: 02/21/24 17:06 Freq: Status: Active Protocol: Document 02/23/24 12:15 DCW (Rec: 02/23/24 12:57 DCW [id number]) Gym Equipment Shuttle Balance 1 Details Red Comments WBOS, Staggered Neuro Re-Education Treatment Balance Activities Staggered Stance Details Staggered Stance Surface Blue/Green foam SLS Details SLS Hurdles Details Hurdles Equipment // bars Foam Details Foam Stance Surface AirEx Comments X1 viewing Tandem Details Tandem Gait Equipment // bars Dynamic gait Details Hallway ambulation Comments Horizontal/Vertical head turns PT-OP-T Assessment and Plan Start: 02/21/24 17:06 Freq: Status: Active Protocol: Document 02/23/24 12:15 DCW (Rec: 02/23/24 12:57 DCW [id number]) Physical Therapy Assessment Impairments Impairments Balance,Functional Activities, Functional Mobility,Gait, Vestibular Goals Two Impairment Pt scores a 22/64 on the Falls Efficacy Scale - International Short Term Goal (STG) Pt to reduce FES-I score by at least 4 points to 18/64 STG Duration 04/11/24 One Impairment Pt reports subjective symptoms of unsteadiness/dizziness daily Prison Goal (LTG) Pt to present with reports of no symptoms of dizziness or imbalance for two full weeks LTG Duration 04/22/24 Assessment Summary Assessment Pt tolerated balance challenges fairly well, good response to hurdles and foam stance. Did struggle a bit more when head turns were involved. Physical Therapy Plan Frequency and Duration Frequency of Treatment 2x/Week Plan of Care Start Date 02/21/24 Plan of Care End Date 04/22/24 Therapeutic Interventions Therapeutic Interventions Balance Training,Canalithic Repositioning,Home Exercise Program,Manual Therapy, Neuromuscular Re-education, Patient/Caregiver Education, Self-Care/Home Management, Therapeutic Activities, Therapeutic Exercises Next Visit Focus/Plan Next Note Type Treatment Note Next Visit Plan Vestibular rehab
--- NOTE | 2024-02-28 14:30 | PT.OTN ---
Current Diagnoses Unsteadiness on feet (02/28/24) Dizziness and giddiness (02/28/24) Physical Therapy Treatment Note PT-OP-A Visit Information Start: 02/21/24 17:06 Freq: Status: Active Protocol: Document 02/28/24 13:49 DCW (Rec: 02/28/24 14:29 DCW [id number]) Out-Patient Physical Therapy Visit Information Visit Information Visit Type Treatment Note Visit Start Time 13:49 Visit Stop Time 14:30 Visit Number 3 Number of DELIVERY DRIVER ASSISTANT Visits 0 Evaluation Information Evaluation Date 02/21/24 PT-OP-B Current Condition Start: 02/21/24 17:06 Freq: Status: Active Protocol: Document 02/21/24 13:55 DCW (Rec: 02/21/24 17:53 DCW [id number]) Current Condition History of Current Condition Onset Date Two month history Current Complaints Feeling of unsteadiness History of Current Condition Pt is an 88 year old female presenting with a two month history of complaints of dizziness/instability. Pt is ~ one year s/p cochlear implant. Pt notes that during an episode, she feels like she has just disembarked an extended plane ride, feels unsteady. Worse with anxiety. No other triggering factors. Feels better when up walking around or sitting. Was seen by Dr Moses, ENT, reports her exam was unremarkable. Treatment Goals Patient/Caregiver Goals Decrease subjective complaints of vertigo Personal Factors Other Personal Factors That May Effect Cochlear implant Therapy/Recovery PT-OP-C Subjective Start: 02/21/24 17:06 Freq: Status: Active Protocol: Document 02/28/24 13:49 DCW (Rec: 02/28/24 14:30 DCW [id number]) OP-PT Subjective Patient Comments Patient Comments Pt reports she is doing fairly well, had less dixxiness today. PT-OP-O Vestibular Start: 02/21/24 17:06 Freq: Status: Active Protocol: Document 02/21/24 13:55 DCW (Rec: 02/21/24 17:10 DCW [id number]) Vestibular Assessment Visual Testing Smooth Pursuits Horizontal WNL Smooth Pursuits Vertical WNL Saccades Horizontal WNL Heave Test Positive Bilateral Thrust Head Positive Bilateral [place] String Test WNL DVA (Line Degradation) 3 Vestibular Function Tests CTSIB Position 1 30 Seconds - Minimal Sway CTSIB Position 2 30 Seconds - Mild Sway CTSIB Position 3 30 Seconds - Minimal Sway CTSIB Position 4 30 Seconds - Mild Sway CTSIB Position 5 Fall Reaction CTSIB Position 6 30 Seconds - Minimal Sway Comments Vestibular Comments Convergence - 8 cm PT-OP-Q Treatments Start: 02/21/24 17:06 Freq: Status: Active Protocol: Document 02/28/24 13:49 DCW (Rec: 02/28/24 14:29 DCW [id number]) Gym Equipment Shuttle Balance 1 Details Red Comments WBOS, Staggered Neuro Re-Education Treatment Balance Activities Ball/Cone Details Ball/cone transfers SLS Details SLS Hurdles Details Hurdles/Foam Equipment // bars Comments Forward, Tandem, Side-stepping Tandem Details Tandem Stance Dynamic gait Details Hallway ambulation Comments Horizontal/Vertical head turns Tandem Ambulation Retro Ambulation PT-OP-T Assessment and Plan Start: 02/21/24 17:06 Freq: Status: Active Protocol: Document 02/28/24 13:49 DCW (Rec: 02/28/24 14:29 DCW [id number]) Physical Therapy Assessment Impairments Impairments Balance,Functional Activities, Functional Mobility,Gait, Vestibular Goals Two Impairment Pt scores a 22/64 on the Falls Efficacy Scale - International Short Term Goal (STG) Pt to reduce FES-I score by at least 4 points to 18/64 STG Duration 04/11/24 One Impairment Pt reports subjective symptoms of unsteadiness/dizziness daily Principal Law Clerk Goal (LTG) Pt to present with reports of no symptoms of dizziness or imbalance for two full weeks LTG Duration 04/22/24 Assessment Summary Assessment Pt tolerating balance challenges slightly better, did well with ball/cone transfers, did struggle more with addition of foam to hurdles Physical Therapy Plan Frequency and Duration Frequency of Treatment 2x/Week Plan of Care Start Date 02/21/24 Plan of Care End Date 04/22/24 Therapeutic Interventions Therapeutic Interventions Balance Training,Canalithic Repositioning,Home Exercise Program,Manual Therapy, Neuromuscular Re-education, Patient/Caregiver Education, Self-Care/Home Management, Therapeutic Activities, Therapeutic Exercises Next Visit Focus/Plan Next Note Type Treatment Note Next Visit Plan Vestibular rehab
--- NOTE | 2024-03-01 14:35 | PT.OTN ---
Current Diagnoses Unsteadiness on feet (03/01/24) Dizziness and giddiness (03/01/24) Physical Therapy Treatment Note PT-OP-A Visit Information Start: 02/21/24 17:06 Freq: Status: Active Protocol: Document 03/01/24 13:50 DCW (Rec: 03/01/24 14:35 DCW [id number]) Out-Patient Physical Therapy Visit Information Visit Information Visit Type Treatment Note Visit Start Time 13:50 Visit Stop Time 14:30 Visit Number 4 Number of BELT LINE FEEDER Visits 0 Evaluation Information Evaluation Date 02/21/24 PT-OP-B Current Condition Start: 02/21/24 17:06 Freq: Status: Active Protocol: Document 02/21/24 13:55 DCW (Rec: 02/21/24 17:53 DCW [id number]) Current Condition History of Current Condition Onset Date Two month history Current Complaints Feeling of unsteadiness History of Current Condition Pt is an 88 year old female presenting with a two month history of complaints of dizziness/instability. Pt is ~ one year s/p cochlear implant. Pt notes that during an episode, she feels like she has just disembarked an extended plane ride, feels unsteady. Worse with anxiety. No other triggering factors. Feels better when up walking around or sitting. Was seen by Dr Moses, ENT, reports her exam was unremarkable. Treatment Goals Patient/Caregiver Goals Decrease subjective complaints of vertigo Personal Factors Other Personal Factors That May Effect Cochlear implant Therapy/Recovery PT-OP-C Subjective Start: 02/21/24 17:06 Freq: Status: Active Protocol: Document 03/01/24 13:50 DCW (Rec: 03/01/24 14:35 DCW [id number]) OP-PT Subjective Patient Comments Patient Comments Pt feeling alright today. PT-OP-O Vestibular Start: 02/21/24 17:06 Freq: Status: Active Protocol: Document 02/21/24 13:55 DCW (Rec: 02/21/24 17:10 DCW [id number]) Vestibular Assessment Visual Testing Smooth Pursuits Horizontal WNL Smooth Pursuits Vertical WNL Saccades Horizontal WNL Heave Test Positive Bilateral Thrust Head Positive Bilateral [place] String Test WNL DVA (Line Degradation) 3 Vestibular Function Tests CTSIB Position 1 30 Seconds - Minimal Sway CTSIB Position 2 30 Seconds - Mild Sway CTSIB Position 3 30 Seconds - Minimal Sway CTSIB Position 4 30 Seconds - Mild Sway CTSIB Position 5 Fall Reaction CTSIB Position 6 30 Seconds - Minimal Sway Comments Vestibular Comments Convergence - 8 cm PT-OP-Q Treatments Start: 02/21/24 17:06 Freq: Status: Active Protocol: Document 03/01/24 13:50 DCW (Rec: 03/01/24 14:35 DCW [id number]) Gym Equipment Shuttle Balance 1 Details Red Comments WBOS, Staggered, Lateral weight shift Neuro Re-Education Treatment Balance Activities Hurdles Details Hurdles over uneven blue pad Foam Details Foam Stance Surface AirEx Comments X1 viewing Dynamic gait Details Hallway ambulation Comments Horizontal/Vertical head turns Tandem Ambulation PT-OP-T Assessment and Plan Start: 02/21/24 17:06 Freq: Status: Active Protocol: Document 03/01/24 13:50 DCW (Rec: 03/01/24 14:35 DCW [id number]) Physical Therapy Assessment Impairments Impairments Balance,Functional Activities, Functional Mobility,Gait, Vestibular Goals Two Impairment Pt scores a 22/64 on the Falls Efficacy Scale - International Short Term Goal (STG) Pt to reduce FES-I score by at least 4 points to 18/64 STG Duration 04/11/24 One Impairment Pt reports subjective symptoms of unsteadiness/dizziness daily Half-Way Goal (LTG) Pt to present with reports of no symptoms of dizziness or imbalance for two full weeks LTG Duration 04/22/24 Assessment Summary Assessment Pt was a little hesitant to perform hurdles while on an uneven surface, but pt did fairly well overall. Was able to at least attempt all activities requested, and performed fairly well. Continue to work on balance and vestibular challenges in order to decrease subjective symptoms. Physical Therapy Plan Frequency and Duration Frequency of Treatment 2x/Week Plan of Care Start Date 02/21/24 Plan of Care End Date 04/22/24 Therapeutic Interventions Therapeutic Interventions Balance Training,Canalithic Repositioning,Home Exercise Program,Manual Therapy, Neuromuscular Re-education, Patient/Caregiver Education, Self-Care/Home Management, Therapeutic Activities, Therapeutic Exercises Next Visit Focus/Plan Next Note Type Treatment Note Next Visit Plan Vestibular rehab
--- NOTE | 2024-03-07 11:28 | PT.OTN ---
Current Diagnoses Unsteadiness on feet (03/07/24) Dizziness and giddiness (03/07/24) Physical Therapy Treatment Note PT-OP-A Visit Information Start: 02/21/24 17:06 Freq: Status: Active Protocol: Document 03/07/24 10:56 DCW (Rec: 03/07/24 11:27 DCW [id number]) Out-Patient Physical Therapy Visit Information Visit Information Visit Type Treatment Note Visit Note 11 Minutes late Visit Start Time 10:56 Visit Stop Time 11:30 Visit Number 5 Number of FEEDER/FOLDER Visits 0 Evaluation Information Evaluation Date 02/21/24 PT-OP-B Current Condition Start: 02/21/24 17:06 Freq: Status: Active Protocol: Document 02/21/24 13:55 DCW (Rec: 02/21/24 17:53 DCW [id number]) Current Condition History of Current Condition Onset Date Two month history Current Complaints Feeling of unsteadiness History of Current Condition Pt is an 88 year old female presenting with a two month history of complaints of dizziness/instability. Pt is ~ one year s/p cochlear implant. Pt notes that during an episode, she feels like she has just disembarked an extended plane ride, feels unsteady. Worse with anxiety. No other triggering factors. Feels better when up walking around or sitting. Was seen by Dr Moses, ENT, reports her exam was unremarkable. Treatment Goals Patient/Caregiver Goals Decrease subjective complaints of vertigo Personal Factors Other Personal Factors That May Effect Cochlear implant Therapy/Recovery PT-OP-C Subjective Start: 02/21/24 17:06 Freq: Status: Active Protocol: Document 03/07/24 10:56 DCW (Rec: 03/07/24 11:27 DCW [id number]) OP-PT Subjective Patient Comments Patient Comments Pt doing pretty well today. PT-OP-O Vestibular Start: 02/21/24 17:06 Freq: Status: Active Protocol: Document 02/21/24 13:55 DCW (Rec: 02/21/24 17:10 DCW [id number]) Vestibular Assessment Visual Testing Smooth Pursuits Horizontal WNL Smooth Pursuits Vertical WNL Saccades Horizontal WNL Heave Test Positive Bilateral Thrust Head Positive Bilateral [place] String Test WNL DVA (Line Degradation) 3 Vestibular Function Tests CTSIB Position 1 30 Seconds - Minimal Sway CTSIB Position 2 30 Seconds - Mild Sway CTSIB Position 3 30 Seconds - Minimal Sway CTSIB Position 4 30 Seconds - Mild Sway CTSIB Position 5 Fall Reaction CTSIB Position 6 30 Seconds - Minimal Sway Comments Vestibular Comments Convergence - 8 cm PT-OP-Q Treatments Start: 02/21/24 17:06 Freq: Status: Active Protocol: Document 03/07/24 10:56 DCW (Rec: 03/07/24 11:27 DCW [id number]) Gym Equipment Shuttle Balance 1 Details Red Comments WBOS, Staggered, Lateral weight shift Neuro Re-Education Treatment Balance Activities Hurdles Details Hurdles over uneven blue pad Comments Fwd, Side-stepping Dynamic gait Details Hallway ambulation Comments Horizontal/Vertical head turns PT-OP-T Assessment and Plan Start: 02/21/24 17:06 Freq: Status: Active Protocol: Document 03/07/24 10:56 DCW (Rec: 03/07/24 11:27 DCW [id number]) Physical Therapy Assessment Impairments Impairments Balance,Functional Activities, Functional Mobility,Gait, Vestibular Goals Two Impairment Pt scores a 22/64 on the Falls Efficacy Scale - International Short Term Goal (STG) Pt to reduce FES-I score by at least 4 points to 18/64 STG Duration 04/11/24 One Impairment Pt reports subjective symptoms of unsteadiness/dizziness daily Yarn Twister Goal (LTG) Pt to present with reports of no symptoms of dizziness or imbalance for two full weeks LTG Duration 04/22/24 Assessment Summary Assessment Late arrival today, pt worked hard with remaining time. Doing better on uneven surfaces. Continue focus on balance and vestibular challenges. Physical Therapy Plan Frequency and Duration Frequency of Treatment 2x/Week Plan of Care Start Date 02/21/24 Plan of Care End Date 04/22/24 Therapeutic Interventions Therapeutic Interventions Balance Training,Canalithic Repositioning,Home Exercise Program,Manual Therapy, Neuromuscular Re-education, Patient/Caregiver Education, Self-Care/Home Management, Therapeutic Activities, Therapeutic Exercises Next Visit Focus/Plan Next Note Type Treatment Note Next Visit Plan Vestibular rehab
--- NOTE | 2024-03-13 14:30 | PT.OTN ---
Current Diagnoses Unsteadiness on feet (03/13/24) Dizziness and giddiness (03/13/24) Physical Therapy Treatment Note PT-OP-A Visit Information Start: 02/21/24 17:06 Freq: Status: Active Protocol: Document 03/13/24 13:45 DCW (Rec: 03/13/24 14:29 DCW [id number]) Out-Patient Physical Therapy Visit Information Visit Information Visit Type Treatment Note Visit Start Time 13:45 Visit Stop Time 14:30 Visit Number 6 Number of HOT PATCHER Visits 0 Evaluation Information Evaluation Date 02/21/24 PT-OP-B Current Condition Start: 02/21/24 17:06 Freq: Status: Active Protocol: Document 02/21/24 13:55 DCW (Rec: 02/21/24 17:53 DCW [id number]) Current Condition History of Current Condition Onset Date Two month history Current Complaints Feeling of unsteadiness History of Current Condition Pt is an 88 year old female presenting with a two month history of complaints of dizziness/instability. Pt is ~ one year s/p cochlear implant. Pt notes that during an episode, she feels like she has just disembarked an extended plane ride, feels unsteady. Worse with anxiety. No other triggering factors. Feels better when up walking around or sitting. Was seen by Dr Moses, ENT, reports her exam was unremarkable. Treatment Goals Patient/Caregiver Goals Decrease subjective complaints of vertigo Personal Factors Other Personal Factors That May Effect Cochlear implant Therapy/Recovery PT-OP-C Subjective Start: 02/21/24 17:06 Freq: Status: Active Protocol: Document 03/13/24 13:45 DCW (Rec: 03/13/24 14:29 DCW [id number]) OP-PT Subjective Patient Comments Patient Comments I'm a little shakey today. PT-OP-O Vestibular Start: 02/21/24 17:06 Freq: Status: Active Protocol: Document 02/21/24 13:55 DCW (Rec: 02/21/24 17:10 DCW [id number]) Vestibular Assessment Visual Testing Smooth Pursuits Horizontal WNL Smooth Pursuits Vertical WNL Saccades Horizontal WNL Heave Test Positive Bilateral Thrust Head Positive Bilateral [place] String Test WNL DVA (Line Degradation) 3 Vestibular Function Tests CTSIB Position 1 30 Seconds - Minimal Sway CTSIB Position 2 30 Seconds - Mild Sway CTSIB Position 3 30 Seconds - Minimal Sway CTSIB Position 4 30 Seconds - Mild Sway CTSIB Position 5 Fall Reaction CTSIB Position 6 30 Seconds - Minimal Sway Comments Vestibular Comments Convergence - 8 cm PT-OP-Q Treatments Start: 02/21/24 17:06 Freq: Status: Active Protocol: Document 03/13/24 13:45 DCW (Rec: 03/13/24 14:29 DCW [id number]) Gym Equipment Shuttle Balance 1 Details Red Comments WBOS, Staggered Neuro Re-Education Treatment Balance Activities SLS Details SLS Hurdles Details Hurdles/Foam Equipment // bars Comments Forward, Tandem, Side-stepping Foam Details Foam Stance Surface AirEx Comments X1 viewing Dynamic gait Details Hallway ambulation Comments Horizontal/Vertical head turns Tandem Ambulation PT-OP-T Assessment and Plan Start: 02/21/24 17:06 Freq: Status: Active Protocol: Document 03/13/24 13:45 DCW (Rec: 03/13/24 14:29 DCW [id number]) Physical Therapy Assessment Impairments Impairments Balance,Functional Activities, Functional Mobility,Gait, Vestibular Goals Two Impairment Pt scores a 22/64 on the Falls Efficacy Scale - International Short Term Goal (STG) Pt to reduce FES-I score by at least 4 points to 18/64 STG Duration 04/11/24 One Impairment Pt reports subjective symptoms of unsteadiness/dizziness daily Raw Stock Drier Tender Goal (LTG) Pt to present with reports of no symptoms of dizziness or imbalance for two full weeks LTG Duration 04/22/24 Assessment Summary Assessment Continue to work on challenges with uneven surfaces and activity tolerance. Pt making good overall progress. Physical Therapy Plan Frequency and Duration Frequency of Treatment 2x/Week Plan of Care Start Date 02/21/24 Plan of Care End Date 04/22/24 Therapeutic Interventions Therapeutic Interventions Balance Training,Canalithic Repositioning,Home Exercise Program,Manual Therapy, Neuromuscular Re-education, Patient/Caregiver Education, Self-Care/Home Management, Therapeutic Activities, Therapeutic Exercises Next Visit Focus/Plan Next Note Type Treatment Note Next Visit Plan Vestibular rehab
--- NOTE | 2024-03-22 11:31 | PT.OTN ---
Current Diagnoses Unsteadiness on feet (03/22/24) Dizziness and giddiness (03/22/24) Physical Therapy Treatment Note PT-OP-A Visit Information Start: 02/21/24 17:06 Freq: Status: Active Protocol: Document 03/22/24 10:50 DCW (Rec: 03/22/24 11:31 DCW [id number]) Out-Patient Physical Therapy Visit Information Visit Information Visit Type Treatment Note Visit Start Time 10:50 Visit Stop Time 11:30 Visit Number 7 Number of BILINGUAL SALES CONSULTANT Visits 0 Evaluation Information Evaluation Date 02/21/24 PT-OP-B Current Condition Start: 02/21/24 17:06 Freq: Status: Active Protocol: Document 02/21/24 13:55 DCW (Rec: 02/21/24 17:53 DCW [id number]) Current Condition History of Current Condition Onset Date Two month history Current Complaints Feeling of unsteadiness History of Current Condition Pt is an 88 year old female presenting with a two month history of complaints of dizziness/instability. Pt is ~ one year s/p cochlear implant. Pt notes that during an episode, she feels like she has just disembarked an extended plane ride, feels unsteady. Worse with anxiety. No other triggering factors. Feels better when up walking around or sitting. Was seen by Dr Moses, ENT, reports her exam was unremarkable. Treatment Goals Patient/Caregiver Goals Decrease subjective complaints of vertigo Personal Factors Other Personal Factors That May Effect Cochlear implant Therapy/Recovery PT-OP-C Subjective Start: 02/21/24 17:06 Freq: Status: Active Protocol: Document 03/22/24 10:50 DCW (Rec: 03/22/24 11:31 DCW [id number]) OP-PT Subjective Patient Comments Patient Comments As far as the way I'm feeling , I'm okay, not good. PT-OP-O Vestibular Start: 02/21/24 17:06 Freq: Status: Active Protocol: Document 02/21/24 13:55 DCW (Rec: 02/21/24 17:10 DCW [id number]) Vestibular Assessment Visual Testing Smooth Pursuits Horizontal WNL Smooth Pursuits Vertical WNL Saccades Horizontal WNL Heave Test Positive Bilateral Thrust Head Positive Bilateral [place] String Test WNL DVA (Line Degradation) 3 Vestibular Function Tests CTSIB Position 1 30 Seconds - Minimal Sway CTSIB Position 2 30 Seconds - Mild Sway CTSIB Position 3 30 Seconds - Minimal Sway CTSIB Position 4 30 Seconds - Mild Sway CTSIB Position 5 Fall Reaction CTSIB Position 6 30 Seconds - Minimal Sway Comments Vestibular Comments Convergence - 8 cm PT-OP-Q Treatments Start: 02/21/24 17:06 Freq: Status: Active Protocol: Document 03/22/24 10:50 DCW (Rec: 03/22/24 11:31 DCW [id number]) Gym Equipment Shuttle Balance 1 Details Red Comments WBOS (EO/EC), Staggered Neuro Re-Education Treatment Balance Activities Hurdles Details Hurdles/Foam Equipment // bars Comments Forward, Side-stepping Foam Details SLS, DLS EC Surface AirEx Tandem Details Tandem Stance Equipment @ rail Dynamic gait Details Hallway ambulation Comments Horizontal/Vertical head turns Tandem Ambulation Eyes Closed ambulation PT-OP-T Assessment and Plan Start: 02/21/24 17:06 Freq: Status: Active Protocol: Document 03/22/24 10:50 DCW (Rec: 03/22/24 11:31 DCW [id number]) Physical Therapy Assessment Assessment Summary Assessment Pt showing some improvement, doing slightly better with SLS , subjective vestibular complaints feeling somewhat better. Continue to focus on balance and vestibular challenges. Physical Therapy Plan Frequency and Duration Frequency of Treatment 2x/Week Plan of Care Start Date 02/21/24 Plan of Care End Date 04/22/24 Therapeutic Interventions Therapeutic Interventions Balance Training,Canalithic Repositioning,Home Exercise Program,Manual Therapy, Neuromuscular Re-education, Patient/Caregiver Education, Self-Care/Home Management, Therapeutic Activities, Therapeutic Exercises Next Visit Focus/Plan Next Note Type Treatment Note Next Visit Plan Vestibular rehab
--- NOTE | 2024-03-30 17:00 | PT.OTN ---
Current Diagnoses Unsteadiness on feet (03/30/24) Dizziness and giddiness (03/30/24) Physical Therapy Treatment Note PT-OP-A Visit Information Start: 02/21/24 17:06 Freq: Status: Active Protocol: Document 03/30/24 16:15 DCW (Rec: 03/30/24 16:59 DCW [id number]) Out-Patient Physical Therapy Visit Information Visit Information Visit Type Treatment Note Visit Start Time 16:15 Visit Stop Time 17:00 Visit Number 8 Number of STEEL DIE ENGRAVER Visits 0 Evaluation Information Evaluation Date 02/21/24 PT-OP-B Current Condition Start: 02/21/24 17:06 Freq: Status: Active Protocol: Document 02/21/24 13:55 DCW (Rec: 02/21/24 17:53 DCW [id number]) Current Condition History of Current Condition Onset Date Two month history Current Complaints Feeling of unsteadiness History of Current Condition Pt is an 88 year old female presenting with a two month history of complaints of dizziness/instability. Pt is ~ one year s/p cochlear implant. Pt notes that during an episode, she feels like she has just disembarked an extended plane ride, feels unsteady. Worse with anxiety. No other triggering factors. Feels better when up walking around or sitting. Was seen by Dr Moses, ENT, reports her exam was unremarkable. Treatment Goals Patient/Caregiver Goals Decrease subjective complaints of vertigo Personal Factors Other Personal Factors That May Effect Cochlear implant Therapy/Recovery PT-OP-C Subjective Start: 02/21/24 17:06 Freq: Status: Active Protocol: Document 03/30/24 16:15 DCW (Rec: 03/30/24 16:59 DCW [id number]) OP-PT Subjective Patient Comments Patient Comments Pt fairly good today PT-OP-O Vestibular Start: 02/21/24 17:06 Freq: Status: Active Protocol: Document 02/21/24 13:55 DCW (Rec: 02/21/24 17:10 DCW [id number]) Vestibular Assessment Visual Testing Smooth Pursuits Horizontal WNL Smooth Pursuits Vertical WNL Saccades Horizontal WNL Heave Test Positive Bilateral Thrust Head Positive Bilateral [place] String Test WNL DVA (Line Degradation) 3 Vestibular Function Tests CTSIB Position 1 30 Seconds - Minimal Sway CTSIB Position 2 30 Seconds - Mild Sway CTSIB Position 3 30 Seconds - Minimal Sway CTSIB Position 4 30 Seconds - Mild Sway CTSIB Position 5 Fall Reaction CTSIB Position 6 30 Seconds - Minimal Sway Comments Vestibular Comments Convergence - 8 cm PT-OP-Q Treatments Start: 02/21/24 17:06 Freq: Status: Active Protocol: Document 03/30/24 16:15 DCW (Rec: 03/30/24 16:59 DCW [id number]) Gym Equipment Shuttle Balance 1 Details Red Comments WBOS (EO/EC), Staggered Neuro Re-Education Treatment Balance Activities Staggered Stance Details Staggered Stance Surface Blue/Green foam Hurdles Details Hurdles/Foam Equipment // bars Comments Forward, Side-stepping Foam Details SLS Dynamic gait Details Hallway ambulation Comments Horizontal/Vertical head turns Tandem Ambulation Retro Ambulation PT-OP-T Assessment and Plan Start: 02/21/24 17:06 Freq: Status: Active Protocol: Document 03/30/24 16:15 DCW (Rec: 03/30/24 16:59 DCW [id number]) Physical Therapy Assessment Impairments Impairments Balance,Functional Activities, Functional Mobility,Gait, Vestibular Goals Two Impairment Pt scores a 22/64 on the Falls Efficacy Scale - International Short Term Goal (STG) Pt to reduce FES-I score by at least 4 points to 18/64 STG Duration 04/11/24 One Impairment Pt reports subjective symptoms of unsteadiness/dizziness daily Fpc Goal (LTG) Pt to present with reports of no symptoms of dizziness or imbalance for two full weeks LTG Duration 04/22/24 Assessment Summary Assessment Pt demonstrating improvement with fewer subjective complaints, able to tolerate all activities with minimal LOB. Physical Therapy Plan Frequency and Duration Frequency of Treatment 2x/Week Plan of Care Start Date 02/21/24 Plan of Care End Date 04/22/24 Therapeutic Interventions Therapeutic Interventions Balance Training,Canalithic Repositioning,Home Exercise Program,Manual Therapy, Neuromuscular Re-education, Patient/Caregiver Education, Self-Care/Home Management, Therapeutic Activities, Therapeutic Exercises Next Visit Focus/Plan Next Note Type Treatment Note Next Visit Plan Vestibular rehab
--- NOTE | 2024-04-11 12:15 | PT.OTN ---
Current Diagnoses Unsteadiness on feet (04/11/24) Dizziness and giddiness (04/11/24) Physical Therapy Treatment Note PT-OP-A Visit Information Start: 02/21/24 17:06 Freq: Status: Active Protocol: Document 04/11/24 11:35 DCW (Rec: 04/11/24 12:15 DCW [id number]) Out-Patient Physical Therapy Visit Information Visit Information Visit Type Treatment Note Visit Start Time 11:35 Visit Stop Time 12:15 Visit Number 9 Number of DIALYSIS EQUIPMENT TECHNICIAN Visits 0 Evaluation Information Evaluation Date 02/21/24 PT-OP-B Current Condition Start: 02/21/24 17:06 Freq: Status: Active Protocol: Document 02/21/24 13:55 DCW (Rec: 02/21/24 17:53 DCW [id number]) Current Condition History of Current Condition Onset Date Two month history Current Complaints Feeling of unsteadiness History of Current Condition Pt is an 88 year old female presenting with a two month history of complaints of dizziness/instability. Pt is ~ one year s/p cochlear implant. Pt notes that during an episode, she feels like she has just disembarked an extended plane ride, feels unsteady. Worse with anxiety. No other triggering factors. Feels better when up walking around or sitting. Was seen by Dr Moses, ENT, reports her exam was unremarkable. Treatment Goals Patient/Caregiver Goals Decrease subjective complaints of vertigo Personal Factors Other Personal Factors That May Effect Cochlear implant Therapy/Recovery PT-OP-C Subjective Start: 02/21/24 17:06 Freq: Status: Active Protocol: Document 04/11/24 11:35 DCW (Rec: 04/11/24 12:15 DCW [id number]) OP-PT Subjective Patient Comments Patient Comments Right now I'm doing fine. PT-OP-O Vestibular Start: 02/21/24 17:06 Freq: Status: Active Protocol: Document 02/21/24 13:55 DCW (Rec: 02/21/24 17:10 DCW [id number]) Vestibular Assessment Visual Testing Smooth Pursuits Horizontal WNL Smooth Pursuits Vertical WNL Saccades Horizontal WNL Heave Test Positive Bilateral Thrust Head Positive Bilateral [place] String Test WNL DVA (Line Degradation) 3 Vestibular Function Tests CTSIB Position 1 30 Seconds - Minimal Sway CTSIB Position 2 30 Seconds - Mild Sway CTSIB Position 3 30 Seconds - Minimal Sway CTSIB Position 4 30 Seconds - Mild Sway CTSIB Position 5 Fall Reaction CTSIB Position 6 30 Seconds - Minimal Sway Comments Vestibular Comments Convergence - 8 cm PT-OP-Q Treatments Start: 02/21/24 17:06 Freq: Status: Active Protocol: Document 04/11/24 11:35 DCW (Rec: 04/11/24 12:15 DCW [id number]) Gym Equipment Shuttle Balance 1 Details Red Comments WBOS (EO/EC), Staggered (head turns) Neuro Re-Education Treatment Balance Activities BOSU Details BOSU Surface Blue BOSU Hurdles Details Hurdles/Foam Equipment @ rail Comments Forward, Side-stepping Foam Details SLS Surface AirEx Dynamic gait Details Hallway ambulation Comments Horizontal/Vertical head turns Tandem Ambulation Retro Ambulation PT-OP-T Assessment and Plan Start: 02/21/24 17:06 Freq: Status: Active Protocol: Document 04/11/24 11:35 DCW (Rec: 04/11/24 12:15 DCW [id number]) Physical Therapy Assessment Impairments Impairments Balance,Functional Activities, Functional Mobility,Gait, Vestibular Goals Two Impairment Pt scores a 22/64 on the Falls Efficacy Scale - International Short Term Goal (STG) Pt to reduce FES-I score by at least 4 points to 18/64 STG Duration 04/11/24 One Impairment Pt reports subjective symptoms of unsteadiness/dizziness daily Halfway Goal (LTG) Pt to present with reports of no symptoms of dizziness or imbalance for two full weeks LTG Duration 04/22/24 Assessment Summary Assessment Pt had a bit more difficulty with balance today, admitted she was starting out tired. Slightly more of a struggle with added head turns. Physical Therapy Plan Frequency and Duration Frequency of Treatment 2x/Week Plan of Care Start Date 02/21/24 Plan of Care End Date 04/22/24 Therapeutic Interventions Therapeutic Interventions Balance Training,Canalithic Repositioning,Home Exercise Program,Manual Therapy, Neuromuscular Re-education, Patient/Caregiver Education, Self-Care/Home Management, Therapeutic Activities, Therapeutic Exercises Next Visit Focus/Plan Next Note Type Progress Note Next Visit Plan Vestibular rehab
--- NOTE | 2024-04-19 15:18 | PT.OTN ---
Current Diagnoses Unsteadiness on feet (04/19/24) Dizziness and giddiness (04/19/24) Physical Therapy Treatment Note PT-OP-A Visit Information Start: 02/21/24 17:06 Freq: Status: Active Protocol: Document 04/19/24 14:30 DCW (Rec: 04/19/24 15:18 DCW [id number]) Out-Patient Physical Therapy Visit Information Visit Information Visit Type Progress Note Visit Start Time 14:30 Visit Stop Time 15:15 Visit Number 10 Number of PROGRAMS ASSISTANT Visits 0 Evaluation Information Evaluation Date 02/21/24 PT-OP-B Current Condition Start: 02/21/24 17:06 Freq: Status: Active Protocol: Document 02/21/24 13:55 DCW (Rec: 02/21/24 17:53 DCW [id number]) Current Condition History of Current Condition Onset Date Two month history Current Complaints Feeling of unsteadiness History of Current Condition Pt is an 88 year old female presenting with a two month history of complaints of dizziness/instability. Pt is ~ one year s/p cochlear implant. Pt notes that during an episode, she feels like she has just disembarked an extended plane ride, feels unsteady. Worse with anxiety. No other triggering factors. Feels better when up walking around or sitting. Was seen by Dr Moses, ENT, reports her exam was unremarkable. Treatment Goals Patient/Caregiver Goals Decrease subjective complaints of vertigo Personal Factors Other Personal Factors That May Effect Cochlear implant Therapy/Recovery PT-OP-C Subjective Start: 02/21/24 17:06 Freq: Status: Active Protocol: Document 04/19/24 14:30 DCW (Rec: 04/19/24 15:18 DCW [id number]) OP-PT Subjective Patient Comments Patient Comments I think things have improved quite a bit. I was afraid to drive or even go for a long walk, but I'm much more comfortable with it now. PT-OP-O Vestibular Start: 02/21/24 17:06 Freq: Status: Active Protocol: Document 04/19/24 14:30 DCW (Rec: 04/19/24 14:39 DCW [id number]) Vestibular Assessment Vestibular Function Tests CTSIB Position 1 30 Seconds - Minimal Sway CTSIB Position 2 30 Seconds - Minimal Sway CTSIB Position 3 30 Seconds - Minimal Sway CTSIB Position 4 30 Seconds - Mild Sway CTSIB Position 5 Fall Reaction CTSIB Position 6 30 Seconds - Minimal Sway PT-OP-Q Treatments Start: 02/21/24 17:06 Freq: Status: Active Protocol: Document 04/19/24 14:30 DCW (Rec: 04/19/24 15:18 DCW [id number]) Gym Equipment Shuttle Balance 1 Details Red Comments WBOS (EO/EC), Staggered (head turns) Neuro Re-Education Treatment Balance Activities Biggers and Head Turns Details 3-step, bow /c head turns Hurdles Details Hurdles/Foam Equipment @ rail Comments Forward, Side-stepping Foam Details SLS Surface Green foam Tandem Details Tandem Stance Equipment // bars PT-OP-T Assessment and Plan Start: 02/21/24 17:06 Freq: Status: Active Protocol: Document 04/19/24 14:30 DCW (Rec: 04/19/24 15:18 DCW [id number]) Physical Therapy Assessment Impairments Impairments Balance,Functional Activities, Functional Mobility,Gait, Vestibular Goals Two Impairment Pt scores a 22/64 on the Falls Efficacy Scale - International Short Term Goal (STG) Pt to reduce FES-I score by at least 4 points to 18/64 STG Duration 05/27/24 One Impairment Pt reports subjective symptoms of unsteadiness/dizziness daily Fci Goal (LTG) Pt to present with reports of no symptoms of dizziness or imbalance for two full weeks LTG Duration 05/27/24 Assessment Summary Assessment Due to pt's symptoms presently largely as subjective complaints, overall testing relatively unchanged since initial evaluation. Subjectively, however, pt noting improvement in both frequency and severity of symptoms. Pt will likely benefit from another few weeks of treatment in order to fully transition to independent HEP and reach functional goals. Physical Therapy Plan Frequency and Duration Frequency of Treatment 2x/Week Plan of Care Start Date 04/19/24 Plan of Care End Date 05/27/24 Therapeutic Interventions Therapeutic Interventions Balance Training,Canalithic Repositioning,Home Exercise Program,Manual Therapy, Neuromuscular Re-education, Patient/Caregiver Education, Self-Care/Home Management, Therapeutic Activities, Therapeutic Exercises Next Visit Focus/Plan Next Note Type Treatment Note Next Visit Plan Vestibular rehab
--- NOTE | 2024-04-19 15:18 | PT.OPPOC ---
Physical, Occupational & Speech Therapy At [facility] Current Diagnoses Unsteadiness on feet (04/19/24) Dizziness and giddiness (04/19/24) Visit Care Team Role Provider Type MOSES Chowdary Family Provider Advanced Fire Apparatus Engineer Specialty: Family Practice Address: Email: [email or web address] Waylon Barroso DO Attending Provider Physician Primary Care Provider Referring Provider Specialty: Family Practice Address: [address] [place] [address], [address], [facility] Email: [email or web address] Plan Of Care PT-OP-B Current Condition Start: 02/21/24 17:06 Freq: Status: Active Protocol: Document 02/21/24 13:55 DCW (Rec: 02/21/24 17:53 DCW [id number]) Current Condition History of Current Condition Onset Date Two month history Current Complaints Feeling of unsteadiness History of Current Condition Pt is an 88 year old female presenting with a two month history of complaints of dizziness/instability. Pt is ~ one year s/p cochlear implant. Pt notes that during an episode, she feels like she has just disembarked an extended plane ride, feels unsteady. Worse with anxiety. No other triggering factors. Feels better when up walking around or sitting. Was seen by Dr Moses, ENT, reports her exam was unremarkable. Treatment Goals Patient/Caregiver Goals Decrease subjective complaints of vertigo Personal Factors Other Personal Factors That May Effect Cochlear implant Therapy/Recovery PT-OP-T Assessment and Plan Start: 02/21/24 17:06 Freq: Status: Active Protocol: Document 04/19/24 14:30 DCW (Rec: 04/19/24 15:18 DCW [id number]) Physical Therapy Assessment Impairments Impairments Balance,Functional Activities, Functional Mobility,Gait, Vestibular Goals Two Impairment Pt scores a 22/64 on the Falls Efficacy Scale - International Short Term Goal (STG) Pt to reduce FES-I score by at least 4 points to 18/64 STG Duration 05/27/24 One Impairment Pt reports subjective symptoms of unsteadiness/dizziness daily Group Home Goal (LTG) Pt to present with reports of no symptoms of dizziness or imbalance for two full weeks LTG Duration 05/27/24 Assessment Summary Assessment Due to pt's symptoms presently largely as subjective complaints, overall testing relatively unchanged since initial evaluation. Subjectively, however, pt noting improvement in both frequency and severity of symptoms. Pt will likely benefit from another few weeks of treatment in order to fully transition to independent HEP and reach functional goals. Physical Therapy Plan Frequency and Duration Frequency of Treatment 2x/Week Plan of Care Start Date 04/19/24 Plan of Care End Date 05/27/24 Therapeutic Interventions Therapeutic Interventions Balance Training,Canalithic Repositioning,Home Exercise Program,Manual Therapy, Neuromuscular Re-education, Patient/Caregiver Education, Self-Care/Home Management, Therapeutic Activities, Therapeutic Exercises Next Visit Focus/Plan Next Note Type Treatment Note Next Visit Plan Vestibular rehab Plan of Care Dates Plan of Care Start Date 04/19/24 Plan of Care End Date 05/27/24 Electronically Signed by: Isaias Aquino, PT 04/19/24 [id number] If you are in agreement with this Plan of Care, please return a signed and dated copy. I have reviewed this Plan of Care and certify that the skilled therapy services above are required to meet the patient?s needs. Physician Signature Date Printed Name and Credentials Clinical Instructor Signature Printed Name and Credentials
--- NOTE | 2024-04-21 15:14 | PT.OTN ---
Current Diagnoses Unsteadiness on feet (04/21/24) Dizziness and giddiness (04/21/24) Physical Therapy Treatment Note PT-OP-A Visit Information Start: 02/21/24 17:06 Freq: Status: Active Protocol: Document 04/21/24 14:32 DCW (Rec: 04/21/24 15:14 DCW [id number]) Out-Patient Physical Therapy Visit Information Visit Information Visit Type Treatment Note Visit Start Time 14:32 Visit Stop Time 15:15 Visit Number 11 Number of AIRPLANE PILOT COMMERCIAL Visits 0 Evaluation Information Evaluation Date 02/21/24 PT-OP-B Current Condition Start: 02/21/24 17:06 Freq: Status: Active Protocol: Document 02/21/24 13:55 DCW (Rec: 02/21/24 17:53 DCW [id number]) Current Condition History of Current Condition Onset Date Two month history Current Complaints Feeling of unsteadiness History of Current Condition Pt is an 88 year old female presenting with a two month history of complaints of dizziness/instability. Pt is ~ one year s/p cochlear implant. Pt notes that during an episode, she feels like she has just disembarked an extended plane ride, feels unsteady. Worse with anxiety. No other triggering factors. Feels better when up walking around or sitting. Was seen by Dr Moses, ENT, reports her exam was unremarkable. Treatment Goals Patient/Caregiver Goals Decrease subjective complaints of vertigo Personal Factors Other Personal Factors That May Effect Cochlear implant Therapy/Recovery PT-OP-C Subjective Start: 02/21/24 17:06 Freq: Status: Active Protocol: Document 04/21/24 14:32 DCW (Rec: 04/21/24 15:14 DCW [id number]) OP-PT Subjective Patient Comments Patient Comments Pt feeling okay right now, deniesany dizziness. PT-OP-O Vestibular Start: 02/21/24 17:06 Freq: Status: Active Protocol: Document 04/19/24 14:30 DCW (Rec: 04/19/24 14:39 DCW [id number]) Vestibular Assessment Vestibular Function Tests CTSIB Position 1 30 Seconds - Minimal Sway CTSIB Position 2 30 Seconds - Minimal Sway CTSIB Position 3 30 Seconds - Minimal Sway CTSIB Position 4 30 Seconds - Mild Sway CTSIB Position 5 Fall Reaction CTSIB Position 6 30 Seconds - Minimal Sway PT-OP-Q Treatments Start: 02/21/24 17:06 Freq: Status: Active Protocol: Document 04/21/24 14:32 DCW (Rec: 04/21/24 15:14 DCW [id number]) Gym Equipment Shuttle Balance 1 Details Red Comments WBOS (EO/EC), Staggered (head turns) Therapeutic Exercises Standing Exercises Step-ups Standing Exercise Name Step-ups Side bilateral Equipment Used 6 Neuro Re-Education Treatment Balance Activities [place] and Head Turns Details 3-step, bow /c head turns Hurdles Details Hurdles/Foam Equipment CGA Comments Forward, Side-stepping Foam Details SLS Surface Green foam Dynamic gait Details Hallway ambulation Comments Horizontal/Vertical head turns Tandem Ambulation Retro Ambulation PT-OP-T Assessment and Plan Start: 02/21/24 17:06 Freq: Status: Active Protocol: Document 04/21/24 14:32 DCW (Rec: 04/21/24 15:14 DCW [id number]) Physical Therapy Assessment Impairments Impairments Balance,Functional Activities, Functional Mobility,Gait, Vestibular Goals Two Impairment Pt scores a 22/64 on the Falls Efficacy Scale - International Short Term Goal (STG) Pt to reduce FES-I score by at least 4 points to 18/64 STG Duration 05/27/24 One Impairment Pt reports subjective symptoms of unsteadiness/dizziness daily Copying Machine Mechanic Goal (LTG) Pt to present with reports of no symptoms of dizziness or imbalance for two full weeks LTG Duration 05/27/24 Assessment Summary Assessment Pt tolerated treatment well, showing good improvements with stability during dynamic balance challenges. Physical Therapy Plan Frequency and Duration Frequency of Treatment 2x/Week Plan of Care Start Date 04/19/24 Plan of Care End Date 05/27/24 Therapeutic Interventions Therapeutic Interventions Balance Training,Canalithic Repositioning,Home Exercise Program,Manual Therapy, Neuromuscular Re-education, Patient/Caregiver Education, Self-Care/Home Management, Therapeutic Activities, Therapeutic Exercises Next Visit Focus/Plan Next Note Type Treatment Note Next Visit Plan Vestibular rehab
--- NOTE | 2024-04-24 11:34 | PT.OTN ---
Current Diagnoses Unsteadiness on feet (04/24/24) Dizziness and giddiness (04/24/24) Physical Therapy Treatment Note PT-OP-A Visit Information Start: 02/21/24 17:06 Freq: Status: Active Protocol: Document 04/24/24 10:49 DCW (Rec: 04/24/24 11:33 DCW [id number]) Out-Patient Physical Therapy Visit Information Visit Information Visit Type Treatment Note Visit Start Time 10:49 Visit Stop Time 11:30 Visit Number 12 Number of DEMURRAGE MAN Visits 0 Evaluation Information Evaluation Date 02/21/24 PT-OP-B Current Condition Start: 02/21/24 17:06 Freq: Status: Active Protocol: Document 02/21/24 13:55 DCW (Rec: 02/21/24 17:53 DCW [id number]) Current Condition History of Current Condition Onset Date Two month history Current Complaints Feeling of unsteadiness History of Current Condition Pt is an 88 year old female presenting with a two month history of complaints of dizziness/instability. Pt is ~ one year s/p cochlear implant. Pt notes that during an episode, she feels like she has just disembarked an extended plane ride, feels unsteady. Worse with anxiety. No other triggering factors. Feels better when up walking around or sitting. Was seen by Dr Moses, ENT, reports her exam was unremarkable. Treatment Goals Patient/Caregiver Goals Decrease subjective complaints of vertigo Personal Factors Other Personal Factors That May Effect Cochlear implant Therapy/Recovery PT-OP-C Subjective Start: 02/21/24 17:06 Freq: Status: Active Protocol: Document 04/24/24 10:49 DCW (Rec: 04/24/24 11:33 DCW [id number]) OP-PT Subjective Patient Comments Patient Comments Pt woke up this morning with a bit of a headache. PT-OP-O Vestibular Start: 02/21/24 17:06 Freq: Status: Active Protocol: Document 04/19/24 14:30 DCW (Rec: 04/19/24 14:39 DCW [id number]) Vestibular Assessment Vestibular Function Tests CTSIB Position 1 30 Seconds - Minimal Sway CTSIB Position 2 30 Seconds - Minimal Sway CTSIB Position 3 30 Seconds - Minimal Sway CTSIB Position 4 30 Seconds - Mild Sway CTSIB Position 5 Fall Reaction CTSIB Position 6 30 Seconds - Minimal Sway PT-OP-Q Treatments Start: 02/21/24 17:06 Freq: Status: Active Protocol: Document 04/24/24 10:49 DCW (Rec: 04/24/24 11:33 DCW [id number]) Gym Equipment Shuttle Balance 1 Details Red Comments WBOS, Staggered, Lateral weight shift Therapeutic Exercises Standing Exercises Step-ups Standing Exercise Name Lateral Step-ups Side bilateral Equipment Used 6 Neuro Re-Education Treatment Balance Activities [place] and Head Turns Details 3-step, bow /c head turns BOSU Details BOSU Surface Blue BOSU SLS Details SLS Hurdles Details Hurdles Equipment CGA Comments Forward, Side-stepping Dynamic gait Details Hallway ambulation Comments Horizontal/Vertical head turns Tandem Ambulation Retro Ambulation PT-OP-T Assessment and Plan Start: 02/21/24 17:06 Freq: Status: Active Protocol: Document 04/24/24 10:49 DCW (Rec: 04/24/24 11:33 DCW [id number]) Physical Therapy Assessment Impairments Impairments Balance,Functional Activities, Functional Mobility,Gait, Vestibular Goals Two Impairment Pt scores a 22/64 on the Falls Efficacy Scale - International Short Term Goal (STG) Pt to reduce FES-I score by at least 4 points to 18/64 STG Duration 05/27/24 One Impairment Pt reports subjective symptoms of unsteadiness/dizziness daily Senior Care Goal (LTG) Pt to present with reports of no symptoms of dizziness or imbalance for two full weeks LTG Duration 05/27/24 Assessment Summary Assessment Pt felt more optimistic today, wants to start doing step-ups at home. Continue to focus on dynamic balance challenges. Physical Therapy Plan Frequency and Duration Frequency of Treatment 2x/Week Plan of Care Start Date 04/19/24 Plan of Care End Date 05/27/24 Therapeutic Interventions Therapeutic Interventions Balance Training,Canalithic Repositioning,Home Exercise Program,Manual Therapy, Neuromuscular Re-education, Patient/Caregiver Education, Self-Care/Home Management, Therapeutic Activities, Therapeutic Exercises Next Visit Focus/Plan Next Note Type Treatment Note Next Visit Plan Vestibular rehab
--- NOTE | 2024-05-03 16:58 | PT.OTN ---
Current Diagnoses Unsteadiness on feet (05/03/24) Dizziness and giddiness (05/03/24) Physical Therapy Treatment Note PT-OP-A Visit Information Start: 02/21/24 17:06 Freq: Status: Active Protocol: Document 05/03/24 16:15 DCW (Rec: 05/03/24 16:57 DCW [id number]) Out-Patient Physical Therapy Visit Information Visit Information Visit Type Treatment Note Visit Start Time 16:15 Visit Stop Time 17:00 Visit Number 13 Number of COUNSELLING PSYCHOLOGIST Visits 0 Evaluation Information Evaluation Date 02/21/24 PT-OP-B Current Condition Start: 02/21/24 17:06 Freq: Status: Active Protocol: Document 02/21/24 13:55 DCW (Rec: 02/21/24 17:53 DCW [id number]) Current Condition History of Current Condition Onset Date Two month history Current Complaints Feeling of unsteadiness History of Current Condition Pt is an 88 year old female presenting with a two month history of complaints of dizziness/instability. Pt is ~ one year s/p cochlear implant. Pt notes that during an episode, she feels like she has just disembarked an extended plane ride, feels unsteady. Worse with anxiety. No other triggering factors. Feels better when up walking around or sitting. Was seen by Dr Moses, ENT, reports her exam was unremarkable. Treatment Goals Patient/Caregiver Goals Decrease subjective complaints of vertigo Personal Factors Other Personal Factors That May Effect Cochlear implant Therapy/Recovery PT-OP-C Subjective Start: 02/21/24 17:06 Freq: Status: Active Protocol: Document 05/03/24 16:15 DCW (Rec: 05/03/24 16:57 DCW [id number]) OP-PT Subjective Patient Comments Patient Comments It's pretty late, it's not a great time for me. PT-OP-O Vestibular Start: 02/21/24 17:06 Freq: Status: Active Protocol: Document 04/19/24 14:30 DCW (Rec: 04/19/24 14:39 DCW [id number]) Vestibular Assessment Vestibular Function Tests CTSIB Position 1 30 Seconds - Minimal Sway CTSIB Position 2 30 Seconds - Minimal Sway CTSIB Position 3 30 Seconds - Minimal Sway CTSIB Position 4 30 Seconds - Mild Sway CTSIB Position 5 Fall Reaction CTSIB Position 6 30 Seconds - Minimal Sway PT-OP-Q Treatments Start: 02/21/24 17:06 Freq: Status: Active Protocol: Document 05/03/24 16:15 DCW (Rec: 05/03/24 16:57 DCW [id number]) Gym Equipment Shuttle Balance 1 Details Red Comments WBOS (EO/EC), Staggered (head turns) Neuro Re-Education Treatment Balance Activities [employer] and Head Turns Details 3-step, bow /c head turns BOSU Details BOSU Surface Blue BOSU SLS Details SLS Foam Details NBOS, X1, EC Surface AirEx Dynamic gait Details Hallway ambulation Comments Horizontal/Vertical head turns Tandem Ambulation Retro Ambulation PT-OP-T Assessment and Plan Start: 02/21/24 17:06 Freq: Status: Active Protocol: Document 05/03/24 16:15 DCW (Rec: 05/03/24 16:57 [facility] [id number]) Physical Therapy Assessment Impairments Impairments Balance,Functional Activities, Functional Mobility,Gait, Vestibular Goals Two Impairment Pt scores a 22/64 on the Falls Efficacy Scale - International Short Term Goal (STG) Pt to reduce FES-I score by at least 4 points to 18/64 STG Duration 05/27/24 One Impairment Pt reports subjective symptoms of unsteadiness/dizziness daily Snf Goal (LTG) Pt to present with reports of no symptoms of dizziness or imbalance for two full weeks LTG Duration 05/27/24 Assessment Summary Assessment Pt struggled some more with balance today, felt fairly fatigued overall, may be due to the later appointment start time today. Physical Therapy Plan Frequency and Duration Frequency of Treatment 2x/Week Plan of Care Start Date 04/19/24 Plan of Care End Date 05/27/24 Therapeutic Interventions Therapeutic Interventions Balance Training,Canalithic Repositioning,Home Exercise Program,Manual Therapy, Neuromuscular Re-education, Patient/Caregiver Education, Self-Care/Home Management, Therapeutic Activities, Therapeutic Exercises Next Visit Focus/Plan Next Note Type Treatment Note Next Visit Plan Vestibular rehab
--- NOTE | 2024-05-10 11:33 | PT.OTN ---
Current Diagnoses Unsteadiness on feet (05/10/24) Dizziness and giddiness (05/10/24) Physical Therapy Treatment Note PT-OP-A Visit Information Start: 02/21/24 17:06 Freq: Status: Active Protocol: Document 05/10/24 10:52 DCW (Rec: 05/10/24 11:32 DCW [id number]) Out-Patient Physical Therapy Visit Information Visit Information Visit Type Treatment Note Visit Start Time 10:52 Visit Stop Time 11:30 Visit Number 14 Number of REHABILITATION WORKER Visits 0 Evaluation Information Evaluation Date 02/21/24 PT-OP-B Current Condition Start: 02/21/24 17:06 Freq: Status: Active Protocol: Document 02/21/24 13:55 DCW (Rec: 02/21/24 17:53 DCW [id number]) Current Condition History of Current Condition Onset Date Two month history Current Complaints Feeling of unsteadiness History of Current Condition Pt is an 88 year old female presenting with a two month history of complaints of dizziness/instability. Pt is ~ one year s/p cochlear implant. Pt notes that during an episode, she feels like she has just disembarked an extended plane ride, feels unsteady. Worse with anxiety. No other triggering factors. Feels better when up walking around or sitting. Was seen by Dr Moses, ENT, reports her exam was unremarkable. Treatment Goals Patient/Caregiver Goals Decrease subjective complaints of vertigo Personal Factors Other Personal Factors That May Effect Cochlear implant Therapy/Recovery PT-OP-C Subjective Start: 02/21/24 17:06 Freq: Status: Active Protocol: Document 05/10/24 10:52 DCW (Rec: 05/10/24 11:32 DCW [id number]) OP-PT Subjective Patient Comments Patient Comments Feeling better today than I was the last time I saw you. I 've been beating myself up about not being able to do what I think I should be able to , but I think I'm doing a little better with it. PT-OP-O Vestibular Start: 02/21/24 17:06 Freq: Status: Active Protocol: Document 04/19/24 14:30 DCW (Rec: 04/19/24 14:39 DCW [id number]) Vestibular Assessment Vestibular Function Tests CTSIB Position 1 30 Seconds - Minimal Sway CTSIB Position 2 30 Seconds - Minimal Sway CTSIB Position 3 30 Seconds - Minimal Sway CTSIB Position 4 30 Seconds - Mild Sway CTSIB Position 5 Fall Reaction CTSIB Position 6 30 Seconds - Minimal Sway PT-OP-Q Treatments Start: 02/21/24 17:06 Freq: Status: Active Protocol: Document 05/10/24 10:52 DCW (Rec: 05/10/24 11:32 DCW [id number]) Therapeutic Exercises Other Exercises Resisted Ambulation Other Exercise Name Resisted Side-stepping Neuro Re-Education Treatment Balance Activities Hurdles Details Hurdles/Foam Equipment CGA Comments Forward, Side-stepping Tandem Details Tandem Stance Equipment // bars Dynamic gait Details Hallway ambulation Comments Horizontal/Vertical head turns Tandem Ambulation Retro Ambulation PT-OP-T Assessment and Plan Start: 02/21/24 17:06 Freq: Status: Active Protocol: Document 05/10/24 10:52 DCW (Rec: 05/10/24 11:32 DCW [id number]) Physical Therapy Assessment Impairments Impairments Balance,Functional Activities, Functional Mobility,Gait, Vestibular Goals Two Impairment Pt scores a 22/64 on the Falls Efficacy Scale - International Short Term Goal (STG) Pt to reduce FES-I score by at least 4 points to 18/64 STG Duration 05/27/24 One Impairment Pt reports subjective symptoms of unsteadiness/dizziness daily Police Guard Goal (LTG) Pt to present with reports of no symptoms of dizziness or imbalance for two full weeks LTG Duration 05/27/24 Assessment Summary Assessment Pt performed much better today , more stability in tandem and while using shuttle balance. Continue to focus on static and dynamic balance challenges . Physical Therapy Plan Frequency and Duration Frequency of Treatment 2x/Week Plan of Care Start Date 04/19/24 Plan of Care End Date 05/27/24 Therapeutic Interventions Therapeutic Interventions Balance Training,Canalithic Repositioning,Home Exercise Program,Manual Therapy, Neuromuscular Re-education, Patient/Caregiver Education, Self-Care/Home Management, Therapeutic Activities, Therapeutic Exercises Next Visit Focus/Plan Next Note Type Treatment Note Next Visit Plan Vestibular rehab
--- NOTE | 2024-05-15 11:28 | PT.OTN ---
Current Diagnoses Unsteadiness on feet (05/15/24) Dizziness and giddiness (05/15/24) Physical Therapy Treatment Note PT-OP-A Visit Information Start: 02/21/24 17:06 Freq: Status: Active Protocol: Document 05/15/24 10:50 DCW (Rec: 05/15/24 11:28 DCW [id number]) Out-Patient Physical Therapy Visit Information Visit Information Visit Type Treatment Note Visit Start Time 10:50 Visit Stop Time 11:30 Visit Number 15 Number of WATCH TRAIN INSPECTOR Visits 0 Evaluation Information Evaluation Date 02/21/24 PT-OP-B Current Condition Start: 02/21/24 17:06 Freq: Status: Active Protocol: Document 02/21/24 13:55 DCW (Rec: 02/21/24 17:53 DCW [id number]) Current Condition History of Current Condition Onset Date Two month history Current Complaints Feeling of unsteadiness History of Current Condition Pt is an 88 year old female presenting with a two month history of complaints of dizziness/instability. Pt is ~ one year s/p cochlear implant. Pt notes that during an episode, she feels like she has just disembarked an extended plane ride, feels unsteady. Worse with anxiety. No other triggering factors. Feels better when up walking around or sitting. Was seen by Dr Moses, ENT, reports her exam was unremarkable. Treatment Goals Patient/Caregiver Goals Decrease subjective complaints of vertigo Personal Factors Other Personal Factors That May Effect Cochlear implant Therapy/Recovery PT-OP-C Subjective Start: 02/21/24 17:06 Freq: Status: Active Protocol: Document 05/15/24 10:50 DCW (Rec: 05/15/24 11:28 DCW [id number]) OP-PT Subjective Patient Comments Patient Comments I'm feeling wobbly today. PT-OP-O Vestibular Start: 02/21/24 17:06 Freq: Status: Active Protocol: Document 04/19/24 14:30 DCW (Rec: 04/19/24 14:39 DCW [id number]) Vestibular Assessment Vestibular Function Tests CTSIB Position 1 30 Seconds - Minimal Sway CTSIB Position 2 30 Seconds - Minimal Sway CTSIB Position 3 30 Seconds - Minimal Sway CTSIB Position 4 30 Seconds - Mild Sway CTSIB Position 5 Fall Reaction CTSIB Position 6 30 Seconds - Minimal Sway PT-OP-Q Treatments Start: 02/21/24 17:06 Freq: Status: Active Protocol: Document 05/15/24 10:50 DCW (Rec: 05/15/24 11:28 DCW [id number]) Gym Equipment Shuttle Balance 1 Details Red Comments WBOS (EO/EC), Staggered Therapeutic Exercises Standing Exercises Step-ups Standing Exercise Name Step-ups Side bilateral Equipment Used 6 Other Exercises Resisted Ambulation Other Exercise Name Resisted Side-stepping Resistance Green Neuro Re-Education Treatment Balance Activities Hurdles Details Hurdles/Foam Equipment CGA Comments Forward, Tandem, Side-stepping Tandem Details Tandem Stance Equipment // bars Dynamic gait Details Hallway ambulation Comments Horizontal/Vertical head turns Tandem Ambulation Retro Ambulation PT-OP-T Assessment and Plan Start: 02/21/24 17:06 Freq: Status: Active Protocol: Document 05/15/24 10:50 DCW (Rec: 05/15/24 11:28 DCW [id number]) Physical Therapy Assessment Impairments Impairments Balance,Functional Activities, Functional Mobility,Gait, Vestibular Goals Two Impairment Pt scores a 22/64 on the Falls Efficacy Scale - International Short Term Goal (STG) Pt to reduce FES-I score by at least 4 points to 18/64 STG Duration 05/27/24 One Impairment Pt reports subjective symptoms of unsteadiness/dizziness daily Station Detective Goal (LTG) Pt to present with reports of no symptoms of dizziness or imbalance for two full weeks LTG Duration 05/27/24 Assessment Summary Assessment Pt continues to vary visit to visit, had a little bit more difficulty today than last week, but still showing general improvement. Continues to work on balance challenges and vestibular exercises. Physical Therapy Plan Frequency and Duration Frequency of Treatment 2x/Week Plan of Care Start Date 04/19/24 Plan of Care End Date 05/27/24 Therapeutic Interventions Therapeutic Interventions Balance Training,Canalithic Repositioning,Home Exercise Program,Manual Therapy, Neuromuscular Re-education, Patient/Caregiver Education, Self-Care/Home Management, Therapeutic Activities, Therapeutic Exercises Next Visit Focus/Plan Next Note Type Treatment Note Next Visit Plan Vestibular rehab
--- NOTE | 2024-05-22 11:30 | PT.OTN ---
Current Diagnoses Unsteadiness on feet (05/22/24) Dizziness and giddiness (05/22/24) Physical Therapy Treatment Note PT-OP-A Visit Information Start: 02/21/24 17:06 Freq: Status: Active Protocol: Document 05/22/24 10:45 DCW (Rec: 05/22/24 11:29 DCW [id number]) Out-Patient Physical Therapy Visit Information Visit Information Visit Type Treatment Note Visit Start Time 10:45 Visit Stop Time 11:30 Visit Number 16 Number of DIESEL CRANE OPERATOR Visits 0 Evaluation Information Evaluation Date 02/21/24 PT-OP-B Current Condition Start: 02/21/24 17:06 Freq: Status: Active Protocol: Document 02/21/24 13:55 DCW (Rec: 02/21/24 17:53 DCW [id number]) Current Condition History of Current Condition Onset Date Two month history Current Complaints Feeling of unsteadiness History of Current Condition Pt is an 88 year old female presenting with a two month history of complaints of dizziness/instability. Pt is ~ one year s/p cochlear implant. Pt notes that during an episode, she feels like she has just disembarked an extended plane ride, feels unsteady. Worse with anxiety. No other triggering factors. Feels better when up walking around or sitting. Was seen by Dr Moses, ENT, reports her exam was unremarkable. Treatment Goals Patient/Caregiver Goals Decrease subjective complaints of vertigo Personal Factors Other Personal Factors That May Effect Cochlear implant Therapy/Recovery PT-OP-C Subjective Start: 02/21/24 17:06 Freq: Status: Active Protocol: Document 05/22/24 10:45 DCW (Rec: 05/22/24 11:29 DCW [id number]) OP-PT Subjective Patient Comments Patient Comments Pt reports she is doing fairly well today. PT-OP-O Vestibular Start: 02/21/24 17:06 Freq: Status: Active Protocol: Document 04/19/24 14:30 DCW (Rec: 04/19/24 14:39 DCW [id number]) Vestibular Assessment Vestibular Function Tests CTSIB Position 1 30 Seconds - Minimal Sway CTSIB Position 2 30 Seconds - Minimal Sway CTSIB Position 3 30 Seconds - Minimal Sway CTSIB Position 4 30 Seconds - Mild Sway CTSIB Position 5 Fall Reaction CTSIB Position 6 30 Seconds - Minimal Sway PT-OP-Q Treatments Start: 02/21/24 17:06 Freq: Status: Active Protocol: Document 05/22/24 10:45 DCW (Rec: 05/22/24 11:29 DCW [id number]) Gym Equipment Shuttle Balance 1 Details Red Comments WBOS (EO/EC), Staggered, Lateral Therapeutic Exercises Other Exercises Resisted Ambulation Other Exercise Name Resisted Side-stepping, Forward, Backward Resistance Green Neuro Re-Education Treatment Balance Activities [place] and Head Turns Details 3-step, bow /c head turns SLS Details SLS Surface AirEx Hurdles Details Hurdles/Foam Equipment CGA Comments Forward, Tandem, Side-stepping Dynamic gait Details Hallway ambulation Comments Horizontal/Vertical head turns Tandem Ambulation Retro Ambulation PT-OP-T Assessment and Plan Start: 02/21/24 17:06 Freq: Status: Active Protocol: Document 05/22/24 10:45 DCW (Rec: 05/22/24 11:29 DCW [id number]) Physical Therapy Assessment Impairments Impairments Balance,Functional Activities, Functional Mobility,Gait, Vestibular Goals Two Impairment Pt scores a 22/64 on the Falls Efficacy Scale - International Short Term Goal (STG) Pt to reduce FES-I score by at least 4 points to 18/64 STG Duration 05/27/24 One Impairment Pt reports subjective symptoms of unsteadiness/dizziness daily Back Strip Machine Operator Goal (LTG) Pt to present with reports of no symptoms of dizziness or imbalance for two full weeks LTG Duration 05/27/24 Assessment Summary Assessment Pt feeling better today. Likely approaching discharge to [facility] following last scheduled visit. Physical Therapy Plan Frequency and Duration Frequency of Treatment 2x/Week Plan of Care Start Date 04/19/24 Plan of Care End Date 05/27/24 Therapeutic Interventions Therapeutic Interventions Balance Training,Canalithic Repositioning,Home Exercise Program,Manual Therapy, Neuromuscular Re-education, Patient/Caregiver Education, Self-Care/Home Management, Therapeutic Activities, Therapeutic Exercises Next Visit Focus/Plan Next Note Type Discharge Summary Next Visit Plan Vestibular rehab
--- NOTE | 2024-05-24 11:29 | PT.OTN ---
Current Diagnoses Unsteadiness on feet (05/24/24) Dizziness and giddiness (05/24/24) Physical Therapy Treatment Note PT-OP-A Visit Information Start: 02/21/24 17:06 Freq: Status: Active Protocol: Document 05/24/24 10:45 DCW (Rec: 05/24/24 11:29 DCW [id number]) Out-Patient Physical Therapy Visit Information Visit Information Visit Type Discharge Summary Visit Start Time 10:45 Visit Stop Time 11:30 Visit Number 17 Number of MENTAL HEALTH COORDINATOR Visits 0 Evaluation Information Evaluation Date 02/21/24 PT-OP-B Current Condition Start: 02/21/24 17:06 Freq: Status: Active Protocol: Document 02/21/24 13:55 DCW (Rec: 02/21/24 17:53 DCW [id number]) Current Condition History of Current Condition Onset Date Two month history Current Complaints Feeling of unsteadiness History of Current Condition Pt is an 88 year old female presenting with a two month history of complaints of dizziness/instability. Pt is ~ one year s/p cochlear implant. Pt notes that during an episode, she feels like she has just disembarked an extended plane ride, feels unsteady. Worse with anxiety. No other triggering factors. Feels better when up walking around or sitting. Was seen by Dr Moses, ENT, reports her exam was unremarkable. Treatment Goals Patient/Caregiver Goals Decrease subjective complaints of vertigo Personal Factors Other Personal Factors That May Effect Cochlear implant Therapy/Recovery PT-OP-C Subjective Start: 02/21/24 17:06 Freq: Status: Active Protocol: Document 05/24/24 10:45 DCW (Rec: 05/24/24 11:29 DCW [id number]) OP-PT Subjective Patient Comments Patient Comments Pt just a little off today PT-OP-O Vestibular Start: 02/21/24 17:06 Freq: Status: Active Protocol: Document 04/19/24 14:30 DCW (Rec: 04/19/24 14:39 DCW [id number]) Vestibular Assessment Vestibular Function Tests CTSIB Position 1 30 Seconds - Minimal Sway CTSIB Position 2 30 Seconds - Minimal Sway CTSIB Position 3 30 Seconds - Minimal Sway CTSIB Position 4 30 Seconds - Mild Sway CTSIB Position 5 Fall Reaction CTSIB Position 6 30 Seconds - Minimal Sway PT-OP-Q Treatments Start: 02/21/24 17:06 Freq: Status: Active Protocol: Document 05/24/24 10:45 DCW (Rec: 05/24/24 11:29 DCW [id number]) Gym Equipment Shuttle Balance 1 Details Red Comments WBOS (EO/EC), Staggered, Lateral Neuro Re-Education Treatment Balance Activities Connoquenessing and Head Turns Details 3-step, bow /c head turns SLS Details SLS Surface AirEx Hurdles Details Hurdles/Foam Equipment CGA Comments Forward, Tandem, Side-stepping Tandem Details Tandem Stance Equipment // bars Dynamic gait Details Hallway ambulation Comments Horizontal/Vertical head turns Tandem Ambulation Retro Ambulation PT-OP-T Assessment and Plan Start: 02/21/24 17:06 Freq: Status: Active Protocol: Document 05/24/24 10:45 DCW (Rec: 05/24/24 11:29 DCW [id number]) Physical Therapy Assessment Impairments Impairments Balance,Functional Activities, Functional Mobility,Gait, Vestibular Goals Two Impairment Pt scores a 22/64 on the Falls Efficacy Scale - International Short Term Goal (STG) Pt to reduce FES-I score by at least 4 points to 18/64 STG Duration 05/27/24 One Impairment Pt reports subjective symptoms of unsteadiness/dizziness daily Longterm Goal (LTG) Pt to present with reports of no symptoms of dizziness or imbalance for two full weeks LTG Duration 05/27/24 Assessment Summary Assessment Pt feels agreeable to discharge to [facility] at this time. Pt feeling her balance has improved, symptoms are less frequent and less severe. Physical Therapy Plan Frequency and Duration Frequency of Treatment 2x/Week Plan of Care Start Date 04/19/24 Plan of Care End Date 05/27/24 Therapeutic Interventions Therapeutic Interventions Balance Training,Canalithic Repositioning,Home Exercise Program,Manual Therapy, Neuromuscular Re-education, Patient/Caregiver Education, Self-Care/Home Management, Therapeutic Activities, Therapeutic Exercises Discharge Physical Therapy Discharge Reasons Plateau in Progress Next Visit Focus/Plan Next Note Type Discharge Summary
== END 2024-05-25 13:51 | disposition home or self-care (01) ==
LOC: PHYS 10:45
PROVIDERS: Family Provider Nurse Practitioner; PCP Family Medicine; Referring Provider Family Medicine; Visit Provider Family Medicine
DX: R42 Dizziness and giddiness (principal); R26.81 Unsteadiness on feet
CPT/HCPCS: 97110; 97112; 97162

== ENCOUNTER → 2024-06-29 13:52 | Outpatient (CLI) | payer MEDICARE, SELFPAY ==
[2023-10-28 08:01] VITALS: BMI 17.2
[2024-06-29 14:48] LABS: Blood Urea Nitrogen 22 mg/dL (7-17); Calcium 11.3 mg/dL (8.4-10.2); Carbon Dioxide 29 mmol/L (22-32); Chloride 104 mmol/L (98-107); Estimated Glomerular Filt Rate > 60 mL/min (>60); Glucose 97 mg/dL (80-110); HEMOLYSIS < 15 (0-50); Potassium 5.2 mmol/L (3.4-5.1); Sodium 141 mmol/L (137-145)
[2024-06-29 15:14] LABS: Vitamin D 25 Hydroxy (D3) 93.9 ng/mL (30.0-100.0)
[2024-06-30 16:36] LABS: Ionized Calcium 5.8 mg/dL (4.5-5.6)
[2024-07-01 03:12] LABS: Parathyroid Hormone Int 42 pg/mL (15-65)
== END ==
LOC: LAB 13:53
PROVIDERS: Family Provider Nurse Practitioner; PCP Family Medicine; Referring Provider Family Medicine; Visit Provider Family Medicine
DX: E83.52 Hypercalcemia (principal)
CPT/HCPCS: 36415; 80048; 82306; 82330; 83883; 83970; 84155; 84165

== ENCOUNTER → 2024-07-31 13:17 | Outpatient (CLI) | payer MEDICARE, SELFPAY ==
[2023-10-28 08:01] VITALS: BMI 17.2
[2024-08-02 16:08] LABS: Free Kappa Lt Chains, Serum 22.4 mg/L (3.3-19.4); Free Lambda Lt Chains,Serum 15.5 mg/L (5.7-26.3)
[2024-08-03 12:35] LABS: Albumin 3.8 g/dL (2.9-4.4); Alpha-1-Globulin 0.2 g/dL (0.0-0.4); Alpha-2-Globulin 0.7 g/dL (0.4-1.0); Gamma Globulin 1.1 g/dL (0.4-1.8); Globulin Total 3.1 g/dL (2.2-3.9); Protein, Total 6.9 g/dL (6.0-8.5)
== END ==
PROVIDERS: Family Provider Nurse Practitioner; PCP Family Medicine; Referring Provider Family Medicine; Visit Provider Family Medicine
DX: E83.52 Hypercalcemia (principal)
CPT/HCPCS: 36415; 83883; 84155; 84165